=== PATIENT | female | born 1995 | race Caucasian/White ===

== ENCOUNTER → 2018-09-16 15:52 | Outpatient (CLI) | payer OTHER, SELFPAY ==
--- OUTSIDE RECORDS SUMMARY | 2018-09-16 19:53 | XMS RPT_ITS | CCD ---
:1995 External Reference #:[id number] Author Organization [facility] Care Team Providers Name Role Phone Unavailable Unavailable Unavailable Medications Medication Name Sig Date Prescriber Location Lactate ammonium lactate 03-27-[address] [facility] (LAC-HYDRIN) 12 % CENTER (26603) Lotion lotion Indications: Contact dermatitis, unspecified contact dermatitis type, unspecified trigger rub in to affected area well as needed. 567 g 1 03/27/2017 Active Problems Active Problems Category Problem Name Status Date Location Unclassified Rash / [id number]() Active 03-27-2017 - [facility] (81504) Past or Other Problems Category Problem Name Status Date Location Residual codes; BRCA2 gene mutation Completed 09-09-[address] - [facility] unclassified positive CENTER (16696) Unclassified Rash 03-27-2017 - [facility] (73167) Results Result Name Value Range Unit Interpretation Flag Date Location chlam and gonorrhea:amp, cervix -uhe on 2018-08-21 Chlam and Gonorrhea:Amp, Negative Normal 08-21-2018 [facility] Cervix -UHE Negative [facility] This test was performed using a real time PCR assay. 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 Rec. #: [id number] Center ([id number]) Submitting Physician: WAYNE NEIL Clinical History: Date of Last Menstrual Period: 07/28/18 Treatment History: HPV HR with genotype if ASCUS Z12.4 Source of Specimen(s): A: Cervical/Endocervical, Liquid Based, ThinPrep Pap Stain x 1 Statement of Adequacy: Satisfactory For Evaluation; Endocervical/Transformation Zone Component Present. ---Cytologic Interpretation--- - Negative For Intraepithelial Lesion Or Malignancy. - Shift in Eloisa Suggestive of Bacterial Vaginosis. - HPV Testing Was Not Performed Due To The Results Of This Pap Test. This Pap Test was imaged with the assistance of the [employer] ThinPrep Imaging System and screened by a Fitness Services Manager dws/DWS:08/28/2018 Electronically Signed Out By YASMANI Pacheco (ASCP) Comment: Performed By: #### THINP #### [facility] [address] [place] [address] [address] [place] [address] progress on 2017-11-20 Protein mass HNO ID: [id number]: Normal 11-20-2017 [facility] Zahira Johnsone: [place] ([id number]) (none)Author Type: PhysicianType: Progress NotesFiled: 11/27/2017 7:38 AMNote Text:Dermatology E-Consult Provider NoteReason for Dermatology E-Consult: rashHPI:History of present illness provided by patient via Express Caredocumentation and current treatment plan was reviewed.Additional pertinent history obtained from patient chart after theE-Consult submission: noMedications and allergies: Verified by patient and reviewed by [facility] provider.Physical Exam:Number of clinical photos submitted by [facility] provider: 2Clinical photo(s) quality: SatisfactoryDescription of skin findings: b/l medial shins with annular pink plaqueswith faint overlying white scaleLabs reviewed: N/AAssessment:Based on the images and history provided, my impression is as follows:Agree with clinician's assessment of tinea corporis.Agree with current treatment plan as well with terbinafine topicallyhowever would use for extended time over 6 weeks.If no improvement after 8 weeks then follow up in dermatology forevaluation (call [phone])Patient history and photos were reviewed and recommendations developedtogether with dermatology staff: Dr. Zahira Hooper MDI have seen the photos of Ms Sen. I have discussed the case and themanagement of this patient's care with the Resident.I also have reviewed and agree with the assessment and plan as statedabove and agree with all of its relevant components.Zahira Carrizales MD progress on 2017-11-17 Protein mass HNO ID: [id number]: Davonte [place] 11-17-2017 [place] conc (Security Developer) Sharron: (none)Author Clinic Type: Nurse PractitionerType: [place] Progress NotesFiled: 11/17/2017 ([id number]) 2:15 PMNote Text:SubjectiveHPI Anju Sen is a 22 year old female who presents today for CC ofrash on back. This started 3 months ago. Has tried topical benadryl.Symptoms are worsened by nothing known. Risk factors none known. Deniespossibility of being ..Patient presents with:Rash on legs and back: started in August, doesn't itch, not painfulNo past medical history on file.No past surgical history on file.ALLERGIES Patient has no known allergies.MEDICATIONS No prescriptions on file.No family history on file.Social HistorySubstance Use Topics- Smoking status: Current Every Day Smoker- Smokeless tobacco: Never Used- Alcohol use Not on fileReview of SystemsConstitutional: Negative for chills, fever and malaise/fatigue.Respiratory: Negative for cough, shortness of breath and wheezing.Cardiovascular: Negative for chest pain.Skin: Negative for itching and rash.Neurological: Positive for headaches. Negative for dizziness.ObjectiveBlood pressure 116/74, pulse 68, temperature 36.6 ?C (97.9 ?F),temperature source Tympanic, resp. rate 16, weight 71.2 kg (157 lb), lastmenstrual period 11/05/2017.Physical ExamConstitutional: She is oriented to person, place, and time andwell-developed, well-nourished, and in no distress. Non-toxic appearance.She does not have a sickly appearance. No distress.HENT:Head: Normocephalic and atraumatic.Cardiovascular: Normal rate, regular rhythm, S1 normal, S2 normal andnormal heart sounds.Pulmonary/Chest: Effort normal and breath sounds normal.Neurological: She is alert and oriented to person, place, and time. Gaitnormal.Skin: She is not diaphoretic. ASSESSMENT/PLAN:1. Rash - ICD9: 782.1, ICD10: R21-use medication as prescribed-will try round of terbinafine, patient concerned for ringworm, notclassic.-follow up if symptoms persist, worsen, change-will call results of dermatology consult, they may contact you.-discussed establishing with primary care, patient declined for today- TERBINAFINE HCL 1 % TOPICAL CREAMPrescription instructions reviewed with patient as applicable. Patientadvised if symptoms do not improve or if symptoms worsen sooner, tocontact the office for further evaluation by their primary care physician. Potential red flag symptoms discussed with the patient. Reviewedappropriate action plan to take if red flag symptoms occur. Patientagreeable to treatment plan.MARIO Alex on 2017-11-17 CNOV Office Visit Normal 11-17-2017 [place] ([facility]) ANJU SEN ([id number]) 1995 FDate Time Provider Department11/17/17 12:15 PM DAVONTE DANG (EVELIO) [facility] During your visit today, we recorded the following information about you: Temperature Pulse (34085) Respiration Blood pressure 97.9 degrees 68/minute 16/minute 116/74 Weight Last Period 71.2 kg 11/05/17Davonte Dang APRN.CNP 11/17/2017 2:15 PM SignedSubjectiveHPI Anju Sen is a 22 year old female who presents today for CC of christiano back. This started 3 months ago. Has tried topical benadryl. Symptoms areworsened by nothing known. Risk factors none known. Denies possibility ofbeing ..Patient presents with:Rash on legs and back: started in August, doesn't itch, not painfulNo past medical history on file.No past surgical history on file.ALLERGIES Patient has no known allergies.MEDICATIONS No prescriptions on file.No family history on file.Social HistorySubstance Use Topics- Smoking status: Current Every Day Smoker- Smokeless tobacco: Never Used- Alcohol use Not on fileReview of SystemsConstitutional: Negative for chills, fever and malaise/fatigue.Respiratory: Negative for cough, shortness of breath and wheezing.Cardiovascular: Negative for chest pain.Skin: Negative for itching and rash.Neurological: Positive for headaches. Negative for dizziness.ObjectiveBlood pressure 116/74, pulse 68, temperature 36.6 ?C (97.9 ?F), temperaturesource Tympanic, resp. rate 16, weight 71.2 kg (157 lb), last menstrual [id number]/05/2017.Physical ExamConstitutional: She is oriented to person, place, and time and well-developed,well-nourished, and in no distress. Non-toxic appearance. She does not have asickly appearance. No distress.HENT:Head: Normocephalic and atraumatic.Cardiovascular: Normal rate, regular rhythm, S1 normal, S2 normal and normalheart sounds.Pulmonary/Chest: Effort normal and breath sounds normal.Neurological: She is alert and oriented to person, place, and time. Gaitnormal.Skin: She is not diaphoretic. ASSESSMENT/PLAN:1. Rash - ICD9: 782.1, ICD10: R21-use medication as prescribed-will try round of terbinafine, patient concerned for ringworm, not classic.-follow up if symptoms persist, worsen, change- will call results of dermatology consult, they may contact you.-discussed establishing with primary care, patient declined for today- TERBINAFINE HCL 1 % TOPICAL CREAMPrescription instructions reviewed with patient as applicable. Patient advisedif symptoms do not improve or if symptoms worsen sooner, to contact the officefor further evaluation by their primary care physician. Potential red flagsymptoms discussed with the patient. Reviewed appropriate action plan to takeif red flag symptoms occur. Patient agreeable to treatment plan.Davonte Dang APRN.Scotty Dang APRN.CNP 11/17/2017 12:44 PM SignedASSESSMENT/PLAN:1. Rash - ICD9: 782.1, ICD10: R21-use medication as prescribed- follow up if symptoms persist, worsen, change-will call results of dermatology consult, they may contact you.- TERBINAFINE HCL 1 % TOPICAL CREAMReferring Provider: SELF [[id number]]Allergies As of Date: 11/17/2017(No Known Allergies)Date Reviewed: 11/17/2017Reviewed by: Davonte (Evelio) - Fully AssessedReason for Visit: Rash on legs and back [Other] Cmt: started in August, doesn't itch, not painfulPrimary Visit Diagnosis:Rash [R21]Order(s):terbinafine HCl (ANTIFUNGAL, TERBINAFINE,) 1 % creamApply 1 application to affected area twice daily for 14 days.Disp: 24 gRfl: 1 E-CONSULT DERMATOLOGY [1685851] Order #: [id number]: 1Prescriptions as of 11/17/2017 Sig: TERBINAFINE HCL 1 % TOPICAL C* Apply 1 application to affect*Problem List As Of Date: 11/17/2017(None) Other instructions from your clinician: ASSESSMENT/PLAN: 1. Rash - ICD9: 782.1, ICD10: R21 -use medication as prescribed -follow up if symptoms persist, worsen, change -will call results of dermatology consult, they may contact you. - TERBINAFINE HCL 1 % TOPICAL CREAMPrescriptions ordered this encounter Disp Refills Start End TERBINAFINE HCL 1 % TOPICAL CREAM 24 g 1 11/17/2017 12/01/2017 Route: TOPICAL Sig: Apply 1 application to affected area twice daily for 14 days. Status:Closed by DAVONTE DANG CNP on 11/17/17 progress on 2017-03-27 [facility] NOTES Normal 03-27-2017 [facility] ([id number]) progress on 2016-11-28 [facility] NOTES Normal 11-28-2016 [facility] (58328) Encounters Date Type Reason Provider Location 03-27-2017 Ambulatory Rash CHESTER RANGEL SELF [facility] SELF ([id number]) 11-28-2016 Ambulatory CHESTER RANGEL SELF [facility] SELF ([id number]) 11-17-2017 - Patient encounter [facility] 11-19-2017 [place] ([id number]) 08-19-2018 Patient encounter WAYNE NEIL SELF [facility] procedure SELF [facility] ([id number]) 07-21-2018 - Telephone encounter Chely Choudharylass [facility] at 07-21-2018 [facility] Comment: Insurance Plan of Treatment Plan Description Date Location INFLUENZA VACCINE INFLUENZA VACCINE 12-07-[address] 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 [address] [phone] Health Maintenance Due Date Last Done Comments GONORRHEA SCREEN 1995 HIV SCREENING DISCUSSION 2009 HPV VACCINE ADOL (1 - Female 3-dose series) 06/11/2011 CHLAMYDIA SCREEN 2012 TETANUS 2014 TDAP (ADULT) 06/11/2015 PAP SMEAR DISCUSSION 2017 INFLUENZA VACCINE (Season Ended) 2018 Payers Payer Name Policy Number Location [employer]ICAL [employer] xxxxxxxxxxxx [facility] ([id number]) MMO NETWORK ACCESS [id number] [facility] ([id number]) [id number] [facility] ([id number]) The following information is from the original human readable content Payer Benefit Plan / Subscriber ID Effective Dates Phone Address Type Group [employer] MMO NETWORK ACCESS xxxxxxxxxxxx 2010-Present [employer] MMO NETWORK ACCESS xxxxxxxxxxxx 2016-Present ENCOUNTER GUARANTOR PAYER SUBSCRIBER SOURCE 2018 ANJU KEONDOB: Primary DOM[facility] Insurance:MMO BABBSDOB: [facility] [facility] [id number] [place], [place] Number: [address] APT Repository [id number]: [phone] [id number] [place], [place] [address] (HP) e [phone]: [phone] Date:[id number] [id number] (HP) Name:MANAGED CARE Social History Type Social History Description Date Location Tobacco smoking status Current every day smoker 08-27-[address] [facility] ([id number]) Cigarettes smoked current 08-27-[address] [facility] (pack per day) - Reported CENTER (28805) Sex Assigned At Not on file [facility] ([id number]) The following information is from the original human readable content Tobacco Use Types Packs/Day Years Used Date Current Every Day Smoker 1 Smokeless Tobacco: Never Used Alcohol Use Drinks/Week oz/Week Comments No Sex Assigned at Date Recorded Not on file Job Start Date Occupation Industry Not on file Not on file Not on file Travel History Travel Start Travel End No recent travel history available. No Social History Records Found Summary Purpose DATE CREATED AUTHOR AUTHOR'S ORGANIZATION 10/01/2017 [facility] DATE CREATED AUTHOR AUTHOR'S ORGANIZATION 11/28/2017 [facility] Reason Comments Insurance DATE CREATED AUTHOR AUTHOR'S ORGANIZATION 09/07/2018 [facility] Family History No Family History Records Found Advance Directives No Advanced Directives Records Found Additional Source Comments FOR RECORDS PERTAINING TO PATIENTS WHO ARE OR HAVE BEEN ENROLLED IN A CHEMICAL DEPENDENCY/SUBSTANCE ABUSE PROGRAM, SOME INFORMATION MAY BE OMITTED. This clinical summary was aggregated from multiple sources. Caution should be exercised in using it in the provision of clinical care. This summary normalizes information from multiple sources, and as a consequence, information in this document may materially changethe coding, format and clinical context of patient data. In addition, data may be omittedin some cases. CLINICAL DECISIONS SHOULD BE BASED ON THE PRIMARY CLINICAL RECORDS. [facility] provides no warranty or guarantee of the accuracy or completeness of information in this document. UNRECOGNIZED CONTENT PROVIDED BELOW FOR UNRECOGNIZED SECTION INFORMATION SOURCE DATE CREATED AUTHOR AUTHOR'S ORGANIZATION 09/07/2018 [facility] DATE CREATED AUTHOR AUTHOR'S ORGANIZATION 11/28/2017 [facility] DATE CREATED AUTHOR AUTHOR'S ORGANIZATION 10/01/2017 [facility] UNRECOGNIZED CONTENT PROVIDED BELOW FOR UNRECOGNIZED SECTION Reason for Visit Reason Comments Insurance
[2018-09-16 20:52] LABS: Chlamydia Trachomatis by PCR Negative (Negative); Neisserai gonorrhoeae by PCR Negative (Negative); Probe Check PASS; Sample Adequacy Control PASS; Specimen Processing Control PASS
== END ==
PROVIDERS: Visit Provider Obstetrics & Gynecology
DX: Z11.3 Encounter for screening for infections with a predominantly sexual mode of transmission (principal)
CPT/HCPCS: 87491; 87591

== ENCOUNTER → 2018-10-07 14:40 | Outpatient (CLI) | payer OTHER, SELFPAY ==
--- OUTSIDE RECORDS SUMMARY | 2018-10-07 16:52 | XMS RPT_ITS | CCD ---
:1995 External Reference #:[id number] Author Organization [facility] Care Team Providers Name Role Phone CLAIRE, CHESTER Unavailable Unavailable SELF, SELF Unavailable Unavailable CLAIRE, CHESTER Unavailable Unavailable SELF, SELF Unavailable Unavailable Chester Rangel R Primary Care Provider RASHAAD Attending Unavailable SELF Referring Unavailable CLAIRE Primary Care Unavailable Medications Medication Name Sig Date Prescriber Location Lactate ammonium lactate 03-27-2017 Chester Rangel [facility] (LAC-HYDRIN) 12 % CENTER (43 210) Lotion lotion Indications: Contact dermatitis, unspecified contact dermatitis type, unspecified trigger rub in to affected area well as needed. 567 g 1 03/27/2017 Active Problems Active Problems Category Problem Name Status Date Location Unclassified Rash / 859749() Active 03-27-2017 - [facility] (87440) Past or Other Problems Category Problem Name Status Date Location Residual codes; BRCA2 gene mutation Completed 09-09-2017 - [facility] unclassified positive [facility] ([id number]) Unclassified Rash 03-27-2017 - [facility] (63727 ) Results Result Name Value Range Unit Interpretation Flag Date Location chlam and gonorrhea:amp, cervix -uhe on 2018-08-21 Chlam and Gonorrhea:Amp, Negative Normal 08-21 [facility] Cervix -UHE Negative [facility] This test was performed using a real time PCR assay. [facility] (74149) Comment: Performed By: #### RNABC ### # [place] [address] cytology - data specialist on Cytology - MANUSCRIPTS ARCHIVIST Cytology Report Normal 9 [facility] Patient Name: ANJU SEN [facility] Med. Rec. #: [id number] Center (17096) Submitting Physician: WAYNE VILLASEÑOR Clinical History: Date of Last Menstrual Period: 07/28/18 Treatment History: HPV HR with genotype if ASCUS Z12.4 Source of Specimen(s): A: Cervical/Endocervical, Liquid Based, ThinPrep Pap Stain x 1 Statement of Adequacy: Satisfactory For Evaluation; Endocervical/Transformation Zon e Component Present. ---Cytologic Interpretation--- - Negative For Intraepithelial Lesion Or Malignancy. - Shift in Eloisa Suggestive of Bacterial Vaginosis. - HPV Testing Was Not Performed Due To The Results Of This P ap Test. This Pap Test was imaged with the assistance of the [employer] ThinPrep Imaging System and screened by a Taxi Truck Driver dws/MAUROS:08/28/2018 Electronically Signed Out By YASMANI Pacheco (ASCP) * Comment: Performed By: #### THINP ### # [facility] [address] [place] [address] [place] [address] progress on 2017-11 Protein mass HNO ID: [id number]: Normal 0 11-20-2017 [facility] Zahira Johnsone: [place] ([id number]) (none)Author Type: PhysicianType: Progress NotesFiled: 11/27/2017 7:38 [...] then follow up in dermatology forevaluation (call [phone])Patient history and photos were reviewed and recommendations developedtogether with dermatology staff: Dr. Zahira Hooper MDI have seen the photos of Ms Sen. I have discussed the case and themanagement of this patient's care with the Resident.I also have reviewed and agree with the assessment and plan as statedabove and agree with all of its relevant components.Zahira Carrizales MD progress on 2017-11 Protein mass HNO ID: [id number]: Davonte Dawson rmal 11-17-2017 [place] conc (Senior Engineering Tech) KingService: (none)Author Clinic Type: Nurse PractitionerType: [place] Progress NotesFiled: 11/17/2017 (93393) 2:15 PMNote Text:SubjectiveHPI Anju Sen is a [...] on 2017-11-17 CNOV Office Visit Normal 11-17-2017 [place] and (UCWSTR) --------ANJU SEN ([id number]) 1995 FDat e Time Provider Department11/17/17 12:15 PM DAVONTE DANG (EVELIO) [facility] Clevel and During your visit today, we recorded the following information about you: Temperature Pulse (47419) Respiration Blood pressure 9 7.9 degrees 68/minute 16/minute 116/74 Weight Last Period 71.2 kg 11/05/17Davonte Dang APRN. CNP 11/17/2017 2:15 PM SignedSubjectiveHPI Anju Sen is a 22 year old female who presents today fo r CC of christiano back. This started 3 months ago. Has tried topical benadryl. Symptoms areworsen ed by nothing known. Risk factors none known. Denies possibility ofbeing ..Patient presents w ith:Rash on legs and back: started in August, doesn't itch, not painfulNo past medical history on file .No past surgical history on file.ALLERGIES Patient has no known allergies.MEDICATIONS No pre scriptions on file.No family history on file.Social HistorySubstance Use Topics- Smoking status: Curr ent Every Day Smoker- Smokeless tobacco: Never Used- Alcohol use Not on fileReview of SystemsConstit utional: Negative for chills, fever and malaise/fatigue.Respiratory: Negative for cough, shortnes s of breath and wheezing.Cardiovascular: Negative for chest pain.Skin: Negative for itching and gunner h.Neurological: Positive for headaches. Negative for dizziness.ObjectiveBlood pre ssure 116/74, pulse 68, temperature 36.6 ?C (97.9 ?F), temperaturesource Tympanic, resp. rate 16, sarai ght 71.2 kg (157 lb), last menstrual kgjffk6911/05/2017.Physical ExamConstitutional: She is o riented to person, place, and time and well-developed,well-nourished, and in no distress. Non-toxic ap pearance. She does not have asickly appearance. No distress.HENT:Head: Normocephalic and atraumatic .Cardiovascular: Normal rate, regular rhythm, S1 normal, S2 normal and normalheart sounds.Pulmonary /Chest: Effort normal and breath sounds normal.Neurological: She is alert and oriented to person, plac e, and time. Gaitnormal.Skin: She is not diaphoretic. ASSESSMENT/PLAN:1. Rash - ICD9: 782.1, ICD10: R 21-use medication as prescribed-will try round of terbinafine, patient concerned for ringworm, not classic.-follow up if symptoms persist, worsen, change-will call results of dermatology consult, they may contact you.-discussed establishing with primary care, patient declined for today- TERBINAF INE HCL 1 % TOPICAL CREAMPrescription instructions reviewed with patient as applicable. Patient advis edif symptoms do not improve or if symptoms worsen sooner, to contact the officefor further evaluation by their primary care physician. Potential red flagsymptoms discussed with the patient. Reviewed a ppropriate action plan to takeif red flag symptoms occur. Patient agreeable to treatment plan. Mara Alex APRN.CNP 11/17/2017 12:44 PM SignedASSESSMENT/PLAN:1. Gunner h - ICD9: 782.1, ICD10: R21-use medication as prescribed-follow up if symptoms persist, worsen, ch deedee-will call results of dermatology consult, they may contact you.- TERBINAFINE HCL 1 % TOPICAL CREAMReferring Provider: SELF [[id number]]Allergies As of Date: 11/17/2017(No Known Allergies)Date Reviewe d: 11/17/2017Reviewed by: Davonte (Evelio) - Fully AssessedReason for Visit: Rash on legs and back [Other] Cmt: started in August, doesn't itch, not painfulPrimary Visit Diagnosis:Rash [R21]Order(s) :terbinafine HCl (ANTIFUNGAL, TERBINAFINE,) 1 % creamApply 1 application to affected area twice daily for 14 days.Disp: 24 gRfl: 1 E-CONSULT DERMATOLOGY [[id number]] Order #: [id number]: 1Prescription s as of 11/17/2017 Sig: TERBINAFINE HCL 1 % TOPICAL C* Apply 1 application to affect*Problem List As Of Date: 11/17/2017(None) Other instructions from your clinician: ASSESSMENT/PLAN: 1. Rash - I CD9: 782.1, ICD10: R21 -use medication as prescribed -follow up if symptoms persist, worsen, golden mark -will call results of dermatology consult, they may contact you. - TERBINAFINE HCL 1 % TOPICAL CREAMPrescriptions ordered this encounter Disp Refills Start End TERBINAFINE HCL 1 % TOPICAL CREAM 24 g 1 11/17/2017 12/01/2017 Route: TOPICAL Sig: Apply 1 application to affected area twice daily for 14 days. Status:Closed by DAVONTE DANG CNP on 11/17/17 progress on 2017-03 [facility] Normal 03-27-2017 [facility] ([id number]) progress on 2016-11 [facility] Normal 11-28-2016 [facility] (13486) Encounters Date Type Reason Provider Location 03-27-2017 Ambulatory Rash CHESTER RANGEL SELF [facility] SELF ([id number]) 11-28-2016 Ambulatory CHESTER RANGEL SELF [facility] SELF ([id number]) 11-17-2017 - Patient encounter [facility] 11-19-2017 [place] (0000 0) 08-19-2018 Patient encounter WAYNE VILLASEÑOR SELF [facility] ([id number][facility] 07-21-2018 - Telephone encounter Chely Degroot [facility] 07-21[facility]2018 [facility] Comment: Insurance Plan of Treatment Plan Description Date Location INFLUENZA VACCINE INFLUENZA VACCINE 12-07-2018 [facility] ([facility] (Season Ended) [facility] ([id number]) Office Visit 07/22/2018 Office Visit 07-22-2018 [facility] Rashaad Wayne D, [facility] LAUNDRETTE OWNER-FIRE FIGHTERS DISPATCHER [address] [address] PAP SMEAR DISCUSSION PAP SMEAR DISCUSSION 2017 [facility] ([id number]) TDAP (ADULT) TDAP (ADULT) 06-11-2015 [facility] ([id number]) TETANUS TETANUS 2014 [facility] ([id number]) CHLAMYDIA SCREEN CHLAMYDIA SCREEN 2012 [facility] (45531) HPV VACCINE ADOL (1 - HPV VACCINE ADOL ( - 06-11-2011 [facility] Female 3-dose series) Female 3-dose series) CENT [facility] (52514) HIV SCREENING [facility] SCREENING DISCUSSION [facility] ([id number]) GONORRHEA SCREEN GONORRHEA SCREEN 1996 [facility] ([id number]) Payers Payer Name Policy Number Location MEDICAL MUTUAL xxxxxxxxxxxx [place] SEN [employer] [facility] ([id number][facility] MMO NETWORK ACCESS [id number] [facility] ([id number]) [id number] [facility] (22905) The following information is from the original human readable contentNo Payer Records FoundNo Payer Records FoundNo Payer Records Found Social History Type Social History Description Date Locat ion Tobacco smoking status Current every day smoker 08-27-2017 [facility] (74807) Cigarettes smoked current 08-27-2017 [facility] (pack per day) - Reported CENTER (13681) Sex Assigned At Not on file [facility] (57012) The following information is from the original human readable contentNo Social History Records FoundNo Social History Records FoundNo Social History Records FoundNo Social History Records FoundNo Social History Records Found Summary Purpose Family History No Family History Records FoundNo Family History Records FoundNo Family History Records Found Advance Directives No Advanced Directives Records FoundNo Advanced Directives Records FoundNo Advanced Directives Records Found Additional Source Comments [...] BE BASED ON THE PRIMARY CLINICAL RECORDS. [facility] provides no warranty or guarantee of the accuracy or completeness of information in this document. UNRECOGNIZED CONTENT PROVIDED BELOW FOR UNRECOGNIZED SECTION INFORMATION SOURCE DATE CREATED AUTHOR AUTHOR'S ORGANIZATIO N 10/01/2017 [facility] DATE CREATED AUTHOR AUTHOR'S ORGANIZATIO N 11/28/2017 [facility] DATE CREATED AUTHOR AUTHOR'S ORGANIZATIO N 09/07/2018 [facility] UNRECOGNIZED CONTENT PROVIDED BELOW FOR UNRECOGNIZED SECTION Reason for Visit Reason Comments Insurance
[2018-10-07 17:48] LABS: Absolute Lymphocyte Count 2.09 X10^3/ul (0.83-4.51); Absolute Neutrophil Count 6.8 X10^3/uL (2.0-7.7); Basophil# 0.02 X10^3/uL; Basophil% 0.2 % (0-1); Eosinophil# 0.04 X10^3/uL; Eosinophils% 0.4 % (0-5); Hematocrit 40.4 % (37-47); Hemoglobin 13.4 g/dl (12.0-15.0); Lymphocyte # 2.09 X10^3/ul (4.0); Lymphocyte % 21.4 % (19-41); Mean Corp Hgb Conc 33.2 g/gl (32-36); Mean Corpuscular Volume 81.5 fL (81-99); Monocyte% 8.2 % (0-10); Neutrophil # 6.79 X10^3/uL (2.7-7.7); Neutrophil % 69.5 % (47-70); Platelet Count 330 K/mm3 (150-450); RBC Distribution Width CV 13.1 % (11.6-14.6); RBC Distribution Width SD 38.6 fl (35.1-43.9); Red Blood Count 4.96 M/mm3 (4.2-5.4); White Blood Count 9.8 K/mm3 (4.4-11.0)
[2018-10-07 17:50] LABS: POSITIVE COUNT NO; POSITIVE DIFFERENTIAL NO; POSITIVE MORPHOLOGY NO
[2018-10-07 18:01] LABS: Color, Urine Yellow (Yellow); Glucose, Dipstick Normal (Normal); Ketone-Dipstick 5 mg/dl (Negative); Leukocyte Esterase-Dipstick 100 /ul (Negative); Nitrite-Dipstick Negative (Negative); Occult Blood-Urine 10 /ul (Negative); Protein-Dipstick 15 mg/dl (Negative); Urine Bilirubin Dipstick Negative (Negative); Urine Clarity Cloudy (Clear); Urine Urobilinogen Normal (Normal); Urine pH 6.5 (5.0 - 8.0)
[2018-10-07 18:04] LABS: Thyroid Stim Hormone (TSH) 0.75 uIU/mL (0.358-3.74)
[2018-10-07 18:24] LABS: Amphetamine Urine VISTA NEGATIVE (<1000 ng/mL); Barbiturate Urine VISTA NEGATIVE (< 200 ng/mL); Benzodiazepine Urine VISTA NEGATIVE (< 200 ng/mL); Cocaine Urine VISTA NEGATIVE (< 300 ng/mL); Ecstacy Urine VISTA NEGATIVE (< 500 ng/mL); Methadone Urine VISTA NEGATIVE (< 300 ng/mL); PCP Urine VISTA NEGATIVE (< 25 ng/mL); THC Urine VISTA NEGATIVE (< 50 ng/mL); Vista UDS pH Range 6
[2018-10-07 18:59] LABS: COTININE Drug Screen Negative (<200 ng/mL)
[2018-10-08 10:19] LABS: HIV - WCH Non-Reactive (Nonreactive); Hepatitis B Surface Antigen Non-Reactive (Nonreactive); Hepatitis C Antibody Non-Reactive (Nonreactive)
[2018-10-10 05:48] LABS: Prenatal RPR NONREACTIVE (NONREACTIVE)
== END ==
PROVIDERS: Visit Provider Obstetrics & Gynecology
DX: Z34.81 Encounter for supervision of other normal pregnancy, first trimester (principal)
CPT/HCPCS: 36415; 80307; 81002; 84443; 85025; 86703; 86762; 86803; 87340

== ENCOUNTER → 2019-02-10 09:25 | Outpatient (CLI) | payer OTHER, SELFPAY ==
[2019-02-10 10:39] LABS: Hematocrit 37.1 % (37-47); Hemoglobin 11.9 g/dL (12.0-15.0); Mean Corp Hgb Conc 32.1 g/dL (32-36); Mean Corpuscular Hgb 28.1 pg (27.0-32.0); Mean Corpuscular Volume 87.7 fL (81-99); Mean Platelet Vol. 10.4 fl (6.2-12.0); Platelet Count 315 K/mm3 (150-450); RBC Distribution Width CV 12.9 % (11.6-14.6); RBC Distribution Width SD 41.3 fl (35.1-43.9); Red Blood Count 4.23 M/mm3 (4.2-5.4); White Blood Count 10.3 K/mm3 (4.4-11.0)
[2019-02-10 10:45] LABS: Glucose Challenge Gest 1H 50g 144 mg/dL (70-140)
== END ==
PROVIDERS: Visit Provider Advanced Practice Midwife
DX: Z34.83 Encounter for supervision of other normal pregnancy, third trimester (principal)
CPT/HCPCS: 36415; 82950; 85027

== ENCOUNTER → 2019-02-12 06:54 | Outpatient (CLI) | payer OTHER, SELFPAY ==
[2019-02-12 08:47] LABS: Glucose GTT-Gestation. Fasting 77 mg/dL (<105)
[2019-02-12 08:51] LABS: Glucose GTT-Gestational 1 Hr 150 mg/dL (<190)
[2019-02-12 09:54] LABS: Glucose GTT-Gestational 2 Hr 107 mg/dL (<165)
[2019-02-12 10:56] LABS: Glucose GTT-Gestational 3 Hr 87 L (<145)
--- OUTSIDE RECORDS SUMMARY | 2019-02-24 18:52 | XMS RPT_ITS | CCD ---
:1995 External Reference #:[id number] Author Organization [facility] Care Team Providers Name Role Phone CLAIRE, CHESTER Unavailable Unavailable SELF, SELF Unavailable Unavailable CLAIRE, CHESTER Unavailable Unavailable SELF, SELF Unavailable Unavailable Chester Rangel Cierra Primary Care Provider RASHAAD Attending Unavailable SELF Referring Unavailable CLAIRE Primary Care Unavailable Medications Medication Name Sig Date Prescriber Location Lactate ammonium lactate 03-27-2017 Chester Rangel [facility] (LAC-HYDRIN) 12 % CENTER (43 210) Lotion lotion Indications: Contact dermatitis, unspecified contact dermatitis type, unspecified trigger rub in to affected area well as needed. 567 g 1 03/27/2017 Active Problems Active Problems Category Problem Name Status Date Location Unclassified Rash / 718683() Active 03-27-2017 - [facility] (76859) Past or Other Problems Category Problem Name Status Date Location Residual codes; BRCA2 gene mutation Completed 09-09-2017 - [facility] unclassified positive [facility] (60165) Unclassified Rash 03-27-2017 - [facility] (35478 ) Results Result Name Value Range Unit Interpretation Flag Date Location chlam and gonorrhea:amp, cervix -uhe on 2018-08-21 Chlam and Gonorrhea:Amp, Negative Normal 08-21 [facility] Cervix -UHE Negative [facility] This test was performed using a real time PCR assay. [facility] (10184) Comment: Performed By: #### RNABC ### # [place] [address] cytology - sales agent food vending service on Cytology - TUG BOAT CAPTAIN Cytology Report Normal 9 [facility] Patient Name: ANJU SEN [facility] Med. Rec. #: [id number] Center ([id number]) Submitting Physician: WAYNE VILLASEÑOR Clinical History: Date [...] was imaged with the assistance of the [employer] ThinPrep Imaging System and screened by a Research Test Engine Operator dws/MAUROS:08/28/2018 Electronically Signed Out By YASMANI Pacheco (ASCP) * Comment: Performed By: #### THINP ### # [facility] [address] [place] [address] [place] [address] progress on 2017-11 Protein mass HNO ID: [id number]: Normal 0 11-20-2017 [facility] Zahira Johnsone: [place] (49155) (none)Author Type: PhysicianType: Progress NotesFiled: 11/27/2017 7:38 [...] then follow up in dermatology forevaluation (call [phone])Patient history and photos were reviewed and recommendations [...] progress on 2017-11 Protein mass HNO ID: [id number]: Davonte Dawson rmal 11-17-2017 [place] conc (Therapeutic Recreation Leader) KingService: (none)Author Clinic Type: Nurse PractitionerType: [place] Progress NotesFiled: 11/17/2017 (73921) 2:15 PMNote Text:SubjectiveHPI Anju Sen is a [...] Normal 11-17-2017 [place] and (UCWSTR) --------ANJU SEN ([id number]) 1995 FDat e Time Provider Department11/17/17 12:15 PM DAVONTE DANG (EVELIO) [facility] Clevel and During your visit today, we recorded the following information about you: Temperature Pulse (18507) Respiration Blood pressure 9 7.9 degrees 68/minute [...] ght 71.2 kg (157 lb), last menstrual slvzai2211/05/2017.Physical ExamConstitutional: She is o riented to person, [...] 14 days.Disp: 24 gRfl: 1 E-CONSULT DERMATOLOGY [[id number]] Order #: [id number]: 1Prescription s as of 11/17/2017 Sig: TERBINAFINE [...] progress on 2017-03 [facility] Normal 03-27-2017 [facility] (90639) progress on 2016-11 [facility] Normal 11-28-2016 [facility] (30069) Encounters Date Type Reason Provider Location 03-27-2017 Ambulatory Rash CHESTER RANGEL SELF [facility] SELF (84743) 11-28-2016 Ambulatory CHESTER RANGEL SELF [facility] SELF (36543) 11-17-2017 - Patient encounter [facility] 11-19-2017 [place] (0000 0) 08-19-2018 Patient encounter WAYNE VILLASEÑOR SELF [facility]F [facility] (31429[facility] 07-21-2018 - Telephone encounter Chely Degroot [facility] 07-21-2018 [facility] Comment: Insurance Plan of Treatment Plan Description Date Location INFLUENZA VACCINE INFLUENZA VACCINE 12-07-2018 [facility] ([facility] End[facility] (22209) Office Visit 07/22/2018 Office Visit 07-22-2018 [facility] FINISH OPENER Rashaad Wayne D, 07-22-2018 [facility] SHEEP HERDER-PANEL GLUER [address] [address] PAP SMEAR DISCUSSION PAP SMEAR DISCUSSION 2017 [facility] (93731) TDAP (ADULT) TDAP (ADULT) 06-11-2015 [facility] ([id number]) TETANUS TETANUS 2014 [facility] ([id number]) CHLAMYDIA SCREEN CHLAMYDIA SCREEN 2012 [facility] (15608) HPV VACCINE ADOL (1 - HPV VACCINE ADOL ( - 06-11-2011 [facility] Female 3-dose series) Female 3-dose series) CENT [facility] (33787) HIV SCREENING HIV S[facility]ENING DISCUSSION [facility] (87274) GONORRHEA SCREEN GONORRHEA SCREEN 1996 [facility] ([id number]) Payers Payer Name Policy Number Location MEDICAL MUTUAL xxxxxxxxxxxx [employer] SEN MEDICAL M[employer]UAL [facility] ([id number]) MMO NETWORK ACCESS [id number] [facility] (77324) [id number] [facility] (96958) The following information is from the original human readable contentNo Payer Records FoundNo Payer Records FoundNo Payer Records Found Social History Type Social History Description Date Locat ion Tobacco smoking status Current every day [facility]27[facility] (90509) Cigarettes smoked current 08-27-2017 [facility] (pack per day) - Reported CENTER (88529) Sex Assigned At Not on file [facility] (14776) The following information is from the original [...] BE BASED ON THE PRIMARY CLINICAL RECORDS. [facility] provides no warranty or guarantee of the accuracy or completeness of information in this document. UNRECOGNIZED CONTENT PROVIDED BELOW FOR UNRECOGNIZED SECTION INFORMATION SOURCE DATE CREATED AUTHOR AUTHOR'S ORGANIZATIO N 10/01/2017 [facility] DATE CREATED AUTHOR AUTHOR'S ORGANIZATIO N 11/28/2017 [facility] DATE CREATED AUTHOR AUTHOR'S ORGANIZATIO N 09/07/2018 [facility] UNRECOGNIZED CONTENT PROVIDED BELOW FOR UNRECOGNIZED SECTION Reason for Visit Reason Comments Insurance
== END ==
PROVIDERS: Referring Provider Obstetrics & Gynecology; Visit Provider Obstetrics & Gynecology
DX: O24.912 Unspecified diabetes mellitus in pregnancy, second trimester (principal); Z3A.00 Weeks of gestation of pregnancy not specified
CPT/HCPCS: 36415; 82951; 82952

== ENCOUNTER → 2019-04-10 10:03 | Outpatient (CLI) | payer OTHER, SELFPAY | PROVIDERS: Visit Provider Obstetrics & Gynecology | DX: Z36.85 Encounter for antenatal screening for Streptococcus B (principal) | CPT/HCPCS: 87081 ==

== ENCOUNTER 2019-05-13 13:27 | Inpatient (IN) | payer OTHER, MEDICAID, SELFPAY ==
[2019-05-13 13:50] VITALS: BMI 35.5
[2019-05-13] MEDS: Lactated Ringers 1,000 ML 50 ML IV (14:10)
[2019-05-13 14:31] LABS: Absolute Lymphocyte Count 1.42 X10^3/uL (0.83-4.51); Absolute Neutrophil Count 6.3 X10^3/uL (2.0-7.7); Basophil# 0.02 X10^3/uL; Basophil% 0.2 % (0-1); Eosinophil# 0.01 X10^3/uL; Eosinophils% 0.1 % (0-5); Hematocrit 39.2 % (37-47); Hemoglobin 12.5 g/dL (12.0-15.0); Lymphocyte # 1.42 X10^3/ul (4.0); Lymphocyte % 17.2 % (19-41); Mean Corp Hgb Conc 31.9 g/dL (32-36); Mean Corpuscular Hgb 26.9 pg (27.0-32.0); Mean Corpuscular Volume 84.5 fL (81-99); Mean Platelet Vol. 11.5 fl (6.2-12.0); Monocyte# 0.49 X10^3/uL; Monocyte% 5.9 % (0-10); NRBC Flagged by Analyzer 0 % (0-5); Neutrophil % 76.2 % (47-70); Platelet Count 246 K/mm3 (150-450); RBC Distribution Width CV 13.7 % (11.6-14.6); RBC Distribution Width SD 42.1 fl (35.1-43.9); Red Blood Count 4.64 M/mm3 (4.2-5.4); White Blood Count 8.3 K/mm3 (4.4-11.0)
--- NOTE | 2019-05-13 15:51 | HP.PCM_ITS ---
History and Physical Date of Admission: 05/13/19 [facility] [place] - H[place]ORY AND PHYSICAL (05/13/2019) Name: ANJU HERBERT OB Physician: GLORY Bedford's Physician: UNDECIDED ...................................................................... : 1995 Age: 23 Address: [address] [place] [id number] Phone: H) [phone] (O) [phone] Insurance Carrier: [facility] [id number] Emergency Contact: PT LISTED SELF FOR EM CONTACT ...................................................................... Final SAULO: 05/04/19 By Ultrasound: 10 weeks 1 day Anju is a 23 yo at 41 weeks 2 days gestation by L=10w1d US who presented to the office today after 24 hours of uncomfortable latent labor; after discussing r/b/a elective IOL vs. expectant management of latent labor at home, patient and SO op for IOL via AROM with potential of Pitocin augmentation; has been uneventful with exception of an elevated 1 hour glucose tolerance test followed by all normal values on the 3 hour test. Patient is group B negative and O pos blood type PARITY: (G-Total Pregnancies P-Fullterm,Premature,Induced AB,Spont AB, Ectopics, Multiple,Living) SAULO CONFIRMATION: By LMP: 07/28/18 Initial Exam: 05/04/19 By First Ultrasound Exam: 05/02/19 Final SAULO: 05/04/19 OB PROBLEM LIST: 11 family members are now positive for BRCA2. Enc office Childbirth and Classes. Abn glucola 144 3 hr GTT -- ALL WNL BRCA2 mutation carrier Plans early family, then risk reduction surgery Declines MSAFP testing. Pap done in [place] -- get records Z: Pt and spouse OK w/MD or CNM for PNV or Delivery ALLERGIES: No Known Allergies MEDICATIONS: Anusol-HC 2.5 % topical cream with perineal applicator Apply to affected area twice daily x 2 weeks polymyxin B sulfate 10,000 unit-trimethoprim 1 mg/mL eye drops One drop in each eye four times a day for seven days + DHA 28 mg iron- 975 mcg-200 mg combo pack daily SOCIAL HISTORY: Smoking - Stopped August 24, 2018 day she found out pg. Alcohol Use - RARELY not while Diet - moderate, balanced diet, caffeine < 2 drinks per day and Water intake tries for 8 bottles daily. Lifestyle - single and planning to get Exercise - WAlks 3x week. 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 [place] Illicit Drug Use - denies use of street drugs Sexual Activity - sexually active w/fiance Residence - rents an apartment and lives with [facility] Place of - [place] Hours Worked - 60 hours per week Spouse-Sig Other Name - Robert Gibbs Spouse-Sig Other Occupation - QC, Exec [employer] in [place] Spouse-Sig Other Phone No - [phone] PRIOR DELIVERY HISTORY DEL DATE GEST LAB WT LB WT OZ TYPE ANES LABOR TX ANTEPARTUM FLOW CHART VISIT GE RTC FU F F AR U U DATE WK MD WKS HT PN HR M SS BP ED WT AR GL D EF ST __ ____ ___ __ __ ___ __ __ __ ___ __ __ __ ___ __ 05 May 41 KW V + + 124/82 sl 208 tr - 3 70 -1 Apr KW 1 40 V + + 128/70 sl 209 - - 2 50 -3 Apr CH 1 40 V + + 128/78 1+ 208 ne ne 2+ 50 -2 Apr KW 1 38 + + 130/80 sl 202 - - Apr KIMW 1 37 + + 102/80 sl 201 tr - 03 Apr CH 1 37 V + + 130/68 sl 203 - - Mar CH 2 34 V + + 110/72 198 tr - Mar KW 2 32 + + 110/70 sl 196 - - Mar 07 CH 2 30 + + 120/72 0 194 - - 05 Mar 05 KW 2 27 + + 100/70 0 187 tr - Jan 31 1.5 26 26 + + 110/74 sl 183 - - Dec 28 ELB 4 - - U+ + 110/82 0 174 - - Nov 23 SHM + 110/70 0 170 - - Oct 19 ELB 4 - - + O 112/60 0 167 - - Oct 15 ELB 4 - - U+ O 130/66 0 166 tr - ANTEPARTUM NOTE(S): May 13 2019: NST, BPP, PNV Today for Post-Dates May 05 2019: Cervix soft, midline Apr 29 2020: Apr 21 2020: feeling well. Apr 15 2019: feeling well. Apr 10 2019: see note Mar 28 2019: feeling well Mar 10 2019: feeling well. Feb 27 2019: feeling well. Feb 10 2019: feeling well. Glucola drawn. Jan 30 2019: cold symptoms. Glucola given. Jan 02 2019: pains on right side related to muscle stretching. Dec 02 2018: feeling well. see note Nov 04 2018: Oct 07 2018: NOB visits today, feeling pretty well COMPREHENSIVE ANTEPARTUM NOTE(S): May 13 2019: NST, US/BPP done this morning. NST reactive and read by Cintia Escalante CNM. Good FM. May 13 2019: Genet uncomfortably since last night; reports active FM, denies VB, LOF; cervix significanty changed from last week, /-1, soft, mid position, Gamble score 9, favorable; NST reactive, BPP 11/13 with normal MIKE; risks benefits of staying home to wait for more active labor vs. IOL via AROM with potential for pitocin after 6 hours if no cervical change discussed; pt desires AROM; IOL forms and consents signed; pt will get lunch and go to L; L aware and expecting patient; RTO 6 weeks for PP exam May 05 2019: 2\50\-3 soft mid Apr 29 2019: SVE 2/50/-2. FHR 158. FM+. Membrane sweep education given, consent given and performed. Hoping to avoid medical induction. Will return in 1 week and is okay going until 41, 41.3 and being induced at 41.6wk. Has music playlist and bags packed. Doesn't want to freeze out and need a csection. Is going to go home to walk, have intercourse and try to naturally induce herself. 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 tkg Apr 13 2019: GBS negative - Apr 10 2019: Anju states she is having swelling in her right hand and numbness. Slight swelling in here feet. Complaining of insomnia, states she is walking 1 mile daily. Apr 10 2019: (f*) Good FM+. FHR 150. Vertex with head engaged into pelvi s. Reporting mild swelling in bilateral feet and right hand. 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 Will have to stop and restart throughout the day. Discusssed swelling and carpal tunnel syndrome with hand exercises. Having insomina. Unisom or Benadryl okay for sleep. Discussed pain medication options including IV, Nubain and epidural. Reviewed ROM and when to call as well as GBS swabs/indication. Discussed mucous plug with cervica change. Does not want checked next week, will begin SVE at 38 weeks. Will call with decreased FM, regular UC, ROM or bleeding. - Mar 28 2019: 03/25/19 (f*) Reports +FM. FHR 142 . Opened envelope which revealed baby girl. Spouse present for appointment and both are very excited. Has no questions or concerns today. GBS next visit in 2 weeks. To call with regular UC, ROM, bleeding, or decreased FM. [facility] Mar 25 2019: (f*) Reports +FM. FHR . Opened envelope which revealed baby girl. To call with regular UC, ROM, bleeding, or decreased FM. - Mar 10 2019: Feeling well; reports active FM; denies UCs, VB, LOF; discussed warning signs, s/s PTL; RTO 2 weeks for PNV - KVW Feb 27 2019: (*) Here for routine PNV. Reports +FM. FHR 138. 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 Questions about baby not moving as much during the day and more at night, asked if this was normal or not. Discussed that during the day when we are more active, baby is restful. At night when we sit and can pay attention we notice movements more. Reassured. Discussed weight gain and making healthy choices. With holidays coming up to make sure to walk at least 30 minutes a day and right after eating may walk 10 minutes even to burn immediate energy. 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 If Csection were necessary if OB was in house or had to be called in. Discussed that one of our physicians takes call in house and the other from home, but with a very quick response time. That they live within 5 minutes of the hospital and throughout labor we are collaborating as necessary and call them as soon as we think we may need them. When a csection is called we have to prep her and get her ready with the nurses. By that time a surgeon would be here even from call at home. She states understanding and will let her mom know. She went to class last night and is planning childbirth education course. When she goes to she will come up with a plan to discuss with midwives. Plans a midwifery with or . No other questions or concerns. Will return in 2 weeks for routine PNV. - CH Feb 10 2019: Glucola 144 needs 3 hr GTT. Hgb 11.9 g/dl. WNL. EB Feb 10 2019: Feeling well; reports active FM; denies UCs, VB, LOF; 1 hour Glucola and bloodwork drawn today; 4 lb wt gain in one week noted, pt concerned but states she has been indulging in sweets, discussed diet management; discussed warning signs, s/s PTL; RTO 2 weeks for PNV - KVW Jan 30 2019: Feeling generally well, but experiencing cold s/s; reports active FM; denies UCs, VB, LOF; Glucola given w/instructions today, to be drawn at next visit; pt OK w/MD or CNM care; philosophy and goals of midwifery care with physician backup discussed; encouraged rest, fluids this evening for cold s/s, discussed warning signs, s/s PTL; RTO 1.5 weeks for PNV/blood draw - KVW Dec 02 2018: Anju is being seen for PNV. Pt complains of stool being hard and having hemorrhoids. Advised pt to increase fiber intake and will benefit from taking a stool softener. Also states her right nipple has been itching and both breasts lactating. 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 I talked about sitting on a donut, pillow or even getting a stool that is higher as well as maybe having to take a break from pedicures if it becomes a huge problem in . AM Nov 04 2018: Doing well. Overall feeling much better. kbm Nov 04 2018: Reviewed NOB labs. Doing well. Feeling better in second trimester. She thinks may be feeling movement. Advised may be a little early ... RTO In 4 wk for PNV. 7 wk for 20 wk sono. EB Oct 08 2018: O positive 13.4 g/dl Tox neg EB Oct 07 2018: Anju is here with her fiance Robert Gibbs for NOB nurse visit with SAULO May 05, 2019 planning a vag del at [facility], uncertain of epidural or ped for post disch care but does plan to breastfeed. Anju is a G 1 p 0 who works 60 h/week at [employer] in [place]. Robert does QC for [employer] in [place]. They live in an apartment but would like to get a house. Anju has NKA to meds, food. latex or the environment. Her diet is balanced w occ caffeine and 8 bottles of water daily. She was an off and on again smoker but quit completely of August 24, the day she had a positive pg test. She denies street drug use, past or present and rarely drinks alcohol and not in pg. Robert does smoke about 1 PPD, would like to quit and plans to never smoke in the house with the baby. Anju does walk 2 or 3 days a week and was enc to work towards 20+ daily. Genetics Screening form completed noting Robert's brother has Charcot Elisabeth Tooth disease. They decline CF and AFP. [id number] mentioned but they are not interested. Anju's aunt and great aunt have breast cancer and 11 members of her family are also BRCA2 positive. Anju's mother had prophylactic double mastectomy and hysterectomy. Anju has had chickenpox and they do have cats although she does not change litter. US and routine labs drawn today. Warning signs in discussed as well as wearing her seatbelt very low on her abdomen, lifting restriction of 20-25#, OTC med ok to take, reaching the office after hours and the importance of protein in her diet with understanding voiced. Office Childbirth and Classes discussed and enc and they are interested. They had many misc questions during the NOB visit that would be best answered by classes. Enc to call w anything they have concerns about. Visit lasted approx 70 minutes. Rosas ESPINOZA. Sep 16 2018: Annemarie is here for missed menses appt. She relates LMP of 07/28, + UPT today in office, approx EDC 05/05/19. She is on PNV with DHA. She quit smoking with knowledge of . FOB of baby is involved. They are engaged and plan to be . She has mild nausea and reviewed OTC meds to help with this, B6 and Unisom. Had pap in [place] last month as felt she had endometriosis and wanted a second opinion as Dr Jiménez offered surgery to see and she did not like that. Second opinion was the same then with explanation that this is a surgical diagnosis. She no longer is worried about endometriosis. Advised if she did have this it is suppressed in . She has numerous questions regarding her gene abnormality and . Advised likely we will treat her as this is a normal . Her choices will come later, usually in her 30's. She can discuss with her genetic counselor what her person recommendations are. Educational materials are provided and reviewed. Encouraged increased po fluids, 30 minutes of exercise, and adding about 300 extra calories per day. GC/Chl cultures done today. LMT Sep 16 2018: GC and chlamydia cultures NEG EB REVIEW OF SYSTEMS: GENERAL - Denies fever, or chills SKIN - Denies rash, new skin lesions, or change in moles EYES - Denies blurred vision, or change in visual acuity EARS - Denies ear pain, or difficulty hearing NOSE - Denies nasal congestion, discharge, or bleeding MOUTH - Denies sore throat, or difficulty swallowing NECK - Denies pain or swelling RESPIRATORY - Denies shortness of breath, cough, wheezing CARDIOVASCULAR - Denies palpitations, chest pain, orthopnea, PND, peripheral edema, syncope or claudication GASTROINTESTINAL - Denies nausea, vomiting, diarrhea, constipation, Denies abdominal pain, melena and or bright red blood GENITOURINARY - Denies dysuria, frequency of urination, urgency, or hesitancy MUSCULOSKELETAL - Denies joint or muscle pain, or back pain NEUROLOGICAL - Denies localized numbness, weakness, or tingling PSYCHIATRIC - Denies depression, anxiety, substance abuse or suicide attempts ENDOCRINE - Denies heat or cold intolerance, weight loss or gain, increasing thirst HEMATO-IMMUNOLOGIC - Denies easy bruising, bleeding, oral ulcerations or recurre nt infections GENETICS SCREENING: Age 35+ years: No Thalassemia: No Neural Tube Defect: No Down Syndrome: No MARCO ANTONIO-SACHS: No Sickle Cell Disease: No Hemophilia: No Musc. Dystrophy: No Cystic Fibrosis: No-declines screening [place] Chorea: No Mental Retardation: No Fragile X: No Other genetic: No Other defects: No SABs/still births: No Drugs since LMP: No INFECTION HISTORY: High risk AIDS: No High risk Hepatitis: No Exposed to TB: No Exposed to Herpes: No Rash/viral illness since LMP: No History of STD: No MENSTRUAL HISTORY: *Menses Amount/Duration: 5-6 daysMenses Regularity: RegularFrequency: monthlyMenarche (Age Onset): 11* PAST SUMMARY: PARITY: 1. Total Pregnancies............ 1 2. Full Term Pregnancies........ 0 3. Premature.................... 0 4. Abortions - Induced.......... 0 5. Abortions - Spontaneous...... 0 6. Ectopics..................... 0 7. Multiple Births.............. 0 8. Living Children.............. 0 Labs for : ANJU HERBERT since 08/07/2018 ORDER DATEIN DESCRIPTION VALUE UNITS RANGE A+ COMMENT TYPE AND SCREEN 05/13/19 Reason for Type AND Screen/Red Cells: [facility]~[address] [place], [address]~ BLOOD TYPE GEL O POSITIVE N ANTIBODY SCREEN NEGATIVE N Reviewed by GLORY CBC W/DIFF, AUTOMATED 05/13/19 NOTE Original Ordering Provider: FRANSISCO Escalante WBC 8.3 K/mm3 4.4-11.0 RBC 4.64 M/mm3 4.2-5.4 HGB 12.5 g/dL 12.0-15.0 HCT 39.2 % 37-47 MCV 84.5 fL 81-99 MCH 26.9 pg 27.0-32.0 L MCHC 31.9 g/dL 32-36 L RDW CV 13.7 % 11.6-14.6 RDW SD 42.1 fl 35.1-43.9 PLT 246 K/mm3 150-450 MPV 11.5 fl 6.2-12.0 NEUT% 76.2 % 47-70 H LY% 17.2 % 19-41 L MONO% 5.9 % 0-10 EO% 0.1 % 0-5 BASO% 0.2 % 0-1 IM GRAN % 0.400 % 0.0-0.9 IG% - Immature Granulocytes (promyelocytes, myelocytes and metamyelocytes) > 1% indicates that a LEFT SHIFT is Present. ABSOLUTE NEUT 6.3 X10 3/uL 2.0-7.7 ABSOLUTE LYMPH 1.42 X10 3/uL 0.83-4.51 NRBC, FLAGGED 0 % 0-5 Reviewed by GLORY CULTURE, GROUP B STREPTOCOCCUS 04/10/19 NOTE Original Ordering Provider: FRANSISCO Leon SHAYNA Culture Group B Beta Streptococcus is not isolated. Reviewed by GLORY GESTATIONAL GTT 3HR 100G 02/12/19 NOTE Original Ordering Provider: Rosetta Martinez GLU GTT-FASTING 77 mg/dL <105 GLUCOSE TOLERANCE TEST FOR Reference Interval GESTATIONAL DIABETES Fasting <105 mg/dL 1 hour <190 mg/dl 2 hour <165 mg/dl 3 hour <145 mg/dl GLU GTT- 1HR 150 mg/dL <190 GLU GTT- 2HR 107 mg/dL <165 GLU GTT- 3HR 87 L <145 Reviewed by ROSETTA Reviewed by GLORY Reviewed by ROSETTA Reviewed by ROSETTA mancini GLUCOSE CHALLENGE GEST 1H 50G 02/10/19 NOTE Original Ordering Provider: FRANSISCO Escalante GLU GEST 50G 1H 144 mg/dL 70-140 H Reviewed by ROSETTA CBC-COMPLETE BLOOD CNT NO DIFF 02/10/19 NOTE Original Ordering Provider: FRANSISCO Escalante WBC 10.3 K/mm3 4.4-11.0 RBC 4.23 M/mm3 4.2-5.4 HGB 11.9 g/dL 12.0-15.0 L HCT 37.1 % 37-47 MCV 87.7 fL 81-99 MCH 28.1 pg 27.0-32.0 MCHC 32.1 g/dL 32-36 RDW CV 12.9 % 11.6-14.6 RDW SD 41.3 fl 35.1-43.9 PLT 315 K/mm3 150-450 MPV 10.4 fl 6.2-12.0 Reviewed by ROSETTA RPR 10/07/18 NOTE Original Ordering Provider: Rosetta Martinez RPR NONREACTIVE NONREACTIVE Reviewed by ROSETTA HEPATITIS C ANTIBODY 10/07/18 NOTE Original Ordering Provider: Rosetta Martinez HEPATITIS C AB Non-Reactive Nonreactive Non Reactive: < 0.8 Equivocal: >/= 0.8 to < 1.0 Reactive: >/= 1.0 The CDC recommends that a reactive/equivocal HCV antibody result be followed up by the HCV Nucleic Acid Amplification test (109764) Reviewed by Dell HEPATITIS B SURFACE ANTIGEN 10/07/18 NOTE Original Ordering Provider: Rosetta Martinez HEPB SURFACE AG Non-Reactive Nonreactive Reviewed by ROSETTA HIV - [facility] 10/07/18 NOTE Original Ordering Provider: Rosetta Martinez HIV - [facility] Non-Reactive Nonreactive Reviewed by ROSETTA RUBELLA IGG 10/07/18 NOTE Original Ordering Provider: Rosetta Martinez RUBELLA IGG 453.0 IU/mL Antibody results Interpretation of Immune Status < 5 IU/ml Presumed Non-immune 5 - < 10 IU/ml Equivocal > or = 10 IU/ml Presumed Immune Reviewed by ROSETTA AGUIRRE T AND S-NO CHARGE W/PNP 10/07/18 Reason for Type AND Screen/Red Cells: Surgery? [facility]~[address] [place], [address]~ BLOOD TYPE GEL O POSITIVE N AB SCREEN GEL NEGATIVE N Reviewed by ROSETTA NICOTINE URINE DRUG SCREEN 10/07/18 NOTE Original Ordering Provider: Rosetta Martinez TO BE CONFIRMED CONFIRMATORY TESTING FOR ALL POSITIVE URINE DRUG SCREEN RESULTS WILL ONLY BE SENT OUT UPON PHYSICIAN ORDER. The results of Urine Drug Screen methods provide only preliminary analytical test results. A more specific alternate chemical method must be used in order to obtain a confirmed analytical result. Gas chromatography/mass spectrometery (GC/MS) is the preferred confirmatory method. Clinical consideration and professional judgement should be applied to any drug of abuse test result, particularly when preliminary positive results are used. COT DRG SCREEN Negative <200 ng/mL Cotinine is the first-stage metabolite of Nicotine. Reviewed by ROSETTA URINE DRUG SCREEN (VISTA) 10/07/18 NOTE Original Ordering Provider: Rosetta Martinez TO BE CONFIRMED CONFIRMATORY TESTING FOR ALL POSITIVE URINE DRUG SCREEN RESULTS WILL ONLY BE SENT OUT UPON PHYSICIAN ORDER. VISTA Urine Drug Screen methods provide only preliminary analytical test results. A more specific alternate chemical method must be used in order to obtain a confirmed analytical result. Gas chromatography/mass spectrometery (GC/MS) is the preferred confirmatory method. Clinical consideration and professional judgement should be applied to any drug of abuse test result, particularly when preliminary positive results are used. URINE TCA TESTING MUST BE ORDERED SEPARATELY. USE TEST MNEMONIC: [facility]IST[place] UDS PH 6 w AMPHETAMINES NEGATIVE <1000 ng/mL BARBITIURATES NEGATIVE < 200 ng/mL BENZODIAZIPINE NEGATIVE < 200 ng/mL COCAINE NEGATIVE < 300 ng/mL ECSTACY NEGATIVE < 500 ng/mL METHADONE NEGATIVE < 300 ng/mL OPIATES NEGATIVE < 300 ng/mL PCP NEGATIVE < 25 ng/mL THC NEGATIVE < 50 ng/mL Reviewed by ROSETTA URINALYSIS, ROUTINE (DIPSTICK) 10/07/18 NOTE Original Ordering Provider: Rosetta Martinez COLOR Yellow Yellow CLARITY Cloudy Clear GLUCOSE, UR Normal mg/dl Normal BILIRUBIN URINE Negative mg/dL Negative KETONE UR 5 mg/dl Negativer H SP.GR. DIPSTX 1.020 1.002-1.030 PH UR 6.5 5.0 - 8.0 PROT DIPSTX 15 mg/dl Negative H UROBILI Normal mg/dl Normal NITRITE UR Negative Negative OCCULT BLOOD-UR 10 /ul Negative H LEUK ESTERASE 100 /ul Negative H Reviewed by Dell THYROID STIM HORMONE (TSH) 10/07/18 NOTE Original Ordering Provider: Rosetta Martinez TSH 0.75 uIU/mL 0.358-3.74 Reviewed by ROSETTA CBC W/DIFF, AUTOMATED 10/07/18 NOTE Original Ordering Provider: Rosetta Martinez WBC 9.8 K/mm3 4.4-11.0 RBC 4.96 M/mm3 4.2-5.4 HGB 13.4 g/dl 12.0-15.0 HCT 40.4 % 37-47 MCV 81.5 fL 81-99 MCH 27.0 pg 27.0-32.0 MCHC 33.2 g/gl 32-36 RDW CV 13.1 % 11.6-14.6 RDW SD 38.6 fl 35.1-43.9 PLT 330 K/mm3 150-450 MPV 10.0 fl 6.2-12.0 NEUT% 69.5 % 47-70 LY% 21.4 % 19-41 MONO% 8.2 % 0-10 EO% 0.4 % 0-5 BASO% 0.2 % 0-1 w IM GRAN % 0.300 % 0.0-0.9 IG% - Immature Granulocytes (promyelocytes, myelocytes and metamyelocytes) > 1% indicates that a LEFT SHIFT is Present. ABSOLUTE NEUT 6.8 X10 3/uL 2.0-7.7 ABSOLUTE LYMPH 2.09 X10 3/ul 0.83-4.51 Reviewed by ROSETTA Reviewed by ROSETTA Reviewed by ROSETTA CT/NG [facility] BY PCR 09/16/18 NOTE Original Ordering Provider: Rosetta Martinez CHLAM TRAC PCR Negative Negative NG BY PCR Negative Negative Reviewed by ROSETTA PROVIDER SIGNATURE ( REQUIRED) PHYSICAL EXAMINATION General Appearence: 23 yo female in no acute distress Vital Signs: AF, VSS Heart: RRR without rubs or gallops Lungs: CTA x 2 Breasts: deferred Abdomen: gravid Pelvis: Cervix: 3/70/-1, soft, mid position Presentation: cephalic Fetus: Size: AGA Movement: present Heart:145 baseline, moderate variability, with accels, no decels UCs: Irregular, Q 1-5 Impression: 23 yo at 41 weeks 2 days gestation by L=10w1d US Post dates GBS negative O pos Cat 1 FHTs Plan: IOL via AROM for small amount clear fluid at 1541 Continuous FM Expectant management Anticipate vaginal delivery
--- NOTE | 2019-05-13 21:06 | PCM.PN.BLA ---
Progress Note S: Minimal discomfort with UC; denies KHAN, visual changes, nausea, or epigastric pain; SO, mother bedside and supportive; O: Afebrile, HR, respirations stable; BPs ranging from 130a-140s/80s, to most recently 151/71 FHTs:135 baseline, moderate variability, with accels, occasional variable, no decels UCs: Q 2-5 Cervix: unchanged at 65/70/-1 with small forebag A: Latent labor, not progressing r/o Preeclampsia, asymptomatic AROM x 5 hrs GBS Negative Cat 2 FHTs, reassuring P: Preeclampsia labs drawn AROM forebag for scant amount of clear fluid Discussed with patient r/b/a of FSE/IUPC to better monitor strength of contractions; she prefers to wait two hours and reconsider; is OK with starting Pitocin at that time if no cervical change,r/b/a discussed
[2019-05-13 21:52] LABS: AST(SGOT) 28 U/L (15-37); Alanine Aminotransfer ALT/SGPT 21 U/L (13-56); Creatinine, Serum 0.65 mg/dL (0.55-1.02); EST Glomerular Filtration Rate 120 mL/min (>60); Est Glom Filt Rate - Afr Amer 145 mL/min (>60); Estimated Creatinine Clearance 122.16 ml/min; Uric Acid 5.7 mg/dL (2.6-6.0)
[2019-05-13 21:53] LABS: Protein, Urine (Random) 13.1 mg/dL (<11.9); Protein:Creat Ratio 242 mg/g CRE (0-200)
[2019-05-13 22:08] LABS: Prothrombin Time (Protime)PT. 13.1 SECONDS (11.7-14.9)
[2019-05-13 22:09] LABS: Partial Thromboplast Time 28.6 Seconds (24.1-36.2)
--- NOTE | 2019-05-14 00:26 | PN_ITS ---
Progress Note S: Napping through contractions, rates pain 06/15 O: Afebrile, HR, Respirations stable, BPs now running 130s/70s-80s Labs WNL FHTs: 145 baseline, moderate variability, +accels, variables, no decels UCs: Q 2-4 Cervix unchanged at /-1, light meconium noted at this time A: Latent labor, non progressing AROM 8+ hours Elevated BPs, labs reassuring Cat 2 FHTs, reassuring Inadequate contraction pattern P: FSE, IUPC placed Will start pitocin when UCs tracing adequately and FHTs remain reassuring Director Dietetics Department to be called for delivery Close monitoring Anticipate vaginal delivery
[2019-05-14] MEDS: Oxytocin 30 units/NS 500 ml 30 UNITS/500 ML IV.SOLN IV (01:25)
[2019-05-14] MEDS: Lactated Ringers 500 ML 999 ML IV (04:45)
[2019-05-14] MEDS: fentaNYL-bupivacaine (epidural) 100 ML BAG EPIDURAL (06:07)
[2019-05-14] MEDS: Lactated Ringers 1,000 ML 200 ML IV (09:05)
[2019-05-14] MEDS: Oxytocin 30 units/NS 500 ml 30 UNITS/500 ML IV.SOLN 334 UNITS IV (11:12)
--- NOTE | 2019-05-14 11:44 | OP.PCM_ITS ---
Vaginal Delivery Pt presented to unit for elective IOL for post dates Method of Induction: Amniotomy Amniotic Membrane Rupture Type: Artificial Rupture of Membrane time: 1541 Amniotic Fluid Description: Clear Final SAULO: 05/04/19 Final SAULO Source: US <20 weeks Gestational age: 41 Weeks and 3 Days doctor who attended delivery (if requested by OB): Simi Woodruff Date of Procedure: 05/14/19 Pre-Operative Diagnosis: Labor Post-Operative Diagnosis: Surgery/ Procedure Performed: Spontaneous Vaginal Delivery Type of Anesthesia: Epidural Description of Procedure: CTSP when she was C/C/+2; pushed well and delivered a vigorous female over intact perineum, OA to AMRIT; shoulders followed quickly with maternal effort; placed on maternal abdomen, dried, stimulated, and bulb suctioned, APGARs 8/9; comb machine operator was in attendance as moderate meconium had been noted in amniotic fluid during labor; cord clamped x 2 and cut buy FOB with CNM supervision; remained with mother skin to skin; placenta delivered spontaneously, Rothman mechanism, intact, 3-vessel cord, marginal insertion; multiple small, white calcifications noted; manual uterine exploration with no remaining placental fragments noted, pt with epidural and tolerated well; superficial L periurethral skid janis: noted, hemostatic, no repair required; EBL 400 Lap sponge, Raytec, instrument and needle counts correct with RN x 2 Presentation: Vertex, AMRIT Placental Delivery Description: Spontaneous Placenta Disposition: [facility] Cord Vessel Description: 3 Vessels Cord Entanglement: None Estimated Blood Loss: 400 ml A gender: Female (1 minute): 8 (5 minute): 9 Episiotomy Description: None Laceration: Periurethral Extnsion/lac - L periruretheral skid janis, hemostatic, no repair needed Medications given after delivery: IV Pitocin
[2019-05-14 13:31] VITALS: BP 145/81; PULSE 87; RESP 18; TEMP 36.8; O2SAT 97
[2019-05-14] MEDS: Acetaminophen 500 MG Tablet 1000 MG PO ×2 (13:43→23:42)
[2019-05-14] MEDS: 0.9% Saline Lock 10 ML Syringe IV (14:09)
[2019-05-14 16:20] VITALS: BP 123/74; PULSE 104; RESP 16; TEMP 36.9
[2019-05-14] MEDS: Ibuprofen 600 MG Tablet PO (20:10)
--- NOTE | 2019-05-14 20:26 | NURSING ---
Pt has indwelling urinary catheter
[2019-05-14 21:18] VITALS: BP 134/77; PULSE 89; RESP 18; TEMP 37.3; O2SAT 97
[2019-05-14 23:43] VITALS: BP 129/75; PULSE 87; RESP 18; TEMP 37
[2019-05-15 04:53] VITALS: BP 131/51; PULSE 88; RESP 15; TEMP 36.7
[2019-05-15 05:12] LABS: Hematocrit 35.2 % (37-47); Hemoglobin 11.5 g/dL (12.0-15.0); Mean Corp Hgb Conc 32.7 g/dL (32-36); Mean Corpuscular Hgb 27.5 pg (27.0-32.0); Mean Corpuscular Volume 84.2 fL (81-99); Mean Platelet Vol. 11.2 fl (6.2-12.0); Platelet Count 221 K/mm3 (150-450); RBC Distribution Width CV 13.7 % (11.6-14.6); Red Blood Count 4.18 M/mm3 (4.2-5.4); White Blood Count 12.9 K/mm3 (4.4-11.0)
--- NOTE | 2019-05-15 06:21 | NURSING ---
late entry: during shift report around 1929 when this RN's shift started, pt. reported that she had 2 voids but there was no hat in the toilet to measure. Pt. reports feeling her bladder empty completely. RN placed hat in toilet to measure next void. Bladder not distended. Will continue to monitor.
[2019-05-15] MEDS: Ibuprofen 600 MG Tablet PO ×3 (07:59→21:20)
[2019-05-15 08:03] VITALS: BP 122/77; PULSE 91; RESP 18; TEMP 36.6
--- NOTE | 2019-05-15 14:25 | CASEMGMT ---
Social Work Assessment Labor and Delivery Unit Date of referral: 05/15/19, 12:25am Referred by: Simi Woodruff, on the baby Date of Intervention: 05/15/19 Time of Intervention: 1:20pm Reason for referral: parent anxiety/resources History obtained from: ALFREDO Hollis and IVELISSE Dumont Household composition: FOB, MOB, baby Patient's parent/guardian status: FOB and MOB are guardians of baby Medical history: Baby born 05/14/19, Apgars 8 and 9, 8 lb 14 oz, heart murmur noticed on exam. Mom plans to breast feed. Machine Folder, Dr. Regalado MOB: No significant history noted, family history of breast cancer. Educational history/Employment: FOMarshall graduated high school, was in [employer], did some technical school. 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 MOB plans to return to work with reduced hours, her aunt will watch the baby. Financial status: As per FOMarshall, MOB makes $60,000 a year. He makes $13.70 per hour but this will go up when he is no longer an shipyard painter apprentice. MOB is on her mother's insurance as it costs a lot to be on FOB's insurance and he states his insurance is not good. TABITHA did give them the 800 for JFS to see if baby will qualify for Medicaid and WIC. If not the baby can be on FOB's insurance, it will be costly for them financially however. Infant supplies: They have all needed supplies including diapers, clothing, car seat, bassinet and crib. MOB plans to breast feed. Childdare/Caregivers: MOB and FOB plan to care for the baby, MOB's aunt will watch the baby when MOB returns to work. MOB and FOB report both of their sets of parents are supportive(MOB's parents visiting at present and observed to be helpful and hands on both at the start and end of our conversation, SW asked them to step out for the bulk of the conversation with the MOB and FOB). Transportation: Access to transportation, no issues Programs/Agencies involved: IVELISSE [place] to the [place] and states is 50% disabled, gets all meds and medical appointments [facility]. Children Services/Legal issues: None Behavioral Health Issues: Mental Health: MOB, none FOB, though did not disclose to SW has hx of anxiety, depression and PTSD from being in the . He did disclose goes to a counselor once per month, he finds it helpful, and does not need any additional resources at this time for mental health. No concerns regarding safety or abuse. Both deny any history of substance abuse. Family/Social Stressors: Both parents identify being nervous as new parents Support systems: Both sets of grandparents, aunts on MOB's side Depression and anxiety/shaken baby/safe sleeping: Information given and reviewed with MOB and FOB. Also gave list of [facility] Resources and pointed out Counseling Center number and crisis hotline. Information given on [facility], parents open to referral, referral made. Assessment: Overall, MOB and FOB very attentive to baby, appropriate, though both state they are nervous as new parents. Resources given as outlined above, and they have supportive family. Plan: Referral to [facility] made, and MOB or FOB to call JFS to see if baby qualifies for Medicaid. Baby to go home w/MOB and FOB at discharge. No further needs anticipated at this time. YASMIN Queen
[2019-05-15] MEDS: Acetaminophen 500 MG Tablet 1000 MG PO (17:35)
--- NOTE | 2019-05-15 21:04 | DCINST_ITS ---
Discharge Diet: No Restrictions Discharge Activity: Return to Normal Activity, No Restrictions, May Drive Return to work on:: 06/27/19 May resume sexual activity in: 6-8 weeks Weight Bearing Status: Weight bearing as tolerated Additional Activity Instructions:: Minimize cooking, cleaning, shopping, and long car trips for two weeks; try to get at least 8 hours sleep daily for the first two weeks - sleep when the baby sleeps Call your doctor if your incision/area has: Continuous Slow Oozing, Sudden Increased Bleeding, Increased Pain/ Swelling, Increased Redness, Foul Smelling Discharge Call your doctor if you observe: Fever of 101 or Higher, Coldness, Increased Pain, Numbness or Tingling, Change in Color, Inability to urinate, Inability to have a bowel movement, Using more than one pad per hour, Shortness of breath, Dizziness, Fainting spells, Swelling in the ankles, Chest pain, Increased palpitations (irregular heartbeat), Calf discomfort, Uncontrolled pain Additional Instructions: If you experience any of the following, contact your healthcare provider. * Bleeding that soaks a pad every hour for 2 hours * Fever 100.4 or higher * Unrelieved incision or abdominal pain * Swelling, redness, discharge or bleeding from your incision or episiotomy site * Your incision begins to separate * Problems urinating (including inability to urinate or burning while urinating). * Visual changes * Severe headache * Flu-like symptoms * Pain or redness in one of both of your breasts * Pain, warmth, tenderness or swelling in your legs, especially the calf area * Frequent nausea and vomiting * Symptoms of depression or anxiety If you experience any of the following, call 911 or go to the nearest Emergency Room. * Chest pain * Problems breathing * Seizure activity * Partial or complete paralysis of a body part, slurred speech, weakness or drooping of the face, or a sudden inability to walk or hold your balance Allergies/Adverse Reactions: Allergies No Known Allergies Allergy (Verified 05/13/19 13:51) Medications to take at Discharge Docosahexanoic Acid [ Dha] 1 tab PO DAILY 05/13/19 Please Follow Up With: Dayanna Escalante CNM When: 6 weeks for checkup Primary Care Physician: Care Physician,No Primary [Primary Care Provider] - Test Results: Test results from this visit will be discussed in further detail at your follow- up appointment, if applicable.
--- NOTE | 2019-05-15 21:07 | PCM.PN.OB ---
Subjective: this note is for today at 0845 Pain well controlled, tolerating diet, passing flatus; well; SO bedside and supportive Objective: AVSS Nipples atraumatic Fundus firm, midline, u/u, lochia small Perineum atraumatic - Physical Exam Vitals/I&O's: Vital Signs Temp Pulse Resp BP Pulse Ox 97.8 F 91 18 122/77 H 97 05/15/19 08:03 05/15/19 08:03 05/15/19 08:03 05/15/19 08:03 05/14/19 21:18 Oxygen Delivery Method Room Air Weight: 213 lb 6.519 oz Body Mass Index (BMI) 35.5 Intake and Output for Last 24 Hours 05/13/19 05/14/19 05/15/19 23:59 23:59 23:59 Intake Total 79.17 / 79.17 5911.69 / 5911.69 Output Total 2800 / 2800 800 / 800 Balance 79.17 / 79.17 3111.69 / 3111.69 -800 / -800 General: Alert, Oriented x3, Cooperative, No apparent distress HEENT: PERRLA, EOMI Oral: Moist Mucosa Neck: Supple Lungs: Clear to auscultation, Normal air movement Cardiovascular: Regular rate, Regular Rhythm Abdomen: Bowel Sounds Present, Soft, Non Tender, Non-Distended, Passing Flatus Extremities: No clubbing, No edema, Capillary Refill Less than 3 Seconds, No Calf Tenderness Skin: No rashes Musculoskeletal: No Tenderness to Palpation of Joints or Extremities Neurological: Cranial nerves II-XII grossly intact, Deep Tendon Reflexes 2+/4 and Symmetrical, Neuro grossly intact Psych/Mental Status: Normal Affect, Appropriate, Alert and oriented to time, place, person, mood and affect Laboratory Results 05/15/19 05:01: WBC 12.9 H, RBC 4.18 L, Hgb 11.5 L, Hct 35.2 L, MCV 84.2, MCH 27.5, MCHC 32.7, RDW Std Deviation 42.0, RDW Coeff of Fang 13.7, Plt Count 221, MPV 11.2 Current Medications Acetaminophen (Tylenol) 1,000 mg PO Q8H PRN PRN PRN Reason: Pain Score 1-3/10 Last Admin: 05/15/19 17:35 Dose: 1,000 mg Documented by: Bisacodyl (Dulcolax) 10 mg RECTAL UD PRN PRN Reason: If no BM Dibucaine (Dibucaine) 1 applic TOPICAL TID PRN PRN; Protocol PRN Reason: Discomfort Hydrocortisone (Hytone) 1 applic TOPICAL TID PRN PRN; Protocol PRN Reason: Discomfort Ibuprofen (Motrin) 600 mg PO Q6H PRN PRN PRN Reason: Pain Score 1-3/10 Last Admin: 05/15/19 14:25 Dose: 600 mg Documented by: Methylergonovine Maleate (Methergine) 0.2 mg IM X1 PRN PRN Reason: Excess bleeding/uterine atony Ondansetron HCl (Zofran) 4 mg IV Q4H PRN PRN PRN Reason: Nausea Senna/Docusate Sodium (Senokot-S, Najma-Colace) 1 - 2 tablet PO DAILY PRN PRN PRN Reason: Constipation Simethicone (Mylicon) 80 mg PO PCHS PRN PRN Reason: Indigestion/Stomach pain Sodium Chloride () 5 - 15 ml IV UD PRN PRN Reason: SALINE FLUSH Last Admin: 05/14/19 14:09 Dose: 10 ml Documented by: Medical Necessity - Tobacco Use Smoking Status: Former smoker Assessment/Plan Assessment: 23 yo G1 now P1001 delivered via at 41 weeks 3 days gestation by L=10w1d US day #1, normal involution, normal course Plan: Discharge teaching started Continue routine care Discharge home tomorrow
[2019-05-15 21:23] VITALS: BP 124/84; PULSE 83; RESP 16; TEMP 37.1
[2019-05-15] MEDS: Dibucaine 30 GM Tube 1 APPLIC TOPICAL (23:47)
[2019-05-16 01:16] VITALS: BP 131/95; PULSE 84; RESP 17; TEMP 36.9
[2019-05-16] MEDS: Acetaminophen 500 MG Tablet 1000 MG PO (01:45)
[2019-05-16] MEDS: Senna/Docusate Sodium 1 Tablet PO (01:46)
--- NOTE | 2019-05-16 07:06 | PCM.PN.OB ---
Subjective: Pain well controlled, tolerating diet, passing flatus, nursing well; desires discharge home today; spouse and mother bedside and supportive; BRCA2 positive, considering Paraguard for contraception; Objective: AVSS Nipples atraumatic Fundus firm, midline, u/1, lochia scant Perineum atraumatic - Physical Exam Vitals/I&O's: Vital Signs Temp Pulse Resp BP Pulse Ox 98.4 F 84 17 131/95 H 97 05/16/19 01:16 05/16/19 01:16 05/16/19 01:16 05/16/19 01:16 05/14/19 21:18 Oxygen Delivery Method Room Air Weight: 213 lb 6.519 oz Body Mass Index (BMI) 35.5 Intake and Output for Last 24 Hours 05/14/19 05/15/19 05/16/19 23:59 23:59 23:59 Intake Total 5911.69 / 5911.69 Output Total 2800 / 2800 800 / 800 Balance 3111.69 / 3111.69 -800 / -800 General: Alert, Oriented x3, Cooperative, No apparent distress HEENT: PERRLA, EOMI Oral: Moist Mucosa Neck: Supple Lungs: Clear to auscultation, Normal air movement Cardiovascular: Regular rate, Regular Rhythm Abdomen: Bowel Sounds Present, Soft, Non Tender, Non-Distended, Passing Flatus Extremities: Capillary Refill Less than 3 Seconds, No Calf Tenderness, Edema - mild, non pitting bilateral lower extremities, Peripheral Pulses Normal Skin: No rashes Musculoskeletal: No Tenderness to Palpation of Joints or Extremities Neurological: Cranial nerves II-XII grossly intact, Deep Tendon Reflexes 2+/4 and Symmetrical Psych/Mental Status: Normal Affect, Alert and oriented to time, place, person, mood and affect Current Medications Acetaminophen (Tylenol) 1,000 mg PO Q8H PRN PRN PRN Reason: Pain Score 1-3/10 Last Admin: 05/16/19 01:45 Dose: 1,000 mg Documented by: Bisacodyl (Dulcolax) 10 mg RECTAL UD PRN PRN Reason: If no BM Dibucaine (Dibucaine) 1 applic TOPICAL TID PRN PRN; Protocol PRN Reason: Discomfort Last Admin: 05/15/19 23:47 Dose: 1 applic Documented by: Hydrocortisone (Hytone) 1 applic TOPICAL TID PRN PRN; Protocol PRN Reason: Discomfort Ibuprofen (Motrin) 600 mg PO Q6H PRN PRN PRN Reason: Pain Score 1-3/10 Last Admin: 05/15/19 21:20 Dose: 600 mg Documented by: Methylergonovine Maleate (Methergine) 0.2 mg IM X1 PRN PRN Reason: Excess bleeding/uterine atony Senna/Docusate Sodium (Senokot-S, Najma-Colace) 1 - 2 tablet PO DAILY PRN PRN PRN Reason: Constipation Last Admin: 05/16/19 01:46 Dose: 2 tablet Documented by: Simethicone (Mylicon) 80 mg PO PCHS PRN PRN Reason: Indigestion/Stomach pain Medical Necessity - Tobacco Use Smoking Status: Former smoker Assessment/Plan Assessment: 23 yo G1 now P1001 delivered via at 41 weeks 3 days gestation by L=10w1d US day #2, normal involution, normal course Plan: Discharge teaching completed Discharge home today RTO 6 weeks for PP exam
[2019-05-16] MEDS: Ibuprofen 600 MG Tablet PO (08:27)
[2019-05-16 08:30] VITALS: BP 145/94; PULSE 96; RESP 16; TEMP 37.3
--- NOTE | 2019-05-19 11:19 | CASEMGMT ---
TABITHA received a notification from [facility] that they were not able to reach family to set up intake. SW called MOB, her phone number not working. SW called DYANAB, Robert Gibbs, he states they are doing well, baby had first appointment today. SW explained [facility]irlene could not reach Anju, checked her number w/Robert. Robert confirmed the number we have on file, but the phone is not turned on yet. Robert is fine w/[facility] calling him to set up appointment. TABITHA called [facility] Gar[facility] and gave them the number to call IVELISSE Jones to set up intake. YASMIN Queen
== END 2019-05-16 12:05 | disposition home or self-care (01) | DRG 807 ==
PROVIDERS: Admitting Provider Advanced Practice Midwife; Referring Provider Advanced Practice Midwife; Visit Provider Advanced Practice Midwife
DX: O48.0 Post-term pregnancy (principal); O77.0 Labor and delivery complicated by meconium in amniotic fluid; Z37.0 Single live birth; Z3A.41 41 weeks gestation of pregnancy; Z87.891 Personal history of nicotine dependence
CPT/HCPCS: 59025; 59050; 82565; 82570; 84156; 84450; 84460; 84550; 85025; 85027; 85610; 85730; 86850; 86900; 86901; 94799; 99218; J7120; 90686; A4216; G0378

== ENCOUNTER → 2024-05-21 | Outpatient (CLI) | payer MEDICAID, SELFPAY ==
[2024-05-25 20:07] LABS: Chlamydia By Nucleic Acid AMP Negative (Negative); Gonococcus By Nucleic Acid AMP Negative (Negative)
== END | disposition home or self-care (01) ==
LOC: LABSPEC 14:37
PROVIDERS: Referring Provider Advanced Practice Midwife; Visit Provider Advanced Practice Midwife
DX: Z34.90 Encounter for supervision of normal pregnancy, unspecified, unspecified trimester (principal)
CPT/HCPCS: 87086; 87491; 87591

== ENCOUNTER 2024-05-24 09:44 | Emergency (ER) | payer MEDICAID, SELFPAY ==
[2024-05-24 09:45] VITALS: BP 116/98; PULSE 83; RESP 18; TEMP 36.6; O2SAT 100; BMI 25.1
[2024-05-24 10:16] LABS: Bacteria 0 SEEN /hpf (None Seen); Mucous, Urine 0 SEEN /hpf (<or=2+); Squamous Epithelial Cells - UA 0 SEEN /hpf (5-10); White Blood Cells 0 SEEN /hpf (0-5)
[2024-05-24 10:17] LABS: Color, Urine Yellow (Yellow); Glucose, Dipstick Normal (Normal); Ketone-Dipstick Negative (Negative); Leukocyte Esterase-Dipstick Negative /ul (Negative); Nitrite-Dipstick Negative (Negative); Occult Blood-Urine 10 /ul (Negative); Protein-Dipstick 15 mg/dl (Negative); Specific Gravity, Urine 1.005 (1.002-1.030); Urine Bilirubin Dipstick Negative (Negative); Urine Clarity Clear (Clear); Urine Urobilinogen Normal (Normal)
[2024-05-24 10:24] LABS: Red Blood Cells-Urine 0 SEEN /hpf (0-5)
--- NOTE | 2024-05-24 10:45 | US_ITS ---
PROCEDURE: TRANSVAGINAL W/PREG US REASON FOR EXAM: 28-year-old female, 1st trimester bleeding, light spotting for 30 minutes earlier today. COMPARISON: None. FINDINGS: Comments: Transvaginal imaging was performed . Number of Gestational Sacs: 1 Gestational Sac Shape: Normal Number of Fetuses: 1 Heart Rate: 177 (average) Yolk Sac: Present and unremarkable. Placenta: Presently not well-visualized Amniotic Fluid Volume: Subjectively normal for gestational age. Uterine Abnormalities: Maternal uterus is unremarkable. Ovaries / Adnexa: Both ovaries are visualized and unremarkable. The right ovary measures 3.0 x 2.1 x 1.9 cm. The left ovary measures 2.8 x 2.6 x 2.0 cm. No free fluid within the pelvis. DIMENSIONS: Parameter Measurement / EGA [place] Rump Length: 3.08 mm/9 weeks 5 days Yolk Sac: 3.9 mm 9 weeks 6 days/ ESTIMATED GESTATIONAL AGE: By Ultrasound: 9 weeks 6 days By LMP: 9 weeks 5 days ESTIMATED DATE OF DELIVERY: By Ultrasound: 12/21/2024 By LMP: 12/22/2024 US/Transvaginal w/Preg US IMPRESSION: UNREMARKABLE FIRST TRIMESTER ULTRASOUND. Reading Location: [id number]
--- NOTE | 2024-05-24 10:46 | ED.VIS.FEGU ---
HPI HPI - Female History of Present Illness Chief Complaint: Vag Bld, Preg Informant: patient and spouse/S.O. Narrative Narrative: 28-year-old female G2, P1 at 9 weeks presenting to the emergency room with vaginal bleeding. Patient states that this morning she developed vaginal bleeding. She notes it was a small amount. It was not associated with cramping or pain. She notes that she had intercourse on Saturday evening. Yesterday nothing out of the ordinary. No prolonged trips or standing. She went grocery shopping. She did not have any complications her first . By history and chart review she is O+. She sees [facility]. She states that she was seen in the office on and had a pelvic ultrasound and stated everything looked good [facility] Medical History Family history of BRCA2 gene positive Home Medications ?Medication ?Instructions ?Recorded ?Last Taken ?Type vits no.126-ferrous fum tab PO 05/08/24 Unknown History 28 mg iron-folic acid 800 mcg tablet (Classic ) Allergy/AdvReac Type Severity Reaction Status Date / Time No Known Allergies Allergy Verified 05/24/24 09:44 Family History Mother BRCA gene mutation positive Preventative mastectomy done, 16 other relatives also + Aunt Breast cancer Surgical History [place] teeth removed Social History household members: significant other and children number of children: 1 current occupational status: employed current occupation: [employer] in [place] current occupational exposures/hazards: No pets and animals: No history of recent travel: No sexually active: Yes Smoking Status: Never smoker alcohol intake: never substance use type: does not use well-balanced diet: daily or most days caffeine: Yes Type: coffee eating out: 1-3 times/week during the past year weight has: decreased > 10 lbs what type of physical activity do you participate in: walking frequency: 3-4 times per week duration: 15-30 minutes/day carissa/orthodoxy: None seatbelt use: always do you feel safe at home: Yes additional social history: Fianc?: Shmuel - [employer] in [facility] ED Constitutional Constitutional ED: Denies chills, fever(s) or weight loss Eyes Eyes: Denies change in vision or diplopia ENT ENT ED: Denies ear pain, rhinorrhea or sore throat Cardiovascular Cardiovascular: Denies chest pain, orthopnea, palpitations or racing heartbeat Respiratory/Chest Respiratory/Chest: Denies cough, dyspnea or orthopnea Gastrointestinal Gastrointestinal: Denies abdominal pain, diarrhea, nausea or vomiting Genitourinary Genitourinary ED: Reports other Details: See history of present illness ; Denies dysuria, hematuria or urinary frequency Musculoskeletal Musculoskeletal: Denies arthralgias or myalgias Integumentary Denies abscess or rash Neurologic Neurologic: Denies headache(s) or weakness Psychiatric Psychiatric: Denies anxiety, depression, suicidal ideation or suicidal thoughts Endocrine Endocrinology: Denies polydipsia, polyphagia or polyuria Allergic/Immunologic Allergic/Immunologic ED: Denies mouth swelling, tongue swelling or urticaria EXAM Physical Exam Const Vital Signs: 05/24/24 09:45 05/24/24 12:47 Temperature 97.8 F 98 F Temperature Source Oral Pulse Rate 83 80 Respiratory Rate 18 16 Blood Pressure 116/98 H 118/80 Blood Pressure Mean 104 92 Pulse Ox 100 99 Oxygen Delivery Method Room Air Positive well nourished and well developed General Appearance ED: well developed HEENT Reports normocephalic, head/scalp atraumatic and moist mucous membranes Eyes PERRL and EOMs intact bilaterally Neck no lymphadenopathy, supple and no JVD Resp normal respiratory effort and clear to auscultation bilaterally Cardio regular rate, regular rhythm and no murmurs GI normal to inspection, nondistended, normoactive bowel sounds and non-tender Palpation: soft Back/Spine no CVA tenderness and normal ROM Extremity normal to inspection General Extremety ED: Negative for edema General Extremity: Negative for edema Neuro oriented x3 and CN's II-XII intact bilaterally Sensorium / Orientation: alert Motor Exam: strength 5/5 throughout Psych mental status grossly normal Mood & Affect: Negative for depressed or tearful Skin no rashes or lesions noted and no wounds MDM MDM MDM Narrative Medical decision making narrative: Differential diagnosis includes threatened miscarriage placenta previa demise cervical trauma Patient's not had any further vaginal bleeding. Hemoglobin is 12.2 quantitative hCG is 90 7426. Urinalysis is negative. Pelvic ultrasound was obtained. Before the pictures could be transmitted to my computer for reviewing the patient stated to nursing that she needed to get going to pick her daughter up. She is not having any further active bleeding or pain. I think it is reasonable to the patient go home [facility] but I have asked that she follow-up with her railroad car inspector. I would recommend monitoring for any changes and having pelvic rest. History & Record Review Discussion w/independent historian: Patient and Significant other Lab Data Attestation: I reviewed the patient's lab results. Labs: Laboratory Results - last 24 hr 05/24/24 05/24/24 05/24/24 10:08 10:12 11:02 Hgb 12.2 Hct 36.4 L HCG, Quant [id number] H Urine Color Yellow Urine Clarity Clear Urine pH 7.0 Ur Specific [place] 1.005 Urine Protein 15 H Urine Glucose (UA) Normal Urine Ketones Negative Urine Occult Blood 10 H Urine Nitrite Negative Urine Bilirubin Negative Urine Urobilinogen Normal Ur Leukocyte Esterase Negative Urine RBC 0 SEEN Urine WBC 0 SEEN Ur Squamous Epith Cells 0 SEEN Urine Bacteria 0 SEEN Urine Mucus 0 SEEN Discharge Plan Triage Chief Complaint: Vag Bld, Preg ED Provider: Julio Louise Dx/Rx/DC Orders Clinical Impression: Vaginal bleeding, First trimester , Threatened miscarriage Instructions: Vaginal Bleeding During , Miscarriage Threatened Prescriptions: No Action Classic 28 mg iron- 800 mcg tablet PO Primary Care Provider: Care Physician,No Primary Referrals: Cary Brenner DO [Med Staff - Active Staff] - As soon as possible Care Physician,No Primary [Primary Care Provider] - Print Language: Bermudian Disposition Disposition: Home, Self Care Discharge Date/Time: 05/24/24 12:49
[2024-05-24 10:49] LABS: hCG Titer Quant., Serum 97426 mIU/mL (1-3)
[2024-05-24 11:09] LABS: Hematocrit 36.4 % (37-47); Hemoglobin 12.2 g/dL (12.0-15.0)
[2024-05-24 12:47] VITALS: BP 118/80; PULSE 80; RESP 16; TEMP 36.6; O2SAT 99
== END 2024-05-24 12:49 | disposition home or self-care (01) ==
PROVIDERS: Emergency Provider Emergency Medicine; Visit Provider Emergency Medicine
DX: O20.0 Threatened abortion (principal); Z3A.09 9 weeks gestation of pregnancy
CPT/HCPCS: 76817; 81001; 84702; 85014; 85018; 99283; A4216

== ENCOUNTER → 2024-05-28 | Outpatient (CLI) | payer MEDICAID, SELFPAY ==
[2024-05-28 17:23] LABS: Absolute Lymphocyte Count 1.89 X10^3/uL (0.83-4.51); Absolute Neutrophil Count 5.5 X10^3/uL (2.0-7.7); Basophil# 0.02 X10^3/uL; Basophil% 0.2 % (0-1); Eosinophil# 0.07 X10^3/uL; Eosinophils% 0.9 % (0-5); Hematocrit 41.2 % (37-47); Hemoglobin 13.2 g/dL (12.0-15.0); Lymphocyte # 1.89 X10^3/ul (0.83-4.51); Lymphocyte % 23.2 % (19-41); Mean Corpuscular Hgb 27.4 pg (27.0-32.0); Mean Corpuscular Volume 85.5 fL (81-99); Mean Platelet Vol. 10.2 fl (6.2-12.0); Monocyte# 0.62 X10^3/uL; Monocyte% 7.6 % (0-10); NRBC Flagged by Analyzer 0 % (0-5); Neutrophil % 67.7 % (47-70); Platelet Count 322 K/mm3 (150-450); RBC Distribution Width CV 13.2 % (11.6-14.6); RBC Distribution Width SD 41.1 fl (35.1-43.9); Red Blood Count 4.82 M/mm3 (4.2-5.4); White Blood Count 8.1 K/mm3 (4.4-11.0)
[2024-05-28 18:13] LABS: HIV - WCH Non-Reactive (Nonreactive); Hepatitis B Surface Antigen Non-Reactive (Nonreactive); Hepatitis C Antibody Non-Reactive (Nonreactive); Rubella IgG Reactive (Nonreactive); Syphilis Antibodies Non-reactive
== END | disposition home or self-care (01) ==
PROVIDERS: Referring Provider Advanced Practice Midwife; Visit Provider Advanced Practice Midwife
DX: Z34.81 Encounter for supervision of other normal pregnancy, first trimester (principal)
CPT/HCPCS: 36415; 85025; 86703; 86762; 86780; 86803; 86850; 86900; 86901; 87340

== ENCOUNTER → 2024-09-10 | Outpatient (CLI) | payer MEDICAID, SELFPAY | END | disposition home or self-care (01) | LOC: LABSPEC 11:51 | PROVIDERS: Referring Provider Obstetrics & Gynecology; Visit Provider Obstetrics & Gynecology | DX: O12.10 Gestational proteinuria, unspecified trimester (principal); Z3A.00 Weeks of gestation of pregnancy not specified | CPT/HCPCS: 87086 ==

== ENCOUNTER → 2024-10-01 | Outpatient (CLI) | payer MEDICAID, SELFPAY ==
[2024-10-01 12:17] LABS: Absolute Lymphocyte Count 1.19 X10^3/uL (0.83-4.51); Absolute Neutrophil Count 5.4 X10^3/uL (2.0-7.7); Basophil# 0.01 X10^3/uL; Basophil% 0.1 % (0-1); Eosinophil# 0.03 X10^3/uL; Eosinophils% 0.4 % (0-5); Hematocrit 36.8 % (37-47); Lymphocyte # 1.19 X10^3/ul (0.83-4.51); Lymphocyte % 16.6 % (19-41); Mean Corp Hgb Conc 32.6 g/dL (32-36); Mean Corpuscular Hgb 28.2 pg (27.0-32.0); Mean Corpuscular Volume 86.6 fL (81-99); Monocyte# 0.54 X10^3/uL; Monocyte% 7.5 % (0-10); NRBC Flagged by Analyzer 0 % (0-5); Neutrophil # 5.36 X10^3/uL (2.7-7.7); Neutrophil % 74.6 % (47-70); Platelet Count 285 K/mm3 (150-450); RBC Distribution Width CV 13.3 % (11.6-14.6); RBC Distribution Width SD 41.7 fl (35.1-43.9); Red Blood Count 4.25 M/mm3 (4.2-5.4); White Blood Count 7.2 K/mm3 (4.4-11.0)
[2024-10-01 13:33] LABS: Glucose Challenge Gest 1H 50g 130 mg/dL (70-140); HIV Nonreactive (Nonreactive); Syphilis Antibodies Nonreactive (Nonreactive)
--- OUTSIDE RECORDS SUMMARY | 2024-10-01 20:37 | XMS RPT_ITS | CCD ---
Author Organization [facility] Care Team Providers Care Geodetic Engineer Name Role Phone Ori MADDEN Attending Unavailable Unavailable Primary Care Provider Unavailabl e Unavailable Primary Care Provider Unavailabl e Self, Self Primary Care Provider Unavailabl e Self, Self Primary Care Provider Unavailabl e SELF, SELF Primary Care Unavailable ARCHANA GARCIA Attending Unavailable ARCHANA GARCIA Referring Unavailable SELF, SELF Primary Care Unavailable JAMAL DANIEL Attending Unavailabl e JAMAL DANIEL Referring Unavailabl e Unavailable Primary Care Provider Unavailabl e NO PRIMARY CARE, Primary Care Unavailable ADAN CHRISTIANSEN Attending Unavailable CARY MARTIN Referring Unavailab le Care Physician, No Primary Primary Care Provider Unavailable Care Physician, No Primary Referring Provider Un available Yris Brown CNM Attending Provider [phone] Yris Brown CNM Referring Provider Dr. Julio Louise DO Attending Provider Dr. Julio Louise DO Emergency Provider Dr. Cary Brenner DO Attending Provider Naheed GRIDER-Tawanna Tubbs Attending Provider [phone] Dr. Taina Huddleston MD Attending Provider [phone] Dr. Taina Huddleston MD Referring Provider Care Physician, No Primary Primary Care Unava ilable Farzana Peña Attending Unavailable Care Physician, No Primary Primary Care Unava ilable Care Physician, No Primary Referring Unava ilable Naheed ADDICTION PSYCHIATRISTTawanna Attending Unavailable Care Physician, No Primary Primary Care Unava ilable Care Physician, No Primary Referring Unava ilable Naheed ADDICTION PSYCHIATRISTTawanna Attending Unavailable Care Physician, No Primary Referring Unava ilable Cary Brenner Attending [facility] Care Physician, No Primary Primary Care Unava ilable Care Physician, No Primary Referring Unava ilable Care Physician, No Primary Primary Care Unava billyable Yris Brown Attending Unavailable Julio Louise Attending Unavailable Care Physician, No Primary Primary Care Unava ilable Care Physician, No Primary Primary Care Unava ilable Taina Huddleston Referring Unavailable Taina Huddleston Attending Unavailable Care Physician, No Primary Primary Care Unava ilable Yris Brown Referring Unavailable Yris Brown Attending Unavailable Care Physician, No Primary Primary Care Unava ilable Yrsi Brown Referring Unavailable Yris Brown Attending Unavailable Care Physician, No Primary Primary Care Unava ilable Care Physician, No Primary Referring Unava ilable Taina Huddleston Attending Unavailable Care Physician, No Primary Primary Care Unava ilable Care Physician, No Primary Referring Unava Yris Ramírez Attending Unavailable Care Physician, No Primary Primary Care Provider Unavailable Care Physician, No Primary Referring Provider Un available Yris Brown CNM Attending Provider Allergies Allergy Classification Reported Allergen(s) Allergy Type Date of Onset Reaction(s) Facility (6 sources) carboxypolymethylene Drug Allergy 2 [facility] Medications Current Medications Medication Drug Class(es) Dates Sig (Normalized) Sig (Original) docosahexaenoic acid/epa (FISH OIL ORAL) (1 source) take 1 capsule by mouth once daily docosahexaenoic acid/epa (FISH OIL ORAL) Take 1 capsule by mouth once daily. Active drospirenone 3 mg / ethinyl estradiol 0.02 mg oral tablet (5 sources) Progestin, Estrogen Start: 12-19-2021 take 1 tablet by mouth once daily drospirenone-ethinyl estradiol 3-0.02 MG tablet Indications: Encounter for initial prescription of contraceptive pills Take 1 tablet by mouth daily. 84 tablet 3 12/19/2021 Active Start: 03-28-2021 take 1 tablet by rosalba th once daily drospirenone-ethinyl estradiol 3-0.02 MG tablet Indications: Encounter for initial prescription of contraceptive pills Take 1 tablet by mouth daily. 84 tablet 3 03/28/2021 Active lidocaine hydrochloride 20 mg/ml mucous membrane topical solution (1 source) Antiarrhythmic, Amide Local Anesthetic Start: 06-26-2021 Lidocaine HCl (lidocaine viscous) 2 % Solution Indications: Sore throat Take 15mLs swish and swallow every 3 hours as needed for pain 200 mL 0 06/26/2021 Active Multiple Vitamins-Minerals (WOMENS ONE DAILY PO) (4 sources) Multiple Vitamins-Minerals (WOMENS ONE DAILY PO) Take by mouth. Active Multiple Vitamin s-Minerals (WOMENS ONE DAILY PO) Take by mouth. 0 Active Vit No.528-Zsvs-Usjcb (Classic ) 28 mg iron- 800 mcg tablet (3 sources) Start: 05-08-2024 Vit No.157-Duef-Vhxqh (Classic ) 28 mg iron- 800 mcg tablet Active {tbl} PO May 08, 2024 1:00am Vit-Fe Fumarate-FA ( 19 PO) (1 source) take 1 tablet by mouth once daily Vit-Fe Fumarate-FA ( 19 PO) Take 1 tablet by mouth daily. 0 Active vit/iron fum/folic ac ( 04/08 ORAL) (1 source) vit/iro n fum/folic ac ( 04/08 ORAL) Take 1 tablet by mouth once daily. Active spironolactone 100 mg oral tablet (1 source) Aldosterone Antagonist Start: 02-16-2021 spironolactone 100 MG tablet Completed/Discontinued Medications Medication Drug Class(es) Dates Sig (Normalized) Sig (Original) docosahexaenoic acid 200 mg oral capsule (3 sources) Start: 05-13-2019 End: 05-08-2024 Docosahexaenoic Acid 200 MG capsule Discontinued 1 {tbl} PO DAILY May 13, 2019 1:00am May 08, 2024 10:42am gadoterate Meglumine (DOTAREM) 5 MMOL/10ML injection 3-60 mL (1 source) Start: 03-23-2022 End: 03-23-2022 gadoterate Meglumine (DOTAREM) 5 MMOL/10ML injection 3-60 mL Problems Active Problems Problem Classification Problem Date Documented Date Episodic/Chronic Contraceptive and procreative management (1 source) Patient encounter status; Translations: [Encounter for initial prescription of contraceptive pills] Episodic Hemorrhage during ; abruptio placenta; placenta previa (4 sources) Threatened miscarriage; Translations: [Threatened ] Onset: 06-04-2024 06-01-2024 Episodic Menstrual disorders (6 sources) Dysmenorrhea; Translations: [Dysmenorrhea, unspecified] Onset: 08-19-2018 08-19-2018 Chronic Other female genital disorders (4 sources) Vaginal bleeding; Translations: [Abnormal uterine and vaginal bleeding, unspecified] Chronic Other and delivery including normal (20 sources) Normal ; Translations: [Encounter for supervision of normal , unspecified, unspecified trimester] Onset: 06-04-2024 09-10-2024 Episodic Comment on above: PRR, , SAULO 12/22, girl, [facility]: Hank Valencia : Shmuel RIOST low risk- stevo er neg carrier for cystic fibrosis, nl anatomy. Other screening for suspected conditions (not mental disorders or infectious disease) (1 source) Cancer cervix screening status; Translations: [Encounter for screening for malignant neoplasm of cervix] Episodic Other upper respiratory infections (2 sources) Sore throat symptom; Translations: [Acute pharyngitis, unspecified] Episodic Residual codes; unclassified (20 sources) BRCA2 gene mutation positive; Translations: [Genetic susceptibility to malignant neoplasm of breast] Onset: 09-09-2017 09-09-2017 Episodic Comment on above: OBGYN in [place]; g ets yearly MRI w/contrast (Due 2/3 but wants to cancel d/t ) Residual codes; unclassified (3 sources) Genetic susceptibility to malignant neoplasm of breast; Translations: [Genetic susceptibility to malignant neoplasm of breast] Onset: 06-13-2023 Episodic Residual codes; unclassified (3 sources) Genetic susceptibility to other malignant neoplasm; Translations: [Genetic susceptibility to other malignant neoplasm] Onset: 06-13-2023 Episodic Residual codes; unclassified (16 sources) Carrier of cystic fibrosis gene mutation; Translations: [Cystic fibrosis carrier] 08-07-2024 Episodic Comment on above: FOB neg. 03/19 Residual codes; unclassified (1 source) Cystic fibrosis carrier; Translations: [Cystic fibrosis carrier] Onset: 08-25-2024 Episodic Residual codes; unclassified (1 source) 21 weeks gestation of ; Translations: [21 weeks gestation of ] Onset: 08-25-2024 Episodic Residual codes; unclassified (1 source) 17 weeks gestation of ; Translations: [17 weeks gestation of ] Onset: 07-28-2024 Episodic Superficial injury; contusion (1 source) Tick bite; Translations: [Insect bite (nonvenomous) of abdominal wall, initial encounter] 06-19-2024 Episodic Thyroid disorders (1 source) Mass of thyroid gland; Translations: [Disorder of thyroid, unspecified] Episodic Past or Other Problems Problem Classification Problem Date Documented Date Episodic/Chronic Mood disorders (5 sources) Mood disorders Onset: 07-18-2021 Resolved: 10-30-2022 07-18-2021 Ovarian cyst (4 sources) Cyst of right ovary; Translations: [Unspecified ovarian cyst, right side] Onset: 06-13-2023 Episodic Residual codes; unclassified (6 sources) Family history of breast cancer; Translations: [Family history of malignant neoplasm of breast] Onset: 07-18-2021 07-18-2021 Episodic Residual codes; unclassified (6 sources) At high risk for breast cancer; Translations: [Other specified personal risk factors, not elsewhere classified] Onset: 07-18-2021 07-18-2021 Episodic Residual codes; unclassified (2 sources) Genetic susceptibility to malignant neoplasm of ovary; Translations: [Genetic susceptibility to malignant neoplasm of ovary] Onset: 06-13-2023 Episodic Residual codes; unclassified (1 source) 9 weeks gestation of ; Translations: [9 weeks gestation of ] Onset: 05-26-2024 Episodic NEGATED: Highlighted row has been ruled out!Unclassified (1 source) No known active problems 06-19-2024 Results Test Name Value Interpretation Reference Range Facility Urine Cultureon 09-11-2024 URC Culture exhibits no growth. Normal [facility] Comment on above: Performed By: #### M [id number] #### [facility] [address] [place], [address] Laboratory - Chemistry and C hemistry - challengeOrdered By: Taina Huddleston on 09-10-2024 Glucose Ql (U) Negative [facility] - UrinalysisOrder ed By: Taina Huddleston on 09-10-2024 Protein Ql (U) 1+ [facility] Alumni Secretary Office Visit Reporton 09-10-2024 Alumni Secretary Office Visit Report [facility] [address] [place] [address] OFFICE VISIT Date of Service: 09/10/24 MR#: [id number] Acct: [id number] Name: ANJU MUELLER Rep #: [id number] : 1995 Provider: Dr. Taina mallory MD Age/Sex: 29/F Location: [facility] [place] Status: Signed Intake Vital Signs 07/16/24 13:26 08/13/24 14:11 09/10/24 08:46 09/10/24 08:48 Height 5 ft 7 in 5 ft 7 in 5 ft 7 in 5 ft 7 in Weight: 181 lb 2 oz BMI 28.3 BP 101/68 Intake Visit Reasons: 25 wk ob Snowboarding Instructor Required: No Is patient in pain?: No Allergies No Known Allergies Allergy (Verified 09/10/24 08:45) Medications ???Medication ???Instructions ???Recorded ???Confirmed ???Type vits no.126-ferrous fum tab PO 05/08/24 09/10/24 History 28 mg iron-folic acid 800 mcg tablet (Classic ) Last Menstrual Period: 03/17/24 Zika: Zika virus screening: Negative : No PFSH PFSH Medical History (Updated 09/10/24 @ 09:[address] Taina Huddleston MD) BRCA2 gene mutation positive Family history of BRCA2 gene positive Surgical History [place] teeth removed Family History Mother BRCA gene mutation positive Preventative mastectomy done, 16 other relatives also + Aunt Breast cancer Social History household members: significant other and children number of children: 1 current occupational status: employed current occupation: [employer] in [place] current occupational exposures/hazards: No pets and animals: No history of recent travel: No sexually active: Yes Smoking Status: Never smoker alcohol intake: never substance use type: does not use well-balanced diet: daily or most days caffeine: Yes Type: coffee eating out: 1-3 times/week during the past year weight has: decreased > 10 lbs what type of physical activity do you participate in: walking frequency: 3-4 times per week duration: 15-30 minutes/day carissa/religious: None seatbelt use: always do you feel safe at home: Yes additional social history: Fianc???: [employer] - [employer] in [place] History 2 Elective abortions Hx Para 1 Spontaneous abortions Hx # Term Pregnancies 1 Ectopic pregnancies Hx # Pregnancies Multiple births # of living children 1 Past Pregnancies Del. Date Name GA/Weeks Outcome Route Bth Weight Gen Labor Lgth Anesthesia Del Locatn Provider FOB 05/14/19 Annie 42 live - full term 8lbs 4oz Female 10hours epidural WC H Dr Richardsons, Cintia Jones Delivery Date: 05/14/19 Last Updated by: Farzana Peña RN Induced d/t post dates, small PP hemorrhage HPI 25 wk ob Details: ANJU SEN is a 29 year old who presents for routine OB visit. OB Visit SAULO Calculator Estimated Delivery Date Method Current WG Current Estimate 12/22/24 LMP (Certain) 25w 2d Expected Delivery Route/Plan Labor Preferences- CB/BF classes: [] labor support person: [] labor intervention preferences: [] pain management options preferred: [] cut cord/dad catch: [] : [] PP control planned: [] discussed possible routes of delivery and associated risks: [] special requests: [] Specific Issue/Plans Covid status: [] Flu vaccine: [] Tdap vaccine: [] Rhogam: [] LARC form signed: [] Problem list reviewed and updated with the most current plan of care details and appropriate orders placed. Relevant counseling for the gestational age provided. Continue routine care and follow up unless otherwise noted in visit notes/problem list details Initial Weight: 160 lb Date -???-???-???-???-??? -???-???-???-???-??? -???-???- EGA Weight BP Urine Prot -???-???-???-???-??? -???-???-???-???-??? -???-???- Glucose FHR FuHt Pres Dilation -???-???-???-???-??? -???-???-???-???-??? -???-???- Effaced St Visit Note 05/21/24 -???-???-???-???-??? -???-???-???-???-??? -???-???- 9w 2d 160 lb 2 oz (+2 oz) 121/79 -???-???-???-???-??? -???-???-???-???-??? -???-???- 178 -???-???-???-???-??? -???-???-???-???-??? -???-???- KW- CRL cons with dates. accepts NIPT 06/18/24 -???-???-???-???-??? -???-???-???-???-??? -???-???- 13w 2d 162 lb 8 oz (+2 lb 8 oz) 116/77 Negative -???-???-???-???-??? -???-???-???-???-??? -???-???- Negative 158 -???-???-???-???-??? -???-???-???-???-??? -???-???- JV- CRL stil l consistent with established GA. no complaints today low risk nipt girl 07/16/24 -???-???-???-???-??? -???-???-???-???-??? -???-???- 17w 2d 167 lb 2 oz (+7 lb 2 oz) 116/74 Negative -???-???-???-???-??? -???- (more content not included)... Normal [facility] Urine cultureOrdered By: Pacheco Huddleston on 09-10-2024 Bacteria identified Cx Nom (U) Culture exhibits no growth. [facility] - Chemistry and C hemistry - challengeOrdered By: Yris Brown on 08-13-2024 Glucose Ql (U) Negative [facility] Laboratory - UrinalysisOrder ed By: Yris Brown on 08-13-2024 Protein Ql (U) Negative [facility] Alumni Secretary Office Visit Reporton 08-13-2024 Alumni Secretary Office Visit Report [facility] [address], [address] [place] [address] OFFICE VISIT Date of Service: 08/13/24 MR#: [id number] Acct: [id number] Name: SEGUNDO BABANJU SANCHEZ Rep #: [id number] : 1995 Provider: FRANSISCO Forrester ams Age/Sex: 29/F Location: [facility] [place] Status: Signed Intake Vital Signs 06/18/24 14:33 07/16/24 13:26 08/13/24 14:11 Height 5 ft 7 in 5 ft 7 in 5 ft 7 in Weight: 175 lb BMI 27.3 BP 119/82 H Intake Visit Reasons: 21 wk ob Chief Complaint: 21wk OB Snowboarding Instructor Required: No Is patient in pain?: No Allergies No Known Allergies Allergy (Verified 08/13/24 14:09) Medications ???Medication ???Instructions ???Recorded ???Confirmed ???Type vits no.126-ferrous fum tab PO 05/08/24 08/13/24 History 28 mg iron-folic acid 800 mcg tablet (Classic ) Last Menstrual Period: 03/17/24 : No PFSH PFSH Medical History Family history of BRCA2 gene positive Surgical History [place] teeth removed Family History Mother BRCA gene mutation positive Preventative mastectomy done, 16 other relatives also + Aunt Breast cancer Social History household members: significant other and children number of children: 1 current occupational status: employed current occupation: [employer] in [place] current occupational exposures/hazards: No pets and animals: No history of recent travel: No sexually active: Yes Smoking Status: Never smoker alcohol intake: never substance use type: does not use well-balanced diet: daily or most days caffeine: Yes Type: coffee eating out: 1-3 times/week during the past year weight has: decreased > 10 lbs what type of physical activity do you participate in: walking frequency: 3-4 times per week duration: 15-30 minutes/day carissa/religious: None seatbelt use: always do you feel safe at home: Yes additional social history: Fianc???: [employer] in [place] History 2 Elective abortions Hx Para 1 Spontaneous abortions Hx # Term Pregnancies 1 Ectopic pregnancies Hx # Pregnancies Multiple births # of living children 1 Past Pregnancies Del. Date Name GA/Weeks Outcome Route Bth Weight Infant Gen Labor Lgth Anesthesia Del Locatn Provider FOB 05/14/19 Annie 42 live - full term 8lbs 4oz Female 10hours epidural WC H Dr Fall, Cintia Jones Delivery Date: 05/14/19 Last Updated by: Farzana Peña RN Induced d/t post dates, small PP hemorrhage HPI 21 wk ob Details: ANJU SEN is a 29 year old who presents for routine OB visit. OB Visit SAULO Calculator Estimated Delivery Date Method Current WG Current Estimate 12/22/24 LMP (Certain) 21w 2d Expected Delivery Route/Plan Labor Preferences- CB/BF classes: [] labor support person: [] labor intervention preferences: [] pain management options preferred: [] cut cord/dad catch: [] : [] PP control planned: [] discussed possible routes of delivery and associated risks: [] special requests: [] Specific Issue/Plans Covid status: [] Flu vaccine: [] Tdap vaccine: [] Rhogam: [] LARC form signed: [] Problem list reviewed and updated with the most current plan of care details and appropriate orders placed. Relevant counseling for the gestational age provided. Continue routine care and follow up unless otherwise noted in visit notes/problem list details Initial Weight: 160 lb Date -???-???-???-???-??? -???-???-???-???-??? -???-???- EGA Weight BP Urine Prot -???-???-???-???-??? -???-???-???-???-??? -???-???- Glucose FHR FuHt Pres Dilation -???-???-???-???-??? -???-???-???-???-??? -???-???- Effaced St Visit Note 05/21/24 -???-???-???-???-??? -???-???-???-???-??? -???-???- 9w 2d 160 lb 2 oz (+2 oz) 121/79 -???-???-???-???-??? -???-???-???-???-??? -???-???- 178 -???-???-???-???-??? -???-???-???-???-??? -???-???- KW- CRL cons with dates. accepts NIPT 06/18/24 -???-???-???-???-??? -???-???-???-???-??? -???-???- 13w 2d 162 lb 8 oz (+2 lb 8 oz) 116/77 Negative -???-???-???-???-??? -???-???-???-???-??? -???-???- Negative 158 -???-???-???-???-??? -???-???-???-???-??? -???-???- JV- CRL stil l consistent with established GA. no complaints today low risk nipt girl 07/16/24 -???-???-???-???-??? -???-???-???-???-??? -???-???- 17w 2d 167 lb 2 oz (+7 lb 2 oz) 116/74 Negative -???-???-???-???-??? -???-???-???-???-??? -???-???- Negative 149 -???-???-???-???-??? -???-???-???-???-??? -???-???- MH-No VB. So m (more content not included)... Normal [facility] - Chemistry and C hemistry - challengeOrdered By: Tawanna Farfan on 07-16-2024 Glucose Ql (U) Negative [facility] - UrinalysisOrder ed By: Tawanna Farfan on 07-16-2024 Protein Ql (U) Negative [facility] Alumni Secretary Office Visit Reporton 07-16-2024 Alumni Secretary Office Visit Report [facility] [address], [address] [place] [address] OFFICE VISIT Date of Service: 07/16/24 MR#: [id number] Acct: [id number] Name: ANJU MUELLER Rep #: [id number] : 1995 Provider: VANNESA velez Age/Sex: 29/F [place] [facility] Status: Signed Intake Vital Signs 05/21/24 11:09 06/18/24 14:33 07/16/24 13:26 07/16/24 13:26 Height 5 ft 5 in 5 ft 7 in 5 ft 7 in 5 ft 7 in Weight: 167 lb 2 oz BMI 26.2 BP 116/74 Intake Visit Reasons: 17 wk ob Snowboarding Instructor Required: No Is patient in pain?: No Allergies No Known Allergies Allergy (Verified 07/16/24 13:24) Medications ???Medication ???Instructions ???Recorded ???Confirmed ???Type vits no.126-ferrous fum tab PO 05/08/24 07/16/24 History 28 mg iron-folic acid 800 mcg tablet (Classic ) Last Menstrual Period: 03/17/24 Zika: Zika virus screening: Negative : No Have you fallen in the past year?: No PFSH PFSH Medical History Family history of BRCA2 gene positive Surgical History [place] teeth removed Family History Mother BRCA gene mutation positive Preventative mastectomy done, 16 other relatives also + Aunt Breast cancer Social History household members: significant other and children number of children: 1 current occupational status: employed current occupation: [employer] in [place] current occupational exposures/hazards: No pets and animals: No history of recent travel: No sexually active: Yes Smoking Status: Never smoker alcohol intake: never substance use type: does not use well-balanced diet: daily or most days caffeine: Yes Type: coffee eating out: 1-3 times/week during the past year weight has: decreased > 10 lbs what type of physical activity do you participate in: walking frequency: 3-4 times per week duration: 15-30 minutes/day carissa/religious: None seatbelt use: always do you feel safe at home: Yes additional social history: Fianc???: [employer] in [place] History 2 Elective abortions Hx Para 1 Spontaneous abortions Hx # Term Pregnancies 1 Ectopic pregnancies Hx # Pregnancies Multiple births # of living children 1 Past Pregnancies Del. Date Name GA/Weeks Outcome Route Bth Weight Infant Gen Labor Lgth Anesthesia Del Locatn Provider FOB 05/14/19 Annie 42 live - full term 8lbs 4oz Female 10hours epidural WC H Dr Fall, Cintia Boris Jones Delivery Date: 05/14/19 Last Updated by: Farzana Peña RN Induced d/t post dates, small PP hemorrhage HPI 17 wk ob Details: ANJU SEN is a 29 year old who presents for routine OB visit. OB Visit SAULO Calculator Estimated Delivery Date Method Current WG Current Estimate 12/22/24 LMP (Certain) 17w 2d Expected Delivery Route/Plan Labor Preferences- CB/BF classes: [] labor support person: [] labor intervention preferences: [] pain management options preferred: [] cut cord/dad catch: [] : [] PP control planned: [] discussed possible routes of delivery and associated risks: [] special requests: [] Specific Issue/Plans Covid status: [] Flu vaccine: [] Tdap vaccine: [] Rhogam: [] LARC form signed: [] Problem list reviewed and updated with the most current plan of care details and appropriate orders placed. Relevant counseling for the gestational age provided. Continue routine care and follow up unless otherwise noted in visit notes/problem list details Initial Weight: 160 lb Date -???-???-???-???-??? -???-???-???-???-??? -???-???- EGA Weight BP Urine Prot -???-???-???-???-??? -???-???-???-???-??? -???-???- Glucose FHR FuHt Pres Dilation -???-???-???-???-??? -???-???-???-???-??? -???-???- Effaced St Visit Note 05/21/24 -???-???-???-???-??? -???-???-???-???-??? -???-???- 9w 2d 160 lb 2 oz (+2 oz) 121/79 -???-???-???-???-??? -???-???-???-???-??? -???-???- 178 -???-???-???-???-??? -???-???-???-???-??? -???-???- KW- CRL cons with dates. accepts NIPT 06/18/24 -???-???-???-???-??? -???-???-???-???-??? -???-???- 13w 2d 162 lb 8 oz (+2 lb 8 oz) 116/77 Negative -???-???-???-???-??? -???-???-???-???-??? -???-???- Negative 158 -???-???-???-???-??? -???-???-???-???-??? -???-???- JV- CRL stil l consistent with established GA. no complaints today low risk nipt girl 07/16/24 -???-???-???-???-??? -???-???-???-???-??? -???-???- 17w 2d 167 lb 2 oz (+7 lb 2 oz) 116/74 Negative -???-???-???-???-??? -???-???-???-???-??? -???-??? (more content not included)... [facility] ANJU MUELLER ([id number]) 1995 F Date Time Provider Department 06/19/24 9:30 AM ERICK SCHAFER During your visit today, we recorded the following information about you: Temperature Pulse Respiration Blood pressure 98.1 degrees 85/minute 20/minute 127/84 Weight 71 kg Erick Schafer APRN.CNP 06/19/2024 9:40 AM Signed This note was created using NoteWriter. Subjective Anju Sen is a 29 year old female. HPI Pt noticed a tick on her left flank region this morning. She removed the most of the tick and the head remains. She knows the tick was not there yesterday. Review of Systems Constitutional: Negative for fatigue and fever. Musculoskeletal: Positive for myalgias. Objective BP 127/84 Pulse 85 Temp 36.7 ?C (98.1 ?F) Resp 20 Wt 71 kg (156 lb 8.4 oz) LMP (LMP Unknown) SpO2 99% Physical Exam Vitals and nursing note reviewed. Constitutional: General: She is not in acute distress. Appearance: Normal appearance. She is not ill-appearing. HENT: Head: Normocephalic. Mouth/Throat: Mouth: Mucous membranes are moist. Eyes: Conjunctiva/sclera: Conjunctivae normal. Cardiovascular: Rate and Rhythm: Normal rate and regular rhythm. Pulmonary: Effort: Pulmonary effort is normal. Breath sounds: Normal breath sounds. Musculoskeletal: General: Normal range of motion. Cervical back: Normal range of motion. Skin: General: Skin is warm and dry. Comments: Left flank there is approximately a 3 mm diameter erythematous macular region with no obvious tick or remaining tick parts noted. Neurological: General: No focal deficit present. Mental Status: She is alert. Psychiatric: Mood and Affect: Mood normal. Behavior: Behavior normal. Assessment and Plan ASSESSMENT/PLAN: 1. Tick bite of abdomen, initial encounter - ICD9: 911.4, E906.4, ICD10: S30.861A, W57.XXXA As tick has been on the patient less than 24 hours I discussed with her that the risk for Lyme disease was very minimal and antibiotics were not recommended. We discussed the risks and benefits of attempting to remove any possible remaining tick parts and I discussed with her the recommendation that this would cause more infection then allowing the body to spontaneously reject any remaining tick parts. I discussed with patient use of topical antibiotics to prevent any secondary type infection. We did discuss a one-time prophylactic dose of doxycycline but based on the fact the patient is 13 weeks combined with the short duration of tick exposure it was mutually agreed that the risks outweighed the benefits. Patient will follow-up closely with PCP especially if she develops a worsening rash, fever, body aches, any other new or worsening concerns. Erick Schafer APRN.GLAZING DEPARTMENT SUPERVISOR Allergies As of Date: 06/19/2024 (No Known Allergies) Date Reviewed: 06/19/2024 Reviewed by: Erick Schafer APRN.GLAZING DEPARTMENT SUPERVISOR - Fully Assessed Reason for Visit: Tick bite [Other] Cmt: L side area, redness, swelling, thinks head is still in there, removed body this am Primary Visit Diagnosis:Tick bite of abdomen, initial encounter [S30.861A, W57.XXXA] Prescriptions as of 06/19/2024 - vit/iron fum/folic ac ( 04/08 ORAL) Take 1 tablet by mouth once daily. - docosahexaenoic acid/epa (FISH OIL ORAL) Take 1 capsule by mouth once daily. Problem List As Of Date: 06/19/2024 (None) Encounter Status:Closed by ERICK SCHAFER on 06/19/24 Normal [facility] - Chemistry and C hemistry - challengeOrdered By: Cary Hollins on 06-18-2024 Glucose Ql (U) Negative [facility] - UrinalysisOrder ed By: Cary Hollins on 06-18-2024 Protein Ql (U) Negative [facility] Alumni Secretary Office Visit Reporton 06-18-2024 Alumni Secretary Office Visit Report [facility] [address], [address] [place] [address] OFFICE VISIT Date of Service: 06/18/24 MR#: [id number] Acct: [id number] Name: ANJU MUELLER Rep #: [id number] : 1995 Provider: Dr. Cary Munroe, Age/Sex: 29/F Location: [facility] Status: Signed Intake Vital Signs 05/13/19 14:26 05/24/24 09:45 06/18/24 14:33 Height 5 ft 5 in 5 ft 7 in 5 ft 7 in Weight: 162 lb 8 oz BMI 25.4 BP 116/77 Intake Visit Reasons: 13wk OB Snowboarding Instructor Required: No Is patient in pain?: No Allergies No Known Allergies Allergy (Verified 06/18/24 14:39) Medications ???Medication ???Instructions ???Recorded ???Confirmed ???Type vits no.126-ferrous fum tab PO 05/08/24 06/18/24 History 28 mg iron-folic acid 800 mcg tablet (Classic ) Last Menstrual Period: 03/17/24 Zika: Zika virus screening: Negative : No PFSH PFSH Medical History Family history of BRCA2 gene positive Surgical History [place] teeth removed Family History Mother BRCA gene mutation positive Preventative mastectomy done, 16 other relatives also + Aunt Breast cancer Social History household members: significant other and children number of children: 1 current occupational status: employed current occupation: [employer] in [place] current occupational exposures/hazards: No pets and animals: No history of recent travel: No sexually active: Yes Smoking Status: Never smoker alcohol intake: never substance use type: does not use well-balanced diet: daily or most days caffeine: Yes Type: coffee eating out: 1-3 times/week during the past year weight has: decreased > 10 lbs what type of physical activity do you participate in: walking frequency: 3-4 times per week duration: 15-30 minutes/day carissa/religious: None seatbelt use: always do you feel safe at home: Yes additional social history: Fianc???: [employer] in [place] History 2 Elective abortions Hx Para 1 Spontaneous abortions Hx # Term Pregnancies 1 Ectopic pregnancies Hx # Pregnancies Multiple births # of living children 1 Past Pregnancies Del. Date Name GA/Weeks Outcome Route Bth Weight Infant Gen Labor Lgth Anesthesia Del Locatn Provider FOB 05/14/19 Annie 42 live - full term 8lbs 4oz Female 10hours epidural WC H Dr Calero's, Cintia Jones Delivery Date: 05/14/19 Last Updated by: Farzana Peña RN Induced d/t post dates, small PP hemorrhage HPI 13wk OB Details: ANJU SEN is a 29 year old who presents for routine OB visit. OB Visit SAULO Calculator Estimated Delivery Date Method Current WG Current Estimate 12/22/24 LMP (Certain) 13w 2d Expected Delivery Route/Plan Labor Preferences- CB/BF classes: [] labor support person: [] labor intervention preferences: [] pain management options preferred: [] cut cord/dad catch: [] : [] PP control planned: [] discussed possible routes of delivery and associated risks: [] special requests: [] Specific Issue/Plans Covid status: [] Flu vaccine: [] Tdap vaccine: [] Rhogam: [] LARC form signed: [] Problem list reviewed and updated with the most current plan of care details and appropriate orders placed. Relevant counseling for the gestational age provided. Continue routine care and follow up unless otherwise noted in visit notes/problem list details Initial Weight: 160 lb Date -???-???-???-???-??? -???-???-???-???-??? -???-???- EGA Weight BP Urine Prot -???-???-???-???-??? -???-???-???-???-??? -???-???- Glucose FHR FuHt Pres Dilation -???-???-???-???-??? -???-???-???-???-??? -???-???- Effaced St Visit Note 05/21/24 -???-???-???-???-??? -???-???-???-???-??? -???-???- 9w 2d 160 lb 2 oz (+2 oz) 121/79 -???-???-???-???-??? -???-???-???-???-??? -???-???- 178 -???-???-???-???-??? -???-???-???-???-??? -???-???- KW- CRL cons with dates. accepts NIPT 06/18/24 -???-???-???-???-??? -???-???-???-???-??? -???-???- 13w 2d 162 lb 8 oz (+2 lb 8 oz) 116/77 Negative -???-???-???-???-??? -???-???-???-???-??? -???-???- Negative 158 -???-???-???-???-??? -???-???-???-???-??? -???-???- JV- CRL stil l consistent with established GA. no complaints today low risk nipt girl ACOG First Trimester First Trimester: Desire for , Alcohol, Tobacco Cessation, Illicit/Recreational Drug/Substance Use, Intimate Partner Violence, Barriers to care, Ant (more content not included)... Normal [facility] Absolute lymphocyte countOrd ered By: Yris Brown on 05-28-2024 Lymphocytes Auto (Unsp spec) [#/Vol] 1.89 10*3/uL 0.83-4.51 [facility] Absolute neutrophil countOrd ered By: Yris Brown on 05-28-2024 Neutrophils (Bld) [#/Vol] 5.5 10*3/uL 2.0-7.7 [facility] Automated lymphocyte count a s percentage of total leukocytesOrdered By: Yris Brown on 05-28-2024 Lymphocytes/100 WBC Auto (Unsp spec) 23.2 % 19-41 [facility] Basophil percentageOrdered B y: Yris Brown on 05-28-2024 Basophils/100 WBC (Bld) 0.2 % 0-1 [facility] CBC W/Diff, Automatedon - 0-2024 Absolute Lymph 1.89 X10 3/uL Normal 0.83-4.51 [facility] Comment on above: Performed By: #### L 3890.6300, L509.4005, L900.0098, L3890.6100, BTS, L509.8000, L100.0100, L3890.6005 #### [facility] [address] [place], [address] Absolute Neut 5.5 X10 3/uL Normal 2.0-7.7 [facility] Comment on above: Performed By: #### L 3890.6300, L509.4005, L900.0098, L3890.6100, BTS, L509.8000, L100.0100, L3890.6005 #### [facility] [address] [place], [address] Basophils/100 WBC (Bld) 0.2 % Normal 0-1 [facility] Comment on above: Performed By: #### L 3890.6300, L509.4005, L900.0098, L3890.6100, BTS, L509.8000, L100.0100, L3890.6005 #### [facility] [address] [place], [address] Eosinophils/100 WBC (Bld) 0.9 % Normal 0-5 [facility] Comment on above: Performed By: #### L 3890.6300, L509.4005, L900.0098, L3890.6100, BTS, L509.8000, L100.0100, L3890.6005 #### [facility] [address] [place], [address] Erythrocyte distribution width (RBC) [Ratio] 13.2 % Normal 11.6-14.6 [facility] Comment on above: Performed By: #### L 3890.6300, L509.4005, L900.0098, L3890.6100, BTS, L509.8000, L100.0100, L3890.6005 #### [facility] [address] [place], [address] Hematocrit (Bld) [Volume fraction] 41.2 % Normal 37-47 [facility] Comment on above: Performed By: #### L 3890.6300, L509.4005, L900.0098, L3890.6100, BTS, L509.8000, L100.0100, L3890.6005 #### [facility] [address] [place], [address] Hemoglobin (Bld) [Mass/Vol] 13.2 g/dL Normal 12.0-15.0 [facility] Comment on above: Performed By: #### L 3890.6300, L509.4005, L900.0098, L3890.6100, BTS, L509.8000, L100.0100, L3890.6005 #### [facility] [address] [place], [address] IG% 0.400 Normal 0.0-0.9 [facility] Comment on above: Result Comment: IG% - Immature Granulocytes (promyelocytes, myelocytes and metamyelocytes) > 1% indicates that a LEFT SHIFT is Present. Performed By: #### L 3890.6300, L509.4005, L900.0098, L3890.6100, BTS, L509.8000, L100.0100, L3890.6005 #### [facility] [address] [place], [address] Lymphocytes/100 WBC (Bld) 23.2 % Normal 19-41 [facility] Comment on above: Performed By: #### L 3890.6300, L509.4005, L900.0098, L3890.6100, BTS, L509.8000, L100.0100, L3890.6005 #### [facility] [address] [place], [address] MCH (RBC) [Entitic mass] 27.4 pg Normal 27.0-32.0 [facility] Comment on above: Performed By: #### L 3890.6300, L509.4005, L900.0098, L3890.6100, BTS, L509.8000, L100.0100, L3890.6005 #### [facility] [address] [place], [address] MCHC (RBC) [Mass/Vol] 32.0 g/dL Normal 32-36 [facility] Comment on above: Performed By: #### L 3890.6300, L509.4005, L900.0098, L3890.6100, BTS, L509.8000, L100.0100, L3890.6005 #### [facility] [address] [place], [address] MCV (RBC) [Entitic vol] 85.5 fL Normal 81-99 [facility] Comment on above: Performed By: #### L 3890.6300, L509.4005, L900.0098, L3890.6100, BTS, L509.8000, L100.0100, L3890.6005 #### [facility] [address] [place], [address] Monocytes/100 WBC (Bld) 7.6 % Normal 0-10 [facility] Comment on above: Performed By: #### L 3890.6300, L509.4005, L900.0098, L3890.6100, BTS, L509.8000, L100.0100, L3890.6005 #### [facility] [address] [place], [address] Neutrophils/100 WBC (Bld) 67.7 % Normal 47-70 [facility] Comment on above: Performed By: #### L 3890.6300, L509.4005, L900.0098, L3890.6100, BTS, L509.8000, L100.0100, L3890.6005 #### [facility] [address] [place], [address] Nucleated RBC (Bld) [#/Vol] 0 10*3/uL Normal 0-5 [facility] Comment on above: Performed By: #### L 3890.6300, L509.4005, L900.0098, L3890.6100, BTS, L509.8000, L100.0100, L3890.6005 #### [facility] [address] [place], [address] Platelet mean volume (Bld) [Entitic vol] 10.2 fL Normal 6.2-12.0 [facility] Comment on above: Performed By: #### L 3890.6300, L509.4005, L900.0098, L3890.6100, BTS, L509.8000, L100.0100, L3890.6005 #### [facility] [address] [place], [address] Platelets (Bld) [#/Vol] 322 10*3/uL Normal 150-450 [facility] Comment on above: Performed By: #### L 3890.6300, L509.4005, L900.0098, L3890.6100, BTS, L509.8000, L100.0100, L3890.6005 #### [facility] [address] [place], [address] RBC (Bld) [#/Vol] 4.82 10*6/uL Normal 4.2-5.4 [facility] Comment on above: Performed By: #### L 3890.6300, L509.4005, L900.0098, L3890.6100, BTS, L509.8000, L100.0100, L3890.6005 #### [facility] [address] [place], [address] RDW SD 41.1 fl Normal 35.1-43.9 [facility] Comment on above: Performed By: #### L 3890.6300, L509.4005, L900.0098, L3890.6100, BTS, L509.8000, L100.0100, L3890.6005 #### [facility] [address] [place], [address] WBC (Bld) [#/Vol] 8.1 10*3/uL Normal 4.4-11.0 [facility] Comment on above: Performed By: #### L 3890.6300, L509.4005, L900.0098, L3890.6100, BTS, L509.8000, L100.0100, L3890.6005 #### [facility] [address] [place], [address] Eosinophil percentageOrdered By: Yris Brown on 05-28-2024 Eosinophils/100 WBC (Bld) 0.9 % 0-5 [facility] Erythrocyte distribution wid th ratioOrdered By: Yris Brown on 05-28-2024 Erythrocyte distribution width (RBC) [Ratio] 13.2 % 11.6-14.6 [facility] Erythrocyte distribution wid th standard deviationOrdered By: Yris Brown on 05-28-2024 Erythrocyte distribution width (RBC) [Ratio] 41.1 fl 35.1-43.9 [facility] HIV - WCHon 05-28-2024 HIV Non-Reactive Normal Nonreactive [facility] Comment on above: Order Comment: Reaso n for Exam: Performed By: #### M 100.2200, L7000.1800 #### [facility] [address] [facility] [place], [place], [id number] HIV 1 and HIV-2 antibody ass ay with HIV-1 p24 antigen detectionOrdered By: Yris Brown on 05-28-2024 HIV 1+2 Ab+HIV1 p24 Ag IA Ql Non-Reactive Nonreactive [facility] Hematocrit Auto (Bld) [Volum e fraction]Ordered By: Yris Brown on 05-28-2024 Hematocrit (Bld) [Volume fraction] 41.2 % 37-47 [facility] Hemoglobin measurementOrdere d By: Yris Brown on 05-28-2024 Hemoglobin (Bld) [Mass/Vol] 13.2 g/dL 12.0-15.0 [facility] Hepatitis B Surface Antigeno n 05-28-2024 HEP B Surf Ag Non-Reactive Normal Nonreactive [facility] Comment on above: Order Comment: Reaso n for Exam: Performed By: #### M 100.2200, L7000.1800 #### [facility] [address] [place], [address] Hepatitis C Antibodyon 05-28 Hepatitis C AB Non-Reactive Normal Nonreactive [facility] Comment on above: Order Comment: Reaso n for Exam: Result Comment: Non Reactive: < 0.8 Equivocal: >/= 0.8 to < 1.0 Reactive: >/= 1.0 The CDC requires that a reactive/equivocal HCV antibody result be sent out for confirmation. HCV Quant by PCR testing. Performed By: #### M 100.2200, L7000.1800 #### [facility] [address] [place], [place], [id number] Immature granulocytes/100 WB C Auto (Bld)Ordered By: Yris Brown on 05-28-2024 Immature granulocytes/100 WBC (Bld) 0.400 % 0.0-0.9 [facility] Comment on above: IG% - Immature Granu locytes (promyelocytes, myelocytes and metamyelocytes) > 1% indicates that a LEFT SHIFT is Present. L509.8000on 05-28-2024 Syphilis Abs Non-Reactive Normal [facility] Comment on above: Order Comment: Reaso n for Exam: Performed By: #### M 100.2200, L7000.1800 #### [facility] [address] [place], [place], [id number] MCV (mean corpuscular volume ) determinationOrdered By: Yris Brown on 05-28-2024 MCV (RBC) [Entitic vol] 85.5 fL 81-99 [facility] Mean corpuscular hemoglobin (MCH) determinationOrdered By: Yris Brown on 05-28-2024 MCH (RBC) [Entitic mass] 27.4 pg 27.0-32.0 [facility] Mean corpuscular hemoglobin concentration (MCHC) determinationOrdered By: Yris Brown on 05-28-2024 MCHC (RBC) [Mass/Vol] 32.0 g/dL 32-36 [facility] Mean platelet volume determi nationOrdered By: Yris Brown on 05-28-2024 Platelet mean volume (Bld) [Entitic vol] 10.2 fL 6.2-12.0 [facility] Monocyte percentageOrdered B y: Yris Brown on 05-28-2024 Monocytes/100 WBC (Bld) 7.6 % 0-10 [facility] NATERAon 05-28-2024 NATURA SEE SCANNED REPORT Normal [facility] Comment on above: Performed By: #### L 3890.6300, L509.4005, L900.0098, L3890.6100, BTS, L509.8000, L100.0100, L3890.6005 #### [facility] [address] [place], [address] Neutrophil percentageOrdered By: Yris Brown on 05-28-2024 Neutrophils/100 WBC (Bld) 67.7 % 47-70 [facility] Nucleated red blood cell per centageOrdered By: Yris Brown on 05-28-2024 Nucleated RBC/100 WBC (Bld) [Ratio] 0 % 0-5 [facility] Platelet countOrdered By: Arsenio Brown on 05-28-2024 Platelets (Bld) [#/Vol] 322 10*3/uL 150-450 [facility] RBC Auto (Bld) [#/Vol]Ordere d By: Yris Brown on 05-28-2024 RBC (Bld) [#/Vol] 4.82 10*6/uL 4.2-5.4 [facility] Rubella IgGon 05-28-2024 Rubella IgG Reactive Normal Nonreactive [facility] Comment on above: Order Comment: Reaso n for Exam: Result Comment: Anti body Results Interpretation of Immune Status Non Reactive Presumed Non-Immune Equivocal Equivocal Reactive Presumed Immune Performed By: #### M 100.2200, L7000.1800 #### [facility] [address] [place], [place], [id number] Serum Treponema species anti body detectionOrdered By: Yris Brown on 05-28-2024 Treponema sp Ab Ql (S) Non-Reactive [facility] Type AND Screenon 05-28-2024 Ab SCREEN GEL Negative Normal [facility] Comment on above: Order Comment: PN Performed By: #### M 100.2200, L7000.1800 #### [facility] [address] [place], [place], [id number] White blood cell (WBC) count Ordered By: Yris Brown on 05-28-2024 WBC (Bld) [#/Vol] 8.1 10*3/uL 4.4-11.0 [facility] Chlamydia/GC ROBIN aptimaon CHLAMY,NUC ACID Negative Normal Negative [facility] Comment on above: Performed By: #### M 100.2200, L7000.1800 #### [facility] [address] [place], [place], [id number] GC BY NUC ACID Negative Normal Negative [facility] Comment on above: Result Comment: Perf ormed at: =G - [facility] [address] [id number] Fixed Wing Aircraft Flight Engineer: Belem Lima MD, Phone: [phone] Performed By: #### M 100.2200, L7000.1800 #### [facility] [address] [place], [address] Bilirubin Test strip Ql (U)O rdered By: ED PROVIDER on 05-24-2024 Bilirubin Ql (U) Negative Negative [facility] Emergency Department Summary on 05-24-2024 Emergency Department Summary [facility] Medical Records Department [address] [place] [address] Emergency Department Summary 05/24/24 MR#: [id number] Acct: [id number] Name: ANJU MUELLER Rep #: [id number] : 1995 28 From: Julio Louise DO PCP: Care Physician,No Primary Status:DEP ER Location: ED HPI HPI - Female History of Present Illness Chief Complaint: Vag Bld, Preg Informant: patient and spouse/S.O. Narrative Narrative: 28-year-old female G2, P1 at 9 weeks presenting to the emergency room with vaginal bleeding. Patient states that this morning she developed vaginal bleeding. She notes it was a small amount. It was not associated with cramping or pain. She notes that she had intercourse on Saturday evening. Yesterday nothing out of the ordinary. No prolonged trips or standing. She went grocery shopping. She did not have any complications her first . By history and chart review she is O+. She sees [facility]. She states that she was seen in the office on and had a pelvic ultrasound and stated everything looked good [facility] Medical History Family history of BRCA2 gene positive Home Medications ???Medication ???Instructions ???Recorded ???Last Taken ???Type vits no.126-ferrous fum tab PO 05/08/24 Unknown History 28 mg iron-folic acid 800 mcg tablet (Classic ) Allergy/AdvReac Type Severity Reaction Status Date / Time No Known Allergies Allergy Verified 05/24/24 09:44 Family History Mother BRCA gene mutation positive Preventative mastectomy done, 16 other relatives also + Aunt Breast cancer Surgical History [place] teeth removed Social History household members: significant other and children number of children: 1 current occupational status: employed current occupation: [employer] in [place] current occupational exposures/hazards: No pets and animals: No history of recent travel: No sexually active: Yes Smoking Status: Never smoker alcohol intake: never substance use type: does not use well-balanced diet: daily or most days caffeine: Yes Type: coffee eating out: 1-3 times/week during the past year weight has: decreased > 10 lbs what type of physical activity do you participate in: walking frequency: 3-4 times per week duration: 15-30 minutes/day carissa/religious: None seatbelt use: always do you feel safe at home: Yes additional social history: Fianc???: [employer] in [facility] ROS ED Constitutional Constitutional ED: Denies chills, fever(s) or weight loss Eyes Eyes: Denies change in vision or diplopia ENT ENT ED: Denies ear pain, rhinorrhea or sore throat Cardiovascular Cardiovascular: Denies chest pain, orthopnea, palpitations or racing heartbeat Respiratory/Chest Respiratory/Chest: Denies cough, dyspnea or orthopnea Gastrointestinal Gastrointestinal: Denies abdominal pain, diarrhea, nausea or vomiting Genitourinary Genitourinary ED: Reports other Details: See history of present illness ; Denies dysuria, hematuria or urinary frequency Musculoskeletal Musculoskeletal: Denies arthralgias or myalgias Integumentary Denies abscess or rash Neurologic Neurologic: Denies headache(s) or weakness Psychiatric Psychiatric: Denies anxiety, depression, suicidal ideation or suicidal thoughts Endocrine Endocrinology: Denies polydipsia, polyphagia or polyuria Allergic/Immunologic Allergic/Immunologic ED: Denies mouth swelling, tongue swelling or urticaria EXAM Physical Exam Const Vital Signs: 05/24/24 09:45 05/24/24 12:47 Temperature 97.8 F 98 F Temperature Source Oral Pulse Rate 83 80 Respiratory Rate 18 16 Blood Pressure 116/98 H 118/80 Blood Pressure Mean 104 92 Pulse Ox 100 99 Oxygen Delivery Method Room Air Positive well nourished and well developed General Appearance ED: well developed HEENT Reports normocephalic, head/scalp atraumatic and moist mucous membranes Eyes PERRL and EOMs intact bilaterally Neck no lymphadenopathy, supple and no JVD Resp normal respiratory effort and clear to auscultation bilaterally Cardio regular rate, regular rhythm and no murmurs GI normal to inspection, nondistended, normoactive bowel sounds and non-tender Palpation: soft Back/Spine no CVA tenderness and normal ROM Extremity normal to inspection General Extremety ED: Negative for edema General Extremity: Negative for edema Neuro oriented x3 and CN's II-XII intact bilaterally Sensorium / Orientation: alert Motor Exam: strength 5/5 throughout (more content not included)... Normal [facility] HH, Hemoglobin AND Hematocri ton 05-24-2024 Hematocrit (Bld) [Volume fraction] 36.4 % Low 37-47 [facility] Comment on above: Performed By: #### L 100.0600 #### [facility] [address] [place], [address] Hemoglobin (Bld) [Mass/Vol] 12.2 g/dL Normal 12.0-15.0 [facility] Comment on above: Performed By: #### L 100.0600 #### [facility] [address] [place], [address] Hematocrit Auto (Bld) [Volum e fraction]Ordered By: Julio Louise on 05-24-2024 Hematocrit (Bld) [Volume fraction] 36.4 % Low 37-47 [facility] Hemoglobin measurementOrdere d By: Julio Louise on 05-24-2024 Hemoglobin (Bld) [Mass/Vol] 12.2 g/dL 12.0-15.0 [facility] Ketones Test strip Ql (U)Ord ered By: ED PROVIDER on 05-24-2024 Ketones Ql (U) Negative Negative [facility] Microscopic analysis of urin e for red blood cells (RBC)Ordered By: ED PROVIDER on 05-24-2024 Microscopic analysis of urine for red blood cells (RBC) 0 SEEN /hpf 0-5 [facility] Mucus LM Ql (Urine sed)Order ed By: ED PROVIDER on 05-24-2024 Mucus Ql (Urine sed) 0 SEEN /hpf [facility] Nitrite Test strip Ql (U)Ord ered By: ED PROVIDER on 05-24-2024 Nitrite Ql (U) Negative Negative [facility] ,Serum,hCG Quali.on 05-24-2024 HCG, SERUM QUAL Normal [facility] Comment on above: Result Comment: Canc elled via OM: order change Performed By: #### L 700.6800 #### [facility] [address] [place], [address] INTERNAL QC OK? Normal [facility] Comment on above: Result Comment: Canc elled via OM: order change Performed By: #### L 700.6800 #### [facility] [address] [place], [place], [address] RECORD KIT LOT# Normal [facility] Comment on above: Result Comment: Canc elled via OM: order change Performed By: #### L 700.6800 #### [facility] [address] [place], [place], [address] Protein Test strip Ql (U)Ord ered By: ED PROVIDER on 05-24-2024 Protein Ql (U) 15 mg/dl High Negative [facility] Serum human chorionic gonado tropin detection for pregnancyOrdered By: Julio Louise on 05-24-2024 HCG ( test) Ql [address]39 mIU/mL High <4 [facility] Comment on above: hCG levels with Gest ational AgeGestational Age hCG mIU/mL (IU/L)0.2 - 1 week 5 - 501-2 weeks 50 - 5002-3 weeks 100 - 39478-9 weeks 500 - 853758-7 weeks 1000 - 123893-5 weeks 84345 - 100,0006-8 weeks 45348 - 200,0002-3 months 30360 - 100,000 Squamous epithelial cells de tection in urine sediment by light microscopyOrdered By: ED PROVIDER on 05-24-2024 Epithelial cells.squamous LM Ql (Urine sed) 0 SEEN /hpf 5-10 [facility] Transvaginal w/Preg USon Transvaginal w/Preg US [facility] Services [address] [place] [address] Transvaginal w/Preg US MR#: [id number] Acct: [id number] Name: ANJU MUELLER Rep #: [id number] : 1995 F 28 From: Anu Martins nd, MD PCP: Care Physician,No Primary Status: DEP ER Study: Transvaginal w/Preg US Date of Exam: 05/24/24 Exam# [id number] Ordering Dr: Julio Louise DO PROCEDURE: TRANSVAGINAL W/PREG US REASON FOR EXAM: 28-year-old female, 1st trimester bleeding, light spotting for 30 minutes earlier today. COMPARISON: None. FINDINGS: Comments: Transvaginal imaging was performed . Number of Gestational Sacs: 1 Gestational Sac Shape: Normal Number of Fetuses: 1 Heart Rate: 177 (average) Yolk Sac: Present and unremarkable. Placenta: Presently not well-visualized Amniotic Fluid Volume: Subjectively normal for gestational age. Uterine Abnormalities: Maternal uterus is unremarkable. Ovaries / Adnexa: Both ovaries are visualized and unremarkable. The right ovary measures 3.0 x 2.1 x 1.9 cm. The left ovary measures 2.8 x 2.6 x 2.0 cm. No free fluid within the pelvis. DIMENSIONS: Parameter Measurement / EGA [place] Rump Length: 3.08 mm/9 weeks 5 days Yolk Sac: 3.9 mm 9 weeks 6 days/ ESTIMATED GESTATIONAL AGE: By Ultrasound: 9 weeks 6 days By LMP: 9 weeks 5 days ESTIMATED DATE OF DELIVERY: By Ultrasound: 12/21/2024 By LMP: 12/22/2024 US/Transvaginal w/Preg US IMPRESSION: UNREMARKABLE FIRST TRIMESTER ULTRASOUND. Reading Location: [facility] CC: Dr. Julio Louise DO; No Primary Care Physician Forming Machine Adjuster: Signed Normal [facility] Urinalysis, Completeon 05-24 RBC 0 SEEN Normal 0-5 [facility] Comment on above: Order Comment: COLLE CTOR TO SPECIFY Performed By: #### L 400.0001 #### [facility] [address] [place], [address] BACTERIA 0 SEEN Normal None Seen [facility] Comment on above: Order Comment: KAYKAY CTOR TO SPECIFY Performed By: #### L 400.0001 #### [facility] [address] [place], [address] EPI,SQUAMOUS 0 SEEN Normal 5-10 [facility] Comment on above: Order Comment: KAYKAY CTOR TO SPECIFY Performed By: #### L 400.0001 #### [facility] [address] [place], [address] Mucus Ql (Urine sed) 0 SEEN Normal [facility] Comment on above: Order Comment: KAYKAY CTOR TO SPECIFY Performed By: #### L 400.0001 #### [facility] [address] [place], [address] WBC 0 SEEN Normal 0-5 [facility] Comment on above: Order Comment: KAYKAY CTOR TO SPECIFY Performed By: #### L 400.0001 #### [facility] [address] [place], [address] Urine clarityOrdered By: ED PROVIDER on 05-24-2024 Clarity (U) Clear Clear [facility] Urine color determinationOrd ered By: ED PROVIDER on 05-24-2024 Color (U) Yellow Yellow [facility] Urine glucose detectionOrder ed By: ED PROVIDER on 05-24-2024 Glucose Ql (U) Normal mg/dl Normal [facility] Urine leukocyte esterase det ection by dipstickOrdered By: ED PROVIDER on 05-24-2024 Leukocyte esterase Test strip Ql (U) Negative Negative [facility] Urine pHOrdered By: ED PROVI REAL on 05-24-2024 pH (U) 7.0 [pH] 5.0 - 8.0 [facility] Urine sediment bacteria coun t by microscopy (number/high power field)Ordered By: ED PROVIDER on 05-24-2024 Bacteria LM.HPF (Urine sed) [#/Area] 0 /[HPF] None Seen [facility] Urine specific gravity measu rementOrdered By: ED PROVIDER on 05-24-2024 Specific gravity (U) [Rel density] 1.005 1.002-1.030 [facility] Urine urobilinogen measureme ntOrdered By: ED PROVIDER on 05-24-2024 Urobilinogen Ql (U) Normal mg/dl Normal [facility] White blood cell countOrdere d By: ED PROVIDER on 05-24-2024 White blood cell count 0 SEEN /hpf 0-5 [facility] hCG Titer Quant., Serumon HCG QUANT. 04770 mIU/mL High 1-3 [facility] Comment on above: Result Comment: hCG levels with Gestational Age Gestational Age hCG mIU/mL (IU/L) 0.2 - 1 week 5 - 50 1-2 weeks 50 - 500 2-3 weeks 100 - 5000 3-4 weeks 500 - 47145 4-5 weeks 1000 - 87837 5-6 weeks 67113 - 100,000 6-8 weeks 21165 - 200,000 2-3 months 68228 - 100,000 Performed By: #### L 700.8000 #### [facility] [address] [place], [place], [address] Urine Cultureon 05-22-2024 URC Culture exhibits no growth. Normal [facility] Comment on above: Performed By: #### M 100.2200, L7000.1800 #### [facility] [address] [place], [place], [address] Chlamydia trachomatis rRNA d etection by probe and target amplification methodOrdered By: Yris Brown on 05-21-2024 C. trachomatis rRNA ROBIN+probe Ql (Unsp spec) Negative Negative [facility] Neisseria gonorrhoeae nuclei c acid detection by amplified probe techniqueOrdered By: Yris Brown on 05-21-2024 N. gonorrhoeae DNA ROBIN+probe Ql (Unsp spec) Negative Negative [facility] Comment on above: Performed at: =[address] [id number] Director: Belem Lima MD, Phone: [phone] Alumni Secretary Office Visit Reporton 02-13-2025 Alumni Secretary Office Visit Report [facility] [address], [address] [place] [address] OFFICE VISIT Date of Service: 05/21/24 MR#: [id number] Acct: [id number] Name: ANJU MUELLER Rep #: [id number] : 1995 Provider: FRANSISCO Forrester ams Age/Sex: 28/F Location: [facility] Status: Signed Intake Vital Signs 05/21/24 11:09 Height 5 ft 5 in Weight: 160 lb 2 oz BMI 26.6 BP 121/79 H Intake Visit Reasons: New OB, LMP 03/17/24, SAULO 12/22/24 Chief Complaint: New OB Is patient in pain?: No Allergies No Known Allergies Allergy (Verified 05/21/24 11:14) Medications ???Medication ???Instructions ???Recorded ???Confirmed ???Type vits no.126-ferrous fum tab PO 05/08/24 05/21/24 History 28 mg iron-folic acid 800 mcg tablet (Classic ) Last Menstrual Period: 03/17/24 : Yes PFSH PFSH Medical History Family history of BRCA2 gene positive Surgical History [place] teeth removed Family History Mother BRCA gene mutation positive Preventative mastectomy done, 16 other relatives also + Aunt Breast cancer Social History household members: significant other and children number of children: 1 service: No current occupational status: employed current occupation: [employer] in [place] current occupational exposures/hazards: No pets and animals: No history of recent travel: No sexually active: Yes Smoking Status: Never smoker alcohol intake: never substance use type: does not use well-balanced diet: daily or most days caffeine: Yes Type: coffee eating out: 1-3 times/week during the past year weight has: decreased > 10 lbs what type of physical activity do you participate in: walking frequency: 3-4 times per week duration: 15-30 minutes/day carissa/religious: None seatbelt use: always do you feel safe at home: Yes additional social history: Fianc???: [employer] - [employer] in [place] History 2 Elective abortions Hx Para 1 Spontaneous abortions Hx # Term Pregnancies 1 Ectopic pregnancies Hx # Pregnancies Multiple births # of living children 1 Past Pregnancies Del. Date Name GA/Weeks Outcome Route Bth Weight Infant Gen Labor Lgth Anesthesia Del Locatn Provider FOB 05/14/19 Annie 42 live - full term 8lbs 4oz Female 10hours epidural WC H Dr aFll, Cintia Boris Robert Delivery Date: 05/14/19 Last Updated by: Farzana Peña RN Induced d/t post dates, small PP hemorrhage HPI New OB, LMP 03/17/24, SAULO 12/22/24 Details: ANJU SEN is a 28 year old who presents for New OB visit. OB Visit SAULO Calculator Estimated Delivery Date Method Current WG Current Estimate 12/22/24 LMP (Certain) 9w 2d Estimated Due Date: 12/22/24 Expected Delivery Route/Plan Labor Preferences- CB/BF classes: [] labor support person: [] labor intervention preferences: [] pain management options preferred: [] cut cord/dad catch: [] : [] PP control planned: [] discussed possible routes of delivery and associated risks: [] special requests: [] Specific Issue/Plans Covid status: [] Flu vaccine: [] Tdap vaccine: [] Rhogam: [] LARC form signed: [] Problem list reviewed and updated with the most current plan of care details and appropriate orders placed. Relevant counseling for the gestational age provided. Continue routine care and follow up unless otherwise noted in visit notes/problem list details Initial Weight: 160 lb Date -???-???-???-???-??? -???-???-???-???-??? -???-???- EGA Weight BP Urine Prot -???-???-???-???-??? -???-???-???-???-??? -???-???- Glucose FHR FuHt Pres Dilation -???-???-???-???-??? -???-???-???-???-??? -???-???- Effaced St Visit Note 05/21/24 -???-???-???-???-??? -???-???-???-???-??? -???-???- 9w 2d 160 lb 2 oz (+2 oz) 121/79 -???-???-???-???-??? -???-???-???-???-??? -???-???- 178 -???-???-???-???-??? -???-???-???-???-??? -???-???- KW- CRL cons with dates. accepts NIPT Menstrual History Last Menstrual Period: 03/17/24 Reported LMP: definite Normal amount/duration: Yes Frequency in days: 28 On hormonal BC at conception: No hCG+: 04/16/24 Antepartum Record Genetic Screening: Congenital Heart Defect: Other, Neural Tube Defect: Other, Hemoglobinopathy Or Carrier: Other, Cystic Fibrosis: Other, Chromosome Abnormality: Other, Zhang-Sachs: Other, Hemophilia: Other, Intellectual Disability/Autism: Other, Recurrent Loss/Stillbirth: Other, Other Structural Bi (more content not included)... Normal [facility] Urine cultureOrdered By: Presley Brown on 05-21-2024 Bacteria identified Cx Nom (U) Culture exhibits no growth. [facility] OB ultrasound panelOrdered B y: Unassigned Pacs on 06-13-2023 [facility] Work Phone: OB ultrasound panelon 2023 Radiology Study observation (narrative) [facility] US Pelvis transvaginalon IMPRESSION: 1. Endometrial canal is distended with heterogeneous avascular material most likely environmental marketing representative of blood products. 2. Hemorrhagic right ovarian cyst measuring up to 3.6 cm. 3. Normal left ovary. I personally viewed and interpreted these images and I have reviewed and approved this report. OLOGY EXAM: US PELVIC W TRANSVAGINAL, 06/21/2022 22:32 PM CLINICAL INDICATIONS: heavy vaginal bleeding COMPARISON: No prior studies available for comparison. TECHNIQUE: Real-time, grayscale ultrasound evaluation of the pelvis was performed utilizing transabdominal and transvaginal approaches. Duplex scan is performed. Color flow images and spectral waveforms obtained. FINDINGS: LMP: 06/06/22 Uterus: The uterus is homogeneous in echotexture and normal in size measuring 4.7 x 5.5 x 4.6 cm. The endometrial stripe does not appear significantly thickened. There is distention of the endometrial canal with heterogeneous avascular material measuring approximately 27 mm in thickness. No color flow is noted on Doppler interrogation. No focal myometrial lesions. Ovaries: The right ovary measures 4.2 x 3.4 x 3.3 cm, and the left ovary measures 2.3 x 1.8 x 2.4 cm. In the right ovary, there is a hypoechoic lesion with internal reticular and lacelike echoes, lesion measures 2.9 x 3.6 x 2.4 cm. The left ovary is normal in appearance. No adnexal masses are identified. Ovarian Doppler Findings: Doppler ultrasound demonstrates arterial and venous flow in both ovaries. Urinary Bladder: Limited imaging of the urinary bladder demonstrates no abnormality. There is trace free fluid in the pelvic cul-de-sac. RADIOLOGY Yris Wei MD - 06/22/2022 EXAM: US PELVIC W TRANSVAGINAL, 06/21/2022 22:32 PM CLINICAL INDICATIONS: heavy vaginal bleeding COMPARISON: No prior studies available for comparison. TECHNIQUE: Real-time, grayscale ultrasound evaluation of the pelvis was performed utilizing transabdominal and transvaginal approaches. Duplex scan is performed. Color flow images and spectral waveforms obtained. FINDINGS: LMP: 06/06/22 Uterus: The uterus is homogeneous in echotexture and normal in size measuring 4.7 x 5.5 x 4.6 cm. The endometrial stripe does not appear significantly thickened. There is distention of the endometrial canal with heterogeneous avascular material measuring approximately 27 mm in thickness. No color flow is noted on Doppler interrogation. No focal myometrial lesions. Ovaries: The right ovary measures 4.2 x 3.4 x 3.3 cm, and the left ovary measures 2.3 x 1.8 x 2.4 cm. In the right ovary, there is a hypoechoic lesion with internal reticular and lacelike echoes, lesion measures 2.9 x 3.6 x 2.4 cm. The left ovary is normal in appearance. No adnexal masses are identified. Ovarian Doppler Findings: Doppler ultrasound demonstrates arterial and venous flow in both ovaries. Urinary Bladder: Limited imaging of the urinary bladder demonstrates no abnormality. There is trace free fluid in the pelvic cul-de-sac. IMPRESSION IMPRESSION: 1. Endometrial canal is distended with heterogeneous avascular material most likely environmental marketing representative of blood products. 2. Hemorrhagic right ovarian cyst measuring up to 3.6 cm. 3. Normal left ovary. I personally viewed and interpreted these images and I have reviewed and approved this report. [facility] US Pelvis transvaginalOrdere d By: Yris Wei on 06-22-2022 [facility] Work Phone: CBC AND ELECTRONIC DIFFon Basophils (Bld) [#/Vol] K/uL 0.00 - 0.15 K/uL [facility] Basophils/100 WBC (Bld) 0.2 % [facility] Differential cell count method Nom (Bld) Electronic Differential [facility] Eosinophils (Bld) [#/Vol] 0.08 10*3/uL 0.00 - 0.42 K/uL [facility] Eosinophils/100 WBC (Bld) 0.8 % [facility] Erythrocyte distribution width (RBC) [Ratio] 12.7 % 10.8 - 14.9 % [facility] Hematocrit (Bld) [Volume fraction] 38.4 % 34.9 - 44.3 % [facility] Hemoglobin (Bld) [Mass/Vol] 12.5 g/dL 11.4 - 15.2 g/dL [facility] Immature granulocytes (Bld) [#/Vol] K/uL NINF - 0.08 K/uL [facility] Immature granulocytes/100 WBC (Bld) 0.2 % [facility] Interpretation and review of laboratory results Abnormal [facility] Lymphocytes (Bld) [#/Vol] 1.98 10*3/uL 1.16 - 3.51 K/uL [facility] Lymphocytes/100 WBC (Bld) 18.7 % [facility] MCH (RBC) [Entitic mass] 27.9 pg 25.9 - 33.9 pg [facility] MCHC (RBC) [Mass/Vol] 32.6 g/dL 31.4 - 35.9 g/dL [facility] MCV (RBC) [Entitic vol] 85.7 fL 79.6 - 97.7 fL [facility] Monocytes (Bld) [#/Vol] 0.72 10*3/uL 0.22 - 0.87 K/uL [facility] Monocytes/100 WBC (Bld) 6.8 % [facility] Neutrophils (Bld) [#/Vol] 7.76 10*3/uL High 1.64 - 7.28 K/uL [facility] Nucleated RBC/100 WBC (Bld) [Ratio] 0.0 % [facility] Platelet mean volume (Bld) [Entitic vol] 9.8 fL 8.5 - 12.2 fL [facility] Platelets (Bld) [#/Vol] 387 10*3/uL 150 - 393 K /uL [facility] RBC (Bld) [#/Vol] 4.48 10*6/uL [facility] Segmented neutrophils/100 WBC (Bld) 73.3 % [facility] WBC (Bld) [#/Vol] 10.58 10*3/uL 3.99 - 11 .19 K/uL [facility] HCG ( test) Qlon HCG.beta subunit [Moles/Vol] 3.5 mmol/L mIU/mL [facility] Comment on above: Non-: <10 mI U/mL Postmenopause: <10 mIU/mL Male: <10 mIU/mL FEMALE GESTATIONAL AGE 2-4 Weeks: 39.1-8,388 mIU/mL 5-6 Weeks: 861-88,769 mIU/mL 6-8 Weeks: 8,636-218,085 mIU/mL 8-10 Weeks: 18,700-244,467 mIU/mL 10-12 Weeks: 23,143-181,899 mIU/mL 13-27 Weeks: 6,303-97,171 mIU/mL 24-40 Weeks: 4,360-74,883 mIU/mL Test results cannot be interpreted as absolute evidence for the presence or absence of malignant disease. [facility] URINALYSISOrdered By: Lawrence dueñas on 06-21-2022 Appearance (U) Clear Clear [facility] Bacteria LM Ql (Urine sed) TRACE Abnormal ABSENT [facility] Color (U) Yellow Yellow [facility] Epithelial cells.squamous LM Ql (Urine sed) 1/hpf = 1+ 1/hpf = 1+, 2-5/hpf = 2+, 0/hpf = 0+, ABSENT [facility] Glucose Test strip (U) [Mass/Vol] Negative Negative [facility] Interpretation and review of laboratory results Abnormal [facility] Ketones (U) [Mass/Vol] Negative Negative [facility] Leukocyte esterase Test strip Ql (U) Negative Negative [facility] Nitrite Ql (U) Negative Negative [facility] pH (U) 6.5 [pH] 5.0 - 7.0 [facility] Protein (U) [Mass/Vol] Negative Negative [facility] RBC (U) [#/Vol] Large Abnormal Negative [facility] RBC LM.HPF (Urine sed) [#/Area] 6-9 Abnormal [facility] Specific gravity (U) [Rel density] 1.001 - PINF [facility] Urobilinogen (U) [Mass/Vol] 0.2 E.U./dL 0.2 E.U/dL, 1.0 E.U/dL [facility] WBC LM.HPF (Urine sed) [#/Area] 0-5 [facility] US Pelvis transvaginalon Radiology Study observation (narrative) [facility] POCT RAPID STREP Aon 022 S. pyogenes Ag Ql (Throat) Negative (+/-) [facility] Internal controls OK [facility] THROAT CULTUREon 06-26-2021 Throat culture SPECIMEN DESCRIPTION THROAT SWAB CULTURE USUAL OROPHARYNGEAL DUNG * Result Note: Testing performed at [place] [address] * REPORT STATUS 06/29/2021 * Result Note: FINAL * Normal [facility] Comment on above: Performed By: #### T HRC #### [place] [address] Vital Signs Date Time Vital Sign Value Performing Clinician Facility 10-01-2024 10:13-0400 Body height 170.18 cm No Primary Care Physician [facility] 10-01-2024 10:05-0400 Body mass index (BMI) [Ratio] 29.4 kg/m2 No Primary Care Physician [facility] 10-01-2024 10:05-0400 Body weight 85.27 kg No Primary Care Physician [facility] 10-01-2024 10:05-0400 Diastolic blood pressure 68 mm[Hg] No Primary Care Physician [facility] 10-01-2024 10:05-0400 Systolic blood pressure 104 mm[Hg] No Primary Care Physician [facility] 09-10-2024 08:48-0400 Body height 170.18 cm No Primary Care Physician [facility] 09-10-2024 08:46-0400 Body mass index (BMI) [Ratio] 28.3 kg/m2 No Primary Care Physician [facility] 09-10-2024 08:46-0400 Body weight 82.15 kg No Primary Care Physician [facility] 09-10-2024 08:46-0400 Diastolic blood pressure 68 mm[Hg] No Primary Care Physician [facility] 09-10-2024 08:46-0400 Systolic blood pressure 101 mm[Hg] No Primary Care Physician [facility] 08-13-2024 14:11-0400 Body mass index (BMI) [Ratio] 27.3 kg/m2 No Primary Care Physician [facility] 08-13-2024 14:11-0400 Body weight 79.37 kg No Primary Care Physician [facility] 08-13-2024 14:11-0400 Diastolic blood pressure 82 mm[Hg] No Primary Care Physician [facility] 08-13-2024 14:11-0400 Systolic blood pressure 119 mm[Hg] No Primary Care Physician [facility] 07-16-2024 13:26-0400 Body mass index (BMI) [Ratio] 26.2 kg/m2 No Primary Care Physician [facility] 07-16-2024 13:26-0400 Body weight 75.8 kg No Primary Care Physician [facility] 07-16-2024 13:26-0400 Diastolic blood pressure 74 mm[Hg] No Primary Care Physician [facility] 07-16-2024 13:26-0400 Systolic blood pressure 116 mm[Hg] No Primary Care Physician [facility] 06-19-2024 09:29-0400 Body temperature 98.1 [degF] Erick Moomaw INSULATION ENGINEMAN.[employer]LAZING DEPARTMENT SUPERVISOR Work Phone: [facility] 06-19-2024 09:29-0400 Body weight 71 kg Erick Moomaw INSULATION ENGINEMAN.GLAZING DEPARTMENT SUPERVISOR Work Phone: [facility] [facility] [place] 06-19-2024 09:29-0400 Diastolic blood pressure 84 mm[Hg] Erick Moomaw INSULATION ENGINEMAN.GLAZING DEPARTMENT SUPERVISOR Work Phone: [facility] [place] 06-19-2024 09:29-0400 Heart rate 85 /min Erick Moomaw INSULATION ENGINEMAN.GLAZING DEPARTMENT SUPERVISOR Work Phone: [facility] [place] 06-19-2024 09:29-0400 Respiratory rate 20 /min Erick Moomaw INSULATION ENGINEMAN.GLAZING DEPARTMENT SUPERVISOR Work Phone: [facility] [place] 06-19-2024 09:29-0400 SaO2% (BldA) [Mass fraction] 99 % Erick Moomaw INSULATION ENGINEMAN.GLAZING DEPARTMENT SUPERVISOR Work Phone: [facility] [place] 06-19-2024 09:29-0400 Systolic blood pressure 127 mm[Hg] Erick Schafer APRN.EVELIO Work Phone: [facility] [place] 06-18-2024 14:33-0400 Body mass index (BMI) [Ratio] 25.4 kg/m2 No Primary Care Physician [facility] 06-18-2024 14:33-0400 Body weight 73.7 kg No Primary Care Physician [facility] 06-18-2024 14:33-0400 Diastolic blood pressure 77 mm[Hg] No Primary Care Physician [facility] 06-18-2024 14:33-0400 Systolic blood pressure 116 mm[Hg] No Primary Care Physician [facility] 05-24-2024 12:47-0500 Body temperature 98 [degF] No Primary Care Physician [facility] 05-24-2024 12:47-0500 Diastolic blood pressure 80 mm[Hg] No Primary Care Physician [facility] 05-24-2024 12:47-0500 Heart rate 80 /min No Primary Care Physician [facility] 05-24-2024 12:47-0500 Respiratory rate 16 /min No Primary Care Physician [facility] 05-24-2024 12:47-0500 SaO2% (BldA) [Mass fraction] 99 % No Primary Care Physician [facility] 05-24-2024 12:47-0500 Systolic blood pressure 118 mm[Hg] No Primary Care Physician [facility] 05-24-2024 09:45-0500 Body mass index (BMI) [Ratio] 25.1 kg/m2 No Primary Care Physician [facility] 05-24-2024 09:45-0500 Body weight 72.75 kg No Primary Care Physician [facility] 05-21-2024 11:09-0500 Body mass index (BMI) [Ratio] 26.6 kg/m2 No Primary Care Physician [facility] 05-21-2024 11:09-0500 Body weight 72.63 kg No Primary Care Physician [facility] 05-21-2024 11:09-0500 Diastolic blood pressure 79 mm[Hg] No Primary Care Physician [facility] 05-21-2024 11:09-0500 Systolic blood pressure 121 mm[Hg] No Primary Care Physician [facility] 06-13-2023 15:13-0500 Body height 165.1 cm Jamal Daniel MD Work Phone: [facility] 06-13-2023 15:13-0500 Body mass index (BMI) [Ratio] 27.46 kg/m2 Jamal Daniel MD Work Phone: [facility] 06-13-2023 15:13-0500 Body weight 74.84 kg Jamal Daniel MD Work Phone: [facility] 06-13-2023 15:13-0500 Diastolic blood pressure 80 mm[Hg] Jamal Daniel MD Work Phone: [facility] 06-13-2023 15:13-0500 Heart rate 85 /min Jamal Daniel MD Work Phone: [facility] 06-13-2023 15:13-0500 Respiratory rate 16 /min Jamal Daniel MD Work Phone: [facility] 06-13-2023 15:13-0500 SaO2% (BldA) [Mass fraction] 98 % Jamal Daniel MD Work Phone: [facility] 06-13-2023 15:13-0500 Systolic blood pressure 124 mm[Hg] Jamal Daniel MD Work Phone: [facility] 06-22-2022 01:22-0400 Diastolic blood pressure 72 mm[Hg] Dayanna Ariza MD Work Phone: [facility] 06-22-2022 01:22-0400 Heart rate 86 /min Dayanna Ariza MD Work Phone: [facility] 06-22-2022 01:22-0400 Respiratory rate 16 /min Dayanna Ariza MD Work Phone: [facility] 06-22-2022 01:22-0400 SaO2% (BldA) [Mass fraction] 100 % Dayanna Ariza MD Work Phone: [facility] 06-22-2022 01:22-0400 Systolic blood pressure 129 mm[Hg] Dayanna Ariza MD Work Phone: [facility] 06-21-2022 19:41-0400 Body temperature 98.01 [degF] Dayanna Ariza MD Work Phone: [facility] 06-21-2022 19:39-0400 Body height 165.1 cm Dayanna Ariza MD Work Phone: [facility] 03-23-2022 16:11-0500 Diastolic blood pressure 89 mm[Hg] Archana Jose INSULATION ENGINEMAN-GLAZING DEPARTMENT SUPERVISOR Work Phone: [phone])[phone] [place] [address] 03-23-2022 16:11-0500 Heart rate 89 /min Archana Jose INSULATION ENGINEMAN-GLAZING DEPARTMENT SUPERVISOR Work Phone: [phone])[phone] [place] [address] 03-23-2022 16:11-0500 Systolic blood pressure 129 mm[Hg] Archana Jose INSULATION ENGINEMAN-GLAZING DEPARTMENT SUPERVISOR Work Phone: [facility] 12-19-2021 16:50-0400 Body height 166.4 cm Jamal Daniel MD Work Phone: [facility] 12-19-2021 16:50-0400 Body mass index (BMI) [Ratio] 24.25 kg/m2 Jamal Daniel MD Work Phone: [facility] 12-19-2021 16:50-0400 Body weight 67.13 kg Jamal Daniel MD Work Phone: [facility] 12-19-2021 16:50-0400 Diastolic blood pressure 72 mm[Hg] Jamal Daniel MD Work Phone: [facility] 12-19-2021 16:50-0400 Heart rate 76 /min Jamal Daniel MD Work Phone: [facility] 12-19-2021 16:50-0400 Respiratory rate 16 /min Jamal Daniel MD Work Phone: [facility] 12-19-2021 16:50-0400 SaO2% (BldA) [Mass fraction] 99 % Jamal Daniel MD Work Phone: [facility] 12-19-2021 16:50-0400 Systolic blood pressure 112 mm[Hg] Jamal Daniel MD Work Phone: [facility] 06-26-2021 19:48-0400 Body height 165.1 cm Adeola Tirado INSULATION ENGINEMAN-GLAZING DEPARTMENT SUPERVISOR Work Phone: [facility] 06-26-2021 19:48-0400 Body mass index (BMI) [Ratio] 24.23 kg/m2 Adeola Tirado INSULATION ENGINEMAN-GLAZING DEPARTMENT SUPERVISOR Work Phone: [facility] 06-26-2021 19:48-0400 Body temperature 99.39 [degF] Adeola Tirado INSULATION ENGINEMAN-GLAZING DEPARTMENT SUPERVISOR Work Phone: [facility] 06-26-2021 19:48-0400 Body weight 66.04 kg Adeola Tirado INSULATION ENGINEMAN-GLAZING DEPARTMENT SUPERVISOR Work Phone: [facility] 06-26-2021 19:48-0400 Diastolic blood pressure 72 mm[Hg] Adeola Tirado INSULATION ENGINEMAN-GLAZING DEPARTMENT SUPERVISOR Work Phone: [facility] 06-26-2021 19:48-0400 Heart rate 73 /min Adeola Tirado INSULATION ENGINEMAN-GLAZING DEPARTMENT SUPERVISOR Work Phone: [facility] 06-26-2021 19:48-0400 Respiratory rate 16 /min Adeola Tirado INSULATION ENGINEMAN-GLAZING DEPARTMENT SUPERVISOR Work Phone: [facility] 06-26-2021 19:48-0400 SaO2% (BldA) [Mass fraction] 99 % Adeola Tirado INSULATION ENGINEMAN-GLAZING DEPARTMENT SUPERVISOR Work Phone: [facility] 06-26-2021 19:48-0400 Systolic blood pressure 115 mm[Hg] Adeola Tirado INSULATION ENGINEMAN-GLAZING DEPARTMENT SUPERVISOR Work Phone: [facility] Encounters Encounter Date Encounter Type Care Provider Facility Start: 10-01-2024 End: 10-01-2024 ambulatory No Primary Care Physician [facility] Start: 10-01-2024 End: 10-01-2024 Patient encounter procedure Tawanna GRANADO -[facility] Work Phone: Start: 09-10-2024 End: 09-10-2024 ambulatory No Primary Care Physician [facility] Work Phone: Start: 09-10-2024 End: 09-10-[address] Taina Huddleston MD -Laboratory Specimen Work Phone: Start: 09-10-2024 End: 09-10-[address] Taina Huddleston MD -[facility] Work Phone: Start: 09-10-2024 End: 09-10-2024 ambulatory No Primary Care Physician [facility] Work Phone: Start: 09-10-2024 End: 09-10-2024 ambulatory No Primary Care Physician Facility:[facility] Start: 08-13-2024 End: 08-13-2024 Patient encounter procedure Yris Brown CNM -[facility] Work Phone: Start: 08-13-2024 End: 08-13-2024 ambulatory No Primary Care Physician [facility] Start: 07-30-2024 End: 07-30-2024 ambulatory MD NO PRIMARY CARE [facility] Start: 07-16-2024 End: 07-16-2024 Patient encounter procedure Tawanna GRANADO -[facility] Work Phone: Start: 07-16-2024 End: 07-16-2024 ambulatory No Primary Care Physician [facility] Start: 06-19-2024 End: 06-19-2024 ambulatory Facility:[facility] Start: 06-19-2024 End: 06-19-2024 Patient encounter procedure Erick Schafer GLAZING DEPARTMENT SUPERVISOR Work Phone: [facility] Comment on above: Tick bite of abdomen , initial encounter (Primary Dx) Start: 06-18-2024 End: 06-18-[address] Cary Brenner DO -[facility] Work Phone: Start: 06-18-2024 End: 06-18-2024 ambulatory No Primary Care Physician Facility[place] Start: 05-28-2024 End: 05-28-2024 Patient encounter procedure Yris Brown CNM -Lab [facility] Start: 05-28-2024 End: 05-28-2024 ambulatory No Primary Care Physician Facility:[facility] Start: 05-24-2024 End: 05-24-2024 Emergency department patient visit Dr. Julio Louise DO -Emergency Department Work Phone: Start: 05-21-2024 End: 05-21-2024 Patient encounter procedure Yris Brown CNM -Laboratory Specimen Work Phone: Start: 05-21-2024 End: 05-21-2024 Patient encounter procedure Yris Brown CNM -[facility] Work Phone: Start: 05-21-2024 End: 05-21-2024 ambulatory No Primary Care Physician [facility] Start: 05-21-2024 End: 05-21-2024 ambulatory No Primary Care Physician Facility:[facility] Start: 05-12-2024 ambulatory SELF SELF Facility:[facility] Start: 05-08-2024 ambulatory No Primary Car e Physician Facility[facility] Start: 06-13-2023 End: 06-13-2023 Office outpatient visit 25 minutes Jamal Daniel MD Work Phone: [facility] [place] Comment on above: BRCA2 gene mutation positive in female (Primary Dx); Cyst of right ovary Start: 06-13-2023 ambulatory SELF SELF Facility:[facility] Start: 06-21-2022 End: 06-22-2022 Emergency department patient visit Dayanna Ariza MD Work Phone: [facility] Start: 03-23-2022 End: 03-23-2022 Subsequent hospital visit by physician Archana Garcia INSULATION ENGINEMAN-GLAZING DEPARTMENT SUPERVISOR Work Phone: Department of Radiology Comment on above: Arrived Start: 12-19-2021 End: 12-19-2021 Office outpatient new 45 minutes Jamal Daniel MD Work Phone: [facility] [place] Comment on above: Thyroid mass (Primar y Dx); Encounter for initial prescription of contraceptive pills; BRCA2 gene mutation positive in female; Cervical cancer screening Start: 08-09-2021 End: 08-09-2021 Subsequent hospital visit by physician Archana Garcia INSULATION ENGINEMAN-GLAZING DEPARTMENT SUPERVISOR Work Phone: Department of Radiology Comment on above: Canceled (Cancel Fern son Not Listed - Please provide detailed information) Start: 06-26-2021 End: 06-26-2021 Office outpatient visit 15 minutes Adeola Tirado INSULATION ENGINEMAN-GLAZING DEPARTMENT SUPERVISOR Work Phone: [facility] Comment on above: Viral pharyngitis (P rimary Dx); Sore throat Start: 09-06-2020 End: 09-06-2020 ambulatory [facility] Procedures Date Procedure Procedure Detail Performing Clinician Start: 09-10-2024 Urine culture No Primar y Care Physician Start: 05-28-2024 Hepatitis B surface antigen measurement No Primary Care Physician Start: 05-28-2024 Hepatitis C antibody measurement No Primary Care Physician Comment on above: Non Reactive: < 0.8 Equivocal: >/= 0.8 to < 1.0 Reactive: >/= 1.0The CDC requires that a reactive/equivocal HCV antibody result be sent out for confirmation. HCV Quant by PCR testing. Start: 05-28-2024 Procedure No Primary Care Physician Start: 05-28-2024 Rubella IgG measurement No Primary Care Physician Comment on above: Antibody Results Int erpretation of Immune Status Non Reactive Presumed Non-Immune Equivocal Equivocal Reactive Presumed Immune Start: 05-24-2024 Transvaginal obstetr ic ultrasonography No Primary Care Physician Start: 05-24-2024 Urnls dip stick/tabl et reagent auto microscopy No Primary Care Physician Start: 05-21-2024 Urine culture No Primar y Care Physician Start: 06-13-2023 OB ultrasound panel Rosendo gonzalez Daniel MD Work Phone: Start: 06-21-2022 Us pelvic nonobstetr ic real-time image complete Dayanna Ariza MD Work Phone: Start: 06-21-2022 Urnls dip stick/tabl et reagent auto microscopy Dayanna Ariza MD Work Phone: Start: 06-21-2022 CBC AND ELECTRONIC DIFF Dayanna Ariza MD Work Phone: Start: 06-21-2022 Complete blood count with white cell differential, automated Dayanna Ariza MD Work Phone: Start: 06-21-2022 Gonadotropin chorion ic quantitative Dayanna Ariza MD Work Phone: Start: 06-26-2021 Iaadiadoo streptococ cus group a Adeola Tirado INSULATION ENGINEMAN-GLAZING DEPARTMENT SUPERVISOR Work Phone: Plan of Treatment Date Care Activity Detail Author Start: 10-01-2024 CBC W Auto Different ial panel - Blood [facility] Start: 10-01-2024 Measurement of gluco se 2 hours after glucose challenge for glucose tolerance test [facility] Start: 10-01-2024 Serologic test for syphilis [facility] Start: 10-01-2024 [facility] Start: 06-18-2024 End: 06-18-2024 Patient encounter procedure 06/18/2024 1:00 PM EDT Office Visit [facility] [place] [address] [place] [address] Jamal Daniel MD [address] [place] [id number] [facility] Start: 12-08-2023 Covid-19 Vaccine ( season) Covid-19 Vaccine ( season) [facility] [place] Start: 12-08-2023 Influenza vaccination Influenza Vacc ine (#1) [facility] [place] Start: 12-19-2022 Screening for malign ant neoplasm of cervix CERVICAL CANCER SCREENING DISCUSSION [facility] Start: 12-19-2022 End: 12-19-2022 Patient encounter procedure 12/19/2022 Office Visit Gynecology Jamal Daniel MD [address] [place] [address] [facility] Start: 12-07-2022 COVID-19 VACCINE ( season) COVID-19 VACCINE () [facility] Start: 12-07-2022 Influenza vaccination INFLUENZA VACC INE (#1) [facility] Start: 10-30-2022 End: 10-30-2022 Patient encounter procedure 10/30/2022 Office Visit Surgical Oncology Archana Garcia, INSULATION ENGINEMAN-GLAZING DEPARTMENT SUPERVISOR [address] [place] [address] Division of Surgical Oncology Start: 03-28-2022 GONORRHEA SCREEN GONORRHEA SCREEN [facility] Start: 03-28-2022 Screening for Chlamy ty trachomatis [facility] Start: 12-19-2021 End: 12-19-2022 Thyrotropin [Units/volume] in Serum or Plasma TSH Lab Routine Thyroid mass Expected: 12/19/2021, Expires: 12/19/2022 [facility] Comment on above: Expected: 12/19/2021 , Expires: 12/19/2022 Start: 12-19-2021 End: 12-19-2022 Thyroxine (T4) free [Mass/volume] in Serum or Plasma T4 FREE Lab Routine Thyroid mass Expected: 12/19/2021, Expires: 12/19/2022 [facility] Comment on above: Expected: 12/19/2021 , Expires: 12/19/2022 Start: 12-19-2021 End: 12-19-2022 Triiodothyronine (T3) Free [Mass/volume] in Serum or Plasma T3 FREE Lab Routine Thyroid mass Expected: 12/19/2021, Expires: 12/19/2022 [facility] Comment on above: Expected: 12/19/2021 , Expires: 12/19/2022 Start: 12-07-2021 Influenza vaccination [facility] Start: 10-17-2021 End: 10-17-2021 Patient encounter procedure 10/17/2021 Office Visit Gynecology Jamal Daniel MD [address] [place] [address] [address] [place] [id number] [facility] [place] Start: 07-18-2021 End: 07-18-2021 Patient encounter procedure 07/18/2021 Office Visit Surgical Oncology Gretta Parra MD [address] [facility] [address], [address] [place] [address] Archana Garcia, INSULATION ENGINEMAN-GLAZING DEPARTMENT SUPERVISOR [address] [place] [address] Division of Surgical Oncology Start: 06-26-2021 End: 06-26-2022 Throat culture CULTURE THROAT Microbiology Routine Sore throat Expected: 06/26/2021, Expires: 06/26/2022 [facility] Comment on above: Expected: 06/26/2021 , Expires: 06/26/2022 Start: 01-14-2021 COVID-19 VACCINE (2 - Pfizer 3-dose series) COVID-19 VACCINE (2 - Pfizer 3-dose series) [facility] Start: 01-14-2021 COVID-19 VACCINE (2 - Pfizer series) COVID-19 VACCINE (2 - Pfizer series) [facility] Start: 12-07-2020 Influenza vaccination INFLUENZA VACC INE (#1) [facility] Start: 10-19-2020 Screening for malign ant neoplasm of cervix CERVICAL CANCER SCREENING DISCUSSION [facility] Start: 2017 Screening for malign ant neoplasm of cervix Cervical Cancer Screening [facility] [place] Start: 06-11-2015 Pneumococcal vaccination Pneum ococcal Vaccine (1 of 2 - PCV) [facility] [place] Start: 06-11-2015 Third diphtheria, te tanus and acellular pertussis (DTaP) vaccination TDAP (ADULT) [facility] Start: 2014 Anxiety Screening Anxiety Screening [facility] [place] Start: 2014 Depression Screening Depression Scre ening [facility] [place] Start: 2014 [facility]atitis C [facility] [place] Start: 2014 HIV screening HIV Screening [facility] Start: 2014 Tetanus vaccination T[facility] Start: 06-11-2011 HIV screening HIV SCREENING DISCUSSION [facility] Start: 06-11-2007 Urine microalbumin profile DTa P,Tdap,Td Vaccine (6 - Tdap) [facility] [place] Start: 06-11-2007 Vaccination for nagi n papillomavirus HPV VACCINE ADOL (1 - 2-dose series) [facility] Start: 1996 Hepatitis C antibody , confirmatory test HEPATITIS C VIRUS SCREENING [facility] Start: 1996 Hepatitis C screening HEPATITI S C VIRUS SCREENING [facility] Start: 1996 Potassium [Moles/vol ume] in Serum or Plasma POTASSIUM [facility] Start: 1996 Tetanus vaccination TETANUS [facility] CBC W Auto Different ial panel - Blood [facility] Cytology Cervical or vaginal smear or scraping study CYTOLOGY-GUN PERFORATOR, LIQUID BASED Cytology Routine Cervical cancer screening 12/19/2021 6:19 PM EDT [facility] Erythrocyte mean corpuscular volume determination [facility] EXTRA MICRO EXTRA MICRO Flui ds STAT 06/21/2022 8:29 PM EDT [facility] GOLD TOP TUBE GOLD TOP TUBE La b STAT 06/21/2022 7:47 PM EDT [facility] Hematocrit [Volume Fraction] of Blood [facility] Hemoglobin [Mass/vol ume] in Blood [facility] LAVENDER TOP TUBE LAVENDER TOP T UBE Lab STAT 06/21/2022 7:[facility]uk[facility] [#/volume ] in Blood [facility] LT BLUE TOP TUBE LT BLUE TOP TUB E Lab STAT 06/21/2022 7:47 PM [facility] Mean corpuscular hemoglobin concentration determination [facility] Mean corpuscular hemoglobin determination [facility] Measurement of gluco se 2 hours after glucose challenge for glucose tolerance test [facility] Microscopic urinalysis URINALYSI S WITH CULTURE HOLD Lab STAT 06/21/2022 8:29 PM EDT [facility] MINT GREEN TOP TUBE MINT GREEN T OP TUBE Lab STAT 06/21/2022 7:47 PM EDT [facility] End: 03-23-2022 MR Breast - bilateral WO and W contrast IV [facility] Comment on above: 1 Occurrences starti ng 03/23/2022 until 03/23/2022 Neutrophil count [facility] Neutrophil percent differential count [facility] Patient Education Vaginal Bleedi ng During Miscarriage Threatened [facility] Work Phone: Patient referral [facility] Work Phone: Platelets [#/volume] in Blood [facility] RAINBOW DRAW RAINBOW DRAW Lab STAT 06/21/2022 7:47 PM EDT [facility] Work Phone: Red blood cell count [facility] Red cell distributio n width determination [facility] Serologic test for syphilis [facility] Us transvaginal MA ECHOGRAPHY,TRANSVAGINA L MA - OFFICE PERFORMED IMAGING Routine BRCA2 gene mutation positive in female Cyst of right ovary Ordered: 06/13/2023 [facility] Comment on above: Ordered: 06/13/2023 [facility] Immunizations Immunization Date Immunization Notes Care Provider Gregory jay 12-24-2020 COVID-19 vaccine, MR URIEL, Jasen, 0.3 ML Adeola Tirado INSULATION ENGINEMAN-GLAZING DEPARTMENT SUPERVISOR Work Phone: [facility] 05-15-2019 influenza, injectabl e, quadrivalent, preservative free No Primary Care Physician [facility] 05-15-2019 influenza, seasonal, injectable, preservative free Adeola Tirado INSULATION ENGINEMAN-GLAZING DEPARTMENT SUPERVISOR Work Phone: [facility] 05-15-2019 influenza virus vaccine, unspecified formulation Adeola Tirado INSULATION ENGINEMAN-GLAZING DEPARTMENT SUPERVISOR Work Phone: [facility] 07-17-2001 diphtheria, tetanus toxoids and acellular pertussis vaccine, unspecified formulation Adeola Tirado INSULATION ENGINEMAN-GLAZING DEPARTMENT SUPERVISOR Work Phone: [facility] 07-17-2001 measles, mumps and rubella virus vaccine Adeola Tirado INSULATION ENGINEMAN-GLAZING DEPARTMENT SUPERVISOR Work Phone: [facility] 07-17-2001 poliovirus vaccine, inactivated Adeola Tirado INSULATION ENGINEMAN-GLAZING DEPARTMENT SUPERVISOR Work Phone: [facility] 04-06-1999 diphtheria, tetanus toxoids and acellular pertussis vaccine, unspecified formulation Adeola Tirado INSULATION ENGINEMAN-GLAZING DEPARTMENT SUPERVISOR Work Phone: [facility] 04-06-1999 poliovirus vaccine, inactivated Adeoal Tirado INSULATION ENGINEMAN-GLAZING DEPARTMENT SUPERVISOR Work Phone: [facility] 10-21-1997 diphtheria, tetanus toxoids and acellular pertussis vaccine, unspecified formulation Adeola Tirado INSULATION ENGINEMAN-GLAZING DEPARTMENT SUPERVISOR Work Phone: [facility] 10-21-1997 haemophilus influenz ae type b vaccine, PRP-OMP conjugate Adeola Tirado INSULATION ENGINEMAN-GLAZING DEPARTMENT SUPERVISOR Work Phone: [facility] 10-21-1997 measles, mumps and rubella virus vaccine Adeola Tirado INSULATION ENGINEMAN-GLAZING DEPARTMENT SUPERVISOR Work Phone: [facility] 05-28-1997 diphtheria, tetanus toxoids and acellular pertussis vaccine, unspecified formulation Adeola Tirado INSULATION ENGINEMAN-GLAZING DEPARTMENT SUPERVISOR Work Phone: [facility] 05-28-1997 haemophilus influenz ae type b vaccine, PRP-OMP conjugate Adeola Tirado INSULATION ENGINEMAN-GLAZING DEPARTMENT SUPERVISOR Work Phone: [facility] 05-28-1997 hepatitis B vaccine, pediatric or pediatric/adolescent dosage Adeola Tirado INSULATION ENGINEMAN-GLAZING DEPARTMENT SUPERVISOR Work Phone: [facility] 05-28-1997 trivalent poliovirus vaccine, live, oral Adeola Tirado INSULATION ENGINEMAN-GLAZING DEPARTMENT SUPERVISOR Work Phone: [facility] 1996 diphtheria, tetanus toxoids and acellular pertussis vaccine, unspecified formulation Adeola Tirado INSULATION ENGINEMAN-GLAZING DEPARTMENT SUPERVISOR Work Phone: [facility] 1996 haemophilus influenz ae type b vaccine, PRP-OMP conjugate Adeola Tirado INSULATION ENGINEMAN-GLAZING DEPARTMENT SUPERVISOR Work Phone: [facility] 1996 hepatitis B vaccine, pediatric or pediatric/adolescent dosage Adeola Tirado INSULATION ENGINEMAN-GLAZING DEPARTMENT SUPERVISOR Work Phone: [facility] 1995 trivalent poliovirus vaccine, live, oral Adeola Tirado INSULATION ENGINEMAN-GLAZING DEPARTMENT SUPERVISOR Work Phone: [facility] 1995 hepatitis B vaccine, pediatric or pediatric/adolescent dosage Adeola Tirado INSULATION ENGINEMAN-GLAZING DEPARTMENT SUPERVISOR Work Phone: [facility] Payers Date Payer Category Payer Self-pay 2024 Unknown [id number] 2020 Medicaid [id number] 2020 Medicaid [id number] 2019 Unknown [id number] 1996 Unknown [id number] 2.16. [id number] 1996 Unknown [id number] 2.16. [id number] 1996 Unknown [id number] 2.16. [id number] Unknown [id number] Unknown [id number] 2.16.8 [id number] Unknown [id number] 2.16.8 [id number] Unknown [id number] 2.16.8 [id number] Unknown [id number] 2.16.8 [id number] Unknown [id number] 2.16.8 [id number] Unknown [id number] 2.16.8 [id number] Unknown [id number] 2.16.8 [id number] Unknown [id number] 2.16.8 [id number] Unknown [id number] 2.16.8 [id number] Unknown [id number] 2.16.8 [id number] Unknown [id number] 2.16.8 [id number] Social History Date Type Detail Facility [facility]: [facility]20-[facility] End: 08-06-2018 History of tobacco use Current smoker [facility] End: 08-06-2018 History of tobacco use [facility] Start: 10-20-2019 End: 03-17-2020 Cigarettes smoked current (pack per day) - Reported 0.5 U [facility] Start: 10-20-2019 End: 06-19-2024 Tobacco use and exposure Smokeless tobacco non-user [facility] Start: 06-26-2021 End: 05-03-2023 Alcohol intake Current drinker of alcohol (finding) [facility] Start: 06-26-2021 History SDOH Alcohol Comment occ [facility] Start: 1995 Sex Assigned At Not on file A [facility] Start: 07-18-2021 History SDOH Financial 5 [facility] Start: 07-18-2021 History SDOH Food Worry 1 [facility] Start: 07-18-2021 History SDOH Transpo rt Med 2 [facility] Start: 07-08-2021 End: 07-18-2021 Exposure to SARS-CoV-2 (event) Not sure [facility] Start: 03-13-2022 End: 03-23-2022 Exposure to SARS-CoV-2 (event) Unable to assess [facility] Start: 03-17-2020 End: 10-30-2022 Tobacco use panel [facility] How hard is it for y ou to pay for the very basics like food, housing, medical care, and heating Not hard at all [facility] (I/We) worried wheth er (my/our) food would run out before (I/we) got money to buy more. Never true [facility] Gender identity Identifies as fe male gender (finding) [facility] Start: 06-19-2024 [facility] Start: 03-31-2024 [facility] Start: 05-24-2024 Tobacco smoking stat us [facility] Never smoked tobacco (finding) [facility] Start: 1995 Sex Assigned At Female [facility] Clinical Notes 06-26-2021 to 10-01-2024 Erick Schafer APRN.CNP - 06/19/2024 9:32 AM EDT Note Date & Type Note Facility 10-01-2024 Progress note [facility] 06-19-2024 Note HNO ID: [id number] Author: ERICK SCHAFER APRN.EVELIO Service: ? Author Type: Nurse Practitioner Type: Progress Notes Filed: 06/19/2024 09:40 Note Text: This note was created using NoteWriter. Subjective Anju Sen is a 29 year old female. HPI Pt noticed a tick on her left flank region this morning. She removed the most of the tick and the head remains. She knows the tick was not there yesterday. Review of Systems Constitutional: Negative for fatigue and fever. Musculoskeletal: Positive for myalgias. Objective BP 127/84 Pulse 85 Temp 36.7 ?C (98.1 ?F) Resp 20 Wt 71 kg (156 lb 8.4 oz) LMP (LMP Unknown) SpO2 99% Physical Exam Vitals and nursing note reviewed. Constitutional: General: She is not in acute distress. Appearance: Normal appearance. She is not ill-appearing. HENT: Head: Normocephalic. Mouth/Throat: Mouth: Mucous membranes are moist. Eyes: Conjunctiva/sclera: Conjunctivae normal. Cardiovascular: Rate and Rhythm: Normal rate and regular rhythm. Pulmonary: Effort: Pulmonary effort is normal. Breath sounds: Normal breath sounds. Musculoskeletal: General: Normal range of motion. Cervical back: Normal range of motion. Skin: General: Skin is warm and dry. Comments: Left flank there is approximately a 3 mm diameter erythematous macular region with no obvious tick or remaining tick parts noted. Neurological: General: No focal deficit present. Mental Status: She is alert. Psychiatric: Mood and Affect: Mood normal. Behavior: Behavior normal. Assessment and Plan ASSESSMENT/PLAN: 1. Tick bite of abdomen, initial encounter - ICD9: 911.4, E906.4, ICD10: S30.861A, W57.XXXA As tick has been on the patient less than 24 hours I discussed with her that the risk for Lyme disease was very minimal and antibiotics were not recommended. We discussed the risks and benefits of attempting to remove any possible remaining tick parts and I discussed with her the recommendation that this would cause more infection then allowing the body to spontaneously reject any remaining tick parts. I discussed with patient use of topical antibiotics to prevent any secondary type infection. We did discuss a one-time prophylactic dose of doxycycline but based on the fact the patient is 13 weeks combined with the short duration of tick exposure it was mutually agreed that the risks outweighed the benefits. Patient will follow-up closely with PCP especially if she develops a worsening rash, fever, body aches, any other new or worsening concerns. Erick Schafer, LARR[facility] 06-19-2024 History of Present illness Narrative This note was created using NoteWriter. Subjective Anju Sen is a 29 year old female. HPI Pt noticed a tick on her left flank region this morning. She removed the most of the tick and the head remains. She knows the tick was not there yesterday. Review of Systems Constitutional: Negative for fatigue and fever. Musculoskeletal: Positive for myalgias. Objective BP 127/84 Pulse 85 Temp 36.7 C (98.1 F) Resp 20 Wt 71 kg (156 lb 8.4 oz) LMP (LMP Unknown) SpO2 99% Physical Exam Vitals and nursing note reviewed. Constitutional: General: She is not in acute distress. Appearance: Normal appearance. She is not ill-appearing. HENT: Head: Normocephalic. Mouth/Throat: Mouth: Mucous membranes are moist. Eyes: Conjunctiva/sclera: Conjunctivae normal. Cardiovascular: Rate and Rhythm: Normal rate and regular rhythm. Pulmonary: Effort: Pulmonary effort is normal. Breath sounds: Normal breath sounds. Musculoskeletal: General: Normal range of motion. Cervical back: Normal range of motion. Skin: General: Skin is warm and dry. Comments: Left flank there is approximately a 3 mm diameter erythematous macular region with no obvious tick or remaining tick parts noted. Neurological: General: No focal deficit present. Mental Status: She is alert. Psychiatric: Mood and Affect: Mood normal. Behavior: Behavior normal. Assessment and Plan ASSESSMENT/PLAN: 1. Tick bite of abdomen, initial encounter - ICD9: 911.4, E906.4, ICD10: S30.861A, W57.XXXA As tick has been on the patient less than 24 hours I discussed with her that the risk for Lyme disease was very minimal and antibiotics were not recommended. We discussed the risks and benefits of attempting to remove any possible remaining tick parts and I discussed with her the recommendation that this would cause more infection then allowing the body to spontaneously reject any remaining tick parts. I discussed with patient use of topical antibiotics to prevent any secondary type infection. We did discuss a one-time prophylactic dose of doxycycline but based on the fact the patient is 13 weeks combined with the short duration of tick exposure it was mutually agreed that the risks outweighed the benefits. Patient will follow-up closely with PCP especially if she develops a worsening rash, fever, body aches, any other new or worsening concerns. 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 M arch 2024 2:19pm acute June 18 2:19pm Supervision of normal acute June 18, 2024 2:19pm BRCA2 gene mutation positive acute July 16, 2024 1:23pm 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 A pril 2024 1:23pm acute July 16 1:23pm Supervision of normal acute July 16, 2024 1:23pm BRCA2 gene mutation positive acute August 13, 2024 2: 08pm 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 M ay 2024 2:08pm acute August 13, 2024 2:08pm Supervision of normal acute August 13, 2024 2: 08pm BRCA2 gene mutation positive acute September 10, 2024 8 :43am 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 J une 2024 8:43am acute September 10, 2024 8:43am Supervision of normal acute September 10, 2024 8 :43am BRCA2 gene mutation positive acute October 01, 2024 9:45am 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 J une 2024 9:45am acute October 01 9:45am Supervision of normal acute October 01, 2024 9:45am [facility] Work Phone: 1(844) 178-827602-13-2025 Evaluation note* Diagnosis Onset Date Resolution Status Admit Date BRCA2 gene mutation positive acute May 21, 2024 11:05am acute May 21, 2024 11:05am Supervision of normal acute May 21, 11:05am BRCA2 gene mutation positive acute June 18, 2024 2:19pm 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 M arch 2024 2:19pm acute June 18 2:19pm Supervision of normal acute June 18, 2024 2:19pm BRCA2 gene mutation positive acute July 16, 2024 1:23pm 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 A pril 2024 1:23pm acute July 16 1:23pm Supervision of normal acute July 16, 2024 1:23pm BRCA2 gene mutation positive acute August 13, 2024 2:08pm 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 M 2024 2:08pm acute August 13, 2024 2:08pm Supervision of normal acute August 13, 2024 2: 08pm BRCA2 gene mutation positive acute September 10, 2024 8:43am 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 J 2024 8:43am acute September 10, 2024 8:43am Supervision of normal acute September 10, 2024 8 :43am [facility] Work Phone: 1(346) 399-866503-07-2024 History of Present illness Narrative* Yaz Ramirez - 06/13/2023 3:40 PM EST Anju Hernandez Dhara was offered and declined a Medical Applied Psychology Teacher for this exam/procedure/test 06/16/2023. * Jamal Daniel MD - 06/13/2023 3:40 PM EST Patient is a 28-year-old female, 1, para 1, who presents for a gynecological evaluation. She has a BRCA2 mutation. She follows up regarding that and also regarding a cyst she had last July. She presented for a ruptured cyst. It was severe pain. She is still having some pain at this time. She is off her control pills secondary to migraines. She denies any aura. 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 I reviewed her old films which, of interest, did show a cyst and a fair amount of blood within her endometrial cavity. She undergoes a gynecological exam today as well as an ultrasound on June 13, 2023. Patient is a 26-year-old female, 1, para 1, who presents for a gynecological consultation regarding a BRCA2 mutation. Please see the detailed notes below regarding her genetic assessment. She overall is doing fairly well. She has not had an exam for a while. She does have 1 child that is 7 years old. She is on a low-dose control pill at this time. Please see the detailed notes below. Called patient regarding the positive results of her genetic testing. Ms. Sen's family has a known mutation in the BRCA2 gene called c.610delC (p.[id number]), which puts her at 50% risk for inheriting this mutation. Ms. Sen underwent single site testing and the result indicates that she has the c.610delC mutation in the BRCA2 gene. 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 RISK ASSESSMENT: Specifically, BRCA2 gene mutations are associated with a 50% - 85% lifetime risk for breast cancer and a 10% to 27% risk for ovarian cancer. Women with BRCA2 mutations also have an increased risk fora second primary breast cancer if they have had a first breast cancer diagnosis. The degree of thisrisk appears to depend on the age that the first breast cancer was diagnosed. The current best estimates from a meta-analysis are that women with BRCA2 mutations have a 9% risk of developing a secondbreast cancer within 5 years of their initial diagnosis, a 19% risk to develop a second breast cancer within 10 years and a 23% risk to develop a second breast cancer within 15 years. BRCA2 mutationshave also been associated with a 2-8% risk of developing pancreatic cancer, a 6-9% risk of male breast cancer, and a 20% - 34% lifetime risk for prostate cancer. There is also an increased risk for melanoma associated with BRCA2 mutations, however, the degree of this risk is not clearly established. Of note, individuals with two pathogenic BRCA2 mutations (one mutation inherited from each parent) have the autosomal recessive condition Fanconi Anemia. If parents each carry a pathogenic mutation in BRCA2, they have a 25% chance of having a child with Fanconi Anemia with every . Prophylactic mastectomy has been shown to reduce the risk for developing breast cancer by about 90%. Prophylactic oophorectomy reduces the risk of ovarian cancer by as much as 80%. Some studies suggest that oophorectomy may also reduce the risk of breast cancer although data are conflicting. Each of Ms. Sen s first-degree relatives has a one in two (50%) chance of having this mutation. More distant relatives can also have this same mutation. Therefore, we strongly recommended that she notify her family members of their risk and the option of genetic counseling and testing. RESOURCES: There are two research studies that are available to Ms. Francy govea through the [facility] Division of Human Genetics. The first is a prospective study of BRCA mutation carriers that aims to identify hormonal, reproductive and lifestyle factors associated with the risk of developing breast and ovarian cancer. This study involves a baseline survey and follow up phone call once every 2 years. The second study is a genetic modifiers study that is being done to better understand how other genetic variants modify risk for people at high risk for breast and ovarian cancer. We will follow-upin a few weeks to determine if the family is interested in participating in these studies or they may contact us by calling [phone]. Ms. Sen may be interested in [employer] (www.[employer]), an internet based support group specifically for families with BRCA gene mutations that meets regularly locally. She may also be interested [employer] (www.[employer].org), an internet based support group specifically for young women with elevated cancer risks. The [facility] Chapter page with event announcements can be found here: https://www.[employer].org/communities/natalie/ IMPRESSION AND PLAN: Based upon Ms. Sen s positive genetic test result, medical history and family history, we recommend that Ms. Sen follow the National Comprehensive Cancer Network s management recommendations for individuals with BRCA mutations, which are listed below. We encouraged her to discuss these recommendations with her health care providers in more detail. Breast awareness starting at age 18 - be aware of changes in breast tissue and report these changesto her physicians. Clinical breast examination every 6-12 months beginning at age 25. Breast screening Age 25-29, annual breast MRI with contrast (preferably on days 7-15 of the menstrual cycle for premenopausal women) or mammogram if MRI is unavailable, or individualized if the youngest breast cancerdiagnosis in the family is before age 30. Age 30-75, annual mammography and breast MRI with contrast. Age >75, management should be considered on an individual basis. Discuss the option of risk-reducing mastectomy. There are psychological and medical risks and benefits to this surgery and we consider it a matter of patient preference and informed consent. Recommend a risk-reducing bilateral salpingo-oophorectomy between the ages of 35-40, or after childbearing is complete. Because ovarian cancer in women with BRCA2 mutations occurs later than in BRCA1, it is reasonable to delay risk- reducing BSO until age 40-45 if they have maximized breast cancer risk reduction (ie prophylactic mastectomy). According to the July 2008 ACOG Practice Bulletin, Fora risk-reducing bilateral salpingo-oophorectomy, all tissue from the ovaries and fallopian tubes should be removed. Thorough visualization of the peritoneal surfaces with pelvic washings should be performed. Complete, serial sectioning of the ovaries and fallopian tubes is necessary, with microscopic examination for occult cancer. For further discussion of risk-reducing BSO in women with HBOC, see Obstetrics and Gynecology 113(4):957-966. Data do not support routine ovarian screening. However, until she undergoes prophylactic oophorectomy, she may consider undergoing ovarian cancer screening with transvaginal ultrasound and CA-125 every 6 months beginning at age 30-35 at her clinician s discretion. Discuss options for risk reduction agents for breast and ovarian cancer including risks and benefits of each medication There are no specific screening guidelines for pancreatic cancer and melanoma but if these cancers are present in the family, the patient could consider investigational pancreatic cancer screening protocols and/or full body skin and eye exam for melanoma. Follow [place] [employer] guidelines for other cancer surveillance. See: http://www.cancer.org/ healthy/findcancerearly/cancerscreeningguidelines/bctyaijr-wqjyst-jqhqbft-guidel qzzp-ehk-gfq-ebniu-ypyuulfni-rs-cancer There are reproductive options for individuals with a BRCA1/2 mutation who are still planning to have children if they are interested in preventing this mutation from being passed onto their offspring. These options include diagnosis (through amniocentesis or chorionic villus sampling) and preimplantation diagnosis, which uses in vitro fertilization and diagnostic tests to only transfer embryos to a mother s uterus if they do not carry the family s mutation. If the patient is interested in learning more about these options, we will be happy to refer her for preconception genetic counseling. Recommendations for screening are subject to policy change clerks supervisor time. We encouraged Ms. Sen to maintain current contact information with our office and to check regularly with her care providers to ensurethat the most current recommendations are being followed. HISTORY OF PRESENT ILLNESS Anju Jules is a premenopausal 28 y.o. White female who presents to the [facility] for risk assessment and to establish care. I have reviewed her electronic medical records in detail and updated in the chart and my note as below. She has a known BRCA2 mutation and family history of breast cancer in her maternal aunt, maternal great aunt an maternal great grandmother. She has family history of ovarian cancer in both her maternal great grandmothers. She had single site testing on 08/27/17 through [facility] and was positive for pathogenic mutation in BRCA2 c.610delC (p.[id number]). She denies any current or new breast concerns, including lumps, skin changes, nipple changes/discharge or pain. She reports that she examines her breasts occasionally. SCREENING & HEALTH MAINTENANCE Colonoscopy: never Skin cancer screening: As needed - does have a derm Eye exams: annually Dental exams: Twice annually BMD: never Vitamin D deficiency: None known GUN PERFORATOR exams: Annually - [facility] GUN PERFORATOR Informatics Coordinator RISK FACTORS FOR BREAST CANCER Social History Social History Narrative GUN PERFORATOR: Patient's last menstrual period was 06/26/2021.. Last PAP: 2021 Para: 1 Age at of first child: 23 Age of menarche: 13 Age of menopause: N/A Patient denies hormonal therapy at this time. BREAST (GENERAL): Patient admits to self-breast exams and does them intermittently. Date of patient's first mammogram: N/A Date of most recent mammogram: N/A Bra/Cup Size: 36BorC BREAST(HISTORICAL BIOPSY/THERAPY/TREATMENT) Patient denies previous breast biopsy(s). Patient denies being told they personally have breast cancer or a breast malignancy. Patient denies chemotherapy, hormone therapy or radiation therapy during the last month. GENETICS Ashkenazi Ancestry: No Genetic counseling: Yes She met with clinical genetics on 08/27/17. Genetic Testing: Yes She had single site testing on 08/27/17 through [facility] and was positive for pathogenic mutation in BRCA2 c.610delC (p.[id number]). Genes tested: BRCA2 Family Members with Genetic Testing: Yes Mother BRCA2+ (unaffected) - s/p RRM Sister BRCA2+ (unaffected) Maternal cousin (male) - BRCA2+ She reports many other maternal family members are BRCA2+ FAMILY HISTORY Family history of breast cancer: yes Maternal half aunt at 43yrs (mother's maternal half sister); alive; BRCA2 Maternal great aunt at 65yrs; BRCA2+ Maternal great grandmother at 56yrs with lung mets; Family history of ovarian cancer: yes Maternal great grandmother at 67yrs (MGM's mother) Other relevant Cancers as below: yes Lung ca in her maternal grandfather; There is no family history of prostate, colon, uterine, pancreatic, gastric, brain, renal cell or thyroid cancer. There is no family history of melanoma, sarcoma or leukemia. PHYSICAL EXAMINATION VITAL SIGNS: BP 124/80 (BP Location: Right arm, BP Position: Sitting) Pulse 85 Resp 16 Ht 5' 5 (1.651 m) Wt 165 lb (74.8 kg) SpO2 98% BMI 27.46 kg/m Smoking Status Former GENERAL: Well nourished, well developed female. No acute distress. HEENT: Head: Normocephalic and atraumatic. Neck: Supple, no thyromegaly. BREAST/CHEST WALL & REGIONAL LYMPH NODES The breasts are symmetrical in appearance without visible skin or nipple changes. Right Breast: The patient has no discrete, concerning, palpable right breast masses. Left Breast: The patient has no discrete, concerning, palpable left breast masses. There are no suspicious nipple abnormalities, nipple discharge or suspicious skin changes of her breast skin bilaterally. The axillary tails are normal. No chest wall abnormalities. The patient has no cervical, supraclavicular or axillary adenopathy bilaterally. IMPRESSION/PLAN IMPRESSION: Anju Jules is a 28 y.o. female with a known BRCA2 mutation and FH of breast and ovarian cancer. There is no evidence of malignancy. The patient was reassured as to the benign nature of her clinical exam and imaging. PLAN: Recommendations: At this time I recommend she initiate annual MRI screening and biannual clinical breast exams. We also discussed initiating mammogram when she is 31yrs. She is really interested in RRM with reconstruction. Once she gets her initial MRI, we will discussreferring her to a breast surgeon and Dr. Cristobal in plastics. I will still her back in 6 months. We talked about the ovarian cancer risk and she was interested in a referral to Dr. Daniel for management. I will place this referral. Information reviewed Based on the information provided today she meets ACS criteria for MRI screening. We talked about the pros and cons of screening MRI. She is aware that MRI screening is an effectivetool and with high sensitivity and lower specificity and is more sensitive than mammogram alone in detecting breast cancer but it also has a higher false positive rate and may lead to additional imaging and/or biopsy as well as detection of early high risk lesions and/or malignancy. She denies any contrast drug allergies and reports normal renal functions. We reviewed the cost of MRI screening and FDA warning regarding gadolinium retention with contrast imaging. She did request an estimate for the MRI. I will have Andreina Sarabia reach out to her for this. BRCA 1 & 2 Pathogenic/Likely Pathogenic Mutations Breast Cancer Risk BRCA1 absolute risk: >60% BRCA2 absolute risk: >60% - Breast awareness starting at 18yrs - Clinical breast exam every 6-12 months starting at 25yrs - Breast screening - Annual breast MRI with contrast starting at 25-29yrs - Annual mammogram with tomosynthesis and annual breast MRI with contrast ages 30-75yrs - >75yrs, management should be considered on an individual basis - Those with a BRCA mutation pathogenic/likely pathogenic variant with a history of breast cancer who have not had a bilateral mastectomy, screening with annual mammogram with james and breast MRI should continue as recommended above. - Discuss option of risk reducing mastectomy (RRM) - Counseling should include a discussion regarding degree of protection, reconstruction options, and risks. In addition, the family history and residual breast cancer risk with age and life expectancy should be considered during counseling. - Address psychosocial and quality of life aspects of undergoing risk reducing mastectomy - Consider risk reduction agents as options for breast cancer, including discussion of risks and benefits - There have been a few case reports of Fanconi-like conditions in individuals with 2 BRCA1 pathogenic variants. - Orbitread Operator for risk of autosomal recessive condition in offspring in BRCA2 patients. Ovarian Cancer Risk BRCA1 absolute risk: 39-58% BRCA2 absolute risk: 13-29% - Recommend risk reducing salpingo-oophorectomy (RRSO), typically between 35- 40yrs and after completion of childbearing. Because ovarian cancer onset in patients with BRCA2 pathogenic/likely pathogenic variants is an average of 8- 10yrs later than in patients with BRCA1 pathogenic/likely pathogenic variants unless age of diagnosis in the family warrants earlier age for consideration of prophylactic surgery. - Counseling includes: - Discussion of reproductive desires - Extent of cancer risk - Degree of protection for breast and ovarian cancer - Management of menopausal symptoms - HRT - Related medical issues - Salpingectomy alone is not the standard of care for risk reduction, although there are ongoing clinical trial of internal salpingectomy and delayed BSO. - Limited data suggest there may be slightly increased risk for serous uterine cancer in those withBRCA1 pathogenic/likely pathogenic. The provider and patient should discuss the risks and benefits of concurrent hysterectomy at the time of RRSO for individuals with BRCA1 pathogenic/likely pathogenic variant prior to surgery. - Address psychosocial and quality of life aspects of undergoing RRSO. - For those patients who have not elected RRSO, transvaginal US combined with serum CA-125 for ovarian cancer screening, although of uncertain benefit, may be considered at the clinician's discretionstarting at 30-35yrs. - Consider risk reduction agents as options for ovarian cancer, including discussion of risks and benefits. Melanoma Risk - Annual full-body skin exams - Minimize UV exposure - Annual ocular exams Pancreatic Cancer Risk BRCA1 absolute risk: <5% BRCA2 absolute risk: 5-10% - Consider pancreatic cancer screening beginning at 50yrs (or 10 yrs prior to the earliest exocrinepancreatic diagnosis in the family, whichever is earlier) for individuals with exocrine pancreatic cancer in greater than or equal to 1 first or second degree relative from the same side of the family as identified pathogenic/likely pathogenic germline variant. - It is not currently recommended to initiate pancreatic cancer screening for carriers of mutationsin genes other than STK11 or CDKN2A in the absence of a close family history of exocrine pancreaticcancer. Genetics: She had single site testing on 08/27/17 through [facility] and was positive for pathogenic mutation in BRCA2 c.610delC (p.[id number]). Chemoprevention discussion: She does not currently meet criteria for this intervention, with age < 35yrs. Lifestyle changes: The patient was given information in her AVS regarding health promotion and lifestyle recommendations for breast health. Follow up: No follow-ups on file. She was encouraged on SBA and to reach out with any new breast concerns. Ultrasound: see below IMPRESSION: Overall, the patient is a 26-year-old single female, 2, para 1, with a history of 1 vaginal delivery several years ago. She is presently on a low-dose control pill. She has a history of a BRCA2 mutation that was some discovered due to her family history. She actually found out about it when she was 19 and panicked a bit as she was concerned about the risk of cancer. She did undergo the as noted. She is not sure if she wants more children at this time. Either way, I talked to her about the increased risk of ovarian, fallopian tube, and peritoneal disease. We discussed suppression screening and risk reduction options. We also talked about preimplantation genetics. Given that it appeared she had little counseling regarding all this information, I did go over her genetics letter with her and pointed out 2 resources from [employer] websites. I also spent some time talking to her about a long-term strategy. At this point, our plan in that regard is to see her back in a year. She will continue on the pill. She is to call if she has any other problems between now and then. I also did a Pap smear. She has not had 1 for a while. We did discuss HPV and guidelines. Lastly, her thyroid on visual examination seems slightly irregular and possibly enlarged. It palpated to be slightly larger on the left. I did order thyroid function tests and will suggest that she talk with her primary care physician about this to make sure she does not have any thyroid abnormality. All questions were answered. Again, she does have followup. (DOC:[id number]) Current Outpatient Medications Medication Sig Multiple Vitamins-Minerals (WOMENS ONE DAILY PO) Take by mouth. drospirenone-ethinyl estradiol 3-0.02 MG tablet Take 1 tablet by mouth daily. Past Medical History: Diagnosis Date Kidney stones Past Surgical History: Procedure Laterality Date WISDOM TEETH EXTRACTION Social History Socioeconomic History Marital status: Single Spouse name: Not on file Number of children: Not on file Years of education: Not on file Highest education level: Not on file Occupational History Not on file Tobacco Use Smoking status: Former Current packs/day: 0.00 Types: Cigarettes Quit date: 08/2018 Years since quittin.8 Smokeless tobacco: Never Vaping Use Vaping status: Never Used Substance and Sexual Activity Alcohol use: Yes Alcohol/week: 1.0 standard drink of alcohol Types: 1 Glasses of wine per week Comment: occ Drug use: No Sexual activity: Yes Partners: Male control/protection: Pill Other Topics Concern Service Not Asked Blood Transfusions Not Asked Caffeine Concern Not Asked Occupational Exposure Not Asked Hobby Hazards Not Asked Sleep Concern Not Asked Stress Concern Not Asked Weight Concern Not Asked Special Diet Not Asked Back Care Not Asked Exercise Not Asked Bike Helmet Not Asked Seat Belt Not Asked Domestic Violence No Social History Narrative GUN PERFORATOR: Patient's last menstrual period was 06/26/2021.. Last PAP: 2021 Para: 1 Age at of first child: 23 Age of menarche: 13 Age of menopause: N/A Patient denies hormonal therapy at this time. BREAST (GENERAL): Patient admits to self-breast exams and does them intermittently. Date of patient's first mammogram: N/A Date of most recent mammogram: N/A Bra/Cup Size: 36BorC BREAST(HISTORICAL BIOPSY/THERAPY/TREATMENT) Patient denies previous breast biopsy(s). Patient denies being told they personally have breast cancer or a breast malignancy. Patient denies chemotherapy, hormone therapy or radiation therapy during the last month. Social Determinants of Health Financial Resource Strain: Low Risk (07/18/2021) Overall Financial Resource Strain (CARDIA) Difficulty of Paying Living Expenses: Not hard at all Food Insecurity: Unknown (07/18/2021) Hunger Vital Sign Worried About Running Out of Food in the Last Year: Never true Ran Out of Food in the Last Year: Not on file Transportation Needs: No Transportation Needs (07/18/2021) PRAPARE - Transportation Lack of Transportation (Medical): No Lack of Transportation (Non-Medical): No Physical Activity: Not on file Stress: Not on file Social Connections: Not on file Intimate Partner Violence: Not on file Housing Stability: Not on file Family History Problem Relation Age of Onset Lung Cancer Maternal Grandfather Diabetes Maternal Grandfather Breast Cancer Maternal Aunt 43 Ovarian Cancer Maternal Great Grandmother 67 Breast Cancer Maternal Great Grandmother 56 mets to lung Breast Cancer Maternal Great Aunt 65 Review of Systems - General ROS: negative Endocrine ROS: negative Breast ROS: negative for breast lumps Gastrointestinal ROS: no abdominal pain, change in bowel habits, or black or bloody stools Genito-Urinary ROS: no dysuria, trouble voiding, or hematuria Physical Exam BP 124/80 (BP Location: Right arm, BP Position: Sitting) Pulse 85 Resp 16 Ht 5' 5 (1.651 m) Wt 165 lb (74.8 kg) SpO2 98% BMI 27.46 kg/m Smoking Status Former Constitutional: Appears well. No acute distress. Head: Head symmetric and normocephalic. No evidence of trauma. No deformity. Abdomen: Soft and nontender. There is no hepatosplenomegaly or other masses. No rebound, guarding, costovertebral angle tenderness, or suprapubic tenderness. No palpable hernias. Genitourinary: Bladder non-tender and without masses. No cystocele. External genitalia and labia are without swelling, erythema, lesions, or ulcerations. Vaginal mucosa is moist and pink without foulodor, lesions, or excessive discharge. Cervix is smooth and pink without lesions or discharge. Bimanual exam is normal without cervical motion tenderness, adnexal tenderness, or masses. Uterus is midline, nontender, not enlarged, and has a normal contour. Ultrasound: TECHNIQUE: Real-time, grayscale ultrasound evaluation of the pelvis was performed utilizing transabdominal and transvaginal approaches. Duplex and color Doppler were used to assess vascular flow. Limited views of her anterior cul-de-sac are unremarkable. Her bladder measures 68 x 35 x 82 mm for a volume of 106 mL. I do not see any evidence of free fluid noted. Her uterus is anteverted, measuring 87 x 41 x 56 mm for a volume of 107 mL. The endometrium measures 5 mm in thickness. I do not see any obvious abnormalities noted. There is no evidence of any fibroids or polyps. The right ovary today measures 38 x 16 x 24 mm for a volume of 81 mL. The tube is seen adjacent to it. The left ovary measures 26 x 14 x 26 mm for a volume of 5 mL. The left tube is seen adjacent to that. Multiple other images are taken of the uterus and the ovary, both transvaginally and transabdominally. I do not see any evidence of free fluid in the anterior cul-de-sac. Transabdominal imaging adds no additional findings. IMPRESSION: Overall, patient is a 28-year-old female, 1, para 1, who presents for gynecological followup regarding a BRCA2 mutation as well as pelvic pain. As noted she had a cyst that ruptured last July. Reviewing the imaging, there was a fair amount of blood within her cavity, very unusual in fact, almost as if she was having a miscarriage, although she denies at the time. Having said that, today's ultrasound notes that the uterus is normal in appearance. Both ovaries as well. I do not see any pathology on the fallopian tubes. She is aware I cannot rule out early occult pathology. We did talk with her about options regarding hormone therapy and her pain. At this time, she is aware I cannot rule out endometriosis or other associated pathologies. She is aware of the increased risk of ovarian, fallopian tube, and peritoneal disease. But overall today's imaging notes no obvious abnormality, and all the previous findings have regressed. So at this time, she would like to just continue with her cycles as is. She is aware of the options. She is to call if she has any problems. Otherwise, we will see her back in a year. I did talk with her about more options for screening as she gets older. We also talked about risk reduction procedures and lastly about preimplantation genetics. All questions have been answered. Time spent on this visit included preparation reviewing records, obtaining and reviewing data aboveas well as performing the medically appropriate examination. Counseling and education as well as ordering medications and tests were included. Documentation of clinical information including correspondence to the referring health care provider are included. Time spent interpreting and communicatingresults as well as care coordination are taken into consideration. Time spent performing procedures including gynecological ultrasound and endometrial biopsy during this visit was excluded. I spent a total of 30 minutes in direct care of this patient on today's visit with over 50 % of thetime counseling this patient. [facility] Discharge instructions* Discharge Instructions* Dayanna Ariza MD - 06/22/2022 1:24 AM EDT US PELVIC W TRANSVAGINAL Final Result IMPRESSION: 1. Endometrial canal is distended with heterogeneous avascular material most likely environmental marketing representative of blood products. 2. Hemorrhagic right ovarian cyst measuring up to 3.6 cm. 3. Normal left ovary. I personally viewed and interpreted these images and I have reviewed and approved this report. * Attachments The following attachments cannot be sent through Care Everywhere. * Vaginal Bleeding (Chinese) [facility] History of Present illness Narrative* Akila Bey - 06/21/2022 10:36 PM EDT Medical Applied Psychology Teacher Declined. [facility] Note* Cassandra Regalado RN - 06/21/2022 7:35 PM EDT Pt arrives with reports of heavy vaginal bleeding, clots and 8/10 intermittent pain in lower abdomen and lower back starting today. Pt reports having normal period 13 days ago and denies any chance of . Pt follows with [facility] at [facility] and was told to come in for ultrasound. Vital signs stable. Pt alert and oriented. Pt denies dizziness, chest pain or shortness of breath. [facility] Note* Cassandra Regalado RN - 06/21/2022 7:35 PM EDT Pt arrives with reports of heavy vaginal bleeding, clots and 8/10 intermittent pain in lower abdomen and lower back starting today. Pt reports having normal period 13 days ago and denies any chance of . Pt follows with OBGYN at [facility] and was told to come in for ultrasound. Vital signs stable. Pt alert and oriented. Pt denies dizziness, chest pain or shortness of breath. [facility] History of Present illness Narrative* Miranda Donaldson - 03/23/2022 4:20 PM EST Second technologist present for imaging. No need for medical agricultural research engineer. [facility] History of Present illness Narrative* Jamal Daniel MD - 12/19/2021 4:30 PM EDT Patient is a 26-year-old female, 1, para 1, who presents for a gynecological consultation regarding a BRCA2 mutation. Please see the detailed notes below regarding her genetic assessment. She overall is doing fairly well. She has not had an exam for a while. She does have 1 child that is 7 years old. She is on a low-dose control pill at this time. Please see the detailed notes below. Called patient regarding the positive results of her genetic testing. Ms. Sen's family has a known mutation in the BRCA2 gene called c.610delC (p.[id number]), which puts her at 50% risk for inheriting this mutation. Ms. Sen underwent single site testing and the result indicates that she has the c.610delC mutation in the BRCA2 gene. 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 RISK ASSESSMENT: Specifically, BRCA2 gene mutations are associated with a 50% - 85% lifetime risk for breast cancer and a 10% to 27% risk for ovarian cancer. Women with BRCA2 mutations also have an increased risk fora second primary breast cancer if they have had a first breast cancer diagnosis. The degree of thisrisk appears to depend on the age that the first breast cancer was diagnosed. The current best estimates from a meta-analysis are that women with BRCA2 mutations have a 9% risk of developing a secondbreast cancer within 5 years of their initial diagnosis, a 19% risk to develop a second breast cancer within 10 years and a 23% risk to develop a second breast cancer within 15 years. BRCA2 mutationshave also been associated with a 2-8% risk of developing pancreatic cancer, a 6-9% risk of male breast cancer, and a 20% - 34% lifetime risk for prostate cancer. There is also an increased risk for melanoma associated with BRCA2 mutations, however, the degree of this risk is not clearly established. Of note, individuals with two pathogenic BRCA2 mutations (one mutation inherited from each parent) have the autosomal recessive condition Fanconi Anemia. If parents each carry a pathogenic mutation in BRCA2, they have a 25% chance of having a child with Fanconi Anemia with every . Prophylactic mastectomy has been shown to reduce the risk for developing breast cancer by about 90%. Prophylactic oophorectomy reduces the risk of ovarian cancer by as much as 80%. Some studies suggest that oophorectomy may also reduce the risk of breast cancer although data are conflicting. Each of Ms. Francy govea first-degree relatives has a one in two (50%) chance of having this mutation. More distant relatives can also have this same mutation. Therefore, we strongly recommended that she notify her family members of their risk and the option of genetic counseling and testing. RESOURCES: There are two research studies that are available to Ms. Francy govea through the [facility] Division of Human Genetics. The first is a prospective study of BRCA mutation carriers that aims to identify hormonal, reproductive and lifestyle factors associated with the risk of developing breast and ovarian cancer. This study involves a baseline survey and follow up phone call once every 2 years. The second study is a genetic modifiers study that is being done to better understand how other genetic variants modify risk for people at high risk for breast and ovarian cancer. We will follow-upin a few weeks to determine if the family is interested in participating in these studies or they may contact us by calling [phone]. Ms. Sen may be interested in [employer] (www.[employer].org), an internet based support group specifically for families with BRCA gene mutations that meets regularly locally. She may also be interested in[employer] (www.[employer].org), an internet based support group specifically for young women with elevated cancer risks. The [employer] [place] [facility] page with event announcements can be found here: [email or web address]/[email or web address]/ IMPRESSION AND PLAN: Based upon Ms. Francy govea positive genetic test result, medical history and family history, we recommend that Ms. Sen follow the National Comprehensive Cancer Network s management recommendations for individuals with BRCA mutations, which are listed below. We encouraged her to discuss these recommendations with her health care providers in more detail. Breast awareness starting at age 18 - be aware of changes in breast tissue and report these changesto her physicians. Clinical breast examination every 6-12 months beginning at age 25. Breast screening Age 25-29, annual breast MRI with contrast (preferably on days 7-15 of the menstrual cycle for premenopausal women) or mammogram if MRI is unavailable, or individualized if the youngest breast cancerdiagnosis in the family is before age 30. Age 30-75, annual mammography and breast MRI with contrast. Age >75, management should be considered on an individual basis. Discuss the option of risk-reducing mastectomy. There are psychological and medical risks and benefits to this surgery and we consider it a matter of patient preference and informed consent. Recommend a risk-reducing bilateral salpingo-oophorectomy between the ages of 35-40, or after childbearing is complete. Because ovarian cancer in women with BRCA2 mutations occurs later than in BRCA1, it is reasonable to delay risk- reducing BSO until age 40-45 if they have maximized breast cancer risk reduction (ie prophylactic mastectomy). According to the July 2008 ACOG Practice Bulletin, Fora risk-reducing bilateral salpingo-oophorectomy, all tissue from the ovaries and fallopian tubes should be removed. Thorough visualization of the peritoneal surfaces with pelvic washings should be performed. Complete, serial sectioning of the ovaries and fallopian tubes is necessary, with microscopic examination for occult cancer. For further discussion of risk-reducing BSO in women with HBOC, see Obstetrics and Gynecology 113(4):957-966. Data do not support routine ovarian screening. However, until she undergoes prophylactic oophorectomy, she may consider undergoing ovarian cancer screening with transvaginal ultrasound and CA-125 every 6 months beginning at age 30-35 at her clinician s discretion. Discuss options for risk reduction agents for breast and ovarian cancer including risks and benefits of each medication There are no specific screening guidelines for pancreatic cancer and melanoma but if these cancers are present in the family, the patient could consider investigational pancreatic cancer screening protocols and/or full body skin and eye exam for melanoma. Follow [place] [employer] guidelines for other cancer surveillance. See: http://www.cancer.org/ healthy/findcancerearly/cancerscreeningguidelines/crrlwezc-iaeixu-hcxlbur-guidel zqdu-csl-yak-mbamw-dzncbrehy-in-cancer There are reproductive options for individuals with a BRCA1/2 mutation who are still planning to have children if they are interested in preventing this mutation from being passed onto their offspring. These options include diagnosis (through amniocentesis or chorionic villus sampling) and preimplantation diagnosis, which uses in vitro fertilization and diagnostic tests to only transfer embryos to a mother s uterus if they do not carry the family s mutation. If the patient is interested in learning more about these options, we will be happy to refer her for preconception genetic counseling. Recommendations for screening are subject to policy change clerks supervisor time. We encouraged Ms. Sen to maintain current contact information with our office and to check regularly with her care providers to ensurethat the most current recommendations are being followed. HISTORY OF PRESENT ILLNESS Anju Jules is a premenopausal 26 y.o. White female who presents to the [facility] for risk assessment and to establish care. I have reviewed her electronic medical records in detail and updated in the chart and my note as below. She has a known BRCA2 mutation and family history of breast cancer in her maternal aunt, maternal great aunt an maternal great grandmother. She has family history of ovarian cancer in both her maternal great grandmothers. She had single site testing on 08/27/17 through [facility] and was positive for pathogenic mutation in BRCA2 c.610delC ([id number]). She denies any current or new breast concerns, including lumps, skin changes, nipple changes/discharge or pain. She reports that she examines her breasts occasionally. SCREENING & HEALTH MAINTENANCE Colonoscopy: never Skin cancer screening: As needed - does have a derm Eye exams: annually Dental exams: Twice annually BMD: never Vitamin D deficiency: None known GUN PERFORATOR exams: Annually - [facility] GUN PERFORATOR Informatics Coordinator RISK FACTORS FOR BREAST CANCER Social History Social History Narrative GUN PERFORATOR: Patient's last menstrual period was 06/26/2021.. Last PAP: 2021 Para: 1 Age at of first child: 23 Age of menarche: 13 Age of menopause: N/A Patient denies hormonal therapy at this time. BREAST (GENERAL): Patient admits to self-breast exams and does them intermittently. Date of patient's first mammogram: N/A Date of most recent mammogram: N/A Bra/Cup Size: 36BorC BREAST(HISTORICAL BIOPSY/THERAPY/TREATMENT) Patient denies previous breast biopsy(s). Patient denies being told they personally have breast cancer or a breast malignancy. Patient denies chemotherapy, hormone therapy or radiation therapy during the last month. GENETICS Ashkenazi Ancestry: No Genetic counseling: Yes She met with clinical genetics on 08/27/17. Genetic Testing: Yes She had single site testing on 08/27/17 through [facility] and was positive for pathogenic mutation in BRCA2 c.610delC (p.[id number]). Genes tested: BRCA2 Family Members with Genetic Testing: Yes Mother BRCA2+ (unaffected) - s/p RRM Sister BRCA2+ (unaffected) Maternal cousin (male) - BRCA2+ She reports many other maternal family members are BRCA2+ FAMILY HISTORY Family history of breast cancer: yes Maternal half aunt at 43yrs (mother's maternal half sister); alive; BRCA2 Maternal great aunt at 65yrs; BRCA2+ Maternal great grandmother at 56yrs with lung mets; Family history of ovarian cancer: yes Maternal great grandmother at 67yrs (MGM's mother) Other relevant Cancers as below: yes Lung ca in her maternal grandfather; There is no family history of prostate, colon, uterine, pancreatic, gastric, brain, renal cell or thyroid cancer. There is no family history of melanoma, sarcoma or leukemia. PHYSICAL EXAMINATION VITAL SIGNS: BP 112/72 Pulse 76 Resp 16 Ht 1.664 m (5' 5.5) Wt 67.1 kg (148 lb) SpO2 99% BMI 24.25 kg/m Smoking Status Former Smoker GENERAL: Well nourished, well developed female. No acute distress. HEENT: Head: Normocephalic and atraumatic. Neck: Supple, no thyromegaly. BREAST/CHEST WALL & REGIONAL LYMPH NODES The breasts are symmetrical in appearance without visible skin or nipple changes. Right Breast: The patient has no discrete, concerning, palpable right breast masses. Left Breast: The patient has no discrete, concerning, palpable left breast masses. There are no suspicious nipple abnormalities, nipple discharge or suspicious skin changes of her breast skin bilaterally. The axillary tails are normal. No chest wall abnormalities. The patient has no cervical, supraclavicular or axillary adenopathy bilaterally. IMPRESSION/PLAN IMPRESSION: Anju Jules is a 26 y.o. female with a known BRCA2 mutation and FH of breast and ovarian cancer. There is no evidence of malignancy. The patient was reassured as to the benign nature of her clinical exam and imaging. PLAN: Recommendations: At this time I recommend she initiate annual MRI screening and biannual clinical breast exams. We also discussed initiating mammogram when she is 31yrs. She is really interested in RRM with reconstruction. Once she gets her initial MRI, we will discussreferring her to a breast surgeon and Dr. Cristobal in plastics. I will still her back in 6 months. We talked about the ovarian cancer risk and she was interested in a referral to Dr. Daniel for management. I will place this referral. Information reviewed Based on the information provided today she meets ACS criteria for MRI screening. We talked about the pros and cons of screening MRI. She is aware that MRI screening is an effectivetool and with high sensitivity and lower specificity and is more sensitive than mammogram alone in detecting breast cancer but it also has a higher false positive rate and may lead to additional imaging and/or biopsy as well as detection of early high risk lesions and/or malignancy. She denies any contrast drug allergies and reports normal renal functions. We reviewed the cost of MRI screening and FDA warning regarding gadolinium retention with contrast imaging. She did request an estimate for the MRI. I will have Andreina Sarabia reach out to her for this. BRCA 1 & 2 Pathogenic/Likely Pathogenic Mutations Breast Cancer Risk BRCA1 absolute risk: >60% BRCA2 absolute risk: >60% - Breast awareness starting at 18yrs - Clinical breast exam every 6-12 months starting at 25yrs - Breast screening - Annual breast MRI with contrast starting at 25-29yrs - Annual mammogram with tomosynthesis and annual breast MRI with contrast ages 30-75yrs - >75yrs, management should be considered on an individual basis - Those with a BRCA mutation pathogenic/likely pathogenic variant with a history of breast cancer who have not had a bilateral mastectomy, screening with annual mammogram with james and breast MRI should continue as recommended above. - Discuss option of risk reducing mastectomy (RRM) - Counseling should include a discussion regarding degree of protection, reconstruction options, and risks. In addition, the family history and residual breast cancer risk with age and life expectancy should be considered during counseling. - Address psychosocial and quality of life aspects of undergoing risk reducing mastectomy - Consider risk reduction agents as options for breast cancer, including discussion of risks and benefits - There have been a few case reports of Fanconi-like conditions in individuals with 2 BRCA1 pathogenic variants. - Orbitread Operator for risk of autosomal recessive condition in offspring in BRCA2 patients. Ovarian Cancer Risk BRCA1 absolute risk: 39-58% BRCA2 absolute risk: 13-29% - Recommend risk reducing salpingo-oophorectomy (RRSO), typically between 35- 40yrs and after completion of childbearing. Because ovarian cancer onset in patients with BRCA2 pathogenic/likely pathogenic variants is an average of 8- 10yrs later than in patients with BRCA1 pathogenic/likely pathogenic variants unless age of diagnosis in the family warrants earlier age for consideration of prophylactic surgery. - Counseling includes: - Discussion of reproductive desires - Extent of cancer risk - Degree of protection for breast and ovarian cancer - Management of menopausal symptoms - HRT - Related medical issues - Salpingectomy alone is not the standard of care for risk reduction, although there are ongoing clinical trial of internal salpingectomy and delayed BSO. - Limited data suggest there may be slightly increased risk for serous uterine cancer in those withBRCA1 pathogenic/likely pathogenic. The provider and patient should discuss the risks and benefits of concurrent hysterectomy at the time of RRSO for individuals with BRCA1 pathogenic/likely pathogenic variant prior to surgery. - Address psychosocial and quality of life aspects of undergoing RRSO. - For those patients who have not elected RRSO, transvaginal US combined with serum CA-125 for ovarian cancer screening, although of uncertain benefit, may be considered at the clinician's discretionstarting at 30-35yrs. - Consider risk reduction agents as options for ovarian cancer, including discussion of risks and benefits. Melanoma Risk - Annual full-body skin exams - Minimize UV exposure - Annual ocular exams Pancreatic Cancer Risk BRCA1 absolute risk: <5% BRCA2 absolute risk: 5-10% - Consider pancreatic cancer screening beginning at 50yrs (or 10 yrs prior to the earliest exocrinepancreatic diagnosis in the family, whichever is earlier) for individuals with exocrine pancreatic cancer in greater than or equal to 1 first or second degree relative from the same side of the family as identified pathogenic/likely pathogenic germline variant. - It is not currently recommended to initiate pancreatic cancer screening for carriers of mutationsin genes other than STK11 or CDKN2A in the absence of a close family history of exocrine pancreaticcancer. Genetics: She had single site testing on 08/27/17 through [facility] and was positive for pathogenic mutation in BRCA2 c.610delC (p.[id number]). Chemoprevention discussion: She does not currently meet criteria for this intervention, with age < 35yrs. Lifestyle changes: The patient was given information in her AVS regarding health promotion and lifestyle recommendations for breast health. Follow up: No follow-ups on file. She was encouraged on SBA and to reach out with any new breast concerns. Current Outpatient Medications Medication Sig drospirenone-ethinyl estradiol 3-0.02 MG tablet Take 1 tablet by mouth daily. Multiple Vitamins-Minerals (WOMENS ONE DAILY PO) Take by mouth. Past Medical History: Diagnosis Date Kidney stones Past Surgical History: Procedure Laterality Date WISDOM TEETH EXTRACTION Social History Socioeconomic History Marital status: Single Spouse name: Not on file Number of children: Not on file Years of education: Not on file Highest education level: Not on file Occupational History Not on file Tobacco Use Smoking status: Former Smoker Packs/day: 0.50 Types: Cigarettes Quit date: 08/2018 Years since quittin.3 Smokeless tobacco: Never Used Vaping Use Vaping Use: Never used Substance and Sexual Activity Alcohol use: Yes Alcohol/week: 1.0 standard drink Types: 1 Glasses of wine per week Comment: occ Drug use: No Sexual activity: Yes Partners: Male control/protection: Pill Other Topics Concern Service Not Asked Blood Transfusions Not Asked Caffeine Concern Not Asked Occupational Exposure Not Asked Hobby Hazards Not Asked Sleep Concern Not Asked Stress Concern Not Asked Weight Concern Not Asked Special Diet Not Asked Back Care Not Asked Exercise Not Asked Bike Helmet Not Asked Seat Belt Not Asked Domestic Violence No Social History Narrative GUN PERFORATOR: Patient's last menstrual period was 06/26/2021.. Last PAP: 2021 Para: 1 Age at of first child: 23 Age of menarche: 13 Age of menopause: N/A Patient denies hormonal therapy at this time. BREAST (GENERAL): Patient admits to self-breast exams and does them intermittently. Date of patient's first mammogram: N/A Date of most recent mammogram: N/A Bra/Cup Size: 36BorC BREAST(HISTORICAL BIOPSY/THERAPY/TREATMENT) Patient denies previous breast biopsy(s). Patient denies being told they personally have breast cancer or a breast malignancy. Patient denies chemotherapy, hormone therapy or radiation therapy during the last month. Social Determinants of Health Financial Resource Strain: Low Risk Difficulty of Paying Living Expenses: Not hard at all Food Insecurity: Unknown Worried About Running Out of Food in the Last Year: Never true Ran Out of Food in the Last Year: Not on file Transportation Needs: No Transportation Needs Lack of Transportation (Medical): No Lack of Transportation (Non-Medical): No Physical Activity: Not on file Stress: Not on file Social Connections: Not on file Intimate Partner Violence: Not on file Housing Stability: Not on file Family History Problem Relation Age of Onset Lung Cancer Maternal Grandfather Diabetes Maternal Grandfather Breast Cancer Maternal Aunt 43 Ovarian Cancer Maternal Great Grandmother 67 Breast Cancer Maternal Great Grandmother 56 mets to lung Breast Cancer Maternal Great Aunt 65 Review of Systems - General ROS: negative Endocrine ROS: negative Breast ROS: negative for breast lumps Gastrointestinal ROS: no abdominal pain, change in bowel habits, or black or bloody stools Genito-Urinary ROS: no dysuria, trouble voiding, or hematuria Physical Exam BP 112/72 Pulse 76 Resp 16 Ht 1.664 m (5' 5.5) Wt 67.1 kg (148 lb) SpO2 99% BMI 24.25 kg/m Smoking Status Former Smoker Constitutional: Appears well. No acute distress. Head: Head symmetric and normocephalic. No evidence of trauma. No deformity. Neck: Full ROM. No evidence of lymphadenopathy. No asymmetry, deviation, or masses. Thyroid: enlarged ? To left . Without nodules or masses. Abdomen: Soft and nontender. There is no hepatosplenomegaly or other masses. No rebound, guarding, costovertebral angle tenderness, or suprapubic tenderness. No palpable hernias. Genitourinary: Bladder non-tender and without masses. No cystocele. External genitalia and labia are without swelling, erythema, lesions, or ulcerations. Vaginal mucosa is moist and pink without foulodor, lesions, or excessive discharge. Cervix is smooth and pink without lesions or discharge. Bimanual exam is normal without cervical motion tenderness, adnexal tenderness, or masses. Uterus is midline, nontender, not enlarged, and has a normal contour. Rectal Exam: Perianal area intact without lesions. Sphincter tone is even. Rectal ampulla without masses. No rectocele. Ultrasound: see below IMPRESSION: Overall, the patient is a 26-year-old single female, 2, para 1, with a history of 1 vaginal delivery several years ago. She is presently on a low-dose control pill. She has a history of a BRCA2 mutation that was some discovered due to her family history. She actually found out about it when she was 19 and panicked a bit as she was concerned about the risk of cancer. She did undergo the as noted. She is not sure if she wants more children at this time. Either way, I talked to her about the increased risk of ovarian, fallopian tube, and peritoneal disease. We discussed suppression screening and risk reduction options. We also talked about preimplantation genetics. Given that it appeared she had little counseling regarding all this information, I did go over her genetics letter with her and pointed out 2 resources from [employer]. I also spent some time talking to her about a long-term strategy. At this point, our plan in that regard is to see her back in a year. She will continue on the pill. She is to call if she has any other problems between now and then. I also did a Pap smear. She has not had 1 for a while. We did discuss HPV and guidelines. Lastly, her thyroid on visual examination seems slightly irregular and possibly enlarged. It palpated to be slightly larger on the left. I did order thyroid function tests and will suggest that she talk with her primary care physician about this to make sure she does not have any thyroid abnormality. All questions were answered. Again, she does have followup. (DOC:[id number]) [facility] History of Present illness Narrative* Adeola Tirado APRN-GLAZING DEPARTMENT SUPERVISOR - 06/26/2021 7:15 PM EDT HPI Anju Elisabethmargie Jules female 1995 presents to the [facility] with Chief Complaint Patient presents with Sore Throat Right side ear and tonsil is sore fever, started sat. YES vax. Patient presents with sore throat and right ear pain for two days. Swollen lymph nodes in neck. Intermittent fever. No self treatments. No known exposures. History No Known Allergies Current Outpatient Medications Medication Sig drospirenone-ethinyl estradiol 3-0.02 MG tablet Take 1 tablet by mouth daily. Lidocaine HCl (lidocaine viscous) 2 % Solution Take 15mLs swish and swallow every 3 hours as neededfor pain Vit-Fe Fumarate-FA ( 19 PO) Take 1 tablet by mouth daily. (Patient not taking: Reported on 06/26/2021) spironolactone 100 MG tablet (Patient not taking: Reported on 06/26/2021) Family History Problem Relation Age of Onset Lung Cancer Maternal Grandfather Diabetes Maternal Grandfather Breast Cancer Maternal Aunt 43 Breast Cancer Maternal Great Aunt 65 Ovarian Cancer Maternal Great Grandmother 67 Ovarian Cancer Maternal Great Grandmother 55 Breast Cancer Maternal Great Grandmother 45 No past medical history on file. Past Surgical History: Procedure Laterality Date WISDOM TEETH EXTRACTION Social History Socioeconomic History Marital status: Single Spouse name: Not on file Number of children: Not on file Years of education: Not on file Highest education level: Not on file Occupational History Not on file Tobacco Use Smoking status: Former Smoker Packs/day: 0.50 Types: Cigarettes Quit date: 08/2018 Years since quittin.8 Smokeless tobacco: Never Used Vaping Use Vaping Use: Never used Substance and Sexual Activity Alcohol use: Yes Alcohol/week: 1.0 standard drink Types: 1 Glasses of wine per week Comment: occ Drug use: No Sexual activity: Yes Partners: Male control/protection: Pill Other Topics Concern Service Not Asked Blood Transfusions Not Asked Caffeine Concern Not Asked Occupational Exposure Not Asked Hobby Hazards Not Asked Sleep Concern Not Asked Stress Concern Not Asked Weight Concern Not Asked Special Diet Not Asked Back Care Not Asked Exercise Not Asked Bike Helmet Not Asked Seat Belt Not Asked Domestic Violence No Social History Narrative Not on file Social Determinants of Health Financial Resource Strain: Not on file Food Insecurity: Not on file Transportation Needs: Not on file Physical Activity: Not on file Stress: Not on file Social Connections: Not on file Intimate Partner Violence: Not on file Housing Stability: Not on file ROS Review of Systems 8 systems reviewed with patient, negative unless specifically mentioned in history of present illness PHYSICAL EXAM Visit Vitals BP 115/72 (BP Location: Left arm, BP Position: Sitting) Pulse 73 Temp 99.4 F (37.4 C) (Temporal) Resp 16 Ht 1.651 m (5' 5) Wt 66 kg (145 lb 9.6 oz) LMP 06/26/2021 SpO2 99% No BMI 24.23 kg/m Physical Exam Vitals and nursing note reviewed. Constitutional: General: She is not in acute distress. Appearance: Normal appearance. She is well-developed. She is not ill-appearing or diaphoretic. HENT: Head: Normocephalic. Right Ear: Tympanic membrane normal. Left Ear: Tympanic membrane normal. Nose: Nose normal. Mouth/Throat: Mouth: Mucous membranes are moist. Pharynx: Oropharyngeal exudate (right ) and posterior oropharyngeal erythema present. Eyes: Pupils: Pupils are equal, round, and reactive to light. Cardiovascular: Rate and Rhythm: Normal rate and regular rhythm. Heart sounds: Normal heart sounds. Pulmonary: Effort: Pulmonary effort is normal. No respiratory distress. Breath sounds: Normal breath sounds. Abdominal: General: There is no distension. Musculoskeletal: Cervical back: Normal range of motion and neck supple. Lymphadenopathy: Cervical: Cervical adenopathy present. Skin: General: Skin is warm and dry. Capillary Refill: Capillary refill takes less than 2 seconds. Neurological: General: No focal deficit present. Mental Status: She is alert and oriented to person, place, and time. Psychiatric: Mood and Affect: Mood normal. Behavior: Behavior normal. RESULTS Recent Results (from the past 1 hour(s)) POCT RAPID STREP A Collection Time: 06/26/21 8:09 PM Result Value Ref Range POCT RAPID STREP A neg (+/-) ASSESSMENT/PLAN 1. Viral pharyngitis 2. Sore throat Orders Placed This Encounter CULTURE THROAT POCT RAPID STREP A Lidocaine HCl (lidocaine viscous) 2 % Solution Rapid strep negative. Culture pending and will treat accordingly. Discussed OTC meds. Prescribed visc lido. If symptoms worsen patient was advised to follow up in our office, primary care provider or the Emergency Dept. Benefits, Risks, Contraindications, and Complications of recommended treatments were explained. The patient understands and agrees to proceed with plan. JUAN RAMON Bain 06/26/2021 documented in this encounterMad[facility]Evaluation note* Diagnosis Viral pharyngitis- Primary Acute pharyngitis Sore throat Acute pharyngitis documented [facility] this encounter [facility]* Diagnosis Thyroid mass- Primary Unspecified disorder of thyroid Encounter for initial prescription of contraceptive pills General counseling for prescription of oral contraceptives BRCA2 gene mutation positive in female Cervical cancer screening Screening for malignant neoplasm of the cervix [facility]* Diagnosis Family history of breast cancer Family history of malignant neoplasm of breast At high risk for breast cancer BRCA2 gene mutation positive in female [facility]* Diagnosis Vaginal bleeding- Primary Other specified noninflammatory disorder of vagina Right ovarian cyst Other and unspecified ovarian cyst [facility]* Diagnosis BRCA2 gene mutation positive in female- Primary Cyst of right ovary Other and unspecified ovarian cyst [facility]* Diagnosis Tick bite of abdomen, initial encounter- Primary [facility] Attachments The following attachments cannot be sent through Care Everywhere. * Sore Throat (Chinese) documented in this encounterMadison HealthProgress note Author Tawanna Farfan [facility] Note Date/Time October 01, 2024 10:2 3am [facility] [address] [place] [address], [address] [place] [id number] OFFICE VISIT Date of Service: 10/01/24 MR#: [id number] Acct: [id number] Name: SEGUNDO SENANJU HERNANDEZ Halima p #: [id number] : 1995 Provider: VANNESA Farfan Age/Sex: 29/F Location: [facility] Status: Signed Intake Vital Signs 08/13/24 14:11 09/10/24 08:48 10/01/24 10:05 10/01/24 10:13 Height 5 ft 7 in 5 ft 7 in 5 ft 7 in 5 ft 7 in Weight: 188 lb BMI 29.4 BP 104/68 Intake Visit Reasons: 28wk ob/glucose Chief Complaint: 28 Week OB/Glucose Snowboarding Instructor Required: No Is patient in pain?: No Allergies No Known Allergies Allergy (Verified 10/01/24 10:05) Medications ?Medication ?Instructions ?Recorded ?Confirmed ?Type vits no.126-ferrous fum tab PO 05/08/2410/01 History 28 mg iron-folic acid 800 mcg tablet (Classic ) Last Menstrual Period: 03/17/24 Zika: Zika virus screening: Negative : No PFSH PFSH Medical History BRCA2 gene mutation positive Family history of BRCA2 gene positive Surgical History [place] teeth removed Family History Mother BRCA gene mutation positive Preventative mastectomy done, 16 other relatives also + Aunt Breast cancer Social History household members: significant other and children number of children: 1 current occupational status: employed current occupation: [employer] in [place] current occupational exposures/hazards: No pets and animals: No history of recent travel: No sexually active: Yes Smoking Status: Never smoker alcohol intake: never substance use type: does not use well-balanced diet: daily or most days caffeine: Yes Type: coffee eating out: 1-3 times/week during the past year weight has: decreased > 10 lbs what type of physical activity do you participate in: walking frequency: 3-4 times per week duration: 15-30 minutes/day carissa/religious: None seatbelt use: always do you feel safe at home: Yes additional social history: Fianc?: [employer] [facility] [place] History 2 Elective abortions Hx Para 1 Spontaneous abortions Hx # Term Pregnancies 1 Ectopic pregnancies Hx # Pregnancies Multiple births # of living children 1 Past Pregnancies Del. Date Name GA/Weeks Outcome Route Bth Weight Infant Gen Labor Lgth Anesthesia Del Locatn Provider FOB 05/14/19 Annie 42 live - full term 8lbs 4oz Female 10[facility] [place]ons, Cintia Jones Delivery Date: 05/14/19 Last Updated by: Farzana Peña RN Induced d/t post dates, small PP hemorrhage HPI 28wk ob/glucose Details: ANJU SEN is a 29 year old who presents for routine OB visit. OB Visit SAULO Calculator Estimated Delivery Date Method Current WG Current Estimate 12/22/24 LMP (Certain) 28w 2d Expected Delivery Route/Plan Labor Preferences- CB/BF classes: no labor support person: Shmuel labor intervention preferences: [] pain management options preferred: epidural cut cord/dad catch: maybe : undecided PP control planned: discussed discussed possible routes of delivery and associated risks: [] special requests: [] Specific Issue/Plans Covid status: [] Flu vaccine: [] Tdap vaccine: given 10/01/24 Rhogam: NA LARC form signed: yes Problem list reviewed and updated with the most current plan of care details and appropriate orders placed. Relevant counseling for the gestational age provided. Continue routine care and follow up unless otherwise noted in visit notes/problem list details Initial Weight: 160 lb Date -?-?-?-?-?-?-?-?-?-?-?-?- EGA Weight BP Urine Prot -?-?-?-?-?--?-?-?-?-?-?-?- Glucose FHR FuHt Pres Dilation -?-?-?-?-?-?-?-?-?-?-?--?- Effaced St Visit Note 05/21/24 -?-?-?-?-?-?-?-?-?-?-?-?- 9w 2d 160 lb 2 oz (+2 oz) 121/79 -?-?-?-?-?-?-?-?-?-?-?-?- 178 -?-?-?-?-?-?-?-?-?-?-?-?- KW- CRL cons wit h dates. accepts NIPT 06/18/24 -?-?-?-?-?-?-?-?-?-?-?-?- 13w 2d 162 lb 8 oz (+2 lb 8 oz) 116/77 Negative -?-?-?-?-?-?-?-?-?-?-?-?- Negative 158 -?-?-?-?-?-?-?-?--?-?-?-?- JV- CRL still co nsistent with established GA. no complaints today low risk nipt girl 07/16/24 -?-?-?-?-?-?-?-?-?-?-?-?- 17w 2d 167 lb 2 oz (+7 lb 2 oz) 116/74 Negative -?-?-?-?-?-?-?-?-?-?-?-?- Negative 149 -?-?-?-?-?-?-?-?-?-?-?-?- MH-No VB. Some f lutters. Denies concerns 08/13/24 -?-?-?-?-?-?-?-?-?-?-?-?- 21w 2d 175 lb (+15 lb) 119/82 Negative -?-?-?-?-?-?-?-?-?-?-?-?- Negative 145 20 -?-?-?-?-?-?-?-?-?-?-?-?- KW- no vb/crampi ng. good fm. US reviewed. discussed tdap, flu and RSV shots. 09/10/24 -?-?-?-?-?-?-?-?-?-?-?-?- 25w 2d 181 lb 2 oz (+21 lb 2 oz) 101/68 1+ -?-?-?-?-?-?-?-?-?-?-?-?- Negative 160 26 -?-?-?-?-?-?-?-?-?-?-?-?- Sm- no vb lof go od fm nr oegualr ctx Sm- no vb lof good fm nr oeg ualr ctx culture sent for proteinuria 10/01/24 -?-?-?-?-?-?-?-?-?-?-?-?- 28w 2d 188 lb (+28 lb) 104/68 Negative -?-?-?-?-?-?-?-?-?-?-?-?- Negative 143 28 -?-?-?-?-?-?-?-?-?-?-?-?- MH-Yash, ZANEF. Go od FM. 28 wk labs pending. Larc, tdap. ACOG First Trimester First Trimester: Desire for , Alcohol, Tobacco Cessation, Illicit/Recreational Drug/Substance Use, Intimate Partner Violence, Barriers to care, Anticipated Course of Care, Use of Any medications, Sexual activity, Exercise, Dental Care, Sauna/Hot tub use, Seat Belt use, Childbirth classes/Hospital facilities, Travel, Indications for Ultrasound and Screening for Aneuploidy; Discussed Unstable Housing, Discussed Communication Barriers, Discussed Environmental/Work Hazards, Discussed Toxoplasmosis Precations and Discussed Second Trimester Second Trimester: Signs and Symptoms of Labor, Selecting a care provider, Reproductive Life Planning & Contreception, Care Planning, Depression/Anxiety and Intimate Partner Violence; Discussed Tobacco Cessation Third Trimester Third Trimester: Pain Management Plans, Labor support person(s), Immediate Larc, Signs and Symptoms of Preeclampsia, Feeding No , [place] Education and Family Medical Leave or Disability Forms ROS Const Reports system reviewed and no additional complaints, except as documented GI Denies abdominal pain, Denies nausea and Denies vomiting Exam Const General: cooperative Nutritional Appearance: well nourished GI Palpation: soft, nontender and other (gravid) Results POC Urinalysis 2 Dip (Clinic) Office Urine Glucose Negative Last Edit by Courtney Regalado on 10/01/24 10 :14 Office Urine Protein Negative Last Edit by Courtney Regalado on 10/01/24 10 :14 Coding Level of Care Code OB Routine Diagnoses Encounter for supervision of other normal in third trimester Z34.83 Normal : other normal Trimester: third trimester 28 weeks gestation of Z3A.28 Weeks of gestation: 28 weeks 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 (3) Cystic fibrosis carrier: Status: Acute Comment: FOB neg. 03/19 (4) BRCA2 gene mutation positive: Status: Acute Comment: OBGYN in [place]; gets yearly MRI w/contrast (Due 2/3 but wants to cancel d/t ) Orders: Orders POC Urinalysis 2 Dip (Clinic) Today Plan problem list reviewed and updated for most current plan of care and appropriate orders placed. Relevant counseling for the gestational age appropriate provided and ACOG education checklist updated. Continue routine care and follow up. 10/01/24 1024 <Electronically signed by Tawanna govea NP ADDICTION PSYCHIATRIST-C> Date _ Tawanna Farfan NP ADDICTION PSYCHIATRIST-C Cosigner Signature: Date (if applicable) CC: ~ [facility] Work Phone: Reason for referral (narrative)No reason for referral information [facility] Work Phone: Summary Purpose Family History Relationship Condition Age at Onset Recorded Date/T case mother BRCA gene mutation positive Unknown aunt Malignant neoplasm of breast Unknown Advance Directives Advance Directive Response Recorded Date/ Time Living Will No May 24 11:16am Do you have a Healthcare Power of [place] Maker? No May 24, 2024 11:16am Reason for Referral Specialty Diagnoses / Procedures Referred By Contac t Referred To Contact Diagnoses Family history of breast cancer At high risk for breast cancer BRCA2 gene mutation positive in female Procedures MRI BREAST BILATERAL WITH AND WITHOUT CONTRAST CHG MRI BREAST WITHOUT&WITH CONTRAST W/CAD BILATERAL Archana Garcia, INSULATION ENGINEMAN-GLAZING DEPARTMENT SUPERVISOR [address] [place] [address] Referral ID Status Reason Start Date Expiration Date Visits Re quested Visits Authorized [id number] Closed 07/18/2021 08/12/2022 1 1 Specialty Diagnoses / Procedures Referred By Yuliya t Referred To Contact Procedures US PELVIC W TRANSVAGINAL Dayanna Ariza MD [address] [place] [address] Referral ID Status Reason Start Date Expiration Date V isits Requested Visits Authorized [id number] New Request 06/21/2022 07/16/2023 1 1 Specialty Diagnoses / Procedures Referred By Contac t Referred To Contact Diagnoses BRCA2 gene mutation positive in female Cyst of right ovary Procedures US IMAGING GUN PERFORATOR CLIN[facility] Jamal Daniel MD [address] [facility] [address] [place] [address] Referral ID Status Reason Start Date Expiration Date V isits Requested Visits Authorized [id number] New Request 06/13/2023 07/07/2024 1 1 Chief Complaint and Reason for Visit Chief Complaint Admit Date New OB, LMP 03/17/24, SAULO 12/22/24 Februa ry 2024 11:05am PREG. VAG BLEED May 24, 2024 9:44am 13wk OB June 18, 2024 2:1 9pm 17 wk ob July 16, 2024 1:2 3pm 21 wk ob August 13, 2024 2:08pm 25 wk ob September 10, 2024 8:43a m Reason for Visit Admit Date BRCA2 gene mutation positive May 212024 11:05am May 21, 2024 11:05am Supervision of normal May 21, 2024 11:05am BRCA2 gene mutation positive June 18, 2024 2:19pm Cystic fibrosis carrier June 18, 2024 2:19pm June 18, 2024 2:1 9pm Supervision of normal June 182024 2:19pm BRCA2 gene mutation positive July 16, 2024 1:23pm Cystic fibrosis carrier July 16, 2024 1:23pm July 16, 2024 1:2 3pm Supervision of normal July 162024 1:23pm BRCA2 gene mutation positive August 13 2:08pm Cystic fibrosis carrier August 13, 2024 2: 08pm August 13, 2024 2:08pm Supervision of normal August 13, 2024 2:08pm BRCA2 gene mutation positive September 10, 025 8:43am Cystic fibrosis carrier September 10, 2024 8 :43am September 10, 2024 8:43a m Supervision of normal September 8:43am Chief Complaint Admit Date 13wk OB June 18, 2024 2:1 9pm 17 wk ob July 16, 2024 1:2 3pm 21 wk ob August 13, 2024 2:08pm 25 wk ob September 10, 2024 8:43a m 28wk ob/glucose October 01, 2024 9:45 am Reason for Visit Admit Date BRCA2 gene mutation positive June 18, 2024 2:19pm Cystic fibrosis carrier June 18, 2024 2:19pm June 18, 2024 2:1 9pm Supervision of normal June 182024 2:19pm BRCA2 gene mutation positive July 16, 2024 1:23pm Cystic fibrosis carrier July 16, 2024 1:23pm July 16, 2024 1:2 3pm Supervision of normal July 162024 1:23pm BRCA2 gene mutation positive August 13 2:08pm Cystic fibrosis carrier August 13, 2024 2: 08pm August 13, 2024 2:08pm Supervision of normal August 13, 2024 2:08pm BRCA2 gene mutation positive September 10, 025 8:43am Cystic fibrosis carrier September 10, 2024 8 :43am September 10, 2024 8:43a m Supervision of normal September 8:43am BRCA2 gene mutation positive October 01, 2024 9:45am Cystic fibrosis carrier October 01, 2024 9:45am October 01, 2024 9:45 am Supervision of normal September 9:45am Additional Source Comments INFORMATION SOURCE (unrecogn ized section and content) DATE CREATED AUTHOR 09/07/2020 [facility] DATE CREATED AUTHOR AUTHOR'S ORGANIZ ATION 06/30/2021 [facility] DATE CREATED AUTHOR AUTHOR'S ORGANIZ ATION 05/20/2024 [facility] DATE CREATED AUTHOR AUTHOR'S ORGANIZ ATION 06/22/2024 [facility] DATE CREATED AUTHOR AUTHOR'S ORGANIZ ATION 07/31/2024 [facility] DATE CREATED AUTHOR AUTHOR'S ORGANIZ ATION 09/26/2024 [facility] Reason for Visit (unrecogniz ed section and content) Reason Comments Sore Throat Right side ear and t onsil is sore fever, started sat. YES vax. Specialty Diagnoses / Procedures Referred By Contac t Referred To Contact Diagnoses Family history of breast cancer At high risk for breast cancer BRCA2 gene mutation positive in female Procedures MRI BREAST BILATERAL WITH AND WITHOUT CONTRAST CHG MRI BREAST WITHOUT&WITH CONTRAST W/CAD BILATERAL Archana Garcia INSULATION ENGINEMAN-GLAZING DEPARTMENT SUPERVISOR [address] [place] [address] Referral ID Status Reason Start Date Expiration Date Visits Requested Visits Authorized [id number] Tan - Humza 07/18/2021 08/12/2022 1 1 Reason Comments New Patient BRCA2 gene mutation Ultrasound Declined Applied Psychology Teacher Specialty Diagnoses / Procedures Referred By Yuliya lee Referred To Contact Gynecology Diagnoses BRCA2 gene mutation positive in female Archana Garcia APRN-GLAZING DEPARTMENT SUPERVISOR [address] [place] [address] Jamal Daniel MD [address] [place] [address] [address] [place] [address] Referral ID Status Reason Start Date Expiration Date V isits Requested Visits Authorized [id number] New Request 07/18/2021 08/12/2022 1 1 Referral ID Status Reason Start Date Expiration Date Visits Re quested Visits Authorized [id number] Closed 07/18/2021 08/12/2022 1 1 Reason Comments Vaginal Bleeding Reason Comments Ultrasound Follow-up GUN PERFORATOR Reason Comments Tick bite L side area, redness , swelling, thinks head is still in there, removed body this am Care Teams (unrecognized sec tion and content) Geodetic Engineer Relationship Specialty Start Date End Date Self, Self PCP - General Other 06/21/22 Geodetic Engineer Relationship Specialty Start Date End Date Self, Self PCP - General Other 06/21/22 Team Status: Active Member Role Status Dates No Primary Care Physician Primary Care Provider Active Team Status: Inactive Member Role Status Dates No Primary Care Physician Primary Care Provider Active Start: May 21, 2024 End: May 21, 2024 No Primary Care Physician Referring Provider Active Start: May 21, 2024 End: May 21, 2024 Yris Brown CNM Attending Provider Active S tart: May 21, 2024 End: May 21, 2024 Team Status: Inactive Member Role Status Dates No Primary Care Physician Primary Care Provider Active Start: May 21, 2024 End: May 21, 2024 Yris Brown CNM Attending Provider Active S tart: May 21, 2024 End: May 21, 2024 Yris Brown CNM Referring Provider Active S tart: May 21, 2024 End: May 21, 2024 Team Status: Inactive Member Role Status Dates No Primary Care Physician Primary Care Provider Active Start: May 24, 2024 End: May 24, 2024 Dr. Julio Louise DO Attending Provider Active Start: May 24, 2024 End: May 24, 2024 Dr. Julio Louise DO Emergency Provider Active Start: May 24, 2024 End: May 24, 2024 Team Status: Inactive Member Role Status Dates No Primary Care Physician Primary Care Provider Active Start: May 28, 2024 End: May 28, 2024 Yris Brown CNM Attending Provider Active S tart: May 28, 2024 End: May 28, 2024 Yris Brown CNM Referring Provider Active S tart: May 28, 2024 End: May 28, 2024 Team Status: Inactive Member Role Status Dates No Primary Care Physician Primary Care Provider Active Start: June 18, 2024 End: June 18, 2024 No Primary Care Physician Referring Provider Active Start: June 18, 2024 End: June 18, 2024 Dr. Cary Brenner , Attending Provider Activ e Start: June 18, 2024 End: June 18, 2024 Team Status: Inactive Member Role Status Dates No Primary Care Physician Primary Care Provider Active Start: July 16, 2024 End: July 16, 2024 No Primary Care Physician Referring Provider Active Start: July 16, 2024 End: July 16, 2024 Tawanna Farfan NP, ADDICTION PSYCHIATRIST-C Attending Provider Active Start: July 16, 2024 End: July 16, 2024 Team Status: Inactive Member Role Status Dates No Primary Care Physician Primary Care Provider Active Start: August 13, 2024 End: August 13, 2024 No Primary Care Physician Referring Provider Active Start: August 13, 2024 End: August 13, 2024 Yris Brown CNM Attending Provider Active S tart: August 13, 2024 End: August 13, 2024 Team Status: Inactive Member Role Status Dates No Primary Care Physician Primary Care Provider Active Start: September 10, 2024 End: September 10, 2024 No Primary Care Physician Referring Provider Active Start: September 10, 2024 End: September 10, 2024 Dr. Taina Huddleston MD Attending Provider Active Start: September 10, 2024 End: September 10, 2024 Team Status: Inactive Member Role Status Dates No Primary Care Physician Primary Care Provider Active Start: September 10, 2024 End: September 10, 2024 Dr. Taina Huddleston MD Attending Provider Active Start: September 10, 2024 End: September 10, 2024 Dr. Taina Huddleston MD Referring Provider Active Start: September 10, 2024 End: September 10, 2024 Team Status: Inactive Member Role Status Dates No Primary Care Physician Primary Care Provider Active Start: October 01, 2024 End: October 01, 2024 No Primary Care Physician Referring Provider Active Start: October 01, 2024 End: October 01, 2024 Tawanna Farfan NP, ADDICTION PSYCHIATRIST-C Attending Provider Active Start: October 01, 2024 End: October 01, 2024 Team Status: Active Member Role Status Dates No Primary Care Physician Primary Care Provider Active Start: October 01, 2024 Dr. Taina Huddleston MD Attending Provider Active Start: October 01, 2024 Dr. Taina Huddleston MD Referring Provider Active Start: October 01, 2024 Source Comments (unrecognize d section and content) In the event this informatio n is protected by the Federal Confidentiality of Alcohol and Drug Abuse Patient Records regulations: The Federal rules restrict any use of the information to criminally investigate or prosecute any alcohol or drug abuse patient.[facility] Goals (unrecognized section and content) Goals may be documented in a n alternate sectionGoals may be documented in an alternate sectionGoals may be documented in an alternate section FOR RECORDS PERTAINING TO PATIENTS WHO ARE OR HAVE BEEN ENROLLED IN A CHEMICAL DEPENDENCY/SUBSTANCEABUSE PROGRAM, SOME INFORMATION MAY BE OMITTED. This clinical summary was aggregated from multiple sources. Caution should be exercised in using it in the provision of clinical care. This summary normalizes information from multiple sources, and as a consequence, information in this document may materially change the coding, format and clinical context of patient data. In addition, data may be omitted in some cases. CLINICAL DECISIONS SHOULD BE BASED ON THE PRIMARY CLINICAL RECORDS. [facility] [employer] [facility]. provides no warranty or guarantee of the accuracy or completeness of information in this document.
== END | disposition home or self-care (01) ==
PROVIDERS: Referring Provider Obstetrics & Gynecology; Visit Provider Obstetrics & Gynecology
DX: Z34.82 Encounter for supervision of other normal pregnancy, second trimester (principal); Z13.1 Encounter for screening for diabetes mellitus
CPT/HCPCS: 36415; 82950; 85025; 86703; 86780

== ENCOUNTER 2024-11-23 13:25 | Outpatient (CLI) | payer MEDICAID, SELFPAY ==
[2024-11-23 13:48] VITALS: BP 121/73; PULSE 95; RESP 16; TEMP 36.8; O2SAT 97
[2024-11-23 13:49] VITALS: PULSE 95; O2SAT 97
[2024-11-23 14:01] VITALS: BMI 31.8
[2024-11-23 14:32] LABS: ROM Internal Control Test YES-OK TO RESULT pt. (Internal QC); ROM Patient Test Negative (Negative)
[2024-11-23 14:33] LABS: Record Kit Lot#, ROM+ K3358
--- NOTE | 2024-11-23 14:36 | OB.TRI.PN_ITS ---
Progress Notes Date of Service: 11/23/24 Progress Note: Patient presents for triage evaluation secondary to vaginal discharge at 35.6 weeks FHT: 145 Moderate variability reactive no decelerations category I tracing [place]: irregular Contractions Assessment and plan: neg rom, Reactive NST, reassuring maternal and status patient discharged to home to follow-up in office. See problem list details for additional plan information. Laboratory Studies: Laboratory Tests 11/23/24 Range/Units 13:55 Vag Amniotic Fld Detect Negative (Negative) Charges/Coding Multi Select Codes Urinary/Genital Urinary/Genital CPT Codes: 74531-72 non-stress test Interp Assessment & Plan (1) Vaginal discharge during : COMMENT: rom + negative. reactive NST (2) Cystic fibrosis carrier: COMMENT: FOB neg. 03/19 (3) Supervision of normal : QUALIFIERS: Normal : other normal Trimester: third trimester Qualified Code(s): Z34.83 - Encounter for supervision of other normal , third trimester COMMENT: PRR, , SAULO 12/22/24, girl, [place] [facility]: Hank Valencia?: Shmuel (4) : QUALIFIERS: Weeks of gestation: 34 weeks Qualified Code(s): Z3A.34 - 34 weeks gestation of COMMENT: NIPT low risk- carrier neg /14 carrier for cystic fibrosis, nl anatomy. (5) BRCA2 gene mutation positive: COMMENT: [facility] in [place]; gets yearly MRI w/contrast (Due 2/3 but wants to cancel d/t )
== END 2024-11-23 14:55 | disposition home or self-care (01) ==
LOC: WPOUT 13:28 → WP 13:30
PROVIDERS: Referring Provider Advanced Practice Midwife; Visit Provider Advanced Practice Midwife
DX: O99.891 Other specified diseases and conditions complicating pregnancy (principal); N89.8 Other specified noninflammatory disorders of vagina; Z3A.35 35 weeks gestation of pregnancy; Z14.1 Cystic fibrosis carrier
CPT/HCPCS: 59025; 59050; 84112; 99221; G0378

== ENCOUNTER → 2024-11-26 | Outpatient (CLI) | payer MEDICAID, SELFPAY | END | disposition home or self-care (01) | LOC: LABSPEC 11:38 | PROVIDERS: Referring Provider Obstetrics & Gynecology; Visit Provider Obstetrics & Gynecology | DX: Z34.83 Encounter for supervision of other normal pregnancy, third trimester (principal) | CPT/HCPCS: 87081 ==

== ENCOUNTER 2024-12-10 17:57 | Inpatient (IN) | payer MEDICAID, SELFPAY ==
[2024-12-10] VITALS (15 sets, daily range): BP systolic 115–150; BP diastolic 72–93; PULSE 91–139; RESP 16–18; TEMP 36.9–37.2; O2SAT 79–98; BMI 32.4
--- NOTE | 2024-12-10 17:40 | HP.PCM.OB_ITS ---
HPI - General HPI Narrative PAULO HERBERT, is a 29 F who presents with elevated bps, gestational hypertension no barbosa bv but incresaed sewlling since over the weekend. she dneies any bleeding or abnormnal discharge. Maternal Data Information SAULO Calculator Estimated Delivery Date Method Current WG Current Estimate 12/22/24 LMP (Certain) 38w 2d PFSH PFSH Medical History BRCA2 gene mutation positive Family history of BRCA2 gene positive Home Medications ?Medication ?Instructions ?Recorded ?Last Taken ?Type vits no.126-ferrous fum 1 tab PO DAILY pregna ncy 05/08/24 12/10/24 08:00 History 28 mg iron-folic acid 800 mcg 1 TAB tablet (Classic ) Allergy/AdvReac Type Severity Reaction Status Date / Time No Known Allergies Allergy Verified 12/10/24 16:39 Family History Mother BRCA gene mutation positive Preventative mastectomy done, 16 other relatives also + Aunt Breast cancer Surgical History Hawthorn teeth removed Social History household members: significant other and children number of children: 1 current occupational status: employed current occupation: [employer] in [place] current occupational exposures/hazards: No pets and animals: No history of recent travel: No sexually active: Yes Smoking Status: Never smoker alcohol intake: never substance use type: does not use well-balanced diet: daily or most days caffeine: Yes Type: coffee eating out: 1-3 times/week during the past year weight has: decreased > 10 lbs what type of physical activity do you participate in: walking frequency: 3-4 times per week duration: 15-30 minutes/day carissa/yarsanism: None seatbelt use: always do you feel safe at home: Yes additional social history: Fianc?: [employer] in [place] History 2 Elective abortions Hx Para 1 Spontaneous abortions Hx # Term Pregnancies 1 Ectopic pregnancies Hx # Pregnancies Multiple births # of living children 1 Past Pregnancies Del. Date Name GA/Weeks Outcome Route Bth Weight Gen Labor Lgth Anesthesia Del Locatn Provider FOB 05/14/19 Annie 42 live - full term 8lbs 4oz Female 10hours epidural [facility] Dr Richardsons, Cintia Jones Delivery Date: 05/14/19 Last Updated by: Farzana Peña RN Induced d/t post dates, small PP hemorrhage Visit Details Expected Delivery Route/Plan Labor Preferences- CB/BF classes: no labor support person: Shmuel labor intervention preferences: [] pain management options preferred: epidural cut cord/dad catch: maybe : undecided PP control planned: discussed discussed possible routes of delivery and associated risks: [] special requests: [] Plans Covid status: [] Flu vaccine: [] Tdap vaccine: given 10/01/24 Rhogam: NA LARC form signed: yes movement and labor precautions reviewed. Problem list reviewed and updated with the most current plan of care details and appropriate orders placed. Relevant counseling for the gestational age provided. Continue routine care and follow up unless otherwise noted in visit notes/problem list details OB Flowsheet Initial Weight: 160 lb Date -?-?-?-?-?-?-?-?-?-?-?-?- EGA Weight BP Urine Prot -?-?-?-?-?-?-?-?-?-?-?-?- Glucose FHR FuHt Pres Dilation -?-?-?-?-?-?-?-?-?-?-?-?- Effaced St Visit Note 05/21/24 -?-?-?-?-?-?-?-?-?-?-?-?- 9w 2d 160 lb 2 oz (+2 oz) 121/79 -?-?-?-?-?-?-?-?-?-?-?-?- 178 -?-?-?-?-?-?-?-?-?-?-?-?- KW- CRL cons wit h dates. accepts NIPT 06/18/24 -?-?-?-?-?-?-?-?-?-?-?-?- 13w 2d 162 lb 8 oz (+2 lb 8 oz) 116/77 Negative -?-?-?-?-?-?-?-?-?-?-?-?- Negative 158 -?-?-?-?-?-?-?-?-?-?-?-?- JV- CRL still co nsistent with established GA. no complaints today low risk nipt girl 07/16/24 -?-?-?-?-?-?-?-?-?-?-?-?- 17w 2d 167 lb 2 oz (+7 lb 2 oz) 116/74 Negative -?-?-?-?-?-?-?-?-?-?-?-?- Negative 149 -?-?-?-?-?-?-?-?-?-?-?-?- MH-No VB. Some f lutters. Denies concerns 08/13/24 -?-?-?-?-?-?-?-?-?-?-?-?- 21w 2d 175 lb (+15 lb) 119/82 Negative -?-?-?-?-?-?-?-?-?-?-?-?- Negative 145 20 -?-?-?-?-?-?-?-?-?-?-?-?- KW- no vb/crampi ng. good fm. US reviewed. discussed tdap, flu and RSV shots. 09/10/24 -?-?-?-?-?-?-?-?-?-?-?-?- 25w 2d 181 lb 2 oz (+21 lb 2 oz) 101/68 1+ -?-?-?-?-?-?-?-?-?-?-?-?- Negative 160 26 -?-?-?-?-?-?-?-?-?-?-?-?- Sm- no vb lof go od fm nr oegualr ctx Sm- no vb lof good fm nr oeg ualr ctx culture sent for proteinuria 10/01/24 -?-?-?-?-?-?-?-?-?-?-?-?- 28w 2d 188 lb (+28 lb) 104/68 Negative -?-?-?-?-?-?-?-?-?-?-?-?- Negative 143 28 -?-?-?-?-?-?-?-?-?-?-?-?- MH-NoVB, LOF. Go od FM. 28 wk labs pending. volodymyr Reddyap. 10/16/24 -?-?-?-?-?-?-?-?-?-?-?-?- 30w 3d 190 lb 8 oz (+30 lb 8 oz) 116/76 Negative -?-?-?-?-?-?-?-?-?-?-?-?- Negative 145 30 -?-?-?-?-?-?-?-?-?-?-?-?- KW- no vb/lof/ct x. good fm. no concerns today 10/29/24 -?-?-?-?-?-?-?-?-?-?-?-?- 32w 2d 196 lb 6 oz (+36 lb 6 oz) 112/73 Negative -?-?-?-?-?-?-?-?-?-?-?-?- Negative 140 32 -?-?-?-?-?-?-?-?-?-?-?-?- SM- no vb lof go od fm no reuglar ctx some more pelvic pressure 11/13/24 -?-?-?-?-?-?-?-?-?-?-?-?- 34w 3d 198 lb 5 oz (+38 lb 5 oz) 122/76 Negative -?-?-?-?-?-?-?-?-?-?-?-?- Negative 155 34 -?-?-?-?-?-?-?-?-?-?-?-?- KW- no vb/lof/ct x. good fm. plans for RSV vaccine this week. 11/26/24 -?-?-?-?-?-?-?-?-?-?-?-?- 36w 2d 203 lb 5 oz (+43 lb 5 oz) 110/73 Negative -?-?-?-?-?-?-?-?-?-?-?-?- Negative 140 36 Cephalic 1 -?-?-?-?-?-?-?-?-?-?-?-?- 20 -4 SM- n ovb lof good fm no reuglar ctx gbs today 12/03/24 -?-?-?-?-?-?-?-?-?-?-?-?- 37w 2d 208 lb 8 oz (+48 lb 8 oz) 118/76 Negative -?-?-?-?-?-?-?-?-?-?-?-?- Negative 140 37 Cephalic 1 -?-?-?-?-?-?-?-?-?-?-?-?- SM- no vb lof go od fm no regular ctx 12/10/24 -?-?-?-?-?-?-?-?-?-?-?-?- 38w 2d 208 lb (+48 lb) 137/90 Negative -?-?-?-?-?-?-?-?-?-?-?-?- Negative 135 39 -?-?-?-?-?-?-?-?-?-?-?-?- KW- no vb/lof/ct x. good fm. pre e labs today. NST FHR Rate Baby A Baseline: 140 Variability:: Moderate Accelerations:: 15 x 15 Decelerations:: None NST Reactive:: Yes FHR Category:: Category I Uterine Activity:: irregular ROS Constitutional Constitutional: Reports systems reviewed and no addt'l complaints, except as documented Eyes Eyes: Denies change in vision ENT HEENT: Reports systems reviewed and no addt'l complaints, except as documented; Denies headache(s) Cardiovascular Cardiovascular: Reports systems reviewed and no addt'l complaints, except as documented; Denies chest pain or dyspnea Respiratory/Chest Respiratory/Chest: Reports systems reviewed and no addt'l complaints, except as documented Gastrointestinal Gastrointestinal: Reports systems reviewed and no addt'l complaints, except as documented; Denies abdominal pain Genitourinary Genitourinary: Reports systems reviewed and no addt'l complaints, except as documented, contractions Details: present (irregular) and movement Details: present; Denies dysuria or genital lesions Musculoskeletal Musculoskeletal: Reports systems reviewed and no addt'l complaints, except as documented Neurologic Neurologic: Reports systems reviewed and no addt'l complaints, except as documented Endocrine Endocrinology: Reports systems reviewed and no addt'l complaints, except as documented Vital Signs Vital Signs Vital Signs: 12/10/24 15:52 12/10/24 15:52 12/10/24 16:07 Temperature Temperature Source Pulse Rate 107 H Respiratory Rate Blood Pressure 134/90 H 130/86 H BP Systolic 134 130 BP Diastolic 90 86 12/10/24 16:07 12/10/24 16:22 12/10/24 16:22 Temperature Temperature Source Pulse Rate 107 H 122 H Respiratory Rate Blood Pressure 144/89 H BP Systolic 144 BP Diastolic 89 12/10/24 16:29 12/10/24 16:29 12/10/24 16:29 Temperature Temperature Source Temporal Pulse Rate 108 H Respiratory Rate Blood Pressure 147/93 H BP Systolic 147 BP Diastolic 93 12/10/24 16:29 12/10/24 16:29 12/10/24 16:29 Temperature 98.5 F Temperature Source Temporal Pulse Rate Respiratory Rate 16 Blood Pressure BP Systolic BP Diastolic 12/10/24 16:29 12/10/24 16:29 12/10/24 16:37 Temperature 98.5 F Temperature Source Pulse Rate Respiratory Rate 16 Blood Pressure 150/93 H BP Systolic 150 BP Diastolic 93 12/10/24 16:37 12/10/24 16:52 12/10/24 16:52 Temperature Temperature Source Pulse Rate 106 H 113 H Respiratory Rate Blood Pressure 147/90 H BP Systolic 147 BP Diastolic 90 12/10/24 17:07 12/10/24 17:07 12/10/24 17:08 Temperature Temperature Source Pulse Rate 115 H Respiratory Rate Blood Pressure 135/90 H 136/91 H BP Systolic 135 136 BP Diastolic 90 91 12/10/24 17:08 12/10/24 17:23 12/10/24 17:23 Temperature Temperature Source Pulse Rate 109 H 101 H Respiratory Rate Blood Pressure 136/89 H BP Systolic 136 BP Diastolic 89 Weight Weight: 207 lb 3.752 oz Body Mass Index (BMI) 32.4 Physical Exam Const alert, oriented x3, no apparent distress and healthy appearing HEENT normocephalic and moist oral mucous membranes Head and Scalp: atraumatic Neck full ROM, no lymphadenopathy, supple and thyroid normal General: trachea midline Lymph Lymphatic: no lymphadenopathy noted Chest inspection of chest normal Resp normal respiratory effort Cardio regular rate GI soft to palpation and non-tender GI Narrative: gravid Inspection: gravid external exam normal Manual OB Exam: estimated gestational size appropriate, presentation cephalic, dilated, effaced and station Extremity normal to inspection General Extremity: Negative for edema Skin no rashes or lesions noted Neuro no focal motor deficits and deep tendon reflexes 2+ bilaterally Motor Exam: strength 5/5 throughout and clonus absent Psych mental status grossly normal Labs Labs Labs: Blood Type O POSITIVE Antibody Screen NEGATIVE Hct 38.5 % (37-47) Hgb 13.0 g/dL (12.0-15.0) Obstetrics Ultrasound Syphilis Total Ab Nonreactive (Nonreactive) Rubella IgG Antibody Reactive (Nonreactive) Hep Bs Antigen Non-Reactive (Nonreactive) Hepatitis C Antibody Non-Reactive (Nonreactive) Chlamydia DNA (ROBIN) Negative (Negative) N.gonorrhoeae DNA (ROBIN) Negative (Negative) HIV 1&2 Antibody Nonreactive (Nonreactive) Glucose 1 Hr 50 gm 130 mg/dL (70-140) Gest Glucose Tolerance MG/DL Rhogam given: No Assessment & Plan (1) Cystic fibrosis carrier: COMMENT: FOB neg. 03/19 (2) Supervision of normal : QUALIFIERS: Normal : other normal Trimester: third trimester Qualified Code(s): Z34.83 - Encounter for supervision of other normal , third trimester COMMENT: PRR, , SAULO 12/22/24, girl, Annika PC: Hank Valencia?: Shmuel (3) : QUALIFIERS: Weeks of gestation: 38 weeks Qualified Code(s): Z3A.38 - 38 weeks gestation of COMMENT: NIPT low risk- carrier neg carrier for cystic fibrosis, nl anatomy. (4) BRCA2 gene mutation positive: COMMENT: OBGYN in [place]; gets yearly MRI w/contrast (Due 2/3 but wants to cancel d/t ) (5) Gestational hypertension: COMMENT: plan IOL (6) Encounter for induction of labor: PLAN: Plan Patient presents IOL, plan management for with cytotec. Pain management: plans epidural. GBS negative. Management of any complications: monitor bps I have reviewed the [facility] and made any clinically relevant updates.
[2024-12-10 19:10] LABS: Syphilis Antibodies Nonreactive (Nonreactive)
[2024-12-10] MEDS: Lactated Ringers 1,000 ML 50 ML IV (20:50)
--- NOTE | 2024-12-10 21:02 | PCM.PN.BLA ---
Progress Note patient scanned at bedside prior ot induction started and found to be breech- counseled for ECV and agreed. Preprocedure diagnosis: Breech presentation Post procedure diagnosis: Vertex presentation Procedure: External cephalic version Surgeon: Taina Huddleston EBL: None Complications: None Anesthesia: None Special medications: Terbutaline Seizure details: The fetus was found to be in breech presentation informed by ultrasound. Patient had an IV in place, normal amniotic fluid, no contraindications to a vaginal delivery, and reactive nonstress test prior to the procedure. Patient was placed in the dorsal supine position after the terbutaline was given. Ultrasound gel was applied to the patient's abdomen and using constant upward pressure to elevate the buttocks out of the pelvic inlet constant pressure was applied to the buttocks and to the area behind the back of the neck and head to encourage a forward roll of the fetus. Constant pressure was applied and slowly the infant was converted to a vertex presentation. Bedside ultrasound was used to confirm vertex presentation and reassuring heart rate. Patient was replaced on the NST and monitored to assure reassuring status. No complications. will proceed with IOL Procedures Urinary/Genital [id number]: [id number] ECV
--- OUTSIDE RECORDS SUMMARY | 2024-12-10 21:35 | XMS RPT_ITS | CCD ---
Author Organization [facility] CliniSyal Care Team Providers Care [employer] General Supervisor Name Role Phone Ori MADDEN Attending Unavailable [...] Un available Yris Brown CNM Attending Provider Yris Brown CNM Referring Provider Dr. Julio Louise DO Attending Provider Dr. Julio Louise DO Emergency Provider Dr. Cary Brenner DO Attending Provider Tawanna Yuan Attending Provider [phone] Dr. Taina Huddleston MD Attending Provider [phone] Dr. Taina Huddleston MD Referring Provider [phone] Care Physician, No Primary Primary Care Provider Unavailable Care Physician, No Primary Referring Provider Un available Yris Brown CNM Attending Provider [phone] Care Physician, No Primary Primary Care Provider Unavailable Care Physician, No Primary Referring Provider Un available Care Physician, No Primary Primary Care Provider Unavailable Care Physician, No Primary Referring Provider Un available Tawanna Yuan Attending Provider [phone] Yris Brown CNM Referring Provider Kevin MOODY, Yris Other Provider Care Physician, No Primary Referring Unava ilable Yris Brown Attending Unavailable Care Physician, No Primary Primary Care Unava ilable Care Physician, No Primary Primary Care Unava ilable Yris Brown Referring Unavailable Yris Brown Attending Unavailable Care Physician, No Primary Primary Care Unava ilable Yris Brown Referring Unavailable Yris Brown Attending Unavailable Care Physician, No Primary Primary Care Unava ilable Yris Brown Consulting Unavailable Yris Brown Referring Unavailable Yris Brown Attending Unavailable Care Physician, No Primary Referring Unava ilable Care Physician, No Primary Primary Care Unava ilable Yris rBown Attending Unavailable Farzana Peña Attending Unavailable Care Physician, No Primary Primary Care Unava ilable Marcanthony, Taina Attending Unavailable Marcanthony, Taina Referring Unavailable Care Physician, No Primary Primary Care Unava ilable Alpohnseanthsyed, Taina Referring Unavailable Care Physician, No Primary Primary Care Unava ilable Flaquito, Taina Attending Unavailable Care Physician, No Primary Referring Unava ilable AlphonseanthTaina lynch Attending Unavailable Care Physician, No Primary Primary Care Unava ilable Tawanna Farfan Attending Unavailable Care Physician, No Primary Referring Unava ilable Care Physician, No Primary Primary Care Unava ilable Julio Louise Attending Unavailable Care Physician, No Primary Primary Care Unava ilable Care Physician, No Primary Primary Care Unava ilable Yris Brown Referring Unavailable Yris Brown Attending Unavailable Marcanthony, Taina Referring Unavailable Marcanthsyed, Taina Attending Unavailable Care Physician, No Primary Primary Care Unava ilable Care Physician, No Primary Primary Care Unava ilable Care Physician, No Primary Referring Unava ilable Yris Brown Attending Unavailable Care Physician, No Primary Primary Care Unava ilable Care Physician, No Primary Referring Unava ilable Taina Huddleston Attending Unavailable Care Physician, No Primary Referring Unava ilable Care Physician, No Primary Primary Care Unava ilable Yris Brown Attending Unavailable Care Physician, No Primary Referring Unava ilable Cary Brenner Attending [facility] Care Physician, No Primary Primary Care Unava ilable Care Physician, No Primary Referring Unava ilable Taina Huddleston Attending Unavailable Care Physician, No Primary Primary Care Unava ilable Care Physician, No Primary Primary Care Unava ilable Care Physician, No Primary Referring Unava ilable Yris Brown Attending Unavailable Care Physician, No Primary Primary Care Unava ilable Care Physician, No Primary Referring Unava ilable Taina Huddleston Attending Unavailable Care Physician, No Primary Referring Unava ilable Tawanna Farfan Attending Unavailable Care Physician, No Primary Primary Care Unava ilable Allergies Allergy Classification Reported Allergen(s) Allergy Type Date of Onset Reaction(s) Facility (6 sources) carboxypolymethylene Drug Allergy 2 [facility] Medications Current Medications Medication Drug Class(es) Dates [...] PO) Take by mouth. 0 Active Vit No.974-Mjhb-Prn ic (Classic ) 28 mg iron- 800 mcg tablet (13 sources) Start: 05-08-2024 Vit N o.267-Cezf-Hmnxl (Classic ) 28 mg iron- 800 mcg tablet Active 1 {tbl} PO DAILY May 08, 2024 1:00am Start: 05-08-2024 Vit N o.901-Rylw-Dybek (Classic ) 28 mg iron- 800 mcg [...] oral tablet (1 source) Aldosterone Antagonist Start: 02-17-20 spironolactone 100 MG tablet Completed/Discontinued Medications Medication Drug Class(es) Dates Sig (Normalized) Sig (Original) docosahexaenoic acid 200 mg oral capsule (13 sources) Start: 05-13-2019 End: 05-08-2024 Docosahexaenoic Acid [...] Hemorrhage during ; abruptio placenta; placenta previa (14 sources) Threatened miscarriage; Translations: [Threatened ] Onset: 06-04-2024 06-01-2024 Episodic Immunizations and screening for infectious disease (1 source) Encounter for immunization; Translations: [Encounter for immunization] Onset: 10-01-2024 Episodic Menstrual disorders (6 sources) Dysmenorrhea; Translations: [Dysmenorrhea, unspecified] Onset: 08-19-2018 08-19-2018 Chronic Other circulatory disease (4 sources) Elevated blood-pressure reading without diagnosis of hypertension; Translations: [Elevated blood-pressure reading, without diagnosis of hypertension] 12-10-2024 Episodic Other complications of (12 sources) Vaginal discharge; Translations: [Other specified related conditions, unspecified trimester] 11-23-2024 Episodic Comment on above: rom + negative. reac tive NST Other complications of (1 source) Other specified related conditions, unspecified trimester; Translations: [Other specified related conditions, unspecified trimester] Onset: 12-02-2024 Episodic Other female genital disorders (14 sources) Vaginal bleeding; Translations: [Abnormal uterine and vaginal bleeding, unspecified] Chronic Other female genital disorders (1 source) Other specified noninflammatory disorders of vagina; Translations: [Other specified noninflammatory disorders of vagina] Onset: 12-02-2024 Episodic Other and delivery including normal (20 sources) Normal ; Translations: [Encounter for supervision of normal , unspecified, unspecified trimester] Onset: 06-04-2024 09-10-2024 Episodic Comment on above: PRR, , SAULO 12/22, girl, [facility]: Hank Valencia : Shmuel WEN low risk- stevo er neg carrier for [...] 09-09-2017 Episodic Comment on above: OBGYN in [place]; g ets yearly MRI w/contrast (Due 2/3 but wants to cancel d/t ) Residual codes; unclassified (4 sources) Genetic susceptibility to malignant neoplasm of breast; Translations: [Genetic susceptibility to malignant neoplasm of breast] Onset: 06-13-2023 Episodic Residual codes; unclassified (4 sources) Genetic susceptibility to other malignant neoplasm; Translations: [Genetic susceptibility to other malignant neoplasm] Onset: 06-13-2023 Episodic Residual codes; unclassified (20 sources) Carrier of cystic fibrosis gene mutation; Translations: [Cystic fibrosis carrier] 08-07-2024 Episodic Comment on above: FOB neg. 12/12 Residual codes; unclassified (2 sources) Cystic fibrosis carrier; Translations: [Cystic fibrosis carrier] Onset: 11-26-2024 Episodic Residual codes; unclassified (1 source) 36 weeks gestation of ; Translations: [36 weeks gestation of ] Onset: 11-26-2024 Episodic Residual codes; unclassified (1 source) 34 weeks gestation of ; Translations: [34 weeks gestation of ] Onset: 12-02-2024 Episodic Residual codes; unclassified (1 source) 32 weeks gestation of ; Translations: [32 weeks gestation of ] Onset: 10-29-2024 Episodic Residual codes; unclassified (1 source) 30 weeks gestation of ; Translations: [30 weeks gestation of ] Onset: 10-16-2024 Episodic Superficial injury; contusion (1 source) Tick bite; Translations: [Insect bite (nonvenomous) of abdominal wall, initial encounter] 06-19-2024 Episodic Thyroid disorders (1 source) Mass of thyroid gland; Translations: [Disorder of thyroid, unspecified] Episodic Unclassified (1 source) Other specified diseases and conditions complicating ; Translations: [Other specified diseases and conditions complicating ] Onset: 12-02-2024 Past or Other Problems Problem Classification Problem [...] 06-13-2023 Episodic Residual codes; unclassified (1 source) 21 weeks gestation of ; Translations: [21 weeks gestation of ] Onset: 08-25-2024 Episodic Residual codes; unclassified (1 source) 17 weeks gestation of ; Translations: [17 weeks gestation of ] Onset: 07-28-2024 Episodic Residual codes; unclassified (1 source) 9 weeks gestation of ; Translations: [9 weeks gestation of ] Onset: 05-26-2024 Episodic NEGATED: Highlighted row has been ruled out!Unclassified (1 source) No known active problems 06-19-2024 Results Test Name Value Interpretation Reference Range Facility Absolute lymphocyte countOrd ered By: Yris Brown on 12-10-2024 Lymphocytes Auto (Unsp spec) [#/Vol] 1.29 10*3/uL 0.83-4.51 [facility] Absolute neutrophil countOrd ered By: Yris Brown on 12-10-2024 Neutrophils (Bld) [#/Vol] 7.7 10*3/uL 2.0-7.7 [facility] Anion gap in Serum or Plasma Ordered By: Yris Brown on 12-10-2024 Anion gap [Moles/Vol] 12 mmol/L 5-15 [facility] Automated lymphocyte count a s percentage of total leukocytesOrdered By: Yris Brown on 12-10-2024 Lymphocytes/100 WBC Auto (Unsp spec) 13.3 % Low 19-41 [facility] BUN/creatinine ratioOrdered By: Yris Brown on 12-10-2024 Urea nitrogen/Creatinine [Mass ratio] 10.2 mg/mg 10-20 [facility] Basophil percentageOrdered B y: Yris Brown on 12-10-2024 Basophils/100 WBC (Bld) 0.2 % 0-1 [facility] Bilirubin, totalOrdered By: Yris Brown on 12-10-2024 Bilirubin [Mass/Vol] 0.27 mg/dL 0.00-1.30 [facility] Carbon dioxide, total [Moles /volume] in Central venous bloodOrdered By: Yris Brown on 12-10-2024 CO2 [Moles/Vol] 21.6 mmol/L 21.0-32.0 [facility] Chloride assayOrdered By: Arsenio Brown on 12-10-2024 Chloride [Moles/Vol] 99 mmol/L 98-108 [facility] Eosinophil percentageOrdered By: Yris Brown on 12-10-2024 Eosinophils/100 WBC (Bld) 0.2 % 0-5 [facility] Erythrocyte distribution wid th ratioOrdered By: Yris Brown on 12-10-2024 Erythrocyte distribution width (RBC) [Ratio] 12.7 % 11.6-14.6 [facility] Erythrocyte distribution wid th standard deviationOrdered By: Yris Brown on 12-10-2024 Erythrocyte distribution width (RBC) [Ratio] 38.3 fl 35.1-43.9 [facility] Glomerular filtration rate ( GFR) estimation/1.73 sq m using serum, plasma, or whole bOrdered By: Yris Brown on 12-10-2024 GFR/1.73 sq M.predicted among non-blacks MDRD (S/P/Bld) [Vol rate/Area] 127 mL/min/{1.73_m2} >60 [facility] Comment on above: mL/min/1.73m2 CKD-EP I Creatinine Equation (2020) Hematocrit Auto (Bld) [Volum e fraction]Ordered By: Yris Brown on 12-10-2024 Hematocrit (Bld) [Volume fraction] 38.5 % 37-47 [facility] Hemoglobin measurementOrdere d By: Yris Brown on 12-10-2024 Hemoglobin (Bld) [Mass/Vol] 13.0 g/dL 12.0-15.0 [facility] Immature granulocytes/100 WB C Auto (Bld)Ordered By: Yris Brown on 12-10-2024 Immature granulocytes/100 WBC (Bld) 0.500 % 0.0-0.9 [facility] Comment on above: IG% - Immature Granu locytes (promyelocytes, myelocytes and metamyelocytes) > 1% indicates that a LEFT SHIFT is Present. Laboratory - Chemistry and C hemistry - challengeOrdered By: Yris Brown on 12-10-2024 AST [Catalytic activity/Vol] 30 U/L <32 [facility] MCV (mean corpuscular volume ) determinationOrdered By: Yris Brown on 12-10-2024 MCV (RBC) [Entitic vol] 83.3 fL 81-99 [facility] Mean corpuscular hemoglobin (MCH) determinationOrdered By: Yris Brown on 12-10-2024 MCH (RBC) [Entitic mass] 28.1 pg 27.0-32.0 [facility] Mean corpuscular hemoglobin concentration (MCHC) determinationOrdered By: Yris Brown on 12-10-2024 MCHC (RBC) [Mass/Vol] 33.8 g/dL 32-36 [facility] Mean platelet volume determi nationOrdered By: Yris Brown on 12-10-2024 Platelet mean volume (Bld) [Entitic vol] 10.7 fL 6.2-12.0 [facility] Monocyte percentageOrdered B y: Yris Brown on 12-10-2024 Monocytes/100 WBC (Bld) 6.7 % 0-10 [facility] Neutrophil percentageOrdered By: Yris Brown on 12-10-2024 Neutrophils/100 WBC (Bld) 79.1 % High 47-70 [facility] Nucleated red blood cell per centageOrdered By: Yris Brown on 12-10-2024 Nucleated RBC/100 WBC (Bld) [Ratio] 0 % 0-5 [facility] Platelet countOrdered By: Arsenio Brown on 12-10-2024 Platelets (Bld) [#/Vol] 249 10*3/uL 150-450 [facility] Potassium measurement (mass/ volume)Ordered By: Yris Brown on 12-10-2024 Potassium (Unsp spec) [Mass/Vol] 3.8 mmol/L 3.3-5.1 [facility] RBC Auto (Bld) [#/Vol]Ordere d By: Yris Brown on 12-10-2024 RBC (Bld) [#/Vol] 4.62 10*6/uL 4.2-5.4 [facility] Random urine creatinine mecca urement (mass/volume)Ordered By: Yris Brown on 12-10-2024 Creatinine Unsp time (U) [Mass/Vol] 54.40 mg/dL 28.00-217.00 [facility] Serum creatinine measurement (mass/volume)Ordered By: Yris Brown on 12-10-2024 Creatinine [Mass/Vol] 0.57 mg/dL Low 0.70-1.20 [facility] Serum globulin measurementOr dered By: Yris Brown on 12-10-2024 Globulin (S) [Mass/Vol] 3.4 g/dL 2.2-4.2 [facility] Serum glucose measurement (m ass/volume)Ordered By: Yris Brown on 12-10-2024 Glucose [Mass/Vol] 112 mg/dL High 70-99 [facility] Serum or plasma alanine gandhi otransferase (ALT) measurementOrdered By: Yris Brown on 12-10-2024 ALT [Catalytic activity/Vol] 16 U/L <35 [facility] Serum or plasma albumin mecca urement (mass/volume)Ordered By: Yris Brown on 12-10-2024 Albumin [Mass/Vol] 3.6 g/dL 3.5-5.0 [facility] Serum or plasma albumin/glob ulin mass ratioOrdered By: Yris Brown on 12-10-2024 Albumin/Globulin [Mass ratio] 1.0 {ratio} 0.9-2.4 [facility] Serum or plasma alkaline augustus sphatase measurementOrdered By: Yris Brown on 12-10-2024 ALP [Catalytic activity/Vol] 147 U/L High 35-104 [facility] Serum or plasma calcium mecca urement (mass/volume)Ordered By: Yris Brown on 12-10-2024 Calcium [Mass/Vol] 9.1 mg/dL 7.6-11.0 [facility] Serum or plasma urea nitroge n measurement (mass/volume)Ordered By: Yris Brown on 12-10-2024 Urea nitrogen [Mass/Vol] 6 mg/dL 4-19 [facility] Sodium levelOrdered By: Riana Brown on 12-10-2024 Sodium [Moles/Vol] 133 mmol/L 133-145 [facility] Total proteinOrdered By: Presley Brown on 12-10-2024 Protein [Mass/Vol] 7.0 g/dL 5.9-8.4 [facility] Urine protein measurement (m ass/volume)Ordered By: Yris Brown on 12-10-2024 Protein (U) [Mass/Vol] 11.4 mg/dL 0.0-12.0 [facility] Urine protein/creatinine mas s ratioOrdered By: Yris Brown on 12-10-2024 Protein/Creatinine (U) [Mass ratio] 210 mg/g CRE High 0-200 [facility] White blood cell (WBC) count Ordered By: Yris Brown on 12-10-2024 WBC (Bld) [#/Vol] 9.7 10*3/uL 4.4-11.0 [facility] Laboratory - Chemistry and C hemistry - challengeOrdered By: Taina Huddleston on 12-03-2024 Glucose Ql (U) Negative [facility] Laboratory - UrinalysisOrder ed By: Taina Huddleston on 12-03-2024 Protein Ql (U) Negative [facility] Pharmacy Scheduler Office Visit Reporton 12-03-2024 Pharmacy Scheduler Office Visit Report [facility] [address], [address] [place] [address] OFFICE VISIT Date of Service: 12/03/24 MR#: [id number] Acct: [id number] Name: ANJU MUELLER Rep #: [id number] : 1995 Provider: Dr. Taina mallory MD Age/Sex: 29/F Location: [facility] [place] Status: Signed Intake Vital Signs 10/29/24 10:12 11/26/24 10:46 12/03/24 14:52 Height 5 ft 7 in 5 ft 7 in 5 ft 7 in Weight: 203 lb 5 oz 208 lb 8 oz BMI 31.8 32.6 BP 110/73 118/76 Intake Visit Reasons: 37 WK OB Vehicle Upholsterer Required: No Is patient in pain?: No Feel stressed/tense/nervo us/anxious/difficult y sleeping: not at all Allergies No Known Allergies Allergy (Verified 12/03/24 14:53) Medications ???Medication ???Instructions ???Recorded ???Confirmed ???Type vits no.126-ferrous fum 1 tab PO DAILY 05/08/24 12/03/24 History 28 mg iron-folic acid 800 mcg tablet (Classic ) Last Menstrual Period: 03/17/24 Zika: Zika virus screening: Negative : No PFSH PFSH Medical History BRCA2 gene mutation positive Family history of BRCA2 gene positive Surgical History [place] teeth removed Family History Mother BRCA gene mutation positive Preventative mastectomy done, 16 other relatives also + Aunt Breast cancer Social History household members: significant other and children number of children: 1 current occupational status: employed current [employer]: [employer] [facility] [place] current occupational exposures/hazards: No pets and animals: [...] 3-4 times per week duration: 15-30 minutes/day carissa/hoahaoism: None seatbelt use: always do you feel safe at home: Yes additional social history: Fianc???: [employer] in [place] History 2 Elective abortions Hx Para 1 [...] d/t post dates, small PP hemorrhage HPI 37 WK OB Details: ANJU SEN is a 29 year old who presents for routine OB visit. OB Visit SAULO Calculator Estimated Delivery Date Method Current WG Current Estimate 12/22/24 LMP (Certain) 37w 3d Expected Delivery Route/Plan Labor Preferences- CB/BF classes: no labor support person: Shmuel labor intervention preferences: [] pain management options preferred: epidural cut cord/dad catch: maybe : undecided PP control planned: discussed discussed possible routes of delivery and associated risks: [] special requests: [] Specific Issue/Plans Covid status: [] Flu vaccine: [] Tdap vaccine: given 10/01/24 Rhogam: NA LARC form signed: yes movement and labor precautions reviewed. Problem list reviewed and updated with the [...] l consistent with established GA. no complaints toda (more content not included)... Normal [facility] Rule out Beta Strep (Grp. B) on 11-29-2024 SHAYNA Group B Beta Streptococcus is not isolated. Normal [facility] Comment on above: Performed By: #### M 100.2200 #### [facility] [address] [place], [address] Laboratory - Chemistry and C hemistry - challengeOrdered By: Taina Huddleston on 11-26-2024 Glucose Ql (U) Negative [facility] Laboratory - UrinalysisOrder ed By: Taina Huddleston on 11-26-2024 Protein Ql (U) Negative [facility] Pharmacy Scheduler Office Visit Reporton 11-26-2024 Pharmacy Scheduler Office Visit Report [facility] [address], [address] [place] [address] OFFICE VISIT Date of Service: 11/26/24 MR#: [id number] Acct: [id number] Name: ANJU MUELLER Rep #: [id number] : 1995 Provider: Dr. Taina mallory MD Age/Sex: 29/F Location: [facility] [place] Status: Signed Intake Vital Signs 10/01/24 10:13 11/13/24 10:26 11/23/24 14:01 11/26/24 10:46 Height 5 ft 7 in 5 ft 7 in 5 ft 7 in 5 ft 7 in Weight: 203 lb 5 oz BMI 31.8 BP 110/73 Intake Visit Reasons: 36 wk ob Vehicle Upholsterer Required: No Is patient in pain?: No Allergies No Known Allergies Allergy (Verified 11/26/24 10:46) Medications ???Medication ???Instructions ???Recorded ???Confirmed ???Type vits no.126-ferrous fum 1 tab PO DAILY 05/08/24 11/26/24 History 28 mg iron-folic acid 800 mcg tablet (Classic ) Last Menstrual Period: 03/17/24 Zika: Zika virus screening: Negative : No PFSH PFSH Medical History BRCA2 gene mutation positive Family history of BRCA2 gene positive Surgical History [place] teeth removed Family History Mother BRCA gene mutation positive Preventative mastectomy done, 16 other relatives also + Aunt Breast cancer Social History household members: significant other and children number of children: 1 current occupational status: employed current occupation: [employer] in [place] current occupational exposures/hazards: No pets and animals: [...] 3-4 times per week duration: 15-30 minutes/day carissa/hoahaoism: None seatbelt use: always do you feel safe at home: Yes additional social history: Fianc???: [employer] in [place] History 2 Elective abortions Hx Para 1 Spontaneous abortions Hx # Term Pregnancies 1 Ectopic pregnancies Hx # Pregnancies Multiple births # of living children 1 Past Pregnancies Del. Date Name GA/Weeks Outcome Route Bth Weight Infant Gen Labor Lgth Anesthesia Del Locatn Provider FOB 05/14/19 Annie 42 live - full term 8lbs 4oz Female 10hours epidural WC H Dr Fall, Cintia Escalante Robert Delivery Date: 05/14/19 Last Updated by: Farzana Peña RN Induced d/t post dates, small PP hemorrhage HPI 36 wk ob Details: ANJU SEN is a 29 year old who presents for routine OB visit. OB Visit SAULO Calculator Estimated Delivery Date Method Current WG Current Estimate 12/22/24 LMP (Certain) 36w 2d Expected Delivery Route/Plan Labor Preferences- CB/BF classes: no labor support person: Shmuel labor intervention preferences: [] pain management options preferred: epidural cut cord/dad catch: maybe : undecided PP control planned: discussed discussed possible routes of delivery and associated risks: [] special requests: [] Specific Issue/Plans Covid status: [] Flu vaccine: [] Tdap vaccine: given 10/01/24 Rhogam: NA LARC form signed: yes movement and labor precautions reviewed. Problem list reviewed and updated with the [...] today low risk nipt girl 07/16/24 -???-???-???-???-??? -???-???-?? (more content not included)... Normal [facility] Screening beta-hemolytic Str eptococcus cultureOrdered By: Taina Huddleston on 11-26-2024 Beta-hemolytic Streptococcus culture Group B Beta Streptococcus is not isolated. [facility] ([facility]) Rupture Of Membraneson 11-23-2024 ROM Negative Normal Negative [facility] Comment on above: Result Comment: Amni otic fluid not present indicates No Rupture of Membranes at time of specimen collection. Performed By: #### L 205.1000 #### [facility] [address] [place], [address] OB Triage Progress Noteon OB Triage Progress Note [facility] Medical Records Department [address] [place] [address] OB Triage Progress Note 11/23/24 1436 MR#: [id number] Acct: [id number] Name: ANJU MUELLER Rep #: [id number] : 1995 29 From: Yris Brown CNM PCP: Care Physician,No Primary Status:REG CLI Y DOS: Location: [place] [id number] Progress Notes Date of Service: 11/23/24 Progress Note: Patient presents for triage evaluation secondary to vaginal discharge at 35.6 weeks FHT: 145 Moderate variability reactive no decelerations category I tracing [place]: irregular Contractions Assessment and plan: neg rom, Reactive NST, reassuring maternal and status patient discharged to home to follow-up in office. See problem list details for additional plan information. Laboratory Studies: Laboratory Tests 11/23/24 Range/Units 13:55 Vag Amniotic Fld Detect Negative (Negative) Charges/Coding Multi Select Codes Urinary/Genital Urinary/Genital CPT Codes: 61295-57 non-stress test Interp Assessment Plan (1) Vaginal discharge during : COMMENT: rom + negative. reactive NST (2) Cystic fibrosis carrier: COMMENT: FOB neg. 03/19 (3) Supervision of normal : QUALIFIERS: Normal : other normal Trimester: third trimester Qualified Code(s): Z34.83 - Encounter for supervision of other normal , third trimester COMMENT: PRR, , SAULO 12/22/24, girl, [facility]: Hank Valencia???: Shmuel (4) : QUALIFIERS: Weeks of gestation: 34 weeks Qualified Code(s): Z3A.34 - 34 weeks gestation of COMMENT: NIPT low risk- carrier neg carrier for cystic fibrosis, nl anatomy. (5) BRCA2 gene mutation positive: COMMENT: OBGYN in [place]; gets yearly MRI w/contrast (Due 05/11 but wants to cancel d/t ) 11/23/24 1437 Date Yris Brown CNM Cosigner Signature (if applicable): Date _ CC: FRANSISCO Brown; No Primary Care Physician Signed Normal [facility] - Chemistry and C hemistry - challengeOrdered By: Yris Brown on 11-13-2024 Glucose Ql (U) Negative [facility] - UrinalysisOrder ed By: Yris Brown on 11-13-2024 Protein Ql (U) Negative [facility] Pharmacy Scheduler Office Visit Reporton 11-13-2024 Pharmacy Scheduler Office Visit Report [facility]'s [address], [address] [place] [address] OFFICE VISIT Date of Service: 11/13/24 MR#: [id number] Acct: [id number] Name: ANJU MUELLER Rep #: [id number] : 1995 Provider: FRANSISCO Forrester ams Age/Sex: 29/F Location: [facility] [place] Status: Signed Intake Vital Signs 10/01/24 10:13 10/29/24 10:12 11/13/24 10:26 Height 5 ft 7 in 5 ft 7 in 5 ft 7 in Weight: 198 lb 5 oz BMI 31.0 BP 122/76 H Intake Visit Reasons: 34 wk ob Chief Complaint: 34wk OB Vehicle Upholsterer Required: No Is patient in pain?: No Allergies No Known Allergies Allergy (Verified 11/13/24 10:24) Medications ???Medication ???Instructions ???Recorded ???Confirmed ???Type vits no.126-ferrous fum tab PO 05/08/24 11/13/24 History 28 mg iron-folic acid 800 mcg tablet (Classic ) Last Menstrual Period: 03/17/24 : No PFSH PFSH Medical History BRCA2 gene mutation positive Family history of BRCA2 gene positive Surgical History [place] teeth removed Family History Mother BRCA gene mutation positive Preventative mastectomy done, 16 other relatives also + Aunt Breast cancer Social History household members: significant other and children number of children: 1 current occupational status: employed current occupation: [employer] in [place] current occupational exposures/hazards: No pets and animals: [...] 3-4 times per week duration: 15-30 minutes/day carissa/hoahaoism: None seatbelt use: always do you feel safe at home: Yes additional social history: Fianc???: [employer] - [employer] in [place] History 2 Elective abortions Hx Para 1 [...] d/t post dates, small PP hemorrhage HPI 34 wk ob Details: ANJU SEN is a 29 year old who presents for routine OB visit. OB Visit SAULO Calculator Estimated Delivery Date Method Current WG Current Estimate 12/22/24 LMP (Certain) 34w 3d Expected Delivery Route/Plan Labor Preferences- CB/BF classes: no labor support person: Shmuel labor intervention preferences: [] pain management options preferred: epidural cut cord/dad catch: maybe : undecided PP control planned: discussed discussed possible routes of delivery and associated risks: [] special requests: [] Specific Issue/Plans Covid status: [] Flu vaccine: [] Tdap vaccine: given 10/01/24 Rhogam: NA LARC form signed: yes movement and labor precautions reviewed. Problem list reviewed and updated with the [...] oz (+7 lb 2 oz) 116/74 Negative -??? (more content not included)... Normal [facility] - Chemistry and C hemistry - challengeOrdered By: Taina Huddleston on 10-29-2024 Glucose Ql (U) Negative [facility] - UrinalysisOrder ed By: Taina Huddleston on 10-29-2024 Protein Ql (U) Negative [facility] Pharmacy Scheduler Office Visit Reporton 10-29-2024 Pharmacy Scheduler Office Visit Report [facility]'s [address], [address] [place] [address] OFFICE VISIT Date of Service: 10/29/24 MR#: [id number] Acct: [id number] Name: ANJU MUELLER Rep #: [id number] : 1995 Provider: Dr. Taina mallory MD Age/Sex: 29/F Location: [facility] [place] Status: Signed Intake Vital Signs 10/01/24 10:13 10/16/24 15:07 10/29/24 10:12 Height 5 ft 7 in 5 ft 7 in 5 ft 7 in Weight: 196 lb 6 oz BMI 30.7 BP 112/73 Intake Visit Reasons: 32 wk ob Vehicle Upholsterer Required: No Is patient in pain?: No Feel stressed/tense/nervo us/anxious/difficult y sleeping: not at all Allergies No Known Allergies Allergy (Verified 10/29/24 10:15) Medications ???Medication ???Instructions ???Recorded ???Confirmed ???Type vits no.126-ferrous fum tab PO 05/08/24 10/29/24 History 28 mg iron-folic acid 800 mcg tablet (Classic ) Last Menstrual Period: 03/17/24 Zika: Zika virus screening: Negative : No PFSH PFSH Medical History BRCA2 gene mutation positive Family history of BRCA2 gene positive Surgical History [place] teeth removed Family History Mother BRCA gene mutation positive Preventative mastectomy done, 16 other relatives also + Aunt Breast cancer Social History household members: significant other and children number of children: 1 current occupational status: employed current occupation: [employer] in [place] current occupational exposures/hazards: No pets and animals: [...] 3-4 times per week duration: 15-30 minutes/day carissa/hoahaoism: None seatbelt use: always do you feel safe at home: Yes additional social history: Fianc???: [employer] in [place] History 2 Elective abortions Hx Para 1 [...] d/t post dates, small PP hemorrhage HPI 32 wk ob Details: ANJU SEN is a 29 year old who presents for routine OB visit. OB Visit SAULO Calculator Estimated Delivery Date Method Current WG Current Estimate 12/22/24 LMP (Certain) 32w 2d Expected Delivery Route/Plan Labor Preferences- CB/BF classes: no labor support person: Shmuel labor intervention preferences: [] pain management options preferred: epidural cut cord/dad catch: maybe : undecided PP control planned: discussed discussed possible routes of delivery and associated risks: [] special requests: [] Specific Issue/Plans Covid status: [] Flu vaccine: [] Tdap vaccine: given 10/01/24 Rhogam: NA LARC form signed: yes movement and labor precautions reviewed. Problem list reviewed and updated with the [...] complaints today low risk nipt girl 07/16/24 -???-??? (more content not included)... Normal [facility] - Chemistry and C hemistry - challengeOrdered By: Yris Brown on 10-16-2024 Glucose Ql (U) Negative [facility] - UrinalysisOrder ed By: Yris Brown on 10-16-2024 Protein Ql (U) Negative [facility] Pharmacy Scheduler Office Visit Reporton 10-16-2024 Pharmacy Scheduler Office Visit Report [facility]'s [address], [address] [place] [address] OFFICE VISIT Date of Service: 10/16/24 MR#: [id number] Acct: [id number] Name: ANJU MUELLER Rep #: [id number] : 1995 Provider: FRANSISCO Forrester ams Age/Sex: 29/F Location: [facility] [place] Status: Signed Intake Vital Signs 08/13/24 14:11 10/01/24 10:13 10/16/24 15:07 Height 5 ft 7 in 5 ft 7 in 5 ft 7 in Weight: 190 lb 8 oz BMI 29.8 BP 116/76 Intake Visit Reasons: 30wk ob Vehicle Upholsterer Required: No Is patient in pain?: No Allergies No Known Allergies Allergy (Verified 10/16/24 15:08) Medications ???Medication ???Instructions ???Recorded ???Confirmed ???Type vits no.126-ferrous fum tab PO 05/08/24 10/16/24 History 28 mg iron-folic acid 800 mcg tablet (Classic ) Last Menstrual Period: 03/17/24 Zika: Zika virus screening: Negative : No Have you fallen in the past year?: No PFSH PFSH Medical History BRCA2 gene mutation positive Family history of BRCA2 gene positive Surgical History [place] teeth removed Family History Mother BRCA gene mutation positive Preventative mastectomy done, 16 other relatives also + Aunt Breast cancer Social History household members: significant other and children number of children: 1 current occupational status: employed current occupation: [employer] in [place] current occupational exposures/hazards: No pets and animals: [...] 3-4 times per week duration: 15-30 minutes/day carissa/hoahaoism: None seatbelt use: always do you feel safe at home: Yes additional social history: Fianc???: [employer] in [place] History 2 Elective abortions Hx Para 1 [...] d/t post dates, small PP hemorrhage HPI 30wk ob Details: ANJU SEN is a 29 year old who presents for routine OB visit. OB Visit SAULO Calculator Estimated Delivery Date Method Current WG Current Estimate 12/22/24 LMP (Certain) 30w 3d Expected Delivery Route/Plan Labor Preferences- CB/BF classes: [...] lb 2 oz (+7 lb 2 oz) 116/ Negative -???-?? (more content not included)... Normal [facility] Absolute lymphocyte countOrd ered By: Taina Flaquito on 10-01-2024 Lymphocytes Auto (Unsp spec) [#/Vol] 1.19 10*3/uL 0.83-4.51 [facility] Absolute neutrophil countOrd ered By: Taina Flaquito on 10-01-2024 Neutrophils (Bld) [#/Vol] 5.4 10*3/uL 2.0-7.7 [facility] Automated lymphocyte count a s percentage of total leukocytesOrdered By: Taina Flaquito on 10-01-2024 Lymphocytes/100 WBC Auto (Unsp spec) 16.6 % Low 19-41 [facility] Basophil percentageOrdered B y: Taina Flaquito on 10-01-2024 Basophils/100 WBC (Bld) 0.1 % 0-1 [facility] CBC W/Diff, Automatedon 09-07 Absolute Lymph 1.19 X10 3/uL Normal 0.83-4.51 [facility] Comment on above: Performed By: #### L 509.8002, L100.0100, L3890.6006, L501.0250 ####[facility] [address] [place], [address] Absolute Neut 5.4 X10 3/uL Normal 2.0-7.7 [facility] Comment on above: Performed By: #### L 509.8002, L100.0100, L3890.6006, L501.0250 ####[facility] [address] [place], [address] Basophils/100 WBC (Bld) 0.1 % Normal 0-1 [facility] Comment on above: Performed By: #### L 509.8002, L100.0100, L3890.6006, L501.0250 ####[facility] [address] [place], [address] Eosinophils/100 WBC (Bld) 0.4 % Normal 0-5 [facility] Comment on above: Performed By: #### L 509.8002, L100.0100, L3890.6006, L501.0250 ####[facility] [address] [place], [address] Erythrocyte distribution width (RBC) [Ratio] 13.3 % Normal 11.6-14.6 [facility] Comment on above: Performed By: #### L 509.8002, L100.0100, L3890.6006, L501.0250 ####[facility] [address] [place], [address] Hematocrit (Bld) [Volume fraction] 36.8 % Low 37-47 [facility] Comment on above: Performed By: #### L 509.8002, L100.0100, L3890.6006, L501.0250 ####[facility] [address] [place], [address] Hemoglobin (Bld) [Mass/Vol] 12.0 g/dL Normal 12.0-15.0 [facility] Comment on above: Performed By: #### L 509.8002, L100.0100, L3890.6006, L501.0250 ####[facility] [address] [place], [address] IG% 0.800 Normal 0.0-0.9 [facility] Comment on above: Result Comment: IG% - Immature Granulocytes (promyelocytes, myelocytes and metamyelocytes) > 1% indicates that a LEFT SHIFT is Present. Performed By: #### L 509.8002, L100.0100, L3890.6006, L501.0250 ####[facility] [address] [place], [address] Lymphocytes/100 WBC (Bld) 16.6 % Low 19-41 [facility] Comment on above: Performed By: #### L 509.8002, L100.0100, L3890.6006, L501.0250 ####[facility] [address] [place], [address] MCH (RBC) [Entitic mass] 28.2 pg Normal 27.0-32.0 [facility] Comment on above: Performed By: #### L 509.8002, L100.0100, L3890.6006, L501.0250 ####[facility] [address] [place], [address] MCHC (RBC) [Mass/Vol] 32.6 g/dL Normal 32-36 [facility] Comment on above: Performed By: #### L 509.8002, L100.0100, L3890.6006, L501.0250 ####[facility] [address] [place], [address] MCV (RBC) [Entitic vol] 86.6 fL Normal 81-99 [facility] Comment on above: Performed By: #### L 509.8002, L100.0100, L3890.6006, L501.0250 ####[facility] [address] [place], [address] Monocytes/100 WBC (Bld) 7.5 % Normal 0-10 [facility] Comment on above: Performed By: #### L 509.8002, L100.0100, L3890.6006, L501.0250 ####[facility] [address] [place], [address] Neutrophils/100 WBC (Bld) 74.6 % High 47-70 [facility] Comment on above: Performed By: #### L 509.8002, L100.0100, L3890.6006, L501.0250 ####[facility] [address] [place], [address] Nucleated RBC (Bld) [#/Vol] 0 10*3/uL Normal 0-5 [facility] Comment on above: Performed By: #### L 509.8002, L100.0100, L3890.6006, L501.0250 ####[facility] [address] [place], [address] Platelet mean volume (Bld) [Entitic vol] 10.0 fL Normal 6.2-12.0 [facility] Comment on above: Performed By: #### L 509.8002, L100.0100, L3890.6006, L501.0250 ####[facility] [address] [place], [address] Platelets (Bld) [#/Vol] 285 10*3/uL Normal 150-450 [facility] Comment on above: Performed By: #### L 509.8002, L100.0100, L3890.6006, L501.0250 ####[facility] [address] [place], [address] RBC (Bld) [#/Vol] 4.25 10*6/uL Normal 4.2-5.4 [facility] Comment on above: Performed By: #### L 509.8002, L100.0100, L3890.6006, L501.0250 ####[facility] [address] [place], [place], [id number] RDW SD 41.7 fl Normal 35.1-43.9 [facility] Comment on above: Performed By: #### L 509.8002, L100.0100, L3890.6006, L501.0250 ####[facility] [address] [place], [address] WBC (Bld) [#/Vol] 7.2 10*3/uL Normal 4.4-11.0 [facility] Comment on above: Performed By: #### L 509.8002, L100.0100, L3890.6006, L501.0250 ####[facility] [address] [place], [place], [address] Eosinophil percentageOrdered By: Taina Huddleston on 10-01-2024 Eosinophils/100 WBC (Bld) 0.4 % 0-5 [facility] Erythrocyte distribution wid th ratioOrdered By: Taina Huddleston on 10-01-2024 Erythrocyte distribution width (RBC) [Ratio] 13.3 % 11.6-14.6 [facility] Erythrocyte distribution wid th standard deviationOrdered By: Taina Huddleston on 10-01-2024 Erythrocyte distribution width (RBC) [Ratio] 41.7 fl 35.1-43.9 [facility] Glucose Challenge Gest 1H 50 fabiola 10-01-2024 GLU GEST 50g 1H 130 mg/dL Normal 70-140 [facility] Comment on above: Performed By: #### L 509.8002, L100.0100, L3890.6006, L501.0250 ####[facility] [address] [place], [place], [id number] Glucose measurement at 2 mingo rs post-dose gestational glucose tolerance testOrdered By: Taina Huddleston on 10-01-2024 Glucose [Mass/Vol] 130 mg/dL 70-140 [facility] HIVon 10-01-2024 HIV Non-Reactive Normal Nonreactive [facility] Comment on above: Result Comment: Non- Reactive Reactive Repeatedly reactive samples must be confirmed according to CDC recommended confirmatory algorithms. The subresults for either HIVAG or AHIV can be used as an aid in the selection of the confirmation algorithm for reactive samples. Send out specimens with Reactive results to [facility] for confirmation. Order the HIV antibody detection and differentiation: lc#[id number] Performed By: #### L 509.8002, L100.0100, L3890.6006, L501.0250 ####[facility] [address] [place], [address] Hematocrit Auto (Bld) [Volum e fraction]Ordered By: Taina Huddleston on 10-01-2024 Hematocrit (Bld) [Volume fraction] 36.8 % Low 37-47 [facility] Hemoglobin measurementOrdere d By: Taina Huddleston on 10-01-2024 Hemoglobin (Bld) [Mass/Vol] 12.0 g/dL 12.0-15.0 [facility] Immature granulocytes/100 WB C Auto (Bld)Ordered By: Taina Huddleston on 10-01-2024 Immature granulocytes/100 WBC (Bld) 0.800 % 0.0-0.9 [facility] Comment on above: IG% - Immature Granu locytes (promyelocytes, myelocytes and metamyelocytes) > 1% indicates that a LEFT SHIFT is Present. Laboratory - Chemistry and C hemistry - challengeOrdered By: Tawanna Farfan on 10-01-2024 Glucose Ql (U) Negative [facility] - UrinalysisOrder ed By: Tawanna Farfan on 10-01-2024 Protein Ql (U) Negative [facility] MCV (mean corpuscular volume ) determinationOrdered By: Taina Huddleston on 10-01-2024 MCV (RBC) [Entitic vol] 86.6 fL 81-99 [facility] Mean corpuscular hemoglobin (MCH) determinationOrdered By: Taina Huddleston on 10-01-2024 MCH (RBC) [Entitic mass] 28.2 pg 27.0-32.0 [facility] Mean corpuscular hemoglobin concentration (MCHC) determinationOrdered By: Taina Flaquito on 10-01-2024 MCHC (RBC) [Mass/Vol] 32.6 g/dL 32-36 [facility] Mean platelet volume determi nationOrdered By: Taina Huddleston on 10-01-2024 Platelet mean volume (Bld) [Entitic vol] 10.0 fL 6.2-12.0 [facility] Monocyte percentageOrdered B y: Taina Huddleston on 10-01-2024 Monocytes/100 WBC (Bld) 7.5 % 0-10 [facility] Neutrophil percentageOrdered By: Taina Huddleston on 10-01-2024 Neutrophils/100 WBC (Bld) 74.6 % High 47-70 [facility] No Panel InformationOrdered By: Taina Huddleston on 10-01-2024 HIV (1&2) Antibody Non-Reactive Nonreactive [facility] Comment on above: Non-ReactiveReactive Repeatedly reactive samples must be confirmed according to CDC recommended confirmatory algorithms. The subresults for either HIVAG or AHIV can be used as an aid in the selection of the confirmation algorithm for reactive samples.Send out specimens with Reactive results to [facility] for confirmation.Order the HIV antibody detection and differentiation: #[id number] Nucleated red blood cell per centageOrdered By: Tainawillie Huddleston on 10-01-2024 Nucleated RBC/100 WBC (Bld) [Ratio] 0 % 0-5 [facility] Pharmacy Scheduler Office Visit Reporton 10-01-2024 Pharmacy Scheduler Office Visit Report [facility] [address], [address] [place] [address] OFFICE VISIT Date of Service: 10/01/24 MR#: [id number] Acct: [id number] Name: ANJU MUELLER Rep #: [id number] : 1995 Provider: VANNESA velez Age/Sex: 29/F Location: [facility] [place] Status: Signed with Addenda ADDENDUM by Courtney Regalado on 10/01/24 at 1026 Office Procedure Documentation entered by Courtney Regalado 10/01/24 10:26: Immunizations Adacel(Tdap Adolesn/Adult)(PF) 2 Lf-(2.5-5-3-5)-5 Lf/0.5 mL IM syringe Performing Provider: Tawanna Farfan PRODUCT TESTER, PRODUCT TESTERLiudmilaC Performing Location: [facility] [place] Administered by: Courtney Reglaado on 10/01/24 10:25 Dose Route Admin Location Dispensed Lot Number Expiration Date NDC Man ufacturer 0.5 mL IM Left Deltoid 0.5 mL [id number] 09/05/25 03442-347-49 [employer] VIS Given Date VIS Provided VIS Publication Date 10/01/24 Single Vaccine 24 Eligibility Eligibility Date Funding Source Not Applicable Date cc: * Signed Intake Vital Signs 08/13/24 14:11 09/10/24 08:48 10/01/24 10:05 10/01/24 10:13 Height 5 ft 7 in 5 ft 7 in 5 ft 7 in 5 ft 7 in Weight: 188 lb BMI 29.4 BP 104/68 Intake Visit Reasons: 28wk ob/glucose Chief Complaint: 28 Week OB/Glucose Vehicle Upholsterer Required: No Is patient in pain?: No Allergies No Known Allergies Allergy (Verified 10/01/24 10:05) Medications ???Medication ???Instructions ???Recorded ???Confirmed ???Type vits no.126-ferrous fum tab PO 05/08/24 10/01/24 History 28 mg iron-folic acid 800 mcg tablet (Classic ) Last Menstrual Period: 03/17/24 Zika: Zika virus screening: Negative : No PFSH PFSH Medical History BRCA2 gene mutation positive Family history of BRCA2 gene positive Surgical History [place] teeth removed Family History Mother BRCA gene mutation positive Preventative mastectomy done, 16 other relatives also + Aunt Breast cancer Social History household members: significant other and children number of children: 1 current occupational status: employed current occupation: [employer] in [place] current occupational exposures/hazards: No pets and animals: [...] 3-4 times per week duration: 15-30 minutes/day carissa/hoahaoism: None seatbelt use: always do you feel safe at home: Yes additional social history: Fianc???: [employer] in [place] History 2 Elective abortions Hx Para 1 Spontaneous abortions Hx # Term Pregnancies 1 Ectopic pregnancies Hx # Pregnancies Multiple births # of living children 1 Past Pregnancies Del. Date Name GA/Weeks Outcome Route Bth Weight Gen Labor Lgth Anesthesia Del Locatn Provider FOB 05/14/19 Annie 42 live - full term 8lbs 4oz Female 10hours epidural WC H Dr Fall, Cintia Escalante Robert Delivery Date: 05/14/19 Last Updated by: [...] -???-???-???-???-??? -???-???- EGA Weight BP Urine Prot -??? (more content not included)... Normal [facility] Platelet countOrdered By: Leonardo Huddleston on 10-01-2024 Platelets (Bld) [#/Vol] 285 10*3/uL 150-450 [facility] RBC Auto (Bld) [#/Vol]Ordere d By: Taina Huddleston on 10-01-2024 RBC (Bld) [#/Vol] 4.25 10*6/uL 4.2-5.4 [facility] Syphilis Antibodieson 2024 Syphilis Abs Non-Reactive Normal Nonreactive [facility] Comment on above: Performed By: #### L 509.8002, L100.0100, L3890.6006, L501.0250 ####[facility] [address] [place], [place], [id number] White blood cell (WBC) count Ordered By: Taina Huddleston on 10-01-2024 WBC (Bld) [#/Vol] 7.2 10*3/uL 4.4-11.0 [facility] Urine Cultureon 09-11-2024 URC Culture exhibits no growth. Normal [facility] Comment on above: Performed By: #### M 100.2200 #### [facility] [address] [place], [place], [address] Laboratory - Chemistry and C hemistry - challengeOrdered By: Taina Huddleston on 09-10-2024 Glucose Ql (U) Negative [facility] - UrinalysisOrder ed By: Taina Huddleston on 09-10-2024 Protein Ql (U) 1+ [facility] Pharmacy Scheduler Office Visit Reporton 09-10-2024 Pharmacy Scheduler Office Visit Report [address], [address] [place] [address] OFFICE VISIT Date of Service: 09/10/24 MR#: [id number] Acct: [id number] Name: ANJU MUELLER Rep #: [id number] : 1995 Provider: Dr. Taina mallory MD Age/Sex: 29/F Location: [facility] [place] Status: Signed Intake Vital Signs 07/16/24 13:26 08/13/24 14:11 09/10/24 08:46 09/10/24 08:48 Height 5 ft 7 in 5 ft 7 in 5 ft 7 in 5 ft 7 in Weight: 181 lb 2 oz BMI 28.3 BP 101/68 Intake Visit Reasons: 25 wk ob Vehicle Upholsterer Required: No Is patient in pain?: No [...] history of BRCA2 gene positive Surgical History [place] teeth removed Family History Mother BRCA gene mutation positive Preventative mastectomy done, 16 other relatives also + Aunt Breast cancer Social History household members: significant other and children number of children: 1 current occupational status: employed current occupation: [employer] in [place] current occupational exposures/hazards: No pets and animals: [...] 3-4 times per week duration: 15-30 minutes/day carissa/hoahaoism: None seatbelt use: always do you feel safe at home: Yes additional social history: Fianc???: [employer] in [place] History 2 Elective abortions Hx Para 1 [...] -???-???-???-???-??? -???- (more content not included)... Normal [facility] Urine cultureOrdered By: Pacheco Huddleston on 09-10-2024 Bacteria identified Cx Nom (U) Culture exhibits no growth. [facility] - Chemistry and C hemistry - challengeOrdered By: Yris Brown on 08-13-2024 Glucose Ql (U) Negative [facility] - UrinalysisOrder ed By: Yris Brown on 08-13-2024 Protein Ql (U) Negative [facility] Pharmacy Scheduler Office Visit Reporton 08-13-2024 Pharmacy Scheduler Office Visit Report [facility] [address], [address] [place] [address] OFFICE VISIT Date of Service: 08/13/24 MR#: [id number] Acct: [id number] Name: ANJU MUELLER Rep #: [id number] : 1995 Provider: FRANSISCO Forrester ams Age/Sex: 29/F Location: [facility] [place] Status: Signed Intake Vital Signs 06/18/24 14:33 07/16/24 13:26 08/13/24 14:11 Height 5 ft 7 in 5 ft 7 in 5 ft 7 in Weight: 175 lb BMI 27.3 BP 119/82 H Intake Visit Reasons: 21 wk ob Chief Complaint: 21wk OB Vehicle Upholsterer Required: No Is patient in pain?: No Allergies No Known Allergies Allergy (Verified 08/13/24 14:09) Medications ???Medication ???Instructions ???Recorded ???Confirmed ???Type vits no.126-ferrous fum tab PO 05/08/24 08/13/24 History 28 mg iron-folic acid 800 mcg tablet (Classic ) Last Menstrual Period: 03/17/24 : No PFSH PFSH Medical History Family history of BRCA2 gene positive Surgical History [place] teeth removed Family History Mother BRCA gene mutation positive Preventative mastectomy done, 16 other relatives also + Aunt Breast cancer Social History household members: significant other and children number of children: 1 current occupational status: employed current occupation: [employer] in [place] current occupational exposures/hazards: No pets and animals: [...] 3-4 times per week duration: 15-30 minutes/day carissa/hoahaoism: None seatbelt use: always do you feel safe at home: Yes additional social history: Fianc???: [employer] in [place] History 2 Elective abortions Hx Para 1 Spontaneous abortions Hx # Term Pregnancies 1 Ectopic pregnancies Hx # Pregnancies Multiple births # of living children 1 Past Pregnancies Del. Date Name GA/Weeks Outcome Route Bth Weight Gen Labor Lgth Anesthesia Del Locatn Provider FOB 05/14/19 Annie 42 live - full term 8lbs 4oz Female 10hours epidural WC H Dr Fall, Cintia Escalante Robert Delivery Date: 05/14/19 Last Updated by: [...] So m (more content not included)... Normal [facility] - Chemistry and C hemistry - challengeOrdered By: Tawanna Farfan on 07-16-2024 Glucose Ql (U) Negative [facility] - UrinalysisOrder ed By: Tawanna Farfan on 07-16-2024 Protein Ql (U) Negative [facility] Pharmacy Scheduler Office Visit Reporton 07-16-2024 Pharmacy Scheduler Office Visit Report [facility]'s [address], [address] [place] [address] OFFICE VISIT Date of Service: 07/16/24 MR#: [id number] Acct: [id number] Name: ANJU MUELLER Rep #: [id number] : 1995 Provider: VANNESA velez Age/Sex: 29/F Location: [facility] [place] Status: Signed Intake Vital Signs 05/21/24 11:09 06/18/24 14:33 07/16/24 13:26 07/16/24 13:26 Height 5 ft 5 in 5 ft 7 in 5 ft 7 in 5 ft 7 in Weight: 167 lb 2 oz BMI 26.2 BP 116/74 Intake Visit Reasons: 17 wk ob Vehicle Upholsterer Required: No Is patient in pain?: No [...] history of BRCA2 gene positive Surgical History [place] teeth removed Family History Mother BRCA gene mutation positive Preventative mastectomy done, 16 other relatives also + Aunt Breast cancer Social History household members: significant other and children number of children: 1 current occupational status: employed current occupation: [employer] in [place] current occupational exposures/hazards: No pets and animals: [...] 3-4 times per week duration: 15-30 minutes/day carissa/hoahaoism: None seatbelt use: always do you feel safe at home: Yes additional social history: Fianc???: [employer] in [place] History 2 Elective abortions Hx Para 1 Spontaneous abortions Hx # Term Pregnancies 1 Ectopic pregnancies Hx # Pregnancies Multiple births # of living children 1 Past Pregnancies Del. Date Name GA/Weeks Outcome Route Bth Weight Infant Gen Labor Lgth Anesthesia Del Locatn Provider FOB 05/14/19 Annie 42 live - full term 8lbs 4oz Female 10hours epidural WC H Dr RichardsonsCintia Robert Delivery Date: 05/14/19 Last Updated by: [...] -???-???-???-???-??? -???-???-???-???-??? -???-??? (more content not included)... [facility] CNOVon 06-19-2024 CNOV Office Visit (UCWSTR) ANJU MUELLER ([id number]) 1995 F Date Time Provider Department 06/19/24 9:30 AM [facility] During your visit today, we recorded the following information about you: Temperature Pulse Respiration Blood pressure 98.1 degrees 85/minute 20/minute 127/84 Weight 71 kg YvonErick manciniAPRN.CHIEF OPHTHALMIC TECHNICIAN 06/19/2024 9:40 AM Signed This note was [...] other new or worsening concerns. Erick Schafer APRN.CHIEF OPHTHALMIC TECHNICIAN Allergies As of Date: 06/19/2024 (No Known Allergies) Date Reviewed: 06/19/2024 Reviewed by: Erick Schafer APRN.CHIEF OPHTHALMIC TECHNICIAN - Fully Assessed Reason for Visit: Tick [...] Status:Closed by ERICK SCHAFER on 06/19/[address] [facility] Laboratory - Chemistry and C hemistry - challengeOrdered By: Cary Hollins on 06-18-2024 Glucose Ql (U) Negative [facility] - UrinalysisOrder ed By: Cary Hollins on 06-18-2024 Protein Ql (U) Negative [facility] Pharmacy Scheduler Office Visit Reporton 06-18-2024 Pharmacy Scheduler Office Visit Report [facility]'s [address], [address] [place] [address] OFFICE VISIT Date of Service: 06/18/24 MR#: [id number] Acct: [id number] Name: ANJU MUELLER Rep #: [id number] : 1995 Provider: Dr. Cary Munroe DO Age/Sex: 29/F Location: [facility] [place] Status: Signed Intake Vital Signs 05/13/19 14:26 05/24/24 09:45 06/18/24 14:33 Height 5 ft 5 in 5 ft 7 in 5 ft 7 in Weight: 162 lb 8 oz BMI 25.4 BP 116/77 Intake Visit Reasons: 13wk OB Vehicle Upholsterer Required: No Is patient in pain?: No Allergies No Known Allergies Allergy (Verified 06/18/24 14:39) Medications ???Medication ???Instructions ???Recorded ???Confirmed ???Type vits no.126-ferrous fum tab PO 05/08/24 06/18/24 History 28 mg iron-folic acid 800 mcg tablet (Classic ) Last Menstrual Period: 03/17/24 Zika: Zika virus screening: Negative : No PFSH PFSH Medical History Family history of BRCA2 gene positive Surgical History [place] teeth removed Family History Mother BRCA gene mutation positive Preventative mastectomy done, 16 other relatives also + Aunt Breast cancer Social History household members: significant other and children number of children: 1 current occupational status: employed current occupation: [employer] in [place] current occupational exposures/hazards: No pets and animals: [...] 3-4 times per week duration: 15-30 minutes/day carissa/hoahaoism: None seatbelt use: always do you feel safe at home: Yes additional social history: Fianc???: [employer] in [place] History 2 Elective abortions Hx Para 1 Spontaneous abortions Hx # Term Pregnancies 1 Ectopic pregnancies Hx # Pregnancies Multiple births # of living children 1 Past Pregnancies Del. Date Name GA/Weeks Outcome Route Bth Weight Infant Gen Labor Lgth Anesthesia Del Locatn Provider FOB 05/14/19 Annie 42 live - full term 8lbs 4oz Female 10hours epidural WC H Dr Calero's, Cintia Escalante Robert Delivery Date: 05/14/19 Last Updated by: [...] care, Ant (more content not included)... Normal [facility] Absolute lymphocyte countOrd ered By: Yirs Brown on 05-28-2024 Lymphocytes Auto (Unsp spec) [#/Vol] 1.89 10*3/uL 0.83-4.51 [facility] Absolute neutrophil countOrd ered By: Yris Brown on 05-28-2024 Neutrophils (Bld) [#/Vol] 5.5 10*3/uL 2.0-7.7 [facility] Automated lymphocyte count a s percentage of total leukocytesOrdered By: Yris Brown on 05-28-2024 Lymphocytes/100 WBC Auto (Unsp spec) 23.2 % -41 [facility] Basophil percentageOrdered B y: Yris Brown on 05-28-2024 Basophils/100 WBC (Bld) 0.2 % 0-1 [facility] CBC W/Diff, Automatedon 05-10-2024 Absolute Lymph 1.89 X10 3/uL Normal 0.83-4.51 [facility] Comment on above: Performed By: #### L 3890.6300, L509.4005, L900.0098, L3890.6100, BTS, L509.8000, L100.0100, L3890.6005 #### [facility] [address] [place], [address] Absolute Neut 5.5 X10 3/uL Normal 2.0-7.7 [facility] Comment on above: Performed By: #### L 3890.6300, L509.4005, L900.0098, L3890.6100, BTS, L509.8000, L100.0100, L3890.6005 #### [facility] [address] [place], [address] Basophils/100 WBC (Bld) 0.2 % Normal 0-1 [facility] Comment on above: Performed By: #### L 3890.6300, L509.4005, L900.0098, L3890.6100, BTS, L509.8000, L100.0100, L3890.6005 #### [facility] [address] [place], [address] Eosinophils/100 WBC (Bld) 0.9 % Normal 0-5 [facility] Comment on above: Performed By: #### L 3890.6300, L509.4005, L900.0098, L3890.6100, BTS, L509.8000, L100.0100, L3890.6005 #### [facility] [address] [place], [address] Erythrocyte distribution width (RBC) [Ratio] 13.2 % Normal 11.6-14.6 [facility] Comment on above: Performed By: #### L 3890.6300, L509.4005, L900.0098, L3890.6100, BTS, L509.8000, L100.0100, L3890.6005 #### [facility] [address] [place], [address] Hematocrit (Bld) [Volume fraction] 41.2 % Normal 37-47 [facility] Comment on above: Performed By: #### L 3890.6300, L509.4005, L900.0098, L3890.6100, BTS, L509.8000, L100.0100, L3890.6005 #### [facility] [address] [place], [address] Hemoglobin (Bld) [Mass/Vol] 13.2 g/dL Normal 12.0-15.0 [facility] Comment on above: Performed By: #### L 3890.6300, L509.4005, L900.0098, L3890.6100, BTS, L509.8000, L100.0100, L3890.6005 #### [facility] [address] [place], [address] IG% 0.400 Normal 0.0-0.9 [facility] Comment on above: Result Comment: IG% - Immature Granulocytes (promyelocytes, myelocytes and metamyelocytes) > 1% indicates that a LEFT SHIFT is Present. Performed By: #### L 3890.6300, L509.4005, L900.0098, L3890.6100, BTS, L509.8000, L100.0100, L3890.6005 #### [facility] [address] [place], [address] Lymphocytes/100 WBC (Bld) 23.2 % Normal 19-41 [facility] Comment on above: Performed By: #### L 3890.6300, L509.4005, L900.0098, L3890.6100, BTS, L509.8000, L100.0100, L3890.6005 #### [facility] [address] [place], [address] MCH (RBC) [Entitic mass] 27.4 pg Normal 27.0-32.0 [facility] Comment on above: Performed By: #### L 3890.6300, L509.4005, L900.0098, L3890.6100, BTS, L509.8000, L100.0100, L3890.6005 #### [facility] [address] [place], [address] MCHC (RBC) [Mass/Vol] 32.0 g/dL Normal 32-36 [facility] Comment on above: Performed By: #### L 3890.6300, L509.4005, L900.0098, L3890.6100, BTS, L509.8000, L100.0100, L3890.6005 #### [facility] [address] [place], [address] MCV (RBC) [Entitic vol] 85.5 fL Normal 81-99 [facility] Comment on above: Performed By: #### L 3890.6300, L509.4005, L900.0098, L3890.6100, BTS, L509.8000, L100.0100, L3890.6005 #### [facility] [address] [place], [address] Monocytes/100 WBC (Bld) 7.6 % Normal 0-10 [facility] Comment on above: Performed By: #### L 3890.6300, L509.4005, L900.0098, L3890.6100, BTS, L509.8000, L100.0100, L3890.6005 #### [facility] [address] [place], [address] Neutrophils/100 WBC (Bld) 67.7 % Normal 47-70 [facility] Comment on above: Performed By: #### L 3890.6300, L509.4005, L900.0098, L3890.6100, BTS, L509.8000, L100.0100, L3890.6005 #### [facility] [address] [place], [address] Nucleated RBC (Bld) [#/Vol] 0 10*3/uL Normal 0-5 [facility] Comment on above: Performed By: #### L 3890.6300, L509.4005, L900.0098, L3890.6100, BTS, L509.8000, L100.0100, L3890.6005 #### [facility] [address] [place], [address] Platelet mean volume (Bld) [Entitic vol] 10.2 fL Normal 6.2-12.0 [facility] Comment on above: Performed By: #### L 3890.6300, L509.4005, L900.0098, L3890.6100, BTS, L509.8000, L100.0100, L3890.6005 #### [facility] [address] [place], [address] Platelets (Bld) [#/Vol] 322 10*3/uL Normal 150-450 [facility] Comment on above: Performed By: #### L 3890.6300, L509.4005, L900.0098, L3890.6100, BTS, L509.8000, L100.0100, L3890.6005 #### [facility] [address] [place], [address] RBC (Bld) [#/Vol] 4.82 10*6/uL Normal 4.2-5.4 [facility] Comment on above: Performed By: #### L 3890.6300, L509.4005, L900.0098, L3890.6100, BTS, L509.8000, L100.0100, L3890.6005 #### [facility] [address] [place], [address] RDW SD 41.1 fl Normal 35.1-43.9 [facility] Comment on above: Performed By: #### L 3890.6300, L509.4005, L900.0098, L3890.6100, BTS, L509.8000, L100.0100, L3890.6005 #### [facility] [address] [place], [address] WBC (Bld) [#/Vol] 8.1 10*3/uL Normal 4.4-11.0 [facility] Comment on above: Performed By: #### L 3890.6300, L509.4005, L900.0098, L3890.6100, BTS, L509.8000, L100.0100, L3890.6005 #### [facility] [address] [place], [address] Eosinophil percentageOrdered By: Yris Brown on 05-28-2024 Eosinophils/100 WBC (Bld) 0.9 % 0-5 [facility] Erythrocyte distribution wid th ratioOrdered By: Yris Brown on 05-28-2024 Erythrocyte distribution width (RBC) [Ratio] 13.2 % 11.6-14.6 [facility] Erythrocyte distribution wid th standard deviationOrdered By: Yris Brown on 05-28-2024 Erythrocyte distribution width (RBC) [Ratio] 41.1 fl 35.1-43.9 [facility] HIV - WCHon 05-28-2024 HIV Non-Reactive Normal Nonreactive [facility] Comment on above: Order Comment: Reaso n for Exam: Performed By: #### L 3890.6300, L509.4005, L900.0098, L3890.6100, BTS, L509.8000, L100.0100, L3890.6005 ####[facility] [address] [place], [address] HIV 1 and HIV-2 antibody ass ay with HIV-1 p24 antigen detectionOrdered By: Yris Brown on 05-28-2024 HIV 1+2 Ab+HIV1 p24 Ag IA Ql Non-Reactive Nonreactive [facility] Hematocrit Auto (Bld) [Volum e fraction]Ordered By: Yris Brown on 05-28-2024 Hematocrit (Bld) [Volume fraction] 41.2 % 37-47 [facility] Hemoglobin measurementOrdere d By: Yris Brown on 05-28-2024 Hemoglobin (Bld) [Mass/Vol] 13.2 g/dL 12.0-15.0 [facility] Hepatitis B Surface Antigeno n 05-28-2024 HEP B Surf Ag Non-Reactive Normal Nonreactive [facility] Comment on above: Order Comment: Reaso n for Exam: Performed By: #### L 3890.6300, L509.4005, L900.0098, L3890.6100, BTS, L509.8000, L100.0100, L3890.6005 ####[facility] [address] [place], [address] Hepatitis C Antibodyon 05-28 Hepatitis C AB Non-Reactive Normal Nonreactive [facility] Comment on above: Order Comment: Reaso n for Exam: Result Comment: Non Reactive: < 0.8 Equivocal: >/= 0.8 to < 1.0 Reactive: >/= 1.0 The CDC requires that a reactive/equivocal HCV antibody result be sent out for confirmation. HCV Quant by PCR testing. Performed By: #### L 3890.6300, L509.4005, L900.0098, L3890.6100, BTS, L509.8000, L100.0100, L3890.6005 ####[facility] [address] [place], [address] Immature granulocytes/100 WB C Auto (Bld)Ordered By: Yris Brown on 05-28-2024 Immature granulocytes/100 WBC (Bld) 0.400 % 0.0-0.9 [facility] Comment on above: IG% - Immature Granu locytes (promyelocytes, myelocytes and metamyelocytes) > 1% indicates that a LEFT SHIFT is Present. L509.8000on 05-28-2024 Syphilis Abs Non-Reactive Normal [facility] Comment on above: Order Comment: Reaso n for Exam: Performed By: #### L 3890.6300, L509.4005, L900.0098, L3890.6100, BTS, L509.8000, L100.0100, L3890.6005 ####[facility] [address] [place], [place], [id number] MCV (mean corpuscular volume ) determinationOrdered By: Yris Brown on 05-28-2024 MCV (RBC) [Entitic vol] 85.5 fL 81-99 [facility] Mean corpuscular hemoglobin (MCH) determinationOrdered By: Yris Brown on 05-28-2024 MCH (RBC) [Entitic mass] 27.4 pg 27.0-32.0 [facility] Mean corpuscular hemoglobin concentration (MCHC) determinationOrdered By: Yris Brown on 05-28-2024 MCHC (RBC) [Mass/Vol] 32.0 g/dL 32-36 [facility] Mean platelet volume determi nationOrdered By: Yris Brown on 05-28-2024 Platelet mean volume (Bld) [Entitic vol] 10.2 fL 6.2-12.0 [facility] Monocyte percentageOrdered B y: Yris Brown on 05-28-2024 Monocytes/100 WBC (Bld) 7.6 % 0-10 [facility] NATERAon 05-28-2024 NATURA SEE SCANNED REPORT Normal [facility] Comment on above: Performed By: #### L 3890.6300, L509.4005, L900.0098, L3890.6100, BTS, L509.8000, L100.0100, L3890.6005 #### [facility] [address] [place], [address] Neutrophil percentageOrdered By: Yris Brown on 05-28-2024 Neutrophils/100 WBC (Bld) 67.7 % 47-70 [facility] Nucleated red blood cell per centageOrdered By: Yris Brown on 05-28-2024 Nucleated RBC/100 WBC (Bld) [Ratio] 0 % 0-5 [facility] Platelet countOrdered By: Arsenio Brown on 05-28-2024 Platelets (Bld) [#/Vol] 322 10*3/uL 150-450 [facility] RBC Auto (Bld) [#/Vol]Ordere d By: Yris Brown on 05-28-2024 RBC (Bld) [#/Vol] 4.82 10*6/uL 4.2-5.4 [facility] Rubella IgGon 05-28-2024 Rubella IgG Reactive Normal Nonreactive [facility] Comment on above: Order Comment: Reaso n for Exam: Result Comment: Anti body Results Interpretation of Immune Status Non Reactive Presumed Non-Immune Equivocal Equivocal Reactive Presumed Immune Performed By: #### L 3890.6300, L509.4005, L900.0098, L3890.6100, BTS, L509.8000, L100.0100, L3890.6005 ####[facility] [address] [facility] [place], [address] Serum Treponema species anti body detectionOrdered By: Yris Brown on 05-28-2024 Treponema sp Ab Ql (S) Non-Reactive [facility] Type AND Screenon 05-28-2024 Ab SCREEN GEL Negative Normal [facility] Comment on above: Order Comment: PN Performed By: #### L 3890.6300, L509.4005, L900.0098, L3890.6100, BTS, L509.8000, L100.0100, L3890.6005 #### [facility] [address] [place], [address] White blood cell (WBC) count Ordered By: Yris Brown on 05-28-2024 WBC (Bld) [#/Vol] 8.1 10*3/uL 4.4-11.0 [facility] Chlamydia/GC ROBIN aptimaon CHLAMY,NUC ACID Negative Normal Negative [facility] Comment on above: Performed By: #### M 100.2200, L7000.1800 #### [facility] [address] [place], [place], [address] GC BY NUC ACID Negative Normal Negative [facility] Comment on above: Result Comment: Perf ormed at: =G - [facility] [address] [id number] Glass Block Installer: Belem Lima MD, Phone: [phone] Performed By: #### M 100.2200, L7000.1800 #### [facility] [address] [place], [place], [address] Bilirubin Test strip Ql (U)O rdered By: ED PROVIDER on 05-24-2024 Bilirubin Ql (U) Negative Negative [facility] Emergency Department Summary on 05-24-2024 Emergency Department Summary [facility] Medical Records Department [address] [place] [address] Emergency Department Summary 05/24/24 MR#: [id number] Acct: [id number] Name: ANJU MUELLER Rep #: [id number] : 1995 28 From: Julio Louise DO [...] chart review she is O+. She sees [facility]. She states that she was seen in the office on and had a pelvic ultrasound and stated everything looked good [facility] Medical History Family history of BRCA2 gene [...] also + Aunt Breast cancer Surgical History [place] teeth removed Social History household members: significant other and children number of children: 1 current occupational status: employed current occupation: [employer] in [place] current occupational exposures/hazards: No pets and animals: [...] 3-4 times per week duration: 15-30 minutes/day carissa/hoahaoism: None seatbelt use: always do you feel safe at home: Yes additional social history: Fianc???: [employer] in [facility] ROS ED Constitutional Constitutional ED: Denies chills, [...] 5/5 throughout (more content not included)... Normal [facility] HH, Hemoglobin AND Hematocri ton 05-24-2024 Hematocrit (Bld) [Volume fraction] 36.4 % Low 37-47 [facility] Comment on above: Performed By: #### L 100.0600 #### [facility] [address] [place], [place], [id number] (546) Hemoglobin (Bld) [Mass/Vol] 12.2 g/dL Normal 12.0-15.0 [facility] Comment on above: Performed By: #### L 100.0600 #### [facility] [address] [place], [address] Hematocrit Auto (Bld) [Volum e fraction]Ordered By: Julio Louise on 05-24-2024 Hematocrit (Bld) [Volume fraction] 36.4 % Low 37-47 [facility] Hemoglobin measurementOrdere d By: Julio Louise on 05-24-2024 Hemoglobin (Bld) [Mass/Vol] 12.2 g/dL 12.0-15.0 [facility] Ketones Test strip Ql (U)Ord ered By: ED PROVIDER on 05-24-2024 Ketones Ql (U) Negative Negative [facility] Microscopic analysis of urin e for red blood cells (RBC)Ordered By: ED PROVIDER on 05-24-2024 Microscopic analysis of urine for red blood cells (RBC) 0 SEEN /hpf 0-5 [facility] Mucus LM Ql (Urine sed)Order ed By: ED PROVIDER on 05-24-2024 Mucus Ql (Urine sed) 0 SEEN /hpf [facility] Nitrite Test strip Ql (U)Ord ered By: ED PROVIDER on 05-24-2024 Nitrite Ql (U) Negative Negative [facility] ,Serum,hCG Quali.on 05-24-2024 HCG, SERUM QUAL Normal [facility] Comment on above: Result Comment: Canc elled via OM: order change Performed By: #### M 100.2200 #### [facility] [address] [facility] [address] [place], [place], [id number] INTERNAL QC OK? Normal [facility] Comment on above: Result Comment: Canc elled via OM: order change Performed By: #### M 100.2200 #### [facility] [address] [place], [place], [id number] RECORD KIT LOT# Normal [facility] Comment on above: Result Comment: Can elled via OM: order change Performed By: #### M 100.2200 #### [facility] [address] [place], [place], [id number] Protein Test strip Ql (U)Ord ered By: ED PROVIDER on 05-24-2024 Protein Ql (U) 15 mg/dl High Negative [facility] Serum human chorionic gonado tropin detection for pregnancyOrdered By: Julio Louise on 05-24-2024 HCG ( test) [place]l [address] mIU/mL High <4 [facility] Comment on above: hCG levels with Gest ational AgeGestational Age hCG mIU/mL (IU/L)0.2 - 1 week 5 - 501-2 weeks 50 - 5002-3 weeks 100 - 64049-1 weeks 500 - 984618-6 weeks 1000 - 925333-9 weeks 94068 - 100,0006-8 weeks 78961 - 200,0002-3 months 88255 - 100,000 Squamous epithelial cells de tection in urine sediment by light microscopyOrdered By: ED PROVIDER on 05-24-2024 Epithelial cells.squamous LM Ql (Urine sed) 0 SEEN /hpf 5-10 [facility] Transvaginal w/Preg USon Transvaginal w/Preg US [facility] [address] [place], [place] [address] Transvaginal w/Preg US MR#: [id number] Acct: [id number] Name: ANJU MUELLER Rep #: [id number] : 1995 F 28 From: Anu Martins [address], MD PCP: Care Physician,No Primary Status: [facility] Study: Transvaginal w/Preg US Date of Exam: 05/24/24 Exam# [id number] Ordering Dr: Julio Louise DO PROCEDURE: TRANSVAGINAL [...] the pelvis. DIMENSIONS: Parameter Measurement / EGA Glenvil Rump Length: 3.08 mm/9 weeks 5 days Yolk Sac: 3.9 mm 9 weeks 6 days/ ESTIMATED GESTATIONAL AGE: By Ultrasound: 9 weeks 6 days By LMP: 9 weeks 5 days ESTIMATED DATE OF DELIVERY: By Ultrasound: 12/21/2024 By LMP: 12/22/2024 US/Transvaginal w/Preg US IMPRESSION: UNREMARKABLE FIRST TRIMESTER ULTRASOUND. Reading Location: [id number] CC: Dr. Julio Louise, DO; No Primary Care Physician Dental Appliance Mechanic: Signed Normal [facility] Urinalysis, Completeon 05-24 RBC 0 SEEN Normal 0-5 [facility] Comment on above: Order Comment: KAYKAY CTOR TO SPECIFY Performed By: #### L 400.0001 ####[facility] [address] [place], [address] BACTERIA 0 SEEN Normal None Seen [facility] Comment on above: Order Comment: KAYKAY CTOR TO SPECIFY Performed By: #### L 400.0001 ####[facility] [address] [place], [address] EPI,SQUAMOUS 0 SEEN Normal 5-10 [facility] Comment on above: Order Comment: KAYKAY CTOR TO SPECIFY Performed By: #### L 400.0001 ####[facility] [address] [place], [address] Mucus Ql (Urine sed) 0 SEEN Normal [facility] Comment on above: Order Comment: KAYKAY CTOR TO SPECIFY Performed By: #### L 400.0001 ####[facility] [address] [place], [address] WBC 0 SEEN Normal 0-5 [facility] Comment on above: Order Comment: KAYKAY CTOR TO SPECIFY Performed By: #### L 400.0001 ####[facility] [address] [place], [address] Urine clarityOrdered By: ED PROVIDER on 05-24-2024 Clarity (U) Clear Clear [facility] Urine color determinationOrd ered By: ED PROVIDER on 05-24-2024 Color (U) Yellow Yellow [facility] Urine glucose detectionOrder ed By: ED PROVIDER on 05-24-2024 Glucose Ql (U) Normal mg/dl Normal [facility] Urine leukocyte esterase det ection by dipstickOrdered By: ED PROVIDER on 05-24-2024 Leukocyte esterase Test strip Ql (U) Negative Negative [facility] Urine pHOrdered By: ED PROVI REAL on 05-24-2024 pH (U) 7.0 [pH] 5.0 - 8.0 [facility] Urine sediment bacteria coun t by microscopy (number/high power field)Ordered By: ED PROVIDER on 05-24-2024 Bacteria LM.HPF (Urine sed) [#/Area] 0 /[HPF] None Seen [facility] Urine specific gravity measu rementOrdered By: ED PROVIDER on 05-24-2024 Specific gravity (U) [Rel density] 1.005 1.002-1.030 [facility] Urine urobilinogen measureme ntOrdered By: ED PROVIDER on 05-24-2024 Urobilinogen Ql (U) Normal mg/dl Normal [facility] White blood cell countOrdere d By: ED PROVIDER on 05-24-2024 White blood cell count 0 SEEN /hpf 0-5 [facility] hCG Titer Quant., Serumon HCG QUANT. 78845 mIU/mL High 1-3 [facility] Comment on above: Result Comment: hCG levels with Gestational Age Gestational Age hCG mIU/mL (IU/L) 0.2 - 1 week 5 - 50 1-2 weeks 50 - 500 2-3 weeks 100 - 5000 3-4 weeks 500 - 59613 4-5 weeks 1000 - 97086 5-6 weeks 95526 - 100,000 6-8 weeks 97557 - 200,000 2-3 months 35111 - 100,000 Performed By: #### M 100.2200 #### [facility] [address] [place], [address] Urine Cultureon 05-22-2024 URC Culture exhibits no growth. Normal [facility] Comment on above: Performed By: #### M 100.2200, L7000.1800 #### [facility] [address] [place], [address] Chlamydia trachomatis rRNA d etection by probe and target amplification methodOrdered By: Yris Brown on 05-21-2024 C. trachomatis rRNA ROBIN+probe Ql (Unsp spec) Negative Negative [facility] Neisseria gonorrhoeae nuclei c acid detection by amplified probe techniqueOrdered By: Yris Brown on 05-21-2024 N. gonorrhoeae DNA ROBIN+probe Ql (Unsp spec) Negative Negative [facility] Comment on above: Performed at: =[address] [id number] Director: Belem Lima MD, Phone: [phone] Pharmacy Scheduler Office Visit Reporton 05-21-2024 Pharmacy Scheduler Office Visit Report [facility] [address], [address] [place] [address] OFFICE VISIT Date of Service: 05/21/24 MR#: [id number] Acct: [id number] Name: ANJU MUELLER Rep #: [id number] : 1995 Provider: FRANSISCO Forrester ams Age/Sex: 28/F Location: [facility] Status: Signed Intake Vital Signs 05/21/24 11:09 [...] history of BRCA2 gene positive Surgical History [place] teeth removed Family History Mother BRCA gene mutation positive Preventative mastectomy done, 16 other relatives also + Aunt Breast cancer Social History household members: significant other and children number of children: 1 service: No current occupational status: employed current occupation: [employer] in [place] current occupational exposures/hazards: No pets and animals: [...] 3-4 times per week duration: 15-30 minutes/day carissa/hoahaoism: None seatbelt use: always do you feel safe at home: Yes additional social history: [employer] People???: [employer] in [place] History 2 Elective abortions Hx Para 1 [...] Structural Bi (more content not included)... Normal [facility] Urine cultureOrdered By: Presley Brown on 05-21-2024 Bacteria identified Cx Nom (U) Culture exhibits no growth. [facility] OB ultrasound panelOrdered B y: Unassigned Pacs on 06-13-2023 [facility] Work Phone: OB ultrasound panelon 2023 Radiology Study observation (narrative) [facility] US Pelvis transvaginalon IMPRESSION: 1. Endometrial canal is distended with heterogeneous avascular material most likely patient admitting representative of blood products. 2. Hemorrhagic right [...] distended with heterogeneous avascular material most likely patient admitting representative of blood products. 2. Hemorrhagic right ovarian cyst measuring up to 3.6 cm. 3. Normal left ovary. I personally viewed and interpreted these images and I have reviewed and approved this report. [facility] US Pelvis transvaginalOrdere d By: Yris Wei on 06-22-2022 [facility] Work Phone: CBC AND ELECTRONIC DIFFon Basophils (Bld) [#/Vol] K/uL 0.00 - 0.15 K/uL [facility] Basophils/100 WBC (Bld) 0.2 % O [facility] Differential cell count method Nom (Bld) Electronic Differential [facility] Eosinophils (Bld) [#/Vol] 0.08 10*3/uL 0.00 - 0.42 K/uL [facility] Eosinophils/100 WBC (Bld) 0.8 % [facility] Erythrocyte distribution width (RBC) [Ratio] 12.7 % 10.8 - 14.9 % [facility] Hematocrit (Bld) [Volume fraction] 38.4 % 34.9 - 44.3 % [facility] Hemoglobin (Bld) [Mass/Vol] 12.5 g/dL 11.4 - 15.2 g/dL [facility] Immature granulocytes (Bld) [#/Vol] K/uL NINF - 0.08 K/uL [facility] Immature granulocytes/100 WBC (Bld) 0.2 % [facility] Interpretation and review of laboratory results Abnormal [facility] Lymphocytes (Bld) [#/Vol] 1.98 10*3/uL 1.16 - 3.51 K/uL [facility] Lymphocytes/100 WBC (Bld) 18.7 % [facility] MCH (RBC) [Entitic mass] 27.9 pg 25.9 - 33.9 pg [facility] MCHC (RBC) [Mass/Vol] 32.6 g/dL 31.4 - 35.9 g/dL [facility] MCV (RBC) [Entitic vol] 85.7 fL 79.6 - 97.7 fL [facility] Monocytes (Bld) [#/Vol] 0.72 10*3/uL 0.22 - 0.87 K/uL [facility] Monocytes/100 WBC (Bld) 6.8 % [facility] Neutrophils (Bld) [#/Vol] 7.76 10*3/uL High 1.64 - 7.28 K/uL [facility] Nucleated RBC/100 WBC (Bld) [Ratio] 0.0 % NINF [facility] Platelet mean volume (Bld) [Entitic vol] 9.8 fL 8.5 - 12.2 fL [facility] Platelets (Bld) [#/Vol] 387 10*3/uL 150 - 393 K /uL [facility] RBC (Bld) [#/Vol] 4.48 10*6/uL [facility] Segmented neutrophils/100 WBC (Bld) 73.3 % [facility] WBC (Bld) [#/Vol] 10.58 10*3/uL 3.99 - 11 .19 K/uL [facility] HCG ( test) Qlon HCG.beta subunit [Moles/Vol] 3.5 mmol/L mIU/mL [facility] Comment on above: Non-: <10 mI U/mL Postmenopause: <10 mIU/mL Male: <10 mIU/mL FEMALE GESTATIONAL AGE 2-4 Weeks: 39.1-8,388 mIU/mL 5-6 Weeks: 861-88,769 mIU/mL 6-8 Weeks: 8,636-218,085 mIU/mL 8-10 Weeks: 18,700-244,467 mIU/mL 10-12 Weeks: 23,143-181,899 mIU/mL 13-27 Weeks: 6,303-97,171 mIU/mL 24-40 Weeks: 4,360-74,883 mIU/mL Test results cannot be interpreted as absolute evidence for the presence or absence of malignant disease. [facility] URINALYSISOrdered By: Lawrence dueñas on 06-21-2022 Appearance (U) Clear Clear [facility] Bacteria LM Ql (Urine sed) TRACE Abnormal ABSENT [facility] Color (U) Yellow Yellow [facility] Epithelial cells.squamous LM Ql (Urine sed) 1/hpf = 1+ 1/hpf = 1+, 2-5/hpf = 2+, 0/hpf = 0+, ABSENT [facility] Glucose Test strip (U) [Mass/Vol] Negative Negative [facility] Interpretation and review of laboratory results [facility] Ketones (U) [Mass/Vol] Negative Negative [facility] Leukocyte esterase Test strip Ql (U) Negative Negative [facility] Nitrite Ql (U) Negative [facility] pH (U) 6.5 [pH] 5.0 - 7.0 [facility] Protein (U) [Mass/Vol] Negative Negative [facility] RBC (U) [#/Vol] Large Abnormal Negative [facility] [place] RBC LM.HPF (Urine sed) [#/Area] 6-9 Abnormal [facility] Specific gravity (U) [Rel density] 1.001 - PINF [facility] Urobilinogen (U) [Mass/Vol] 0.2 E.U./dL 0.2 E.U/dL, 1.0 E.U/dL [facility] WBC LM.HPF (Urine sed) [#/Area] 0-5 [facility] US Pelvis transvaginalon Radiology Study observation (narrative) [facility] POCT RAPID STREP Aon 022 S. pyogenes Ag Ql (Throat) Negative (+/-) [facility] Internal controls [facility] THROAT CULTUREon 06-26-2021 Throat culture SPECIMEN DESCRIPTION THROAT SWAB CULTURE USUAL OROPHARYNGEAL DUNG * Result Note: Testing performed at [place], [place] [address] * REPORT STATUS 06/29/2021 * Result Note: FINAL * Normal [facility] Comment on above: Performed By: #### T HRC #### [place] [address] Vital Signs Date Time Vital Sign Value Performing Clinician Facility 12-10-2024 11:41-0400 Body height 170.18 cm No Primary Care Physician [facility] 12-10-2024 11:41-0400 Body mass index (BMI) [Ratio] 32.5 kg/m2 No Primary Care Physician [facility] 12-10-2024 11:41-0400 Body weight 94.34 kg No Primary Care Physician [facility] 12-10-2024 11:41-0400 Diastolic blood pressure 90 mm[Hg] No Primary Care Physician [facility] 12-10-2024 11:41-0400 Systolic blood pressure 137 mm[Hg] No Primary Care Physician [facility] 12-03-2024 14:52-0400 Body height 170.18 cm No Primary Care Physician [facility] 12-03-2024 14:52-0400 Body mass index (BMI) [Ratio] 32.6 kg/m2 No Primary Care Physician [facility] 12-03-2024 14:52-0400 Body weight 94.57 kg No Primary Care Physician [facility] 12-03-2024 14:52-0400 Diastolic blood pressure 76 mm[Hg] No Primary Care Physician [facility] 12-03-2024 14:52-0400 Systolic blood pressure 118 mm[Hg] No Primary Care Physician [facility] 11-26-2024 10:46-0400 Body height 170.18 cm No Primary Care Physician [facility] 11-26-2024 10:46-0400 Body mass index (BMI) [Ratio] 31.8 kg/m2 No Primary Care Physician [facility] 11-26-2024 10:46-0400 Body weight 92.22 kg No Primary Care Physician [facility] 11-26-2024 10:46-0400 Diastolic blood pressure 73 mm[Hg] No Primary Care Physician [facility] 11-26-2024 10:46-0400 Systolic blood pressure 110 mm[Hg] No Primary Care Physician [facility] 11-23-2024 14:01-0400 Body height 170.18 cm No Primary Care Physician [facility] 11-23-2024 14:01-0400 Body mass index (BMI) [Ratio] 31.8 kg/m2 No Primary Care Physician [facility] 11-23-2024 14:01-0400 Body weight 92.3 kg No Primary Care Physician [facility] 11-23-2024 13:49-0400 Heart rate 95 /min No Primary Care Physician [facility] 11-23-2024 13:49-0400 SaO2% (BldA) [Mass fraction] 97 % No Primary Care Physician [facility] 11-23-2024 13:48-0400 Body temperature 98.2 [degF] No Primary Care Physician [facility] 11-23-2024 13:48-0400 Diastolic blood pressure 73 mm[Hg] No Primary Care Physician [facility] 11-23-2024 13:48-0400 Respiratory rate 16 /min No Primary Care Physician [facility] 11-23-2024 13:48-0400 Systolic blood pressure 121 mm[Hg] No Primary Care Physician [facility] 11-13-2024 10:26-0400 Body height 170.18 cm No Primary Care Physician [facility] 11-13-2024 10:26-0400 Body mass index (BMI) [Ratio] 31 kg/m2 No Primary Care Physician [facility] 11-13-2024 10:26-0400 Body weight 89.95 kg No Primary Care Physician [facility] 11-13-2024 10:26-0400 Diastolic blood pressure 76 mm[Hg] No Primary Care Physician [facility] 11-13-2024 10:26-0400 Systolic blood pressure 122 mm[Hg] No Primary Care Physician [facility] 10-29-2024 10:12-0400 Body height 170.18 cm No Primary Care Physician [facility] 10-29-2024 10:12-0400 Body mass index (BMI) [Ratio] 30.7 kg/m2 No Primary Care Physician [facility] 10-29-2024 10:12-0400 Body weight 89.07 kg No Primary Care Physician [facility] 10-29-2024 10:12-0400 Diastolic blood pressure 73 mm[Hg] No Primary Care Physician [facility] 10-29-2024 10:12-0400 Systolic blood pressure 112 mm[Hg] No Primary Care Physician [facility] 10-16-2024 15:07-0400 Body height 170.18 cm No Primary Care Physician [facility] 10-16-2024 15:07-0400 Body mass index (BMI) [Ratio] 29.8 kg/m2 No Primary Care Physician [facility] 10-16-2024 15:07-0400 Body weight 86.4 kg No Primary Care Physician [facility] 10-16-2024 15:07-0400 Diastolic blood pressure 76 mm[Hg] No Primary Care Physician [facility] 10-16-2024 15:07-0400 Systolic blood pressure 116 mm[Hg] No Primary Care Physician [facility] 10-01-2024 10:13-0400 Body height 170.18 cm No Primary Care Physician [facility] 10-01-2024 10:05-0400 Body mass index (BMI) [Ratio] 29.4 kg/m2 No Primary Care Physician [facility] 10-01-2024 10:05-0400 Body weight 85.27 kg No Primary Care Physician [facility] 10-01-2024 10:05-0400 Diastolic blood pressure 68 mm[Hg] No Primary Care Physician [facility] 10-01-2024 10:05-0400 Systolic blood pressure 104 mm[Hg] No Primary Care Physician [facility] 09-10-2024 08:48-0400 Body height 170.18 cm No Primary Care Physician [facility] 09-10-2024 08:46-0400 Body mass index (BMI) [Ratio] 28.3 kg/m2 No Primary Care Physician [facility] 09-10-2024 08:46-0400 Body weight 82.15 kg No Primary Care Physician [facility] 09-10-2024 08:46-0400 Diastolic blood pressure 68 mm[Hg] No Primary Care Physician [facility] 09-10-2024 08:46-0400 Systolic blood pressure 101 mm[Hg] No Primary Care Physician [facility] 08-13-2024 14:11-0400 Body mass index (BMI) [Ratio] 27.3 kg/m2 No Primary Care Physician [facility] 08-13-2024 14:11-0400 Body weight 79.37 kg No Primary Care Physician [facility] 08-13-2024 14:11-0400 Diastolic blood pressure 82 mm[Hg] No Primary Care Physician [facility] 08-13-2024 14:11-0400 Systolic blood pressure 119 mm[Hg] No Primary Care Physician [facility] 07-16-2024 13:26-0400 Body mass index (BMI) [Ratio] 26.2 kg/m2 No Primary Care Physician [facility] 07-16-2024 13:26-0400 Body weight 75.8 kg No Primary Care Physician [facility] 07-16-2024 13:26-0400 Diastolic blood pressure 74 mm[Hg] No Primary Care Physician [facility] 07-16-2024 13:26-0400 Systolic blood pressure 116 mm[Hg] No Primary Care Physician [facility] 06-19-2024 09:29-0400 Body temperature 98.1 [degF] Erick Moomaw PHONE ENGINEER.CHIEF OPHTHALMIC TECHNICIAN Work Phone: [facility] 06-19-2024 09:29-0400 Body weight 71 kg Erick Moomaw PHONE ENGINEER.CHIEF OPHTHALMIC TECHNICIAN Work Phone: [facility] 06-19-2024 09:29-0400 Diastolic blood pressure 84 mm[Hg] Erick Moomaw PHONE ENGINEER.CHIEF OPHTHALMIC TECHNICIAN Work Phone: [facility] 06-19-2024 09:29-0400 Heart rate 85 /min Erick Moomaw PHONE ENGINEER.CHIEF OPHTHALMIC TECHNICIAN Work Phone: [facility] 06-19-2024 09:29-0400 Respiratory rate 20 /min Erick Moomaw PHONE ENGINEER.CHIEF OPHTHALMIC TECHNICIAN Work Phone: [facility] 06-19-2024 09:29-0400 SaO2% (BldA) [Mass fraction] 99 % Erick Moomaw PHONE ENGINEER.CHIEF OPHTHALMIC TECHNICIAN Work Phone: [facility] 06-19-2024 09:29-0400 Systolic blood pressure 127 mm[Hg] Erick Moomaw PHONE ENGINEER.CHIEF OPHTHALMIC TECHNICIAN Work Phone: [facility] 06-18-2024 14:33-0400 Body mass index (BMI) [Ratio] 25.4 kg/m2 No Primary Care Physician [facility] 06-18-2024 14:33-0400 Body weight 73.7 kg No Primary Care Physician [facility] 06-18-2024 14:33-0400 Diastolic blood pressure 77 mm[Hg] No Primary Care Physician [facility] 06-18-2024 14:33-0400 Systolic blood pressure 116 mm[Hg] No Primary Care Physician [facility] 05-24-2024 12:47-0500 Body temperature 98 [degF] No Primary Care Physician [facility] 05-24-2024 12:47-0500 Diastolic blood pressure 80 mm[Hg] No Primary Care Physician [facility] 05-24-2024 12:47-0500 Heart rate 80 /min No Primary Care Physician [facility] 05-24-2024 12:47-0500 Respiratory rate 16 /min No Primary Care Physician [facility] 05-24-2024 12:47-0500 SaO2% (BldA) [Mass fraction] 99 % No Primary Care Physician [facility] 05-24-2024 12:47-0500 Systolic blood pressure 118 mm[Hg] No Primary Care Physician [facility] 05-24-2024 09:45-0500 Body mass index (BMI) [Ratio] 25.1 kg/m2 No Primary Care Physician [facility] 05-24-2024 09:45-0500 Body weight 72.75 kg No Primary Care Physician [facility] 05-21-2024 11:09-0500 Body mass index (BMI) [Ratio] 26.6 kg/m2 No Primary Care Physician [facility] 05-21-2024 11:09-0500 Body weight 72.63 kg No Primary Care Physician [facility] 05-21-2024 11:09-0500 Diastolic blood pressure 79 mm[Hg] No Primary Care Physician [facility] 05-21-2024 11:09-0500 Systolic blood pressure 121 mm[Hg] No Primary Care Physician [facility] 06-13-2023 15:13-0500 Body height 165.1 cm Jamal Daniel MD Work Phone: [facility] 06-13-2023 15:13-0500 Body mass index (BMI) [Ratio] 27.46 kg/m2 Jamal Daniel MD Work Phone: [facility] 06-13-2023 15:13-0500 Body weight 74.84 kg Jamal Daniel MD Work Phone: [facility] 06-13-2023 15:13-0500 Diastolic blood pressure 80 mm[Hg] Jamal Daniel MD Work Phone: [facility] 06-13-2023 15:13-0500 Heart rate 85 /min Jamal Daniel MD Work Phone: [facility] 06-13-2023 15:13-0500 Respiratory rate 16 /min Jamal Daniel MD Work Phone: [facility] 06-13-2023 15:13-0500 SaO2% (BldA) [Mass fraction] 98 % Jamal Daniel MD Work Phone: [facility] 06-13-2023 15:13-0500 Systolic blood pressure 124 mm[Hg] Jamal Daniel MD Work Phone: [facility] 06-22-2022 01:22-0400 Diastolic blood pressure 72 mm[Hg] Dayanna Ariza MD Work Phone: 6(034)079-944409 [address] 06-22-2022 01:22-0400 Heart rate 86 /min Dayanna Ariza MD Work Phone: 1(486)274-836609 [address] 06-22-2022 01:22-0400 Respiratory rate 16 /min Dayanna Ariza MD Work Phone: 8(039)[phone] [address] 06-22-2022 01:22-0400 SaO2% (BldA) [Mass fraction] 100 % Dayanna Ariza MD Work Phone: 1(165)993-255999 [place] [address] 06-22-2022 01:22-0400 Systolic blood pressure 129 mm[Hg] Dayanna Ariza MD Work Phone: 5(914)[phone] [address] 06-21-2022 19:41-0400 Body temperature 98.01 [degF] Dayanna Ariza MD Work Phone: 6(659)[phone] [address] 06-21-2022 19:39-0400 Body height 165.1 cm Dayanna Ariza MD Work Phone: 8(899)[phone] [address] 03-23-2022 16:11-0500 Diastolic blood pressure 89 mm[Hg] Archana Garcia PHONE ENGINEER-CHIEF OPHTHALMIC TECHNICIAN Work Phone: [facility] 03-23-2022 16:11-0500 Heart rate 89 /min Archana Garcia PHONE ENGINEER-CHIEF OPHTHALMIC TECHNICIAN Work Phone: [facility] 03-23-2022 16:11-0500 Systolic blood pressure 129 mm[Hg] Archana Garcia PHONE ENGINEER-CHIEF OPHTHALMIC TECHNICIAN Work Phone: 9(482)[phone] [place] [address] 12-19-2021 16:50-0400 Body height 166.4 cm Jamal Daniel MD Work Phone: [facility] 12-19-2021 16:50-0400 Body mass index (BMI) [Ratio] 24.25 kg/m2 Jamal Daniel MD Work Phone: [facility] 12-19-2021 16:50-0400 Body weight 67.13 kg Jamal Daniel MD Work Phone: [facility] 12-19-2021 16:50-0400 Diastolic blood pressure 72 mm[Hg] Jamal Daniel MD Work Phone: [facility] 12-19-2021 16:50-0400 Heart rate 76 /min Jamal Daniel MD Work Phone: [facility] 12-19-2021 16:50-0400 Respiratory rate 16 /min Jamal Daniel MD Work Phone: [facility] 12-19-2021 16:50-0400 SaO2% (BldA) [Mass fraction] 99 % Jamal Daniel MD Work Phone: [facility] 12-19-2021 16:50-0400 Systolic blood pressure 112 mm[Hg] Jamal Daniel MD Work Phone: [facility] 06-26-2021 19:48-0400 Body height 165.1 cm Adeola Tirado PHONE ENGINEER-CHIEF OPHTHALMIC TECHNICIAN Work Phone: [facility] 06-26-2021 19:48-0400 Body mass index (BMI) [Ratio] 24.23 kg/m2 Adeola Tirado PHONE ENGINEER-CHIEF OPHTHALMIC TECHNICIAN Work Phone: [facility] 06-26-2021 19:48-0400 Body temperature 99.39 [degF] Adeola Tirado PHONE ENGINEER-CHIEF OPHTHALMIC TECHNICIAN Work Phone: [facility] [facility] 06-26-2021 19:48-0400 Body weight 66.04 kg Adeola Tirado PHONE ENGINEER-CHIEF OPHTHALMIC TECHNICIAN Work Phone: [employer] [facility] 06-26-2021 19:48-0400 Diastolic blood pressure 72 mm[Hg] Adeola Tirado PHONE ENGINEER-CHIEF OPHTHALMIC TECHNICIAN Work Phone: [facility] 06-26-2021 19:48-0400 Heart rate 73 /min Adeola Tirado PHONE ENGINEER-CHIEF OPHTHALMIC TECHNICIAN Work Phone: [facility] 06-26-2021 19:48-0400 Respiratory rate 16 /min Adeola Tirado PHONE ENGINEER-CHIEF OPHTHALMIC TECHNICIAN Work Phone: [facility] 06-26-2021 19:48-0400 SaO2% (BldA) [Mass fraction] 99 % Adeola Tirado PHONE ENGINEER-CHIEF OPHTHALMIC TECHNICIAN [facility] Phone: [facility] 06-26-2021 19:48-0400 Systolic blood pressure 115 mm[Hg] Adeola Celestino PHONE ENGINEER-CHIEF OPHTHALMIC TECHNICIAN Work Phone: [facility] Encounters Encounter Date Encounter Type Care Provider Facility Start: 12-10-2024 End: 12-10-2024 ambulatory No Primary Care Physician -[facility] Start: 12-10-2024 End: 12-10-2024 Patient encounter procedure Yris Brown CNM -[facility] Work Phone: Start: 12-10-2024 End: 12-10-2024 ambulatory No Primary Care Physician Facility:[facility] Start: 12-10-2024 End: 12-10-2024 Patient encounter procedure Yris Brown CNM -[facility] Work Phone: Start: 12-03-2024 End: 12-03-[address] Taina Huddleston MD -[facility] Work Phone: Start: 12-03-2024 End: 12-03-2024 ambulatory No Primary Care Physician -[facility] Start: 11-26-2024 End: 11-26-2024 ambulatory No Primary Care Physician -Laboratory Specimen Start: 11-26-2024 End: 11-26-[address] Taina Huddleston MD -Laboratory Specimen Work Phone: Start: 11-26-2024 End: 11-26-[address] Taina Huddleston MD -[facility] Work Phone: Start: 11-26-2024 End: 11-26-2024 ambulatory No Primary Care Physician [facility] Start: 11-26-2024 End: 11-26-2024 ambulatory Taina Huddleston Facility:[facility] Start: 11-23-2024 ambulatory No Primary Car e Physician Facility:[facility] Start: 11-23-2024 Non-patient / Non-visit Yris Hogan [facility] -[facility] Start: 11-23-2024 End: 11-23-2024 ambulatory No Primary Care Physician -[facility] Start: 11-23-2024 End: 11-23-2024 Patient encounter procedure Yris ZAMARRIPA -[facility] Work Phone: Start: 11-13-2024 End: 11-13-2024 Patient encounter procedure Yris Brown CNM -[facility] Work Phone: Start: 11-13-2024 End: 11-13-2024 ambulatory No Primary Care Physician [facility] Start: 10-29-2024 End: 10-29-[address] Taina Huddleston MD -[facility] Work Phone: Start: 10-29-2024 End: 10-29-2024 ambulatory No Primary Care Physician -[facility] Start: 10-16-2024 End: 10-16-2024 Patient encounter procedure Yris Brown CNM -[facility] Work Phone: Start: 10-16-2024 End: 10-16-2024 ambulatory No Primary Care Physician -[facility] Start: 10-01-2024 End: 10-01-2024 Patient encounter procedure Tawanna GRANADO -[facility] Work Phone: Start: 10-01-2024 End: 10-01-2024 ambulatory No Primary Care Physician [facility] Work Phone: Start: 10-01-2024 End: 10-01-2024 ambulatory Taina Huddleston Facility:[facility] Start: 09-10-2024 End: 09-10-2024 ambulatory No Primary Care Physician [facility] Work Phone: Start: 09-10-2024 End: 09-10-[address] Taina Huddleston MD -Laboratory Specimen Work Phone: Start: 09-10-2024 End: 09-10-[address] Taina Huddleston MD -[facility] Work Phone: Start: 09-10-2024 End: 09-10-2024 ambulatory No Primary Care Physician [facility] Work Phone: Start: 09-10-2024 End: 09-10-2024 ambulatory Taina Huddleston Facility:[facility] Start: 08-13-2024 End: 08-13-2024 Patient encounter procedure Yris Brown CNM -[facility] Work Phone: Start: 08-13-2024 End: 08-13-2024 ambulatory No Primary Care Physician Facility:[facility] Start: 07-30-2024 End: 07-30-2024 ambulatory NO PRIMARY CARE [facility] Start: 07-16-2024 End: 07-16-2024 Patient encounter procedure Tawanna GRANADO -[facility] Work Phone: Start: 07-16-2024 End: 07-16-2024 ambulatory No Primary Care Physician Facility:[facility] Start: 06-19-2024 End: 06-19-2024 ambulatory Facility:[facility] Start: 06-19-2024 End: 06-19-2024 Patient encounter procedure Erick Schafer LARRY.CHIEF OPHTHALMIC TECHNICIAN Work Phone: [facility] Comment on above: Tick bite of abdomen , initial encounter (Primary Dx) Start: 06-18-2024 End: 06-18-[address] Cary Brenner DO -[facility] Work Phone: Start: 06-18-2024 End: 06-18-2024 ambulatory No Primary Care Physician Facility:[facility] Start: 05-28-2024 End: 05-28-2024 Patient encounter procedure Yris Brown CNM -Lab [facility] Start: 05-28-2024 End: 05-28-2024 ambulatory No Primary Care Physician Facility:[facility] Start: 05-24-2024 End: 05-24-2024 Emergency department patient visit Dr. Julio Louise DO -Emergency Department Work Phone: Start: 05-21-2024 End: 05-21-2024 Patient encounter procedure Yris Brown CNM -Laboratory Specimen Work Phone: Start: 05-21-2024 End: 05-21-2024 Patient encounter procedure Yris Brown CNM -[facility] Work Phone: Start: 05-21-2024 End: 05-21-2024 ambulatory No Primary Care Physician Facility:[facility] Start: 05-21-2024 End: 05-21-2024 ambulatory No Primary Care Physician Facility:[facility] Start: 05-12-2024 ambulatory SELF SELF Facility:[facility] Start: 05-08-2024 ambulatory Farzana Mariana Facility :[facility] Start: 06-13-2023 End: 03-07-2024 Office outpatient visit 25 minutes Jamal Daniel MD Work Phone: [facility] Comment on above: BRCA2 gene mutation positive in female (Primary Dx); Cyst of right ovary Start: 06-13-2023 ambulatory SELF SELF Facility:[facility] Start: 06-21-2022 End: 06-22-2022 Emergency department patient visit Dayanna Ariza MD Work Phone: [facility] Emergency Department Start: 03-23-2022 End: 03-23-2022 Subsequent hospital visit by physician Archana aGrcia PHONE ENGINEER-CHIEF OPHTHALMIC TECHNICIAN Work Phone: Department of Radiology Comment on above: Arrived Start: 12-19-2021 End: 12-19-2021 Office outpatient new 45 minutes Jamal Daniel MD Work Phone: [facility] Comment on above: Thyroid mass (Primar y Dx); Encounter for initial prescription of contraceptive pills; BRCA2 gene mutation positive in female; Cervical cancer screening Start: 08-09-2021 End: 08-09-2021 Subsequent hospital visit by physician Archana Garcia PHONE ENGINEER-CHIEF OPHTHALMIC TECHNICIAN Work Phone: Department of Radiology Comment on above: Canceled (Cancel Fern son Not Listed - Please provide detailed information) Start: 06-26-2021 End: 06-26-2021 Office outpatient visit 15 minutes Adeola Tirado PHONE ENGINEER-CHIEF OPHTHALMIC TECHNICIAN Work Phone: [facility] [place] Comment on above: Viral pharyngitis (P rimary Dx); Sore throat Start: 09-06-2020 End: 09-06-2020 ambulatory [facility] Procedures Date Procedure Procedure Detail Performing Clinician Start: 11-26-2024 Beta-hemolytic Strep tococcus culture No Primary Care Physician Start: 11-23-2024 Measurement of pH in vaginal fluid specimen using nitrazine yellow for detection of rupture of amniotic membrane No Primary Care Physician Comment on above: Amniotic fluid not p resent indicates No Rupture of FetalMembranes at time of specimen collection. Start: 10-01-2024 Serologic test for syphilis No Primary Care Physician Start: 09-10-2024 Urine culture No Primar y [...] Iaadiadoo streptococ cus group a Adeola Tirado PHONE ENGINEER-CHIEF OPHTHALMIC TECHNICIAN Work Phone: Plan of Treatment Date Care Activity Detail Author Start: 12-10-2024 CBC W Auto Different ial panel - Blood [facility] Start: 12-10-2024 Comprehensive metabo lic 2000 panel - Serum or Plasma [facility] Start: 12-10-2024 Protein/Creatinine [ Ratio] in Urine [facility] Start: 11-23-2024 Nonstress test [facility] Start: 11-23-2024 Obstetric monitoring [facility] Start: 11-23-2024 Vital signs measurements [facility] Start: 11-23-2024 [facility] Start: 11-23-2024 Patient discharge [facility] Start: 10-01-2024 CBC W Auto Different ial panel - Blood [facility] Start: 10-01-2024 Measurement of gluco se 2 hours after glucose challenge for glucose tolerance test [facility] Start: 10-01-2024 Serologic test for syphilis [facility] Start: 10-01-2024 [facility] Start: 06-18-2024 End: 06-18-2024 Patient encounter procedure 06/18/2024 1:00 PM EDT Office Visit [facility] [address] [place] [address] Jamal Daniel MD [address] [place] [address] [facility] Start: 12-08-2023 Covid-19 Vaccine () Covid-19 Vaccine () [facility] Start: 12-08-2023 Influenza vaccination Influenza Vacc ine (#1) [facility] Start: 12-19-2022 Screening for malign ant neoplasm of cervix CERVICAL CANCER SCREENING DISCUSSION [facility] Start: 12-19-2022 End: 12-19-2022 Patient encounter procedure 12/19/2022 Office Visit Gynecology Jamal Daniel MD [address] [facility] [address] [facility] [address] [place] [address] [facility] Start: 12-07-2022 COVID-19 VACCINE (2 - 2023-24 season) COVID-19 VACCINE ( season) [facility] Start: 12-07-2022 Influenza vaccination INFLUENZA VACC INE (#1) [facility] Start: 10-30-2022 End: 10-30-2022 Patient encounter procedure 10/30/2022 Office Visit Surgical Oncology Archana Garcia, PHONE ENGINEER-CHIEF OPHTHALMIC TECHNICIAN [address] [facility] [address] [place] [id number] Division of Surgical Oncology Start: 03-28-2022 GONORRHEA SCREEN GONORRHEA SCREEN [facility] Start: 03-28-2022 Screening for Chlamy ty trachomatis [facility] Start: 12-19-2021 End: 12-19-2022 Thyrotropin [Units/volume] in Serum or Plasma TSH Lab Routine Thyroid mass Expected: 12/19/2021, Expires: 12/19/2022 [facility] Comment on above: Expected: 12/19/2021 , Expires: 12/19/2022 Start: 12-19-2021 End: 12-19-2022 Thyroxine (T4) free [Mass/volume] in Serum or Plasma T4 FREE Lab Routine Thyroid mass Expected: 12/19/2021, Expires: 12/19/2022 [facility] Comment on above: Expected: 12/19/2021 , Expires: 12/19/2022 Start: 12-19-2021 End: 12-19-2022 Triiodothyronine (T3) Free [Mass/volume] in Serum or Plasma T3 FREE Lab Routine Thyroid mass Expected: 12/19/2021, Expires: 12/19/2022 [facility] Comment on above: Expected: 12/19/2021 , Expires: 12/19/2022 Start: 12-07-2021 Influenza vaccination [facility] Start: 10-17-2021 End: 10-17-2021 Patient encounter procedure 10/17/2021 Office Visit Gynecology Jamal Daniel MD [address] [place] [id number] [facility] Start: 07-18-2021 End: 07-18-2021 Patient encounter procedure 07/18/2021 Office Visit Surgical Oncology Gretta Parra MD [address], [address] [place] [phone] Archana Garcia, PHONE ENGINEER-CHIEF OPHTHALMIC TECHNICIAN [address] [place] [address] Division of Surgical Oncology Start: 06-26-2021 End: 06-26-2022 Throat culture CULTURE THROAT Microbiology Routine Sore throat Expected: 06/26/2021, Expires: 06/26/2022 [facility] Comment on above: Expected: 06/26/2021 , Expires: 06/26/2022 Start: 01-14-2021 COVID-19 VACCINE (2 - Pfizer 3-dose series) COVID-19 VACCINE (2 - Pfizer 3-dose series) [facility] Start: 01-14-2021 COVID-19 VACCINE (2 - Pfizer series) COVID-19 VACCINE (2 - Pfizer series) [facility] Start: 12-07-2020 Influenza vaccination INFLUENZA VACC INE (#1) [facility] Start: 10-19-2020 Screening for malign ant neoplasm of cervix CERVICAL CANCER SCREENING DISCUSSION [facility] Start: 2017 Screening for malign ant neoplasm of cervix Cervical Cancer Screening [facility] Start: 06-11-2015 Pneumococcal vaccination Pneum ococcal Vaccine (1 of 2 - PCV) [facility] Start: 06-11-2015 Third diphtheria, te tanus and acellular pertussis (DTaP) vaccination TDAP (ADULT) [facility] Start: 2014 Anxiety Screening Anxiety Screening [facility] Start: 2014 Depression Screening Depression Scre ening [facility] Start: 2014 Hepatitis C screening Hepatitis C Sc reenakita [facility] Start: 2014 HIV screening HIV Screening [facility] Start: 2014 Tetanus vaccination TETANUS [facility] Start: 06-11-2011 HIV screening HIV SCREENING DISCUSSION [facility] Start: 06-11-2007 Urine microalbumin profile DTa P,Tdap,Td Vaccine (6 - Tdap) [facility] Start: 06-11-2007 Vaccination for nagi n papillomavirus HPV VACCINE ADOL (1 - 2-dose series) [facility] Start: 1996 Hepatitis C antibody , confirmatory test HEPATITIS C VIRUS SCREENING [facility] Start: 1996 Hepatitis C screening HEPATITI S C VIRUS SCREENING [facility] Start: 1996 Potassium [Moles/vol ume] in Serum or Plasma POTASSIUM [facility] Start: 1996 Tetanus vaccination TETANUS [facility] Alanine aminotransfe rase [Enzymatic activity/volume] in Serum or Plasma [facility] Albumin [Mass/volume ] in Serum or Plasma [facility] Alkaline phosphatase [Enzymatic activity/volume] in Serum or Plasma [facility] Anion gap in Serum o r Plasma [facility] Bilirubin, total measurement [facility] BUN/Creatinine ratio [facility] Calcium [Mass/volume ] in Serum or Plasma [facility] Carbon dioxide, tota l [Moles/volume] in Central venous blood [facility] CBC W Auto Different ial panel - Blood [facility] Creatinine [Mass/vol ume] in Serum or Plasma [facility] Creatinine [Mass/vol ume] in Urine collected for unspecified duration [facility] Cytology Cervical or vaginal smear or scraping study CYTOLOGY-TRAINMAN, LIQUID BASED Cytology Routine Cervical cancer screening 12/19/2021 6:19 PM EDT [facility] Erythrocyte mean corpuscular volume determination [facility] Erythrocyte mean corpuscular volume determination [facility] EXTRA MICRO EXTRA MICRO Flui ds STAT 06/21/2022 8:29 PM EDT [facility] Glucose [Mass/volume ] in Serum or Plasma [facility] GOLD TOP TUBE GOLD TOP TUBE La b STAT 06/21/2022 7:47 PM EDT [facility] Hematocrit [Volume Fraction] of Blood [facility] Hematocrit [Volume Fraction] of Blood [facility] Hemoglobin [Mass/vol ume] in Blood [facility] Hemoglobin [Mass/vol ume] in Blood [facility] LAVENDER TOP TUBE LAVENDER TOP T UBE Lab STAT 06/21/2022 7:47 PM EDT [facility] Leukocytes [#/volume ] in Blood [facility] Leukocytes [#/volume ] in Blood [facility] LT BLUE TOP TUBE LT BLUE TOP TUB E Lab STAT 06/21/2022 7:47 PM EDT [facility] Mean corpuscular hemoglobin concentration determination [facility] Mean corpuscular hemoglobin concentration determination [facility] Mean corpuscular hemoglobin determination [facility] Mean corpuscular hemoglobin determination [facility] Measurement of gluco se 2 hours after glucose challenge for glucose tolerance test [facility] Measurement of renal function [facility] Microscopic urinalysis URINALYSI S WITH CULTURE HOLD Lab STAT 06/21/2022 8:29 PM EDT [facility] MINT GREEN TOP TUBE MINT GREEN T OP TUBE Lab STAT 06/21/2022 7:47 PM EDT [facility] End: 03-23-2022 MR Breast - bilateral WO and W contrast IV [facility] Comment on above: 1 Occurrences starti ng 03/23/2022 until 03/23/2022 Neutrophil count [facility] Neutrophil count [facility] Neutrophil percent differential count [facility] Neutrophil percent differential count [facility] Patient Education [facility] Work Phone: Patient referral [facility] Work Phone: Platelets [#/volume] in Blood [facility] Platelets [#/volume] in Blood [facility] Potassium measurement [facility] Protein [Mass/volume ] in Urine [facility] Protein/Creatinine [ Mass Ratio] in Urine [facility] RAINBOW DRAW RAINBOW DRAW Lab STAT 06/21/2022 7:47 PM EDT [facility] Work Phone: Red blood cell count [facility] Red blood cell count [facility] Red cell distributio n width determination [facility] Red cell distributio n width determination [facility] Serologic test for syphilis [facility] Serum chloride measurement [facility] Sodium measurement [facility] Streptococcus agalac tiae [Presence] in Unspecified specimen by Organism specific culture [facility] Total protein measurement [facility] Urea nitrogen [Mass/volume] in Serum or Plasma [facility] Us transvaginal VT ECHOGRAPHY,TRANSVAGINA L VT - OFFICE PERFORMED IMAGING Routine BRCA2 gene mutation positive in female Cyst of right ovary Ordered: 06/13/2023 [facility] Comment on above: Ordered: 06/13/2023 [facility] Immunizations Immunization Date Immunization Notes Care Provider Gregory jay 10-01-2024 tetanus toxoid, redu fercho diphtheria toxoid, and acellular pertussis vaccine, adsorbed No Primary Care Physician [facility] 12-24-2020 COVID-19 vaccine, MR URIEL, Pfizer, 0.3 ML Adeola Tirado PHONE ENGINEER-CHIEF OPHTHALMIC TECHNICIAN Work Phone: [facility] 05-15-2019 influenza, injectabl e, quadrivalent, preservative free No Primary Care Physician [facility] 05-15-2019 influenza, seasonal, injectable, preservative free Adeola Tirado PHONE ENGINEER-CHIEF OPHTHALMIC TECHNICIAN Work Phone: [facility] 05-15-2019 influenza virus vaccine, unspecified formulation Adeola Tirado PHONE ENGINEER-CHIEF OPHTHALMIC TECHNICIAN Work Phone: [facility] 07-17-2001 diphtheria, tetanus toxoids and acellular pertussis vaccine, unspecified formulation Adeola Tirado PHONE ENGINEER-CHIEF OPHTHALMIC TECHNICIAN Work Phone: [facility] 07-17-2001 measles, mumps and rubella virus vaccine Adeola Tirado PHONE ENGINEER-CHIEF OPHTHALMIC TECHNICIAN Work Phone: [facility] 07-17-2001 poliovirus vaccine, inactivated Adeola Tirado PHONE ENGINEER-CHIEF OPHTHALMIC TECHNICIAN Work Phone: [facility] 04-06-1999 diphtheria, tetanus toxoids and acellular pertussis vaccine, unspecified formulation Adeola Tirado PHONE ENGINEER-CHIEF OPHTHALMIC TECHNICIAN Work Phone: [facility] 04-06-1999 poliovirus vaccine, inactivated Adeola Tirado PHONE ENGINEER-CHIEF OPHTHALMIC TECHNICIAN Work Phone: [facility] 10-21-1997 diphtheria, tetanus toxoids and acellular pertussis vaccine, unspecified formulation Adeola Tirado PHONE ENGINEER-CHIEF OPHTHALMIC TECHNICIAN Work Phone: [facility] 10-21-1997 haemophilus influenz ae type b vaccine, PRP-OMP conjugate Adeola Tiraod PHONE ENGINEER-CHIEF OPHTHALMIC TECHNICIAN Work Phone: [facility] 10-21-1997 measles, mumps and rubella virus vaccine Adeola Tirado PHONE ENGINEER-CHIEF OPHTHALMIC TECHNICIAN Work Phone: [facility] 05-28-1997 diphtheria, tetanus toxoids and acellular pertussis vaccine, unspecified formulation Adeola Tirado PHONE ENGINEER-CHIEF OPHTHALMIC TECHNICIAN Work Phone: [facility] 05-28-1997 haemophilus influenz ae type b vaccine, PRP-OMP conjugate Adeola Tirado PHONE ENGINEER-CHIEF OPHTHALMIC TECHNICIAN Work Phone: [facility] 05-28-1997 hepatitis B vaccine, pediatric or pediatric/adolescent dosage Adeola Tirado PHONE ENGINEER-CHIEF OPHTHALMIC TECHNICIAN Work Phone: [facility] 05-28-1997 trivalent poliovirus vaccine, live, oral Adeola Tirado PHONE ENGINEER-CHIEF OPHTHALMIC TECHNICIAN Work Phone: [facility] 1996 diphtheria, tetanus toxoids and acellular pertussis vaccine, unspecified formulation Adeola Tirado PHONE ENGINEER-CHIEF OPHTHALMIC TECHNICIAN Work Phone: [facility] 1996 haemophilus influenz ae type b vaccine, PRP-OMP conjugate Adeola Tirado PHONE ENGINEER-CHIEF OPHTHALMIC TECHNICIAN Work Phone: [facility] 1996 hepatitis B vaccine, pediatric or pediatric/adolescent dosage Adeola Tirado PHONE ENGINEER-CHIEF OPHTHALMIC TECHNICIAN Work Phone: [facility] 1996 trivalent poliovirus vaccine, live, oral Adeola Tirado PHONE ENGINEER-CHIEF OPHTHALMIC TECHNICIAN Work Phone: [facility] 1996 hepatitis B vaccine, pediatric or pediatric/adolescent dosage Adeola Tirado PHONE ENGINEER-CHIEF OPHTHALMIC TECHNICIAN Work Phone: [facility] Payers Date Payer Category Payer Self-pay 2024 Unknown [id number] 2020 Medicaid [id number] 2020 Medicaid [id number] 2019 Unknown [id number] 1996 Unknown [id number] 2.16. [id number] 1996 Unknown [id number] 2.16. [id number] 1996 Unknown [id number] 2.16. [id number] Unknown [id number] Unknown [id number] 2.16.8 [id number] Unknown [id number] 2.16.8 40.1.771311.3.579.2.462 Unknown [id number] 2.16.8 40.1.963668.3.579.2.462 Unknown [id number] 2.16.8 40.1.994601.3.579.2.462 Unknown [id number] 2.16.8 40.1.451800.3.579.2.462 Unknown [id number] 2.16.8 40.1.847464.3.579.2.462 Unknown [id number] 2.16.8 40.1.079491.3.579.2.462 Unknown [id number] 2.16.8 40.1.448801.3.579.2.462 Unknown [id number] 2.16.8 40.1.599128.3.579.2.462 Unknown [id number] 2.16.8 40.1.598109.3.579.2.462 Unknown [id number] 2.16.8 40.1.094422.3.579.2.462 Unknown [id number] 2.16.8 40.1.977475.3.579.2.462 Unknown [id number] 2.16.8 40.1.336524.3.579.2.462 Unknown [id number] 2.16.8 40.1.726032.3.579.2.462 Unknown [id number] 2.16.8 40.1.792087.3.579.2.462 Unknown [id number] 2.16.8 40.1.751981.3.579.2.462 Unknown [id number] 2.16.8 40.1.664084.3.579.2.462 Unknown [id number] 2.16.8 40.1.733795.3.579.2.462 Unknown [id number] 2.16.8 40.1.023669.3.579.2.462 Unknown [id number] 2.16.8 40.1.592871.3.579.2.462 Unknown [id number] 2.16.8 [id number] Social History Date Type Detail Facility Start: 10-20-2019 Tobacco smoking stat us [facility]IS Ex-smoker [facility] End: 08-06-2018 History of tobacco use Current smoker [facility] End: 08-06-2018 History of tobacco use Cigarette Smoker [facility] Start: 10-20-2019 End: 03-17-2020 Cigarettes smoked current (pack per day) - Reported 0.5 [facility] Start: 10-20-2019 End: 06-19-2024 Tobacco use and exposure Smokeless tobacco non-user [facility] Start: 06-26-2021 End: 05-03-2023 Alcohol intake Current drinker of alcohol (finding) [facility] Start: 06-26-2021 History SDOH Alcohol Comment occ [facility] Start: 1996 Sex Assigned At Not on file A [facility] Start: 07-18-2021 History SDOH Financial 5 [facility] Start: 04-12-2022 History SDOH Food Worry 1 [facility] Start: 07-18-2021 History SDOH Transpo rt Med 2 [facility] Start: 07-08-2021 End: 07-18-2021 Exposure to SARS-CoV-2 (event) Not sure [facility] Start: 03-13-2022 End: 03-23-2022 Exposure to SARS-CoV-2 (event) Unable to assess [facility] Start: 03-17-2020 End: 10-30-2022 Tobacco use panel [facility] How hard is it for y ou to pay for the very basics like food, housing, medical care, and heating Not hard at all [facility] (I/We) worried wheth er (my/our) food would run out before (I/we) got money to buy more. Never true [facility] Gender identity Identifies as fe male gender (finding) [facility] Start: 06-19-2024 [facility] Start: 03-31-2024 [facility] Start: 05-24-2024 [facility] (finding) [facility] Start: 1995 Sex Assigned At Female [facility] Clinical Notes 06-26-2021 to 12-10-2024 Note Date & Type Note Facility 12-10-2024 Progress note [facility] 11-26-2024 Progress note [facility] 11-23-2024 Progress note [facility] 11-13-2024 Progress note [facility] 10-29-2024 Progress note [facility] 10-16-2024 Progress note [facility] 10-16-2024 Progress note Note Date/Time October 16, 2024 3:40pm [facility] [address] [place] [address], [address] [place] [address] OFFICE VISIT Date of Service: 10/16/24 MR#: [id number] Acct: [id number] Name: ANJU MUELLER p #: [id number] : 1995 Provider: FRANSISCO Brown Age/Sex: 29/F Location: [facility] [place] [facility] Status: Signed Intake Vital Signs 08/13/24 14:11 10/01/24 10:13 10/16/24 15:07 Height 5 ft 7 in 5 ft 7 in 5 ft 7 in Weight: 190 lb 8 oz BMI 29.8 BP 116/76 Intake Visit Reasons: 30wk ob Vehicle Upholsterer Required: No Is patient in pain?: No Allergies No Known Allergies Allergy (Verified 10/16/24 15:08) Medications ?Medication ?Instructions ?Recorded ?Confirmed ?Type vits no.126-ferrous fum tab PO 05/08/2410/16 History 28 mg iron-folic acid 800 mcg tablet (Classic ) Last Menstrual Period: 03/17/24 Zika: Zika virus screening: Negative : No Have you fallen in the past year?: No PFSH PFSH Medical History BRCA2 gene mutation positive Family history of BRCA2 gene positive Surgical History [place] teeth removed Family History Mother BRCA gene mutation positive Preventative mastectomy done, 16 other relatives also + Aunt Breast cancer Social History household members: significant other and children number of children: 1 current occupational status: employed current occupation: [employer] in [place] current occupational exposures/hazards: No pets and animals: [...] 3-4 times per week duration: 15-30 minutes/day carissa/hoahaoism: None seatbelt use: always do you feel safe at home: Yes additional social history: Fianc?: [employer] in [place] History 2 Elective abortions Hx Para 1 Spontaneous abortions Hx # Term Pregnancies 1 Ectopic pregnancies Hx # Pregnancies Multiple births # of living children 1 Past Pregnancies Del. Date Name GA/Weeks Outcome Route Bth Weight Infant Gen Labor Lgth Anes thecailin Del Locatn Provider FOB 05/14/19 Annie 42 live - full term 8lbs 4oz Female 10hours epidural [facility] Dr Calero's, Cintia Jones Delivery Date: 05/14/19 Last Updated by: Farzana Peña RN Induced d/t post dates, small PP hemorrhage HPI 30wk ob Details: ANJU SEN is a 29 year old who presents for routine OB visit. OB Visit SAULO Calculator Estimated Delivery Date Method Current WG Current Estimate 12/22/24 LMP (Certain) 30w 3d Expected Delivery Route/Plan Labor Preferences- CB/BF classes: [...] Date -?-?-?-?-?-?-?-?-?-?-?-?- EGA Weight BP Urine Prot -?-?-?-?-?-?-?-?-?-?-?-?- Glucose FHR FuHt Pres Dilation -?-?-?-?-?-?-?-?-?-?-?-?- Effaced St Visit Note 05/21/24 -?-?-?-?-?-?-?-?-?-?-?-?- 9w 2d 160 lb 2 oz (+2 oz) 121/79 -?-?-?-?-?-?-?-?-?-?-?-?- 178 -?-?-?-?-?-?-?-?-?-?-?-?- KW- CRL cons wit h dates. accepts NIPT 06/18/24 -?-?-?-?-?-?-?-?-?-?-?-?- 13w 2d 162 lb 8 oz (+2 lb 8 oz) 116/77 Negative -?-?-?-?-?-?-?-?-?-?-?-?- Negative 158 -?-?-?-?-?-?-?-?-?-?-?-?- JV- MARGARET still co nsistent with established GA. no [...] oz (+21 lb 2 oz) 101/68 1+ -?-?-?-?-?-?-?-?-?--?-?-?- Negative 160 26 -?-?-?-?-?-?-?-?-?-?-?-?- Sm- no vb lof go od fm nr oegualr ctx Sm- no vb lof good fm nr oeg ualr ctx culture sent for proteinuria 10/01/24 -?-?-?-?-?-?-?-?-?-?-?-?- 28w 2d 188 lb (+28 lb) 104/68 Negative -?-?-?-?-?-?-?-?-?-?-?-?- Negative 143 28 -?-?-?-?-?-?-?-?-?-?-?-?- MH-NoVB, LOF. Go od FM. 28 wk labs pending. Larc, tdap. 10/16/24 -?-?-?-?-?-?-?-?-?-?-?-?- 30w 3d 190 lb 8 oz (+30 lb 8 oz) 116/76 Negative -?-?-?-?-?-?-?-?-?-?-?-?- Negative 145 30 -?-?-?-?-?-?-?-?-?-?-?-?- KW- no vb/lof/ct x. good fm. no concerns today ACOG First Trimester First Trimester: Desire for [...] and Symptoms of Preeclampsia, Feeding No , Education and Family Medical Leave or Disability Forms ROS Const Reports system reviewed and no additional complaints, except as documented Eyes Reports system reviewed and no additional complaints, except as documented ENT Reports system reviewed and no additional complaints, except as documented Card Reports system reviewed and no additional complaints, except as documented Resp Reports system reviewed and no additional complaints, except as documented GI Reports system reviewed and no additional complaints, except as documented, Denies nausea and Denies vomiting Reports system reviewed and no additional complaints, except as documented Musc Reports system reviewed and no additional complaints, except as documented Skin/Breast Reports system reviewed and no additional complaints, except as documented Neuro Yes system reviewed and no additional complaints, except as documented Psych Reports system reviewed and no additional complaints, except as documented Endo Reports system reviewed and no additional complaints, except as documented Jb/Lymph Reports system reviewed and no additional complaints, except as documented Aller/Immun Reports system reviewed and no additional complaints, except as documented Exam Const General: cooperative, healthy appearing and no acute distress Orientation: alert, awake and oriented x3 Neck Neck: normal visual inspection and full ROM Resp Effort & Inspection: normal respiratory effort, able to speak in complete sentences and symmetric chest movement GI Inspection: normal to inspection Palpation: soft and other Other: gravid Skin General: no rashes or lesions noted Neuro General: patient alert, patient awake and patient oriented x3 Cognition: normal cognition Speech: speech normal Gait: normal gait Motor: muscle tone normal throughout Extrem General: normal to inspection and full ROM Psych Appearance: grossly normal Mental Status: mental status grossly normal Mood: congruent mood Affect: normal affect Speech and Movement: speech and movement normal Attitude: cooperative Thought Process: normal Thought Content: normal Judgment: judgment good Results POC Urinalysis 2 Dip (Clinic) Office Urine Glucose Negative Last Edit by Olena Tam on 10/16/24 15:13 Office Urine Protein Negative Last Edit by Olena Tam on 10/16/24 15:13 Coding Level of Care Code Off vis,est,level 3 Diagnoses Cystic fibrosis carrier Z14.1 Encounter for supervision of other normal in third trimester Z34.83 Normal : other normal Trimester: third trimester 30 weeks gestation of Z3A.30 Weeks of gestation: 30 weeks BRCA2 gene mutation positive Z15.01; Z15.09 Assessment and Plan Assessment and Plan (1) Cystic fibrosis carrier: Status: Acute Comment: FOB neg. 03/19 (2) Supervision of normal : Status: Acute Qualifiers: Normal : other normal Trimester: third trimester Qualified Code(s): Z34.83 - Encounter for supervision of other normal , third trimester Comment: PRR, , SAULO 12/22/24, girl, Annika PC: Hank Valencia?: Shmuel (3) : Status: Acute Qualifiers: Weeks of gestation: 30 weeks Qualified Code(s): Z3A.30 - 30 weeks gestation of Comment: NIPT low risk- carrier neg / carrier for cystic fibrosis, nl anatomy. (4) BRCA2 gene mutation positive: Status: Acute Comment: OBGYN in [place]; gets yearly MRI w/contrast (Due 2/3 but wants to cancel d/t ) Orders: Orders POC Urinalysis 2 Dip (Clinic) Today Plan Details Additional Comments: ACOG trimester education reviewed and updated. see problem list details for updated plan management information and see below for orders placed at this visit. GA appropriate handout given. Clinical Quality Measures Falls Risk Screening/Assistive Devices Have you fallen in the past year?: No 10/16/24 4644 <Electronically signed by Yris govea CNM> Date _ Yris Brown CNM Cosigner Signature: Date (if applicable) CC: ~ [employer] Work Phone: 1(220) 181-618606-26-2025 [facility] [address], [address] [place] [address] OFFICE VISIT Date of Service: 10/01/24 MR#: [id number] Acct: [id number] Name: ANJU MUELLER p #: [id number] : 1995 Provider: VANNESA Farfan Age/Sex: 29/F Location: [facility] [place] Status: Signed Intake Vital Signs 08/13/24 14:11 09/10/24 08:48 10/01/24 10:05 10/01/24 10:13 Height 5 ft 7 in 5 ft 7 in 5 ft 7 in 5 ft 7 in Weight: 188 lb BMI 29.4 BP 104/68 Intake Visit Reasons: 28wk ob/glucose Chief Complaint: 28 Week OB/Glucose Vehicle Upholsterer Required: No Is patient in pain?: No [...] history of BRCA2 gene positive Surgical History [place] teeth removed Family History Mother BRCA gene mutation positive Preventative mastectomy done, 16 other relatives also + Aunt Breast cancer Social History household members: significant other and children number of children: 1 current occupational status: employed current occupation: [employer] in [place] current occupational exposures/hazards: No pets and animals: [...] 3-4 times per week duration: 15-30 minutes/day carissa/hoahaoism: None seatbelt use: always do you feel safe at home: Yes additional social history: Fianc?: [employer] in [place] History 2 Elective abortions Hx Para 1 Spontaneous abortions Hx # Term Pregnancies 1 Ectopic pregnancies Hx # Pregnancies Multiple births # of living children 1 Past Pregnancies Del. Date Name GA/Weeks Outcome Route Bth Weight Infant Gen Labor Lgth Anesthesia Del Locatn Provider FOB 05/14/19 Annie 42 live - full term 8lbs 4oz Female 10hours epidural [facility] Dr Fall, Cintia Jones Delivery Date: 05/14/19 [...] current plan of care details and appropriate ordersplaced. Relevant counseling for the gestational age provided. [...] oz) 116/74 Negative -?-?-?-?-?-?-?-?-?-?-?-?- Negative 149 -?-?-?-?-?-?-?-?-?-?-?-?- -No VB. Some f lutters. Denies concerns 08/13/24 -?-?-?-?-?-?-?-?-?-?-?-?- 21w 2d 175 lb (+15 lb) 119/82 Negative -?-?-?-?-?-?-?-?-?-?-?-?- Negative 145 20 -?-?-?-?-?-?-?-?-?-?-?-?- - no vb/crampi ng. good fm. US reviewed. [...] 104/68 Negative -?-?-?-?-?-?-?-?-?-?-?-?- Negative 143 28 -?-?-?-?-?-?-?-?-?-?-?-?- MH-NoVB, LOF. Go od FM. 28 wk labs pending. Larc, tdap. ACOG First Trimester First Trimester: Desire for , Alcohol, Tobacco Cessation, Illicit/Recreational Drug/Substance Use, Intimate Partner Violence, Barriers to care, Anticipated Course of Care, Use of Any medications, Sexual activity, Exercise, Dental Care, Sauna/Hot tub use, Seat Belt use, Childbirth c lasses/Hospital facilities, Travel, Indications for Ultrasound and Screening [...] Immediate Larc, Signs and Symptoms of Preeclampsia, Infant Feeding No , [place] Education and Family Medical Leave or Disability [...] third trimester Comment: PRR, , SAULO 12/22/24, girlAnnika PC: Hank Valencia?: Shmuel (2) : Status: Acute Qualifiers: Weeks of gestation: 28 weeks Qualified Code(s): Z3A.28 - 28 weeks gestation of Comment: NIPT low risk- carrier neg 13/14 carrier for cystic fibrosis, nl anatomy. (3) Cystic fibrosis carrier: Status: Acute Comment: FOB neg. 03/19 (4) BRCA2 gene mutation positive: Status: Acute Comment: OBGYN in [place]; gets yearly MRI w/contrast (Due 2/3 but wants to cancel d/t ) Orders: Orders POC Urinalysis 2 Dip (Clinic) Today Plan problem list reviewed and updated for most current plan of care and appropriate orders placed. Relevant counseling for the gestational age appropriate provided and ACOG education checklist updated. Continue routine care and follow up. 10/01/24 1024 s PRODUCT TESTER PRODUCT TESTER-C> Date _ Tawanna [place] PRODUCT TESTER PRODUCT TESTER-C Cosigner Signature: Date (if applicable) CC: ~ [facility]05-08-2025 Evaluation note* Diagnosis Onset Date Resolution Status Admit Date BRCA2 gene mutation positive acute August 13, 2024 2:08pm 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 M ay 2024 2:08pm acute August 13, 2024 2:08pm Supervision of normal acut e August 13, 2024 2:08pm BRCA2 gene mutation positive acute September 10, 2024 8:43am 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 J une 2024 8:43am acute September 10, 2024 8:43am Supervision of normal acut e September 10, 2024 8:43am BRCA2 gene mutation positive acute October 01, 2024 9:45am 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 J une 2024 9:45am acute October 01 9:45am Supervision of normal acut e October 01, 2024 9:45am BRCA2 gene mutation positive acute October 16, 2024 3:05pm 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 J candice 2024 3:05pm acute October 16 3:05pm Supervision of normal acut e October 16, 2024 3:05pm BRCA2 gene mutation positive acute October 29, 2024 10:06am 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 J candice 2024 10:06am acute October 29 10:06am Supervision of normal acut e October 29, 2024 10:06am BRCA2 gene mutation positive acute November 13, 2024 10:23am 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 A ugust 2024 10:23am acute November 13 10:23am Supervision of normal acut e November 13, 2024 10:23am BRCA2 gene mutation positive acute November 23, 2024 1:25pm 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 A ugust 2024 1:25pm acute November 23, 1:25pm Supervision of normal acut e November 23, 2024 1:25pm Vaginal discharge during acute November 23 1:25pm [facility] Work Phone: 1(293) 438-915105-08-2025 Evaluation note* Diagnosis Onset Date Resolution Status Admit Date BRCA2 gene mutation positive acute August 13, 2024 2:08pm 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 M ay 2024 2:08pm acute August 13, 2024 2:08pm Supervision of normal acute August 13, 2024 2: 08pm BRCA2 gene mutation positive acute September 10, 2024 8:43am 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 J une 2024 8:43am acute September 10, 2024 8:43am Supervision of normal acute September 10, 2024 8 :43am BRCA2 gene mutation positive acute October 01, 2024 9:45am 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 J une 2024 9:45am acute October 01 9:45am Supervision of normal acute October 01, 2024 9:45am BRCA2 gene mutation positive acute October 16, 2024 3:05pm 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 J candice 2024 3:05pm acute October 16 3:05pm Supervision of normal acute October 16, 2024 3:05pm BRCA2 gene mutation positive acute October 29, 2024 10:06am 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 J candice 2024 10:06am acute October 29 10:06am Supervision of normal acute October 29, 2024 10:06am BRCA2 gene mutation positive acute November 13, 2024 10:23am 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 A ugust 2024 10:23am acute November 13 10:23am Supervision of normal acute November 13, 2024 10:23am BRCA2 gene mutation positive acute November 23, 2024 1:25pm 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 A ugust 2024 1:25pm acute November 23, 025 1:25pm Supervision of normal acute November 23 1:25pm Vaginal discharge during resolved November 23 1:25pm BRCA2 gene mutation positive acute November 26, 2024 10:34am 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 A ugust 2024 10:34am acute November 26, 10:34am Supervision of normal acute November 26 10:34am [employer] Work Phone: 1(928) 977-217405-08-2025 Evaluation note* Diagnosis Onset Date Resolution Status Admit Date BRCA2 gene mutation positive acute August 13, 2024 2:08pm 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 M ay 2024 2:08pm acute August 13, 2024 2:08pm Supervision of normal acute August 13, 2024 2: 08pm BRCA2 gene mutation positive acute September 10, 2024 8:43am 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 J une 2024 8:43am acute September 10, 2024 8:43am Supervision of normal acute September 10, 2024 8 :43am BRCA2 gene mutation positive acute October 01, 2024 9:45am 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 J une 2024 9:45am acute October 01 9:45am Supervision of normal acute October 01, 2024 9:45am BRCA2 gene mutation positive acute October 16, 2024 3:05pm 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 J candice 2024 3:05pm acute October 16 3:05pm Supervision of normal acute October 16, 2024 3:05pm BRCA2 gene mutation positive acute October 29, 2024 10:06am 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 J candice 2024 10:06am acute October 29 10:06am Supervision of normal acute October 29, 2024 10:06am BRCA2 gene mutation positive acute November 13, 2024 10:23am 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 A ugust 2024 10:23am acute November 13 10:23am Supervision of normal acute November 13, 2024 10:23am BRCA2 gene mutation positive acute November 23, 2024 1:25pm 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 A ugust 2024 1:25pm acute November 23, 2 025 1:25pm Supervision of normal acute November 23 1:25pm Vaginal discharge during resolved November 23 1:25pm BRCA2 gene mutation positive acute November 26, 2024 10:34am 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 A ugust 2024 10:34am acute November 26, 2 025 10:34am Supervision of normal acute November 26 10:34am BRCA2 gene mutation positive acute December 03, 2024 2:46pm 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 A ugust 2024 2:46pm acute December 03, 2 025 2:46pm Supervision of normal acute December 03 2:46pm [facility] Work Phone: 1([phone]) 828-248705-08-2025 Evaluation note* Diagnosis Onset Date Resolution Status Admit Date BRCA2 gene mutation positive acute August 13, 2024 2:08pm 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 M ay 2024 2:08pm acute August 13, 2024 2:08pm Supervision of normal acute August 13, 2024 2: 08pm BRCA2 gene mutation positive acute September 10, 2024 8:43am 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 J une 2024 8:43am acute September 10, 2024 8:43am Supervision of normal acute September 10, 2024 8 :43am BRCA2 gene mutation positive acute October 01, 2024 9:45am 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 J une 2024 9:45am acute October 01 9:45am Supervision of normal acute October 01, 2024 9:45am BRCA2 gene mutation positive acute October 16, 2024 3:05pm 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 J candice 2024 3:05pm acute October 16 3:05pm Supervision of normal acute October 16, 2024 3:05pm BRCA2 gene mutation positive acute October 29, 2024 10:06am 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 J candice 2024 10:06am acute October 29 10:06am Supervision of normal acute October 29, 2024 10:06am BRCA2 gene mutation positive acute November 13, 2024 10:23am 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 A ugust 2024 10:23am acute November 13 10:23am Supervision of normal acute November 13, 2024 10:23am BRCA2 gene mutation positive acute November 23, 2024 1:25pm 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 A ugust 2024 1:25pm acute November 23, 025 1:25pm Supervision of normal acute November 23 1:25pm Vaginal discharge during resolved November 23 1:25pm BRCA2 gene mutation positive acute November 26, 2024 10:34am 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 A ugust 2024 10:34am acute November 26, 10:34am Supervision of normal acute November 26 10:34am BRCA2 gene mutation positive acute December 03, 2024 2:46pm 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 A ugust 2024 2:46pm acute December 03, 025 2:46pm Supervision of normal acute December 03 2:46pm BRCA2 gene mutation positive acute December 10, 2024 11:38am 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 S epte2024 11:38am Elevated blood pressure reading in office without diagnosis of hypertension acute 2024 11:38am acute December 10, 2024 11:38am Supervision of normal acute December 10 11:38am [facility] Work Phone: 1(242) 180-336304-10-2025 Evaluation note* Diagnosis Onset Date Resolution Status Admit Date BRCA2 gene mutation positive acute July 16, 2024 1:23pm 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 A pril 2024 1:23pm acute July 16 1:23pm Supervision of normal acut e July 16, 2024 1:23pm BRCA2 gene mutation positive acute August 13, 2024 2:08pm 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 M ay 2024 2:08pm acute August 13, 2024 2:08pm Supervision of normal acut e August 13, 2024 2:08pm BRCA2 gene mutation positive acute September 10, 2024 8:43am 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 J 2024 8:43am acute September 10, 2024 8:43am Supervision of normal acut e September 10, 2024 8:43am BRCA2 gene mutation positive acute October 01, 2024 9:45am 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 J une 2024 9:45am acute October 01 9:45am Supervision of normal acut e October 01, 2024 9:45am BRCA2 gene mutation positive acute October 16, 2024 3:05pm 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 J candice 2024 3:05pm acute October 16 3:05pm Supervision of normal acut e October 16, 2024 3:05pm BRCA2 gene mutation positive acute October 29, 2024 10:06am 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 J candice 2024 10:06am acute October 29 10:06am Supervision of normal acut e October 29, 2024 10:06am [facility] Work Phone: 1(343) 386-870404-10-2025 Evaluation note* Diagnosis Onset Date Resolution Status Admit Date BRCA2 gene mutation positive acute July 16, 2024 1:23pm 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 A pri2024 1:23pm acute July 16 1:23pm Supervision of normal acut e July 16, 2024 1:23pm BRCA2 gene mutation positive acute August 13, 2024 2:08pm 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 M ay 2024 2:08pm acute August 13, 2024 2:08pm Supervision of normal acut e August 13, 2024 2:08pm BRCA2 gene mutation positive acute September 10, 2024 8:43am 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 J une 2024 8:43am acute September 10, 2024 8:43am Supervision of normal acut e September 10, 2024 8:43am BRCA2 gene mutation positive acute October 01, 2024 9:45am 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 J une 2024 9:45am acute October 01 9:45am Supervision of normal acut e October 01, 2024 9:45am BRCA2 gene mutation positive acute October 16, 2024 3:05pm 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 J candice 2024 3:05pm acute October 16 3:05pm Supervision of normal acut e October 16, 2024 3:05pm BRCA2 gene mutation positive acute October 29, 2024 10:06am 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 J candice 2024 10:06am acute October 29 10:06am Supervision of normal acut e October 29, 2024 10:06am BRCA2 gene mutation positive acute November 13, 2024 10:23am 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 A ugust 2024 10:23am acute November 13 10:23am Supervision of normal acut e November 13, 2024 10:23am [facility] Work Phone: 1(170) 432-832903-14-2025 NoteHNO ID: [id number] Author: ERICK SCHAFER APRN.CHIEF OPHTHALMIC TECHNICIAN Service: ? Author Type: Nurse Practitioner Type: Progress Notes Filed: 06/19/2024 09:40 Note Text: This note was created using Micronotesriter. Subjective Anju Sen is a 29 year [...] other new or worsening concerns. Erick Schafer APRN.[facility]03-14-2025 History of Present illness Narrative* Erick Schafer APRN.[facility] - 06/19/2024 9:32 AM EDT This note was created using NoteWriter. Subjective [...] other new or worsening concerns. Erick Schafer APRN.[facility] Evaluation note* Diagnosis Onset Date Resolution Status Admit Date BRCA2 gene mutation positive acute June 18, 2024 2:19pm 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 M arch 2024 2:19pm acute June 18 2:19pm Supervision of normal acut e June 18, 2024 2:19pm BRCA2 gene mutation positive acute July 16, 2024 1:23pm 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 A pril 2024 1:23pm acute July 16 1:23pm Supervision of normal acut e July 16, 2024 1:23pm BRCA2 gene mutation positive acute August 13, 2024 2:08pm 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 M ay 2024 2:08pm acute August 13, 2024 2:08pm Supervision of normal acut e August 13, 2024 2:08pm BRCA2 gene mutation positive acute September 10, 2024 8:43am 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 J une 2024 8:43am acute September 10, 2024 8:43am Supervision of normal acut e September 10, 2024 8:43am BRCA2 gene mutation positive acute October 01, 2024 9:45am 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 J une 2024 9:45am acute October 01 9:45am Supervision of normal acut e October 01, 2024 9:45am [facility] Work Phone: 1(285) 906-569903-13-2025 Evaluation note* Diagnosis Onset Date Resolution Status Admit Date BRCA2 gene mutation positive acute June 18, 2024 2:19pm 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 M arch 2024 2:19pm acute June 18 2:19pm Supervision of normal acut e June 18, 2024 2:19pm BRCA2 gene mutation positive acute July 16, 2024 1:23pm 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 A pril 2024 1:23pm acute July 16 1:23pm Supervision of normal acut e July 16, 2024 1:23pm BRCA2 gene mutation positive acute August 13, 2024 2:08pm 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 M ay 2024 2:08pm acute August 13, 2024 2:08pm Supervision of normal acut e August 13, 2024 2:08pm BRCA2 gene mutation positive acute September 10, 2024 8:43am 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 J une 2024 8:43am acute September 10, 2024 8:43am Supervision of normal acut e September 10, 2024 8:43am BRCA2 gene mutation positive acute October 01, 2024 9:45am 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 J une 2024 9:45am acute October 01 9:45am Supervision of normal acut e October 01, 2024 9:45am BRCA2 gene mutation positive acute October 16, 2024 3:05pm 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 J candice 2024 3:05pm acute October 16 3:05pm Supervision of normal acut e October 16, 2024 3:05pm [facility] Work Phone: 1(299) 287-382902-13-2025 Evaluation note* Diagnosis Onset Date Resolution Status Admit Date BRCA2 gene mutation positive acute May 21, 2024 11:05am acute May 21, 2024 11:05am Supervision of normal acute May 21 11:05am BRCA2 gene mutation positive acute June 18, 2024 2:19pm 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 M 2024 2:19pm acute June 18 2:19pm Supervision of normal acute June 18, 2024 2:19pm BRCA2 gene mutation positive acute July 16, 2024 1:23pm 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 A pri2024 1:23pm acute July 16 1:23pm Supervision of [...] normal acute September 10, 2024 8 :43am [facility] Work Phone: 1(546) 893-401903-07-2024 History of Present illness Narrative* Yaz James - 06/13/2023 3:40 PM EST Anju Barber Dhara was offered and declined a Medical Journeyman Mechanic for this exam/procedure/test 06/16/2023. * Jamal Daniel [...] mutation in the BRCA2 gene called c.610delC (p.Xav636Zaikw*6), which puts her at 50% risk for [...] available to Ms. Francy govea through the [facility] Division of Human Genetics. The first is [...] or they may contact us by calling [phone]. Ms. Sen may be interested in sourceasy (www.[employer].org), an internet based support group specifically for families with BRCA gene mutations that meets regularly locally. She may also be interested inRedFlag Software (www.STAT-Diagnostica.org), an internet based support group specifically for young women with elevated cancer risks. The [employer] [place] Chapter page with event announcements can be found here: https://[email or web address]/communities/[email or web address]/ IMPRESSION AND PLAN: Based upon Ms. Sen [...] skin and eye exam for melanoma. Follow [place] Cancer Society guidelines for other cancer surveillance. See: http://www.cancer.org/ healthy/findcancerearly/cancerscreeningguidelines/ogutjjdo-myrcla-jmosuwk-guidel iqua-mca-bsh-cbfhh-ludrlhqtn-hx-cancer There are reproductive options for individuals with [...] counseling. Recommendations for screening are subject to change coordinator time. We encouraged Ms. Sen to maintain current contact information with our office and to check regularly with her care providers to ensurethat the most current recommendations are being followed. HISTORY OF PRESENT ILLNESS Anju Jules is a premenopausal 28 y.o. White female who presents to the [facility] for risk assessment and [...] had single site testing on 08/27/17 through [facility] and was positive for pathogenic mutation in BRCA2 c.610delC (p.Rbw793Zgjzl*6). She denies any current or new breast concerns, including lumps, skin changes, nipple changes/discharge or pain. She reports that she examines her breasts occasionally. SCREENING & HEALTH MAINTENANCE Colonoscopy: never Skin cancer screening: As needed - does have a derm Eye exams: annually Dental exams: Twice annually BMD: never Vitamin D deficiency: None known TRAINMAN exams: Annually - [facility] TRAINMAN Dermatological Surgeon RISK FACTORS FOR BREAST CANCER Social History Social History Narrative TRAINMAN: Patient's last menstrual period was 06/26/2021.. Last [...] had single site testing on 08/27/17 through [facility] and was positive for pathogenic mutation in BRCA2 c.610delC (p.Ovz485Rsnkg*6). Genes tested: BRCA2 Family Members with Genetic [...] individuals with 2 BRCA1 pathogenic variants. - Log Inspector for risk of autosomal recessive condition in [...] had single site testing on 08/27/17 through [facility] and was positive for pathogenic mutation in BRCA2 c.610delC (p.Pef835Qhscq*6). Chemoprevention discussion: She does not currently meet [...] her and pointed out 2 resources from [employer] and sourceasy websites. I also spent some time talking [...] were answered. Again, she does have followup. (DOC:[id number]) Current Outpatient Medications Medication Sig Multiple Vitamins-Minerals [...] Asked Domestic Violence No Social History Narrative TRAINMAN: Patient's last menstrual period was 06/26/2021.. Last [...] thetime counseling this patient. documented in this [facility]03-17-2023 Hospital Discharge instructions* Discharge Instructions* Dayanna Ariza MD - 06/22/2022 1:24 AM EDT US PELVIC W TRANSVAGINAL Final Result IMPRESSION: 1. Endometrial canal is distended with heterogeneous avascular material most likely patient admitting representative of blood products. 2. Hemorrhagic right ovarian cyst measuring up to 3.6 cm. 3. Normal left ovary. I personally viewed and interpreted these images and I have reviewed and approved this report. * Attachments The following attachments cannot be sent through Care Everywhere. * Vaginal Bleeding (Danish) documented in this [facility]03-16-2023 History of Present illness Narrative* Akila Bey - 06/21/2022 10:36 PM EDT Medical Journeyman Mechanic Declined. documented in this [facility]03-16-2023 Emergency department Note* Cassandra eRgalado RN - 06/21/2022 7:35 PM EDT Pt [...] chest pain or shortness of breath. [facility]03-16-2023 Emergency department Note* Cassandra Regalado RN - [...] or shortness of breath. [facility] History of Present illness Narrative* Miranda Donaldson - 03/23/2022 4:20 PM EST Second technologist present for imaging. No need for medical press hand. [facility] History of Present illness Narrative* Jamal Daniel [...] mutation in the BRCA2 gene called c.610delC (p.Poz923Hyltg*6), which puts her at 50% risk for [...] available to Ms. Francy govea through the [facility] Division of Human Genetics. The first is [...] or they may contact us by calling [phone]. Ms. Sen may be interested in sourceasy (www.[employer]), an internet based support group specifically for families with BRCA gene mutations that meets regularly locally. She may also be interested inRedFlag Software (www.STAT-Diagnostica.Moobia), an internet based support group specifically for young women with elevated cancer risks. The [employer] Chapter page with event announcements can be found here: https://[email or web address]/communities/[email or web address]/ IMPRESSION AND PLAN: Based upon Ms. Sen [...] skin and eye exam for melanoma. Follow [place] Cancer Society guidelines for other cancer surveillance. See: http://www.cancer.org/ healthy/findcancerearly/cancerscreeningguidelines/ltuzufpg-wticbg-rdfsval-guidel qaoa-djp-qdm-xsygs-fynewnsbw-jc-cancer There are reproductive options for individuals with [...] counseling. Recommendations for screening are subject to change coordinator time. We encouraged Ms. Sen to maintain current contact information with our office and to check regularly with her care providers to ensurethat the most current recommendations are being followed. HISTORY OF PRESENT ILLNESS Anju Jules is a premenopausal 26 y.o. White female who presents to the [facility] for risk assessment and [...] positive for pathogenic mutation in BRCA2 c.610delC (p.Mmp197Nrqlm*6). She denies any current or new breast concerns, including lumps, skin changes, nipple changes/discharge or pain. She reports that she examines her breasts occasionally. SCREENING & HEALTH MAINTENANCE Colonoscopy: never Skin cancer screening: As needed - does have a derm Eye exams: annually Dental exams: Twice annually BMD: never Vitamin D deficiency: None known TRAINMAN exams: Annually - [facility] TRAINMAN Dermatological Surgeon RISK FACTORS FOR BREAST CANCER Social History Social History Narrative TRAINMAN: Patient's last menstrual period was 06/26/2021.. Last [...] positive for pathogenic mutation in BRCA2 c.610delC (p.Ysu649Swfrf*6). Genes tested: BRCA2 Family Members with Genetic [...] individuals with 2 BRCA1 pathogenic variants. - Log Inspector for risk of autosomal recessive condition in [...] had single site testing on 08/27/17 through [facility] and was positive for pathogenic mutation in BRCA2 c.610delC (p.Lyj032Ogxzf*6). Chemoprevention discussion: She does not currently meet [...] Asked Domestic Violence No Social History Narrative TRAINMAN: Patient's last menstrual period was 06/26/2021.. Last [...] her and pointed out 2 resources from [employer] and sourceasy websites. I also spent some time talking [...] were answered. Again, she does have followup. (DOC:[id number]) [facility] History of Present illness Narrative* Adeola Tirado, LARRY-CHIEF OPHTHALMIC TECHNICIAN - 06/26/2021 7:15 PM EDT HPI Anju Anandncer-Francy female 1995 presents to the [facility] with Chief Complaint Patient [...] JUAN RAMON Bain 06/26/2021 [facility]* Diagnosis Viral pharyngitis- Primary Acute pharyngitis Sore throat Acute pharyngitis [facility] Diagnosis Thyroid mass- Primary Unspecified disorder of thyroid Encounter for initial prescription of contraceptive pills General counseling for prescription of oral contraceptives BRCA2 gene mutation positive in female Cervical cancer screening Screening for malignant neoplasm of the cervix [facility]* Diagnosis Family history of breast cancer Family history of malignant neoplasm of breast At high risk for breast cancer BRCA2 gene mutation positive in female [facility]* Diagnosis Vaginal bleeding- Primary Other specified noninflammatory disorder of vagina Right ovarian cyst Other and unspecified ovarian cyst [facility]* Diagnosis BRCA2 gene mutation positive in female- Primary Cyst of right ovary Other and unspecified ovarian cyst [facility]* Diagnosis Tick bite of abdomen, initial encounter- Primary [facility] Attachments The following attachments cannot be sent through Care Everywhere. * Sore Throat (Danish) documented in [facility] SystemProgress note Author Tawanna Farfan [facility] Note Date/Time October 01, 2024 10:2 3am [facility] [address], [address] [place] [address] OFFICE VISIT Date of Service: 10/01/24 MR#: [id number] Acct: [id number] Name: ANJU MUELLER p #: [id number] : 1995 Provider: VANNESA Farfan Age/Sex: 29/F Location: [facility] Status: Signed Intake Vital Signs 08/13/24 14:11 09/10/24 08:48 10/01/24 10:05 10/01/24 10:13 Height 5 ft 7 in 5 ft 7 in 5 ft 7 in 5 ft 7 in Weight: 188 lb BMI 29.4 BP 104/68 Intake Visit Reasons: 28wk ob/glucose Chief Complaint: 28 Week OB/Glucose Vehicle Upholsterer Required: No Is patient in pain?: No [...] history of BRCA2 gene positive Surgical History [place] teeth removed Family History Mother BRCA gene mutation positive Preventative mastectomy done, 16 other relatives also + Aunt Breast cancer Social History household members: significant other and children number of children: 1 current occupational status: employed current occupation: [employer] in [place] current occupational exposures/hazards: No pets and animals: [...] 3-4 times per week duration: 15-30 minutes/day carissa/hoahaoism: None seatbelt use: always do you feel safe at home: Yes additional social history: Fianc?: [employer] [place] History 2 Elective abortions Hx Para 1 Spontaneous abortions Hx # Term Pregnancies 1 Ectopic pregnancies Hx # Pregnancies Multiple births # of living children 1 Past Pregnancies Del. Date Name GA/Weeks Outcome Route Bth Weight Gen Labor Lgth Anesthesia Del Locatn Provider FOB 05/14/19 Annie 42 live - full term 8lbs 4oz Female 10hours epidural WC Dr Richardsons, Cintia Jones Delivery Date: 05/14/19 [...] -?-?-?-?-?-?-?-?-?-?-?-?- Negative 145 20 -?-?-?-?-?-?-?-?-?-?-?-?- KW- no vb/john cole fm. US reviewed. discussed tdap, flu and [...] 104/68 Negative -?-?-?-?-?-?-?-?-?-?-?-?- Negative 143 28 -?-?-?-?-?-?-?-?-?-?-?-?- MH-NoVB, LOF. Go od FM. 28 wk labs pending. [...] and Symptoms of Preeclampsia, Feeding No , [place] Education and Family Medical Leave or Disability [...] third trimester Comment: PRR, , SAULO 12/22/24, girl, Annika PC: Hank Valencia?: Shmuel (2) : Status: Acute Qualifiers: Weeks of gestation: 28 weeks Qualified Code(s): Z3A.28 - 28 weeks gestation of Comment: NIPT low risk- carrier neg carrier for cystic fibrosis, nl anatomy. (3) Cystic fibrosis carrier: Status: Acute Comment: FOB neg. 03/19 (4) BRCA2 gene mutation positive: Status: Acute Comment: OBGYN in [place]; gets yearly MRI w/contrast (Due / but wants to cancel d/t ) Orders: Orders POC Urinalysis 2 Dip (Clinic) Today Plan problem list reviewed and updated for most current plan of care and appropriate orders placed. Relevant counseling for the gestational age appropriate provided and ACOG education checklist updated. Continue routine care and follow up. 10/01/24 1024 <Electronically signed by Tawanna govea PRODUCT TESTER PRODUCT TESTER-C> Date _ Tawanna Farfan PRODUCT TESTER PRODUCT TESTER-C Cosigner Signature: Date (if applicable) CC: ~ [facility] Work Phone: progress note Author Taina Huddleston [facility] Note Date/Time October 29, 2024 10:4 2am [facility] [address], [address] [place] [address] OFFICE VISIT Date of Service: 10/29/24 MR#: [id number] Acct: [id number] Name: ANJU MUELLER p #: [phone] : 1995 Provider: Dr. Charli Huddleston MD Age/Sex: 29/F Location: [facility] Status: Signed Intake Vital Signs 10/01/24 10:13 10/16/24 15:07 10/29/24 10:12 Height 5 ft 7 in 5 ft 7 in 5 ft 7 in Weight: 196 lb 6 oz BMI 30.7 BP 112/73 Intake Visit Reasons: 32 wk ob Vehicle Upholsterer Required: No Is patient in pain?: No Feel stressed/tense/nervous/anxious/difficulty sleeping: not at all Allergies No Known Allergies Allergy (Verified 10/29/24 10:15) Medications ?Medication ?Instructions ?Recorded ?Confirmed ?Type vits no.126-ferrous fum tab PO 05/08/2410/29 History 28 mg iron-folic acid 800 mcg tablet (Classic ) Last Menstrual Period: 03/17/24 Zika: Zika virus screening: Negative : No PFSH PFSH Medical History BRCA2 gene mutation positive Family history of BRCA2 gene positive Surgical History [place] teeth removed Family History Mother BRCA gene mutation positive Preventative mastectomy done, 16 other relatives also + Aunt Breast cancer Social History household members: significant other and children number of children: 1 current occupational status: employed current occupation: [employer] in [place] current occupational exposures/hazards: No pets and animals: [...] 3-4 times per week duration: 15-30 minutes/day carissa/hoahaoism: None seatbelt use: always do you feel safe at home: Yes additional social history: Fianc?: [employer] in [place] History 2 Elective abortions Hx Para 1 Spontaneous abortions Hx # Term Pregnancies 1 Ectopic pregnancies Hx # Pregnancies Multiple births # of living children 1 Past Pregnancies Del. Date Name GA/Weeks Outcome Route Bth Weight Infant Gen Labor Lgth Anesthesia Del Locatn Provider FOB 05/14/19 Annie 42 live - full term 8lbs 4oz Female 10hours epidural [facility] Dr Richardsons, Cintia Jones Delivery Date: 05/14/19 Last Updated by: Farzana Peña RN Induced d/t post dates, small PP hemorrhage HPI 32 wk ob Details: ANJU SEN is a 29 year old who presents for routine OB visit. OB Visit SAULO Calculator Estimated Delivery Date Method Current WG Current Estimate 12/22/24 LMP (Certain) 32w 2d Expected Delivery Route/Plan Labor Preferences- CB/BF classes: no labor support person: Shmuel labor intervention preferences: [] pain management options preferred: epidural cut cord/dad catch: maybe : undecided PP control planned: discussed discussed possible routes of delivery and associated risks: [] special requests: [] Specific Issue/Plans Covid status: [] Flu vaccine: [] Tdap vaccine: given 10/01/24 Rhogam: NA LARC form signed: yes movement and labor precautions reviewed. Problem list reviewed and updated with the most current plan of care details and appropriate orders placed. Relevant counseling for the gestational age provided. Continue routine care and follow up unless otherwise noted in visit notes/problem list details Initial Weight: 160 lb Date -?-?-?-?-?-?-?-?-?-?-?-?- EGA Weight BP Urine Prot -?-?-?-?-?-?-?-?-?-?-?-?- Glucose FHR FuHt Pres Dilation -?-?-?-?-?-?-?-?-?-?-?-?- Effaced St Visit Note 05/21/24 -?-?-?-?-?-?-?-?-?-?-?-?- 9w 2d 160 lb 2 oz (+2 oz) 121/79 -?-?-?-?-?-?-?-?-?-?-?-?- 178 -?-?-?-?-?-?-?-?-?-?-?-?- KW- CRL cons wit h dates. accepts NIPT 06/18/24 -?-?-?-?-?-?-?-?-?-?-?-?- 13w 2d 162 lb 8 oz (+2 lb 8 oz) 116/77 Negative -?-?-?-?-?-?-?-?-?-?-?-?- Negative 158 -?-?-?-?-?-?-?-?-?-?-?-?- JV- CRL still co nsistent with established [...] 104/68 Negative -?-?-?-?-?-?-?-?-?-?-?-?- Negative 143 28 -?-?-?-?-?-?-?-?-?-?-?-?- MH-NoVB, LOF. Go od FM. 28 wk labs pending. Larc, tdap. 10/16/24 -?-?-?-?-?-?-?-?-?-?-?-?- 30w 3d 190 lb 8 oz (+30 lb 8 oz) 116/76 Negative -?-?-?-?-?-?-?-?-?-?-?-?- Negative 145 30 -?-?-?-?-?-?-?-?-?-?-?-?- KW- no vb/lof/ct x. good fm. no concerns today 10/29/24 -?-?-?-?-?-?-?-?-?-?-?-?- 32w 2d 196 lb 6 oz (+36 lb 6 oz) 112/73 Negative -?-?-?-?-?-?-?-?-?-?-?-?- Negative 140 32 -?-?-?-?-?-?-?-?-?-?-?-?- SM- no vb lof go od fm no reuglar ctx some more pelvic pressure ACOG First Trimester First Trimester: Desire for [...] and Symptoms of Preeclampsia, Feeding No , Education and Family Medical Leave or Disability Forms Results POC Urinalysis 2 Dip (Clinic) Office Urine Glucose Negative Last Edit by Tawanna Saucedo on 10/29/24 10:17 Office Urine Protein Negative Last Edit by Tawanna Saucedo on 10/29/24 10:17 Coding Level of Care Code OB Routine Diagnoses Cystic fibrosis carrier Z14.1 Encounter for supervision of other normal in third trimester Z34.83 Normal : other normal Trimester: third trimester 32 weeks gestation of Z3A.32 Weeks of gestation: 32 weeks BRCA2 gene mutation positive Z15.01; Z15.09 Assessment and Plan Assessment and Plan (1) Cystic fibrosis carrier: Status: Acute Comment: FOB neg. 03/19 (2) Supervision of normal : Status: Acute Qualifiers: Normal : other normal Trimester: third trimester Qualified Code(s): Z34.83 - Encounter for supervision of other normal , third trimester Comment: PRR, , SAULO 12/22/24, girl, [place] PC: Hank Valencia?: Shmuel (3) : Status: Acute Qualifiers: Weeks of gestation: 32 weeks Qualified Code(s): Z3A.32 - 32 weeks gestation of Comment: NIPT low risk- carrier neg carrier for cystic fibrosis, nl anatomy. (4) BRCA2 gene mutation positive: Status: Acute Comment: OBGYN in [place]; gets yearly MRI w/contrast (Due 2/3 but wants to cancel d/t ) Orders: Orders POC Urinalysis 2 Dip (Clinic) Today 10/29/24 1042 <Electronically signed by Taina brumfield MD> Date _ Taina Huddleston MD Cosigner Signature: Date (if applicable) CC: ~ [facility] Work Phone: Progress note Author Yris Brown [facility] Note Date/Time November 13, 2024 10: 40am [facility] [address], [address] [place] [address] OFFICE VISIT Date of Service: 11/13/24 MR#: [id number] Acct: [id number] Name: ANJU MUELLER Halima p #: [id number] : 1995 Provider: FRANSISCO Brown Age/Sex: 29/F Location: [facility] [place] [facility] Status: Signed Intake Vital Signs 10/01/24 10:13 10/29/24 10:12 11/13/24 10:26 Height 5 ft 7 in 5 ft 7 in 5 ft 7 in Weight: 198 lb 5 oz BMI 31.0 BP 122/76 H Intake Visit Reasons: 34 wk ob Chief Complaint: 34wk OB Vehicle Upholsterer Required: No Is patient in pain?: No Allergies No Known Allergies Allergy (Verified 11/13/24 10:24) Medications ?Medication ?Instructions ?Recorded ?Confirmed ?Type vits no.126-ferrous fum tab PO 05/08/2411/13 History 28 mg iron-folic acid 800 mcg tablet (Classic ) Last Menstrual Period: 03/17/24 : No PFSH PFSH Medical History BRCA2 gene mutation positive Family history of BRCA2 gene positive Surgical History [place] teeth removed Family History Mother BRCA gene mutation positive Preventative mastectomy done, 16 other relatives also + Aunt Breast cancer Social History household members: significant other and children number of children: 1 current occupational status: employed current occupation: [employer] in [place] current occupational exposures/hazards: No pets and animals: [...] 3-4 times per week duration: 15-30 minutes/day carissa/hoahaoism: None seatbelt use: always do you feel safe at home: Yes additional social history: Fianc?: [employer] in [place] History 2 Elective abortions Hx Para 1 Spontaneous abortions Hx # Term Pregnancies 1 Ectopic pregnancies Hx # Pregnancies Multiple births # of living children 1 Past Pregnancies Del. Date Name GA/Weeks Outcome Route Bth Weight Gen Labor Lgth Anesthesia Del Locatn Provider FOB 05/14/19 Annie 42 live - full term 8lbs 4oz Female 10hours epidural [facility] Dr Fall, Cintia Jones Delivery Date: 05/14/19 Last Updated by: Farzana Peña RN Induced d/t post dates, small PP hemorrhage HPI 34 wk ob Details: ANJU SEN is a 29 year old who presents for routine OB visit. OB Visit SAULO Calculator Estimated Delivery Date Method Current WG Current Estimate 12/22/24 LMP (Certain) 34w 3d Expected Delivery Route/Plan Labor Preferences- CB/BF classes: no labor support person: Shmuel labor intervention preferences: [] pain management options preferred: epidural cut cord/dad catch: maybe : undecided PP control planned: discussed discussed possible routes of delivery and associated risks: [] special requests: [] Specific Issue/Plans Covid status: [] Flu vaccine: [] Tdap vaccine: given 10/01/24 Rhogam: NA LARC form signed: yes movement and labor precautions reviewed. Problem list reviewed and updated with the most current plan of care details and appropriate orders placed. Relevant counseling for the gestational age provided. Continue routine care and follow up unless otherwise noted in visit notes/problem list details Initial Weight: 160 lb Date -?-?-?-?-?-?-?-?-?-?-?-?- EGA Weight BP Urine Prot -?-?-?-?-?-?-?-?-?-?-?-?- Glucose FHR FuHt Pres Dilation -?-?-?-?-?-?-?-?-?-?-?-?- Effaced St Visit Note 05/21/24 -?-?-?-?-?-?-?-?-?-?-?-?- 9w 2d 160 lb 2 oz (+2 oz) 121/79 -?-?-?-?-?-?-?-?-?-?-?-?- 178 -?-?-?-?-?-?-?-?-?-?-?-?- KW- CRL cons wit h dates. accepts NIPT 06/18/24 -?-?-?-?-?-?-?-?-?-?-?-?- 13w 2d 162 lb 8 oz (+2 lb 8 oz) 116/77 Negative -?-?-?-?-?-?-?-?-?-?-?-?- Negative 158 -?-?-?-?-?-?-?-?-?-?-?-?- JV- CRL still co nsistent with established [...] 104/68 Negative -?-?-?-?-?-?-?-?-?-?-?-?- Negative 143 28 -?-?-?-?-?-?-?-?-?-?-?-?- -NoVB, LOF. Go od FM. 28 wk labs pending. Larc, tdap. 10/16/24 -?-?-?-?-?-?-?-?-?-?-?-?- 30w 3d 190 lb 8 oz (+30 lb 8 oz) 116/76 Negative -?-?-?-?-?-?-?-?-?-?-?-?- Negative 145 30 -?-?-?-?-?-?-?-?-?-?-?-?- KW- no vb/lof/ct x. good fm. no concerns today 10/29/24 -?-?-?-?-?-?-?-?-?-?-?-?- 32w 2d 196 lb 6 oz (+36 lb 6 oz) 112/73 Negative -?-?-?-?-?-?-?-?-?-?-?-?- Negative 140 32 -?-?-?-?-?-?-?-?-?--?-?-?- SM- no vb lof go od fm no reuglar ctx some more pelvic pressure 11/13/24 -?-?-?-?-?-?-?-?-?-?-?-?- 34w 3d 198 lb 5 oz (+38 lb 5 oz) 122/76 Negative -?-?-?-?-?-?-?-?-?-?-?-?- Negative 155 34 -?-?-?-?-?-?-?-?-?-?-?-?- KW- no vb/lof/ct x. good fm. plans for RSV vaccine this week. ACOG First Trimester First Trimester: Desire for [...] and Symptoms of Preeclampsia, Feeding No , Education and Family Medical Leave or Disability Forms ROS Const Reports system reviewed and no additional complaints, except as documented Eyes Reports system reviewed and no additional complaints, except as documented ENT Reports system reviewed and no additional complaints, except as documented Card Reports system reviewed and no additional complaints, except as documented Resp Reports system reviewed and no additional complaints, except as documented GI Reports system reviewed and no additional complaints, except as documented, Denies nausea and Denies vomiting Reports system reviewed and no additional complaints, except as documented Musc Reports system reviewed and no additional complaints, except as documented Skin/Breast Reports system reviewed and no additional complaints, except as documented Neuro Yes system reviewed and no additional complaints, except as documented Psych Reports system reviewed and no additional complaints, except as documented Endo Reports system reviewed and no additional complaints, except as documented Jb/Lymph Reports system reviewed and no additional complaints, except as documented Aller/Immun Reports system reviewed and no additional complaints, except as documented Exam Const General: cooperative, healthy appearing and no acute distress Orientation: alert, awake and oriented x3 Neck Neck: normal visual inspection and full ROM Resp Effort & Inspection: normal respiratory effort, able to speak in complete sentences and symmetric chest movement GI Inspection: normal to inspection Palpation: soft and other Other: gravid Skin General: no rashes or lesions noted Neuro General: patient alert, patient awake and patient oriented x3 Cognition: normal cognition Speech: speech normal Gait: normal gait Motor: muscle tone normal throughout Extrem General: normal to inspection and full ROM Psych Appearance: grossly normal Mental Status: mental status grossly normal Mood: congruent mood Affect: normal affect Speech and Movement: speech and movement normal Attitude: cooperative Thought Process: normal Thought Content: normal Judgment: judgment good Results POC Urinalysis 2 Dip (Clinic) Office Urine Glucose Negative Last Edit by Marva Doe on 11/13/24 10:33 Office Urine Protein Negative Last Edit by Marva Doe on 11/13/24 10:33 Coding Level of Care Code Off vis,est,level 3 Diagnoses Cystic fibrosis carrier Z14.1 Encounter for supervision of other normal in third trimester Z34.83 Normal : other normal Trimester: third trimester 34 weeks gestation of Z3A.34 Weeks of gestation: 34 weeks BRCA2 gene mutation positive Z15.01; Z15.09 Assessment and Plan Assessment and Plan (1) Cystic fibrosis carrier: Status: Acute Comment: FOB neg. 03/19 (2) Supervision of normal : Status: Acute Qualifiers: Normal : other normal Trimester: third trimester Qualified Code(s): Z34.83 - Encounter for supervision of other normal , third trimester Comment: PRR, , SAULO 12/22/24, girl, Annika PC: Hank Valencia?: Shmuel (3) : Status: Acute Qualifiers: Weeks of gestation: 34 weeks Qualified Code(s): Z3A.34 - 34 weeks gestation of Comment: NIPT low risk- carrier neg 13/ carrier for cystic fibrosis, nl anatomy. (4) BRCA2 gene mutation positive: Status: Acute Comment: OBGYN in [place]; gets yearly MRI w/contrast (Due 2/3 but wants to cancel d/t ) Orders: Orders POC Urinalysis 2 Dip (Clinic) Today Plan Details Additional Comments: ACOG trimester education reviewed and updated. see problem list details for updated plan management information and see below for orders placed at this visit. GA appropriate handout given. 11/13/24 1040 <Electronically signed by Yris govea CNM> Date _ Yris Brown CNM Cosigner Signature: Date (if applicable) CC: ~ [employer] Work Phone: Progress note Author Yris Brown [facility] Note Date/Time November 23, 2024 2: 37pm [facility] Medical Records Department [address] [place] [address] OB Triage Progress Note 11/23/24 1436 MR#: [id number] Acct: [id number] Name: ANJU MUELLER Rep # :[id number] : 1995 29 From: Yris Brown CNM PCP: Care Physician,No Primary Status :REG CLI Y DOS: Location: [place] [address] Progress Notes Date of Service: 11/23/24 Progress Note: Patient presents for triage evaluation secondary to vaginal discharge at 35.6 weeks FHT: 145 Moderate variability reactive no decelerations category I tracing [place]: irregular Contractions Assessment and plan: neg rom, Reactive NST, reassuring maternal and statuspatient discharged to home to follow-up in office. See problem list details foradditional plan information. Laboratory Studies: Laboratory Tests 11/23/24 Range/Units 13:55 Vag Amniotic Fld Detect Negative (Negative) Charges/Coding Multi Select Codes Urinary/Genital Urinary/Genital CPT Codes: 22928-22 non-stress test Interp Assessment & Plan (1) Vaginal discharge during : COMMENT: rom + negative. reactive NST (2) Cystic fibrosis carrier: COMMENT: FOB neg. 03/19 (3) Supervision of normal : QUALIFIERS: Normal : other normal Trimester: third trimester Qualified Code(s): Z34.83 - Encounter for supervision of other normal , third trimester COMMENT: PRR, , SAULO 12/22/24, girl, Annika PC: Hank Valencia?: Shmuel (4) : QUALIFIERS: Weeks of gestation: 34 weeks Qualified Code(s): Z3A.34 - 34 weeks gestation of COMMENT: NIPT low risk- carrier neg carrier for cystic fibrosis, nl anatomy. (5) BRCA2 gene mutation positive: COMMENT: OBGYN in [place]; gets yearly MRI w/contrast (Due 2/3 but wants to cancel d/t ) 11/23/24 1437 <Electronically signed by Yris govea CNM> Date _ Yris Brown CNM Cosigner Signature (if applicable): Date CC: FRANSISCO Brown; No Primary Care Physician ~ Signed [facility] Work Phone: Progress note Author Taina Huddleston [facility] Note Date/Time November 26, 2024 11 :19am [facility] [address] [place] [address], [address] [place] [address] OFFICE VISIT Date of Service: 11/26/24 MR#: [id number] Acct: [id number] Name: ANJU MUELLER #: [id number] : 1995 Provider: Dr. Charli Huddleston MD Age/Sex: 29/F Location: [facility] [place] Status: Signed Intake Vital Signs 10/01/24 10:13 11/13/24 10:26 11/23/24 14:01 11/26/24 10:46 Height 5 ft 7 in 5 ft 7 in 5 ft 7 in 5 ft 7 in Weight: 203 lb 5 oz BMI 31.8 BP 110/73 Intake Visit Reasons: 36 wk ob Vehicle Upholsterer Required: No Is patient in pain?: No Allergies No Known Allergies Allergy (Verified 11/26/24 10:46) Medications ?Medication ?Instructions ?Recorded ?Confirmed ?Type vits no.126-ferrous fum 1 tab PO DAILY pregna ncy 05/08/24 11/26/24 History 28 mg iron-folic acid 800 mcg tablet (Classic ) Last Menstrual Period: 03/17/24 Zika: Zika virus screening: Negative : No PFSH PFSH Medical History BRCA2 gene mutation positive Family history of BRCA2 gene positive Surgical History [place] teeth removed Family History Mother BRCA gene mutation positive Preventative mastectomy done, 16 other relatives also + Aunt Breast cancer Social History household members: significant other and children number of children: 1 current occupational status: employed current occupation: [employer] in [place] current occupational exposures/hazards: No pets and animals: [...] 3-4 times per week duration: 15-30 minutes/day carissa/hoahaoism: None seatbelt use: always do you feel safe at home: Yes additional social history: Fianc?: [employer] in [place] History 2 Elective abortions Hx Para 1 Spontaneous abortions Hx # Term Pregnancies 1 Ectopic pregnancies Hx # Pregnancies Multiple births # of living children 1 Past Pregnancies Del. Date Name GA/Weeks Outcome Route Bth Weight Gen Labor Lgth Anesthesia Del Locatn Provider FOB 05/14/19 Annie 42 live - full term 8lbs 4oz Female 10hours epidural [facility] Dr Richardsons, Cintia Escalante Robert Delivery Date: 05/14/19 Last Updated by: Farzana Peña RN Induced d/t post dates, small PP hemorrhage HPI 36 wk ob Details: ANJU SEN is a 29 year old who presents for routine OB visit. OB Visit SAULO Calculator Estimated Delivery Date Method Current WG Current Estimate 12/22/24 LMP (Certain) 36w 2d Expected Delivery Route/Plan Labor Preferences- CB/BF classes: no labor support person: Shmuel labor intervention preferences: [] pain management options preferred: epidural cut cord/dad catch: maybe : undecided PP control planned: discussed discussed possible routes of delivery and associated risks: [] special requests: [] Specific Issue/Plans Covid status: [] Flu vaccine: [] Tdap vaccine: given 10/01/24 Rhogam: NA LARC form signed: yes movement and labor precautions reviewed. Problem list reviewed and updated with the most current plan of care details and appropriate orders placed. Relevant counseling for the gestational age provided. Continue routine care and follow up unless otherwise noted in visit notes/problem list details Initial Weight: 160 lb Date -?-?-?-?-?-?-?-?-?-?-?-?- EGA Weight BP Urine Prot -?-?-?-?-?-?-?-?-?-?--?-?- Glucose FHR FuHt Pres Dilation -?-?-?-?-?-?-?-?-?-?-?-?- Effaced St Visit Note 05/21/24 -?-?-?-?-?-?-?-?-?-?-?-?- 9w 2d 160 lb 2 oz (+2 oz) 121/79 -?-?-?-?-?-?-?-?-?-?-?-?- 178 -?-?-?-?-?-?-?-?-?-?-?-?- KW- CRL cons wit h dates. accepts NIPT 06/18/24 -?-?-?-?-?-?-?-?-?-?-?-?- 13w 2d 162 lb 8 oz (+2 lb 8 oz) 116/77 Negative -?-?-?-?-?-?-?-?-?-?-?-?- Negative 158 -?-?-?-?-?-?-?-?-?-?-?-?- JV- CRL still co nsistent with established GA. no complaints today low risk nipt girl 07/16/24 -?-?-?-?-?-?-?-?-?-?-?-?- 17w 2d 167 lb 2 oz (+7 lb 2 oz) 116/74 Negative -?-?-?-?-?-?-?-?-?-?-?-?- Negative 149 -?-?-?-?-?-?-?-?-?-?-?-?- MH-No VB. Some f lutters. Denies concerns 08/13/24 -?-?-?-?-?-?-?-?-?-?-?-?- 21w 2d 175 lb (+15 lb) 119/82 Negative -?-?-?-?-?-?-?-?-?-?-?-?- Negative 145 20 -?-?-?-?-?-?-?-?-?-?-?-?- KW- no vb/john harmon. good fm. US reviewed. discussed tdap, flu [...] 104/68 Negative -?-?-?-?-?-?-?-?-?-?-?-?- Negative 143 28 -?-?-?-?-?-?-?-?-?-?-?-?- -Yash, LOF. Go od FM. 28 wk labs pending. matthew Reddy. 10/16/24 -?-?-?-?-?-?--?-?-?-?-?-?- 30w 3d 190 lb 8 oz (+30 lb 8 oz) 116/76 Negative -?-?-?-?-?-?-?-?-?-?-?-?- Negative 145 30 -?-?-?-?-?-?-?-?-?-?-?-?- KW- no vb/lof/ct x. good fm. no concerns today 10/29/24 -?-?-?-?-?-?-?-?-?-?-?-?- 32w 2d 196 lb 6 oz (+36 lb 6 oz) 112/73 Negative -?-?-?-?-?-?-?-?-?-?-?-?- Negative 140 32 -?-?-?-?-?-?-?-?-?-?-?-?- SM- no vb lof go od fm no reuglar ctx some more pelvic pressure 11/13/24 -?-?-?-?-?-?-?-?-?-?-?-?- 34w 3d 198 lb 5 oz (+38 lb 5 oz) 122/76 Negative -?-?-?-?-?-?-?-?-?-?-?-?- Negative 155 34 -?-?--?-?-?-?-?-?-?-?-?-?- KW- no vb/lof/ct x. good fm. plans for RSV vaccine this week. 11/26/24 -?-?-?-?-?-?-?-?-?-?-?-?- 36w 2d 203 lb 5 oz (+43 lb 5 oz) 110/73 Negative -?-?-?-?-?-?-?-?-?-?-?-?- Negative 140 36 Cephalic 1 -?-?-?-?-?-?-?-?-?-?-?-?- 20 -4 SM- n ovb lof good fm no reuglar ctx gbs today ACOG First Trimester First Trimester: Desire for [...] Immediate Larc, Signs and Symptoms of Preeclampsia, Infant Feeding No , [place] Education and Family Medical Leave or Disability Forms Results POC Urinalysis 2 Dip (Clinic) Office Urine Glucose Negative Last Edit by Tawanna Saucedo on 11/26/24 10:56 Office Urine Protein Negative Last Edit by Tawanna Saucedo on 11/26/24 10:56 Coding Level of Care Code OB Routine Diagnoses Cystic fibrosis carrier Z14.1 Encounter for supervision of other normal in third trimester Z34.83 Normal : other normal Trimester: third trimester 36 weeks gestation of Z3A.36 Weeks of gestation: 36 weeks BRCA2 gene mutation positive Z15.01; Z15.09 Assessment and Plan Assessment and Plan (1) Cystic fibrosis carrier: Status: Acute Comment: FOB neg. 03/19 (2) Supervision of normal : Status: Acute Qualifiers: Normal : other normal Trimester: third trimester Qualified Code(s): Z34.83 - Encounter for supervision of other normal , third trimester Comment: PRR, , SAULO 12/22/24, girl, Annika PC: Hank Valencia?: Shmuel (3) : Status: Acute Qualifiers: Weeks of gestation: 36 weeks Qualified Code(s): Z3A.36 - 36 weeks gestation of Comment: NIPT low risk- carrier neg / carrier for cystic fibrosis, nl anatomy. (4) BRCA2 gene mutation positive: Status: Acute Comment: OBGYN in [place]; gets yearly MRI w/contrast (Due 2/3 but wants to cancel d/t ) Orders: Orders POC Urinalysis 2 Dip (Clinic) Today Culture, Group B Streptococcus Today Z34.83 - Encounter for supervision of other normal , third trimester 11/26/24 1119 <Electronically signed by Taina brumfield MD> Date _ Taina Huddleston MD Cosigner Signature: Date (if applicable) CC: ~ [facility] Work Phone: Progress note Author Yris Brown [facility] Note Date/Time December 10, 2024 11:59am [facility] [address] [place] [address], [address] [place] [address] OFFICE VISIT Date of Service: 12/10/24 MR#: [id number] Acct: [id number] Name: ANJU MUELLER p #: [id number] : 1995 Provider: FRANSISCO Brown Age/Sex: 29/F Location: [facility] [place] Status: Signed Intake Vital Signs 10/29/24 10:12 12/03/24 14:52 12/10/24 11:41 12/10/24 11:41 Height 5 ft 7 in 5 ft 7 in 5 ft 7 in 5 ft 7 in Weight: 208 lb 8 oz 208 lb BMI 32.6 32.5 BP 118/76 137/90 H Intake Visit Reasons: 38 WK OB Chief Complaint: 38wk OB Vehicle Upholsterer Required: No Is patient in pain?: No Allergies No Known Allergies Allergy (Verified 12/10/24 11:39) Medications ?Medication ?Instructions ?Recorded ?Confirmed ?Type vits no.126-ferrous fum 1 tab PO DAILY pregna ncy 05/08/24 12/10/24 History 28 mg iron-folic acid 800 mcg tablet (Classic ) Last Menstrual Period: 03/17/24 : No PFSH PFSH Medical History BRCA2 gene mutation positive Family history of BRCA2 gene positive Surgical History [place] teeth removed Family History Mother BRCA gene mutation positive Preventative mastectomy done, 16 other relatives also + Aunt Breast cancer Social History household members: significant other and children number of children: 1 current occupational status: employed current occupation: [employer] in [place] current occupational exposures/hazards: No pets and animals: [...] 3-4 times per week duration: 15-30 minutes/day carissa/hoahaoism: None seatbelt use: always do you feel safe at home: Yes additional social history: Fianc?: [employer] in [place] History 2 Elective abortions Hx Para 1 Spontaneous abortions Hx # Term Pregnancies 1 Ectopic pregnancies Hx # Pregnancies Multiple births # of living children 1 Past Pregnancies Del. Date Name GA/Weeks Outcome Route Bth Weight Infant Gen Labor Lgth Anesthesia Del Locatn Provider FOB 05/14/19 Annie 42 live - full term 8lbs 4oz Female 10hours epidural [facility] Richardsons, Cintia Jones Delivery Date: 05/14/19 Last Updated by: Farzana Peña RN Induced d/t post dates, small PP hemorrhage HPI 38 WK OB Details: ANJU SEN is a 29 year old who presents for routine OB visit. OB Visit SAULO Calculator Estimated Delivery Date Method Current WG Current Estimate 12/22/24 LMP (Certain) 38w 2d Expected Delivery Route/Plan Labor Preferences- CB/BF classes: no labor support person: Shmuel labor intervention preferences: [] pain management options preferred: epidural cut cord/dad catch: maybe : undecided PP control planned: discussed discussed possible routes of delivery and associated risks: [] special requests: [] Specific Issue/Plans Covid status: [] Flu vaccine: [] Tdap vaccine: given 10/01/24 Rhogam: NA LARC form signed: yes movement and labor precautions reviewed. Problem list reviewed and updated with the most current plan of care details and appropriate orders placed. Relevant counseling for the gestational age provided. Continue routine care and follow up unless otherwise noted in visit notes/problem list details Initial Weight: 160 lb Date -?-?-?-?-?-?-?-?-?-?-?-?- EGA Weight BP Urine Prot -?-?-?-?-?-?-?-?-?-?-?-?- Glucose FHR FuHt Pres Dilation -?-?-?-?-?-?-?-?-?-?-?-?- Effaced St Visit Note 05/21/24 -?-?-?-?-?-?-?-?-?-?-?-?- 9w 2d 160 lb 2 oz (+2 oz) 121/79 -?-?-?-?-?-?-?-?-?-?-?-?- 178 -?-?-?-?-?-?-?-?-?-?-?-?- KW- CRL cons wit h dates. accepts NIPT 06/18/24 -?-?-?-?-?-?-?-?-?-?-?--?- 13w 2d 162 lb 8 oz (+2 lb 8 oz) 116/77 Negative -?-?-?-?-?-?-?-?-?-?-?-?- Negative 158 -?-?-?-?-?-?-?-?-?-?-?-?- JV- CRL still co nsistent with established GA. no complaints today low risk nipt girl 07/16/24 -?-?-?-?-?-?-?-?-?-?-?-?- 17w 2d 167 lb 2 oz (+7 lb 2 oz) 116/74 Negative -?-?-?-?-?-?-?-?-?-?-?-?- Negative 149 -?-?-?-?-?-?-?-?-?-?-?-?- MH-No VB. Some f lutters. Denies concerns 08/13/24 -?-?-?-?-?-?-?-?-?-?-?-?- 21w 2d 175 lb (+15 lb) 119/82 Negative -?-?-?-?-?-?-?-?-?-?-?-?- Negative 145 20 -?-?-?-?-?-?--?-?-?-?-?-?- KW- no vb/crampi [place]. good fm. US reviewed. discussed tdap, flu and RSV shots. 09/10/24 -?-?-?-?-?-?-?-?-?-?-?-?- 25w 2d 181 lb 2 oz (+21 lb 2 oz) 101/68 1+ -?-?-?-?-?-?-?-?-?-?-?-?- Negative 160 26 -?-?-?-?-?-?-?-?-?-?-?-?- Sm- no vb lof go od fm nr oegualr ctx Sm- no vb lof good fm nr oeg ualr ctx culture sent for proteinuria 10/01/24 -?-?-?-?-?-?-?-?-?-?-?-?- 28w 2d 188 lb (+28 lb) 104/68 Negative -?-?-?--?-?-?-?-?-?-?-?-?- Negative 143 28 -?-?-?-?-?-?-?-?-?-?-?-?- -Yash, LOF. Go od FM. 28 wk labs pending. Barry tdap. 10/16/24 -?-?-?-?-?-?-?-?-?-?-?-?- 30w 3d 190 lb 8 oz (+30 lb 8 oz) 116/76 Negative -?-?-?-?-?-?-?-?-?-?-?-?- Negative 145 30 -?-?-?-?-?-?-?-?-?-?-?-?- KW- no vb/lof/ct x. good fm. no concerns today 10/29/24 -?-?-?-?-?-?-?-?-?-?-?-?- 32w 2d 196 lb 6 oz (+36 lb 6 oz) 112/73 Negative -?-?-?-?-?-?-?-?-?-?-?-?- Negative 140 32 -?-?-?-?-?-?-?-?-?-?-?-?- SM- no vb lof go od fm no reuglar ctx some more pelvic pressure 11/13/24 -?-?-?-?--?-?-?-?-?-?-?-?- 34w 3d 198 lb 5 oz (+38 lb 5 oz) 122/76 Negative -?-?-?-?-?-?-?-?-?-?-?-?- Negative 155 34 -?-?-?-?-?-?-?-?-?-?-?-?- KW- no vb/lof/ct x. good fm. plans for RSV vaccine this week. 11/26/24 -?-?-?-?-?-?-?-?-?-?-?-?- 36w 2d 203 lb 5 oz (+43 lb 5 oz) 110/73 Negative -?-?-?-?-?-?-?-?-?-?-?-?- Negative 140 36 Cephalic 1 -?-?-?-?-?-?-?-?-?-?-?-?- 20 -4 SM- n ovb lof good fm no reuglar ctx gbs today 12/03/24 -?-?-?-?-?-?-?-?-?-?-?-?- 37w 2d 208 lb 8 oz (+48 lb 8 oz) 118/76 Negative -?-?-?-?-?-?-?-?-?-?-?-?- Negative 140 37 Cephalic 1 -?-?-?-?-?-?-?-?-?-?-?-?- SM- no vb lof go od fm no regular ctx 12/10/24 -?-?-?-?-?-?-?-?-?-?-?-?- 38w 2d 208 lb (+48 lb) 137/90 Negative -?-?-?-?-?-?-?-?-?-?-?-?- Negative 135 39 -?-?-?-?-?-?-?-?-?-?-?-?- KW- no vb/lof/ct x. good fm. pre e labs today. 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 03/19 (2) Supervision of normal : Status: Acute Qualifiers: Normal : other normal Trimester: third trimester Qualified Code(s): Z34.83 - Encounter for supervision of other normal , third trimester Comment: PRR, , SAULO 12/22/24, girl, Annika PC: Hank Valencia?: Shmuel (3) : Status: Acute Qualifiers: Weeks of gestation: 38 weeks Qualified Code(s): Z3A.38 - 38 weeks gestation of Comment: NIPT low risk- carrier neg 14 carrier for cystic fibrosis, nl anatomy. (4) BRCA2 gene mutation positive: Status: Acute Comment: OBGYN in [place]; gets yearly MRI w/contrast (Due 2/3 but wants to cancel d/t ) (5) Elevated blood pressure reading in office without diagnosis of hypertension: Status: Acute Orders: Orders POC Urinalysis 2 Dip (Clinic) Today Protein+Creatinine Ratio,Urine Today R03.0 - Elevated blood-pressure reading, without diagnosis of hypertension CBC W/Diff, Automated Today R03.0 - Elevated blood-pressure reading, without diagnosis of hypertension Comprehensive Metabolic Profil Today R03.0 - Elevated blood-pressure reading, without diagnosis of hypertension 12/10/24 1159 <Electronically signed by Yris govea CNM> Date _ Yris Brown CNM Cosigner Signature: Date (if applicable) CC: ~ [facility] Work Phone: Reason for referral (narrative)No reason for referral information available[facility] Services Work Phone: Summary Purpose Family History Relationship Condition Age at Onset Recorded Date/T case mother BRCA gene mutation positive Unknown aunt Malignant neoplasm of breast Unknown Advance Directives Advance Directive Response Recorded Date/ Time Living Will No May 24 11:16am Do you have a Healthcare Power of Horticultural Worker? No May 24, 2024 11:16am Reason for Referral Specialty Diagnoses / Procedures Referred By Mayteac t Referred To Contact Diagnoses Family history of breast cancer At high risk for breast cancer BRCA2 gene mutation positive in female Procedures MRI BREAST BILATERAL WITH AND WITHOUT CONTRAST CHG MRI BREAST WITHOUT&WITH CONTRAST W/CAD BILATERAL Archana Garcia, PHONE ENGINEER-CHIEF OPHTHALMIC TECHNICIAN [address] [place] [address] Referral ID Status Reason Start Date Expiration Date Visits Re quested Visits Authorized [id number] Closed 07/18/2021 08/12/2022 1 1 Specialty Diagnoses / Procedures Referred By Contrichie t Referred To Contact Procedures US PELVIC W TRANSVAGINAL Dayanna Ariza MD [address] [place] [address] Referral ID Status Reason Start Date Expiration Date V isits Requested Visits Authorized [id number] New Request 06/21/2022 07/16/2023 1 1 Specialty Diagnoses / Procedures Referred By Contac t Referred To Contact Diagnoses BRCA2 gene mutation positive in female Cyst of right ovary Procedures US [facility] Jamal Daniel MD [address] [place] [address] Referral ID Status Reason Start Date Expiration Date V isits Requested Visits Authorized [id number] New Request 06/13/2023 07/07/2024 1 1 Chief Complaint and Reason for Visit Chief Complaint Admit Date New OB, LMP 03/17/24, SAULO 12/22/24 Februa ry 13th, 2025 11:05am PREG. VAG BLEED May 24, 2024 [...] 2:08pm BRCA2 gene mutation positive September 10, 2 025 8:43am Cystic fibrosis carrier September 10, [...] 2:08pm BRCA2 gene mutation positive September 10, 2 025 8:43am Cystic fibrosis carrier September 10, 2024 8 :43am September 10, 2024 8:43a m Supervision of normal September 8:43am BRCA2 gene mutation positive October 01, 2024 9:45am Cystic fibrosis carrier October 01, 2024 9:45am October 01, 2024 9:45 am Supervision of normal September 9:45am Chief Complaint Admit Date 13wk OB June 18, 2024 2:1 9pm 17 wk ob July 16, 2024 1:2 3pm 21 wk ob August 13, 2024 2:08pm 25 wk ob September 10, 2024 8:43a m 28wk ob/glucose October 01, 2024 9:45 am 30wk ob October 16, 2024 3:05 pm Reason for Visit Admit Date BRCA2 gene [...] 2:08pm BRCA2 gene mutation positive September 10, 2 025 8:43am Cystic fibrosis carrier September 10, 2024 8 :43am September 10, 2024 8:43a m Supervision of normal September 8:43am BRCA2 gene mutation positive October 01, 2024 9:45am Cystic fibrosis carrier October 01, 2024 9:45am October 01, 2024 9:45 am Supervision of normal September 9:45am BRCA2 gene mutation positive October 16, 2024 3:05pm Cystic fibrosis carrier October 16, 2024 3:05pm October 16, 2024 3:05 pm Supervision of normal October 3:05pm Chief Complaint Admit Date 17 wk ob July 16, 2024 1:2 3pm 21 wk ob August 13, 2024 2:08pm 25 wk ob September 10, 2024 8:43a m 28wk ob/glucose October 01, 2024 9:45 am 30wk ob October 16, 2024 3:05 pm 32 wk ob October 29, 2024 10:0 6am Reason for Visit Admit Date BRCA2 gene mutation positive July 16, 2024 1:23pm Cystic fibrosis carrier July 16, 2024 1:23pm July 16, 2024 1:2 3pm Supervision of normal July 162024 1:23pm BRCA2 gene mutation positive August 13 2:08pm Cystic fibrosis carrier August 13, 2024 2: 08pm August 13, 2024 2:08pm Supervision of normal August 13, 2024 2:08pm BRCA2 gene mutation positive September 10, 2 025 8:43am Cystic fibrosis carrier September 10, 2024 8 :43am September 10, 2024 8:43a m Supervision of normal September 8:43am BRCA2 gene mutation positive October 01, 2024 9:45am Cystic fibrosis carrier October 01, 2024 9:45am October 01, 2024 9:45 am Supervision of normal September 9:45am BRCA2 gene mutation positive October 16, 2024 3:05pm Cystic fibrosis carrier October 16, 2024 3:05pm October 16, 2024 3:05 pm Supervision of normal October 3:05pm BRCA2 gene mutation positive October 29, 2024 10:06am Cystic fibrosis carrier October 29, 2024 10:06am October 29, 2024 10:0 6am Supervision of normal October 10:06am Chief Complaint Admit Date 17 wk ob July 16, 2024 1:2 3pm 21 wk ob August 13, 2024 2:08pm 25 wk ob September 10, 2024 8:43a m 28wk ob/glucose October 01, 2024 9:45 am 30wk ob October 16, 2024 3:05 pm 32 wk ob October 29, 2024 10:0 6am 34 wk ob November 13, 2024 10: 23am Reason for Visit Admit Date BRCA2 gene mutation positive July 16, 2024 1:23pm Cystic fibrosis carrier July 16, 2024 1:23pm July 16, 2024 1:2 3pm Supervision of normal July 162024 1:23pm BRCA2 gene mutation positive August 13 2:08pm Cystic fibrosis carrier August 13, 2024 2: 08pm August 13, 2024 2:08pm Supervision of normal August 13, 2024 2:08pm BRCA2 gene mutation positive September 10 8:43am Cystic fibrosis carrier September 10, 2024 8 :43am September 10, 2024 8:43a m Supervision of normal September 8:43am BRCA2 gene mutation positive October 01, 2024 9:45am Cystic fibrosis carrier October 01, 2024 9:45am October 01, 2024 9:45 am Supervision of normal September 9:45am BRCA2 gene mutation positive October 16, 2024 3:05pm Cystic fibrosis carrier October 16, 2024 3:05pm October 16, 2024 3:05 pm Supervision of normal October 3:05pm BRCA2 gene mutation positive October 29, 2024 10:06am Cystic fibrosis carrier October 29, 2024 10:06am October 29, 2024 10:0 6am Supervision of normal October 10:06am BRCA2 gene mutation positive November 13, 2024 10:23am Cystic fibrosis carrier November 13, 2024 10:23am November 13, 2024 10: 23am Supervision of normal November 132024 10:23am Chief Complaint Admit Date 21 wk ob August 13, 2024 2:08pm 25 wk ob September 10, 2024 8:43a m 28wk ob/glucose October 01, 2024 9:45 am 30wk ob October 16, 2024 3:05 pm 32 wk ob October 29, 2024 10:0 6am 34 wk ob November 13, 2024 10: 23am R/O LABOR November 23, 2024 1: 25pm R/O LABOR November 23, 2024 2: 36pm Reason for Visit Admit Date BRCA2 gene mutation positive August 13 2:08pm [...] 9:45 am Supervision of normal September 9:45am BRCA2 gene mutation positive October 16, 2024 3:05pm Cystic fibrosis carrier October 16, 2024 3:05pm October 16, 2024 3:05 pm Supervision of normal October 3:05pm BRCA2 gene mutation positive October 29, 2024 10:06am Cystic fibrosis carrier October 29, 2024 10:06am October 29, 2024 10:0 6am Supervision of normal October 10:06am BRCA2 gene mutation positive November 13, 2024 10:23am Cystic fibrosis carrier November 13, 2024 10:23am November 13, 2024 10: 23am Supervision of normal November 132024 10:23am BRCA2 gene mutation positive November 1:25pm Cystic fibrosis carrier November 23 1:25pm November 23, 2024 1: 25pm Supervision of normal November 062024 1:25pm Vaginal discharge during Augus t 2024 1:25pm Chief Complaint Admit Date 21 wk ob August 13, 2024 2:08pm 25 wk ob September 10, 2024 8:43a m 28wk ob/glucose October 01, 2024 9:45 am 30wk ob October 16, 2024 3:05 pm 32 wk ob October 29, 2024 10:0 6am 34 wk ob November 13, 2024 10: 23am R/O LABOR November 23, 2024 1: 25pm R/O LABOR November 23, 2024 2: 36pm 36 wk ob November 26, 2024 10 :34am Reason for Visit Admit Date BRCA2 gene mutation positive August 13 2:08pm [...] 9:45 am Supervision of normal September 9:45am BRCA2 gene mutation positive October 16, 2024 3:05pm Cystic fibrosis carrier October 16, 2024 3:05pm October 16, 2024 3:05 pm Supervision of normal October 3:05pm BRCA2 gene mutation positive October 29, 2024 10:06am Cystic fibrosis carrier October 29, 2024 10:06am October 29, 2024 10:0 6am Supervision of normal October 10:06am BRCA2 gene mutation positive November 13, 2024 10:23am Cystic fibrosis carrier November 13, 2024 10:23am November 13, 2024 10: 23am Supervision of normal November 132024 10:23am BRCA2 gene mutation positive November 1:25pm Cystic fibrosis carrier November 23 1:25pm November 23, 2024 1: 25pm Supervision of normal November 062024 1:25pm Vaginal discharge during Augus t 2024 1:25pm BRCA2 gene mutation positive November 10:34am Cystic fibrosis carrier November 26 10:34am November 26, 2024 10 :34am Supervision of normal November 072024 10:34am Chief Complaint Admit Date 21 wk ob August 13, 2024 2:08pm 25 wk ob September 10, 2024 8:43a m 28wk ob/glucose October 01, 2024 9:45 am 30wk ob October 16, 2024 3:05 pm 32 wk ob October 29, 2024 10:0 6am 34 wk ob November 13, 2024 10: 23am R/O LABOR November 23, 2024 1: 25pm R/O LABOR November 23, 2024 2: 36pm 36 wk ob November 26, 2024 10 :34am 37 WK OB December 03, 2024 2: 46pm Reason for Visit Admit Date BRCA2 gene mutation positive August 13 2:08pm Cystic fibrosis carrier August 13, 2024 2: 08pm August 13, 2024 2:08pm Supervision of normal August 13, 2024 2:08pm BRCA2 gene mutation positive September 10 8:43am Cystic fibrosis carrier September 10, 2024 8 :43am September 10, 2024 8:43a m Supervision of normal September 8:43am BRCA2 gene mutation positive October 01, 2024 9:45am Cystic fibrosis carrier October 01, 2024 9:45am October 01, 2024 9:45 am Supervision of normal September 9:45am BRCA2 gene mutation positive October 16, 2024 3:05pm Cystic fibrosis carrier October 16, 2024 3:05pm October 16, 2024 3:05 pm Supervision of normal October 3:05pm BRCA2 gene mutation positive October 29, 2024 10:06am Cystic fibrosis carrier October 29, 2024 10:06am October 29, 2024 10:0 6am Supervision of normal October 10:06am BRCA2 gene mutation positive November 13, 2024 10:23am Cystic fibrosis carrier November 13, 2024 10:23am November 13, 2024 10: 23am Supervision of normal November 132024 10:23am BRCA2 gene mutation positive November 1:25pm Cystic fibrosis carrier November 23 1:25pm November 23, 2024 1: 25pm Supervision of normal November 062024 1:25pm Vaginal discharge during Augus t 2024 1:25pm BRCA2 gene mutation positive November 10:34am Cystic fibrosis carrier November 26 10:34am November 26, 2024 10 :34am Supervision of normal November 072024 10:34am BRCA2 gene mutation positive November 2:46pm Cystic fibrosis carrier December 03 2:46pm December 03, 2024 2: 46pm Supervision of normal November 072024 2:46pm Chief Complaint Admit Date 21 wk ob August 13, 2024 2:08pm 25 wk ob September 10, 2024 8:43a m 28wk ob/glucose October 01, 2024 9:45 am 30wk ob October 16, 2024 3:05 pm 32 wk ob October 29, 2024 10:0 6am 34 wk ob November 13, 2024 10: 23am R/O LABOR November 23, 2024 1: 25pm R/O LABOR November 23, 2024 2: 36pm 36 wk ob November 26, 2024 10 :34am 37 WK OB December 03, 2024 2: 46pm 38 WK OB December 10, 2024 11:38am Reason for Visit Admit Date BRCA2 gene mutation positive August 13 2:08pm [...] 9:45 am Supervision of normal September 9:45am BRCA2 gene mutation positive October 16, 2024 3:05pm Cystic fibrosis carrier October 16, 2024 3:05pm October 16, 2024 3:05 pm Supervision of normal October 3:05pm BRCA2 gene mutation positive October 29, 2024 10:06am Cystic fibrosis carrier October 29, 2024 10:06am October 29, 2024 10:0 6am Supervision of normal October 10:06am BRCA2 gene mutation positive November 13, 2024 10:23am Cystic fibrosis carrier November 13, 2024 10:23am November 13, 2024 10: 23am Supervision of normal November 132024 10:23am BRCA2 gene mutation positive November 1:25pm Cystic fibrosis carrier November 23 1:25pm November 23, 2024 1: 25pm Supervision of normal November 062024 1:25pm Vaginal discharge during Augus t 2024 1:25pm BRCA2 gene mutation positive November 10:34am Cystic fibrosis carrier November 26 10:34am November 26, 2024 10 :34am Supervision of normal November 072024 10:34am BRCA2 gene mutation positive November 2:46pm Cystic fibrosis carrier December 03 2:46pm December 03, 2024 2: 46pm Supervision of normal November 072024 2:46pm BRCA2 gene mutation positive December 102024 11:38am Cystic fibrosis carrier December 10, 025 11:38am Elevated blood pressure read ing in office without diagnosis of hypertension December 10, 2024 11:38am December 10, 2024 11:38am Supervision of normal [email or web address] 11:38am Chief Complaint Admit Date 21 wk ob August 13, 2024 2:08pm 25 wk ob September 10, 2024 8:43a m 28wk ob/glucose October 01, 2024 9:45 am 30wk ob October 16, 2024 3:05 pm 32 wk ob October 29, 2024 10:0 6am 34 wk ob November 13, 2024 10: 23am R/O LABOR November 23, 2024 1: 25pm R/O LABOR November 23, 2024 2: 36pm 36 wk ob November 26, 2024 10 :34am 37 WK OB December 03, 2024 2: 46pm 38 WK OB December 10, 2024 11:38am BP check per SM December 10, 2024 2:53pm Additional Source Comments INFORMATION SOURCE (unrecogn ized section and content) DATE CREATED AUTHOR 09/07/2020 [facility] DATE CREATED AUTHOR AUTHOR'S OZIELIZ ATLAURA 06/30/2021 [facility] DATE CREATED AUTHOR AUTHOR'S ORGANIZ ATION 05/20/2024 [facility] DATE CREATED AUTHOR AUTHOR'S ORGANIZ ATION 06/22/[address] [facility] DATE CREATED AUTHOR AUTHOR'S ORGANIZ ATION 07/31/2024 [facility] DATE CREATED AUTHOR AUTHOR'S ORGANIZ ATION 12/05/2024 [facility] Reason for Visit (unrecogniz ed section and content) Reason Comments Sore Throat Right side ear and t onsil is sore fever, started sat. YES vax. 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 Diagnoses / Procedures Referred By Yuliya lee Referred To Contact Gynecology Diagnoses BRCA2 gene mutation positive in female Archana Garcia, PHONE ENGINEER-CHIEF OPHTHALMIC TECHNICIAN [address] [place] [address] Jamal Daniel MD [address] [place] [address] [address] [place] [address] Referral ID Status Reason Start Date Expiration Date V isits Requested Visits Authorized [id number] New Request 07/18/2021 08/12/2022 1 1 Referral ID Status Reason Start Date Expiration Date Visits Re quested Visits Authorized [id number] Closed 07/18/2021 08/12/2022 1 1 Reason Comments Vaginal Bleeding Reason Comments Ultrasound Follow-up TRAINMAN Reason Comments Tick bite L side area, redness , swelling, thinks head is still in there, removed body this am Care Teams (unrecognized sec tion and content) [employer] General Supervisor Relationship Specialty Start Date End Date Self, Self PCP - General Other 06/21/22 [employer] General Supervisor Relationship Specialty Start Date End Date Self, [...] End: June 18, 2024 Dr. Cary Brenner DO Attending Provider Activ e Start: June 18, 2024 End: June 18, 2024 Team Status: Inactive Member Role Status Dates No Primary Care Physician Primary Care Provider Active Start: July 16, 2024 End: July 16, 2024 No Primary Care Physician Referring Provider Active Start: July 16, 2024 End: July 16, 2024 Tawanna Farfan NP, PRODUCT TESTER-C Attending Provider Active Start: July 16, 2024 [...] 2024 End: October 01, 2024 Tawanna Farfan NP PRODUCT TESTER-C Attending Provider Active Start: October 01, 2024 End: October 01, 2024 Team Status: Active Member Role Status Dates No Primary Care Physician Primary Care Provider Active Start: October 01, 2024 Dr. Taina Huddleston MD Attending Provider Active Start: October 01, 2024 Dr. Taina Huddleston MD Referring Provider Active Start: October 01, 2024 Team Status: Active Member Role/Relationship Status Dates No Primary Care Physician Primary Care Provider Active Team Status: Inactive Member Role/Relationship Status Dates No Primary Care Physician Primary Care Provider Active Start: June 18, 2024 End: June 18, 2024 No Primary Care Physician Referring Provider Active Start: June 18, 2024 End: June 18, 2024 Dr. Cary Brenner DO Attending Provider Activ e Start: June 18, 2024 End: June 18, 2024 Team Status: Inactive Member Role/Relationship Status Dates No Primary Care Physician Primary Care Provider Active Start: July 16, 2024 End: July 16, 2024 No Primary Care Physician Referring Provider Active Start: July 16, 2024 End: July 16, 2024 Tawanna Farfan PRODUCT TESTER, PRODUCT TESTER-C Attending Provider Active Start: July 16, 2024 End: July 16, 2024 Team Status: Inactive Member Role/Relationship Status Dates No Primary Care Physician Primary Care Provider Active Start: August 13, 2024 End: August 13, 2024 No Primary Care Physician Referring Provider Active Start: August 13, 2024 End: August 13, 2024 Yris Brown CNM Attending Provider Active S tart: August 13, 2024 End: August 13, 2024 Team Status: Inactive Member Role/Relationship Status Dates No Primary Care Physician Primary Care Provider Active Start: September 10, 2024 End: September 10, 2024 No Primary Care Physician Referring Provider Active Start: September 10, 2024 End: September 10, 2024 Dr. Taina Huddleston MD Attending Provider Active Start: September 10, 2024 End: September 10, 2024 Team Status: Inactive Member Role/Relationship Status Dates No Primary Care Physician Primary Care Provider Active Start: September 10, 2024 End: September 10, 2024 Dr. Taina Huddleston MD Attending Provider Active Start: September 10, 2024 End: September 10, 2024 Dr. Taina Huddleston MD Referring Provider Active Start: September 10, 2024 End: September 10, 2024 Team Status: Inactive Member Role/Relationship Status Dates No Primary Care Physician Primary Care Provider Active Start: October 01, 2024 End: October 01, 2024 No Primary Care Physician Referring Provider Active Start: October 01, 2024 End: October 01, 2024 Tawanna Farfan NP, NP-C Attending Provider Active Start: October 01, 2024 End: October 01, 2024 Team Status: Inactive Member Role/Relationship Status Dates No Primary Care Physician Primary Care Provider Active Start: October 01, 2024 End: October 01, 2024 Dr. Taina Huddleston MD Attending Provider Active Start: October 01, 2024 End: October 01, 2024 Dr. Taina Huddleston MD Referring Provider Active Start: October 01, 2024 End: October 01, 2024 Team Status: Inactive Member Role/Relationship Status Dates No Primary Care Physician Primary Care Provider Active Start: October 16, 2024 End: October 16, 2024 No Primary Care Physician Referring Provider Active Start: October 16, 2024 End: October 16, 2024 Yris Brown CNM Attending Provider Active S tart: October 16, 2024 End: October 16, 2024 Team Status: Inactive Member Role/Relationship Status Dates No Primary Care Physician Primary Care Provider Active Start: July 16, 2024 End: July 16, 2024 No Primary Care Physician Referring Provider Active Start: July 16, 2024 End: July 16, 2024 Tawanna Farfan NP, PRODUCT TESTER-C Attending Provider Active Start: July 16, 2024 End: July 16, 2024 Team Status: Inactive Member Role/Relationship Status Dates No Primary Care Physician Primary Care Provider Active Start: August 13, 2024 End: August 13, 2024 No Primary Care Physician Referring Provider Active Start: August 13, 2024 End: August 13, 2024 Yris Brown CNM Attending Provider Active S tart: August 13, 2024 End: August 13, 2024 Team Status: Inactive Member Role/Relationship Status Dates No Primary Care Physician Primary Care Provider Active Start: September 10, 2024 End: September 10, 2024 No Primary Care Physician Referring Provider Active Start: September 10, 2024 End: September 10, 2024 Dr. Taina Huddleston MD Attending Provider Active Start: September 10, 2024 End: September 10, 2024 Team Status: Inactive Member Role/Relationship Status Dates No Primary Care Physician Primary Care Provider Active Start: September 10, 2024 End: September 10, 2024 Dr. Taina Huddleston MD Attending Provider Active Start: September 10, 2024 End: September 10, 2024 Dr. Taina Huddleston MD Referring Provider Active Start: September 10, 2024 End: September 10, 2024 Team Status: Inactive Member Role/Relationship Status Dates No Primary Care Physician Primary Care Provider Active Start: October 01, 2024 End: October 01, 2024 No Primary Care Physician Referring Provider Active Start: October 01, 2024 End: October 01, 2024 Tawanna [place] PRODUCT TESTER, PRODUCT TESTER-C Attending Provider Active Start: October 01, 2024 End: October 01, 2024 Team Status: Inactive Member Role/Relationship Status Dates No Primary Care Physician Primary Care Provider Active Start: October 01, 2024 End: October 01, 2024 Dr. Taina Huddleston MD Attending Provider Active Start: October 01, 2024 End: October 01, 2024 Dr. Taina Huddleston MD Referring Provider Active Start: October 01, 2024 End: October 01, 2024 Team Status: Inactive Member Role/Relationship Status Dates No Primary Care Physician Primary Care Provider Active Start: October 16, 2024 End: October 16, 2024 No Primary Care Physician Referring Provider Active Start: October 16, 2024 End: October 16, 2024 Yris Brown CNM Attending Provider Active S tart: October 16, 2024 End: October 16, 2024 Team Status: Inactive Member Role/Relationship Status Dates No Primary Care Physician Primary Care Provider Active Start: October 29, 2024 End: October 29, 2024 No Primary Care Physician Referring Provider Active Start: October 29, 2024 End: October 29, 2024 Dr. Taina Huddleston MD Attending Provider Active Start: October 29, 2024 End: October 29, 2024 Team Status: Inactive Member Role/Relationship Status Dates No Primary Care Physician Primary Care Provider Active Start: November 13, 2024 End: November 13, 2024 No Primary Care Physician Referring Provider Active Start: November 13, 2024 End: November 13, 2024 Yris Brown CNM Attending Provider Active S tart: November 13, 2024 End: November 13, 2024 Team Status: Inactive Member Role/Relationship Status Dates No Primary Care Physician Primary Care Provider Active Start: August 13, 2024 End: August 13, 2024 No Primary Care Physician Referring Provider Active Start: August 13, 2024 End: August 13, 2024 Yris Brown CNM Attending Provider Active S tart: August 13, 2024 End: August 13, 2024 Team Status: Inactive Member Role/Relationship Status Dates No Primary Care Physician Primary Care Provider Active Start: September 10, 2024 End: September 10, 2024 No Primary Care Physician Referring Provider Active Start: September 10, 2024 End: September 10, 2024 Dr. Taina Huddleston MD Attending Provider Active Start: September 10, 2024 End: September 10, 2024 Team Status: Inactive Member Role/Relationship Status Dates No Primary Care Physician Primary Care Provider Active Start: September 10, 2024 End: September 10, 2024 Dr. Taina Huddleston MD Attending Provider Active Start: September 10, 2024 End: September 10, 2024 Dr. Taina Huddleston MD Referring Provider Active Start: September 10, 2024 End: September 10, 2024 Team Status: Inactive Member Role/Relationship Status Dates No Primary Care Physician Primary Care Provider Active Start: October 01, 2024 End: October 01, 2024 No Primary Care Physician Referring Provider Active Start: October 01, 2024 End: October 01, 2024 Tawanna Farfan NP, PRODUCT TESTER-C Attending Provider Active Start: October 01, 2024 End: October 01, 2024 Team Status: Inactive Member Role/Relationship Status Dates No Primary Care Physician Primary Care Provider Active Start: October 01, 2024 End: October 01, 2024 Dr. Taina Huddleston MD Attending Provider Active Start: October 01, 2024 End: October 01, 2024 Dr. Taina Huddleston MD Referring Provider Active Start: October 01, 2024 End: October 01, 2024 Team Status: Inactive Member Role/Relationship Status Dates No Primary Care Physician Primary Care Provider Active Start: October 16, 2024 End: October 16, 2024 No Primary Care Physician Referring Provider Active Start: October 16, 2024 End: October 16, 2024 Yris Brown CNM Attending Provider Active S tart: October 16, 2024 End: October 16, 2024 Team Status: Inactive Member Role/Relationship Status Dates No Primary Care Physician Primary Care Provider Active Start: October 29, 2024 End: October 29, 2024 No Primary Care Physician Referring Provider Active Start: October 29, 2024 End: October 29, 2024 Dr. Taina Huddleston MD Attending Provider Active Start: October 29, 2024 End: October 29, 2024 Team Status: Inactive Member Role/Relationship Status Dates No Primary Care Physician Primary Care Provider Active Start: November 13, 2024 End: November 13, 2024 No Primary Care Physician Referring Provider Active Start: November 13, 2024 End: November 13, 2024 Yris Brown CNM Attending Provider Active S tart: November 13, 2024 End: November 13, 2024 Team Status: Inactive Member Role/Relationship Status Dates No Primary Care Physician Primary Care Provider Active Start: November 23, 2024 End: November 23, 2024 Yris Brown CNM Attending Provider Active S tart: November 23, 2024 End: November 23, 2024 Yris Brown CNM Referring Provider Active S tart: November 23, 2024 End: November 23, 2024 Team Status: Active Member Role/Relationship Status Dates No Primary Care Physician Primary Care Provider Active Start: November 23, 2024 Yris Brown CNM Attending Provider Active S tart: November 23, 2024 Yris Brown CNM Referring Provider Active S tart: November 23, 2024 Yris Brown CNM Other Provider Active Start : November 23, 2024 Team Status: Inactive Member Role/Relationship Status Dates No Primary Care Physician Primary Care Provider Active Start: November 26, 2024 End: November 26, 2024 No Primary Care Physician Referring Provider Active Start: November 26, 2024 End: November 26, 2024 Dr. Taina Huddleston MD Attending Provider Active Start: November 26, 2024 End: November 26, 2024 Team Status: Inactive Member Role/Relationship Status Dates No Primary Care Physician Primary Care Provider Active Start: November 26, 2024 End: November 26, 2024 Dr. Taina Huddleston MD Attending Provider Active Start: November 26, 2024 End: November 26, 2024 Dr. Taina Huddleston MD Referring Provider Active Start: November 26, 2024 End: November 26, 2024 Team Status: Inactive Member Role/Relationship Status Dates No Primary Care Physician Primary Care Provider Active Start: December 03, 2024 End: December 03, 2024 No Primary Care Physician Referring Provider Active Start: December 03, 2024 End: December 03, 2024 Dr. Taina Huddleston MD Attending Provider Active Start: December 03, 2024 End: December 03, 2024 Team Status: Inactive Member Role/Relationship Status Dates No Primary Care Physician Primary Care Provider Active Start: December 10, 2024 End: December 10, 2024 No Primary Care Physician Referring Provider Active Start: December 10, 2024 End: December 10, 2024 Yris Brown CNM Attending Provider Active S tart: December 10, 2024 End: December 10, 2024 Team Status: Active Member Role/Relationship Status Dates No Primary Care Physician Primary Care Provider Active Start: December 10, 2024 Yris Brown CNM Attending Provider Active S tart: December 10, 2024 Yris Brown CNM Referring Provider Active S tart: December 10, 2024 Team Status: Inactive Member Role/Relationship Status Dates No Primary Care Physician Primary Care Provider Active Start: December 10, 2024 End: December 10, 2024 No Primary Care Physician Referring Provider Active Start: December 10, 2024 End: December 10, 2024 Yris Brown CNM Attending Provider Active S tart: December 10, 2024 End: December 10, 2024 Source Comments (unrecognize d section and content) In the event this informatio n is protected by the Federal Confidentiality of Alcohol and Drug Abuse Patient Records regulations: The Federal rules restrict any use of the information to criminally investigate or prosecute any alcohol or drug abuse patient.[facility] Goals (unrecognized section and content) Goals may [...] BE BASED ON THE PRIMARY CLINICAL RECORDS. [facility] [employer] [facility]. provides no warranty or guarantee of the accuracy or completeness of information in this document.
[2024-12-11] VITALS (69 sets, daily range): BP systolic 98–152; BP diastolic 50–82; PULSE 69–122; RESP 14–18; TEMP 36.3–37.4; O2SAT 81–100
[2024-12-11] MEDS: LACTATED RINGERS 500 ML 999 ML IV ×2 (06:18→15:08)
--- NOTE | 2024-12-11 08:22 | PCM.PN.BLA ---
Progress Note 2-3cm cat I tracing s/p cytotec overnight will get shower and breakfast and plan fb. still vertex bps WNL
[2024-12-11] MEDS: 0.9% Normal Saline Single 100 ML IV.SOLN. INTRA-UTER (10:04)
[2024-12-11] MEDS: Lactated Ringers 1,000 ML 50 ML IV (11:05)
[2024-12-11] MEDS: Lactated Ringers 1,000 ML 999 ML IV (11:10)
[2024-12-11] MEDS: fentaNYL-bupivacaine (epidural) 100 ML BAG EPIDURAL ×2 (11:55→15:59)
--- NOTE | 2024-12-11 13:23 | PCM.PN.BLA ---
Progress Note arom clear fluid /-2 cat I tracing s/p fb iupc placed s/p epi exp managmeent
[2024-12-11] MEDS: Lactated Ringers 1,000 ML 200 ML IV (17:22)
[2024-12-11] MEDS: Oxytocin 15 Units/NS 250ml 15 UNITS/250 ML IV.SOLN 334 UNITS IV (18:21)
[2024-12-11] MEDS: Oxytocin 15 Units/NS 250ml 15 UNITS/250 ML IV.SOLN 83 UNITS IV (19:05)
--- NOTE | 2024-12-11 19:27 | EX.PCM.OBVAG ---
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 03/19 (4) Supervision of normal : QUALIFIERS: Normal : other normal Trimester: third trimester Qualified Code(s): Z34.83 - Encounter for supervision of other normal , third trimester COMMENT: PRR, , SAULO 12/22/24, girlAnnika PC: Hank Valencia?: Shmuel (5) : QUALIFIERS: Weeks of gestation: 38 weeks Qualified Code(s): Z3A.38 - 38 weeks gestation of COMMENT: NIPT low risk- carrier neg carrier for cystic fibrosis, nl anatomy. (6) BRCA2 gene mutation positive: COMMENT: OBGYN in [place]; gets yearly MRI w/contrast (Due 2/3 but wants to cancel d/t ) (7) Vaginal delivery: COMMENT: sm iol ghtn 38 girl gustavo Maternal Data Information SAULO Calculator Estimated Delivery Date Method Current WG Current Estimate 12/22/24 LMP (Certain) 38w 3d Vaginal Delivery Maternal Presentation Maternal Presentation: see assessment and plan Vaginal Delivery Information Surgeon/Practitioner: Taina Huddleston Date of Procedure: 12/11/24 Type of anesthesia: Epidural Estimated Blood Loss: 100 Findings Description of procedure: Patient began pushing and delivered the head in the AMRIT presentation. The head was delivered atraumatically . The anterior and posterior shoulders delivered without complication followed by the rest of the infant and the infant was placed on the maternal abdomen. Delayed cord clamping was employed for approximately 60 seconds. Cord was clamped and cut and gentle traction was applied to the cord and the placenta delivered spontaneously immediately following it was noted to be intact with three-vessel cord. The perineum and vagina were inspected and noted to have no laceration. EBL was 100 cc. Patient and infant tolerated delivery well. Presentation: Vertex Placental Delivery Description: Spontaneous Specimen collected: Yes Description of specimen(s) removed: placenta Margarine Churn Operator broke beater: No Post Vaginal Deli Medications given after delivery: Other (pitocin) Complication Complications: No Multi Select Codes Urinary/Genital Urinary/Genital CPT Codes: 28288 Vaginal Delivery+ PP Care([facility])
--- NOTE | 2024-12-11 19:28 | DCINST_ITS ---
Discharge Instructions DC O2, CPAP, BIPAP needs Home O2 Discharge instructions: No Dressing / Incision Discharge Activity: Return to Normal Activity, May Not Drive (while taking narcotic pain medications.) and May Shower May resume sexual activity in: 4-6 weeks Dressing / Incision Call your doctor if your incision/area has: Continuous Slow Oozing, Sudden Increased Bleeding, Increased Pain/ Swelling, Increased Redness and Foul Smelling Discharge Follow Up Care Please Follow Up With: Taina Huddleston MD When: Call [phone] to make an appointment with your doctor in 6 weeks. If you had elevated blood pressure or 4th degree laceration, you will need to be seen in 2 weeks. Test Results: Test results from this visit will be discussed in further detail at your follow- up appointment, if applicable. Discharge Plan Admission Admit Date/Time: 12/10/24 17:57 Attending Provider: Taina Huddleston Primary Care Provider: Dalila Physician,Eunice Primary Discharge Orders/Prescriptions Prescriptions: No Action Classic 28 mg iron- 800 mcg tablet 1 tab PO DAILY Referrals / Follow Up: Care Physician,Eunice Primary [Primary Care Provider] -
[2024-12-11] MEDS: 0.9% Saline Lock 10 ML Syringe IV (21:52)
[2024-12-12 01:55] VITALS: BP 119/75; PULSE 79; RESP 18; TEMP 36.1; O2SAT 97
[2024-12-12 05:05] VITALS: BP 105/75; PULSE 79; RESP 16; TEMP 36.3
[2024-12-12 08:18] VITALS: BP 131/90; PULSE 70; RESP 16; TEMP 36.3; O2SAT 98
--- NOTE | 2024-12-12 11:16 | PCM.PN.CNM ---
Subjective Subjective Calm, cooperative, resting comfortably in room w/family members present. Denies current needs or concerns. Objective Data Objective Data Vital Signs: Vital Signs Temp Pulse Resp BP Pulse Ox O2 Del Method 97.4 F L 70 16 131/90 H 98 Room Air 12/12/24 08:18 12/12/24 08:18 12/12/24 08:18 12/12/24 08:18 12/12/24 08:18 12/12/24 08:18 Oxygen Delivery Method Room Air Weight: 207 lb 3.752 oz Body Mass Index (BMI) 32.4 Intake & Output: Intake and Output for Last 24 Hours 12/10/24 12/11/24 12/12/24 23:59 23:59 23:59 Intake Total 0.83 / 0.83 4626.57 / 4626.57 Output Total 1400 / 1400 Balance 0.83 / 0.83 3226.57 / 3226.57 Lab / Micro Data Attestation: I reviewed the patient's lab results. ROS Constitutional Constitutional: Reports systems reviewed and no addt'l complaints, except as documented Respiratory/Chest Respiratory/Chest: Reports systems reviewed and no addt'l complaints, except as documented Gastrointestinal Gastrointestinal: Reports systems reviewed and no addt'l complaints, except as documented Genitourinary Genitourinary: Reports systems reviewed and no addt'l complaints, except as documented Psychiatric Psychiatric: Reports systems reviewed and no addt'l complaints, except as documented Physical Exam Const alert, oriented x3 and no apparent distress General Appearance: cooperative, comfortable, well kempt and well developed Resp normal respiratory effort Resp Narrative: Respirations eased & unlabored. Uterus Palpation: uterus fundus firm (Midline, u/1, small lochia rubra, no odor per nursing staff. (pt declines exam)) Extremity normal to inspection Psych mental status grossly normal, thought process normal, cooperative and affect normal Charges/Coding Multi Select Codes Urinary/Genital Urinary/Genital CPT Codes: 30036 CARE AFTER DELIVERY Assessment & Plan (1) Vaginal delivery: COMMENT: anisha iol ghtn 38 girl gustavo PLAN: D/C home today, to f/u in office (2) Gestational hypertension: COMMENT: plan IOL PLAN: D/C home today if BP <140/90, monitor BP's at home daily, call if >140/90 or s/s of Pre-E occur. PLAN: Plan s/p PPD # 1 1. routine post delivery care. 2. bottle feeding - breast comfort instructions given. 3. rh positive. 4. rubella immune. 5. Gestational HTN delivered.
[2024-12-12 12:56] VITALS: BP 126/89; PULSE 77; RESP 16; TEMP 36.3; O2SAT 98
[2024-12-12 17:03] VITALS: BP 125/87; PULSE 69; RESP 16; TEMP 36.3; O2SAT 98
--- NOTE | 2024-12-17 11:38 | NURSING ---
F/up phone call performed. Pt. denies s+s of complications, minimal lochia. Denies questions or concerns. Encouragement and support given.
== END 2024-12-12 19:10 | disposition home or self-care (01) | DRG 560 ==
LOC: WPOUT 18:17 → WP 18:17
PROVIDERS: Admitting Provider Obstetrics & Gynecology; Visit Provider Obstetrics & Gynecology
DX: O13.4 Gestational [pregnancy-induced] hypertension without significant proteinuria, complicating childbirth (principal); Z37.0 Single live birth; O32.1XX0 Maternal care for breech presentation, not applicable or unspecified; Z14.1 Cystic fibrosis carrier; Z3A.38 38 weeks gestation of pregnancy; Z87.59 Personal history of other complications of pregnancy, childbirth and the puerperium
CPT/HCPCS: 36415; 59025; 59050; 76815; 80053; 82570; 84156; 85025; 86780; 86850; 86900; 86901; 99221; A4216; G0378

== ENCOUNTER → 2024-12-10 | Outpatient (CLI) | payer MEDICAID, SELFPAY ==
[2024-12-10 12:27] LABS: Hematocrit 38.5 % (37-47); Hemoglobin 13.0 g/dL (12.0-15.0); Immature Granulocytes Count 0.050 X10^3/uL (0.0-0.0); Mean Corp Hgb Conc 33.8 g/dL (32-36); Mean Corpuscular Volume 83.3 fL (81-99); Mean Platelet Vol. 10.7 fl (6.2-12.0); NRBC Flagged by Analyzer 0 % (0-5); Platelet Count 249 K/mm3 (150-450); RBC Distribution Width CV 12.7 % (11.6-14.6); RBC Distribution Width SD 38.3 fl (35.1-43.9); Red Blood Count 4.62 M/mm3 (4.2-5.4); White Blood Count 9.7 K/mm3 (4.4-11.0)
[2024-12-10 13:05] LABS: AST(SGOT) 30 U/L (<=31); Alanine Aminotransfer ALT/SGPT 16 U/L (<=34); Albumin, Serum 3.6 g/dL (3.5-5.0); Alkaline Phosphatase 147 U/L (35-104); Anion Gap 12 (5-15); BUN 6 mg/dL (4-19); BUN/Creat Ratio 10.2 RATIO (10-20); Calcium,Total 9.1 mg/dL (7.6-11.0); Carbon Dioxide 21.6 mmol/L (21.0-32.0); Chloride 99 mmol/L (98-108); Globulin 3.4 g/dL (2.2-4.2); Glucose 112 mg/dL (70-99); Potassium 3.8 mmol/L (3.3-5.1)
[2024-12-10 13:10] LABS: Creatinine, Urine (random) 54.40 mg/dL (28.00-217.00); Protein, Urine (Random) 11.4 mg/dL (0.0-12.0); Protein:Creat Ratio 210 mg/g CRE (0-200)
== END | disposition home or self-care (01) ==
PROVIDERS: Referring Provider Advanced Practice Midwife; Visit Provider Advanced Practice Midwife
DX: R03.0 Elevated blood-pressure reading, without diagnosis of hypertension (principal)
CPT/HCPCS: 36415; 80053; 82570; 84156; 85025

== ENCOUNTER → 2025-01-21 | Outpatient (CLI) | payer MEDICAID, SELFPAY ==
--- OUTSIDE RECORDS SUMMARY | 2025-01-21 17:03 | XMS RPT_ITS | CCD ---
Author Organization [facility] Care Team Providers Care Denier Control Operator Name Role Phone Ori MADDEN Attending Unavailable Unavailable Primary Care Provider Unavailabl e Unavailable Primary Care Provider Unavailabl e Self, Self Primary Care Provider Unavailabl e Self, Self Primary Care Provider Unavailabl e SELF, SELF Primary Care Unavailable ARCHANA GARCIA Attending Unavailable ARCHANA GARCIA Referring Unavailable SELF, SELF Primary Care Unavailable JAMAL LAGOS Attending Unavailabl e JAMAL LAGOS Referring Unavailabl e Unavailable Primary Care Provider Unavailabl e NO PRIMARY CARE, Primary Care Unavailable AADN CHRISTIANSEN Attending Unavailable CARY MARTIN Referring Unavailab le Care Physician, No Primary Primary Care Provider Unavailable Care Physician, No Primary Referring Provider Un available Yris Brown CNM Attending Provider Yris Brown CNM Referring Provider [phone] Dr. Julio Louise DO Attending Provider Dr. Julio Louise DO Emergency Provider Dr. Cary Brenner DO Attending Provider Tawanna Yuan Attending Provider [phone] Dr. Taina Huddleston MD Attending Provider [phone] Dr. Taina Huddleston MD Referring Provider [phone] Care Physician, No Primary Primary Care Provider Unavailable Care Physician, No Primary Referring Provider Un available Yris Brown CNM Attending Provider [phone] Care Physician, No Primary Primary Care Provider Unavailable Care Physician, No Primary Referring Provider Un available Care Physician, No Primary Primary Care Provider Unavailable Care Physician, No Primary Referring Provider Un available Tawanna Yuan Attending Provider Yris Brown CNM Referring Provider Kevin CNM, Yris Other Provider [phone] Care Physician, No Primary Primary Care Provider Unavailable Care Physician, No Primary Referring Provider Un available Kevin MOODY, Yris Attending Provider Flaquito DOWD, Dr. Her Other Provider Flaquito DOWD, Dr. Her Admit Provider Fabricio MOODY, Dayanna Attending Provider Unavaila ble Care Physician, No Primary Referring Unava ilable Care Physician, No Primary Primary Care Unava ilable Yris Brown Attending Unavailable Care Physician, No Primary Referring Unava ilable Care Physician, No Primary Primary Care Unava ilable Taina Huddleston Attending Unavailable Care Physician, No Primary Referring Unava ilable Care Physician, No Primary Primary Care Unava ilable Yris Brown Attending Unavailable Care Physician, No Primary Referring Unava ilable Care Physician, No Primary Primary Care Unava ilable Yris Brown Attending Unavailable Yris Brown Referring Unavailable Yris Brown Attending Unavailable Care Physician, No Primary Primary Care Unava ilable Taina Huddleston Consulting Unavailable Marcanthsyed, Taina Attending Unavailable Care Physician, No Primary Primary Care Unava ilable Taina Huddleston Referring Unavailable Care Physician, No Primary Referring Unava ilable Care Physician, No Primary Primary Care Unava ilable Yris Brown Attending Unavailable Care Physician, No Primary Primary Care Unava ilable Farzana Peña Attending Unavailable MarcTaina zendejas Attending Unavailable Care Physician, No Primary Referring Unava ilable Care Physician, No Primary Primary Care Unava ilable Care Physician, No Primary Referring Unava ilable Care Physician, No Primary Primary Care Unava ilable Naheed SUPERINTENDENT PRESSURE, Tawanna Attending Unavailable Care Physician, No Primary Primary Care Unava ilable Julio Louise Attending Unavailable MarcTaina zendejas Attending Unavailable Care Physician, No Primary Primary Care Unava ilable Taina Huddleston Referring Unavailable Care Physician, No Primary Primary Care Unava ilable Taina Huddleston Attending Unavailable MarcTaina zendejas Referring Unavailable Yris Brown Referring Unavailable Yris Brown Attending Unavailable Care Physician, No Primary Primary Care Unava ilable Care Physician, No Primary Referring Unava ilable Care Physician, No Primary Primary Care Unava ilable Cary Brenner Attending Unavailabl e Taina Huddleston Attending Unavailable Care Physician, No Primary Referring Unava ilable Care Physician, No Primary Primary Care Unava ilable Care Physician, No Primary Referring Unava ilable Care Physician, No Primary Primary Care Unava ilable Yris Brown Attending Unavailable Care Physician, No Primary Primary Care Unava ilable Yris Brown Attending Unavailable Kevin, Yris Referring Unavailable Marcanthsyed, Taina Attending Unavailable Care Physician, No Primary Primary Care Unava ilable Marcanthony, Taina Referring Unavailable Marcanthony, Taina Admitting Unavailable Care Physician, No Primary Primary Care Unava ilable Yris Brown Attending Unavailable Kevin, Yris Referring Unavailable Marcanthony, Taina Attending Unavailable Care Physician, No Primary Primary Care Unava ilable Marcanthony, Taina Referring Unavailable Marcanthsyed, Taina Attending Unavailable Care Physician, No Primary Referring Unava ilable Care Physician, No Primary Primary Care Unava ilable Care Physician, No Primary Referring Unava ilable Care Physician, No Primary Primary Care Unava ilable Yris Brown Attending Unavailable Care Physician, No Primary Referring Unava ilable Care Physician, No Primary Primary Care Unava ilable Naheed SUPERINTENDENT PRESSURE, Tawanna Attending Unavailable Kevin, Yris Attending Unavailable Care Physician, No Primary Primary Care Unava ilable Yris Brown Referring Unavailable Yris Brown Consulting Unavailable Care Physician, No Primary Primary Care Unava ilable Dayanna Regalado Attending Unavailable Marcanthony, Taina Admitting Unavailable Marcanthony, Taina Consulting Unavailable Marcanthsyed, Taina Attending Unavailable Care Physician, No Primary Referring Unava ilable Care Physician, No Primary Primary Care Unava ilable Yris Brown Attending Unavailable Allergies Allergy Classification Reported Allergen(s) Allergy Type Date of Onset Reaction(s) Facility (6 sources) carboxypolymethylene Drug Allergy 2 [facility] Medications Current Medications Medication Drug Class(es) [...] PO) Take by mouth. 0 Active Vit No.782-Cpbp-Gjr ic (Classic ) 28 mg iron- 800 mcg tablet (15 sources) Start: 05-08-2024 Vit N o.127-Vjra-Oatcq (Classic ) 28 mg iron- 800 mcg tablet Active 1 {tbl} PO DAILY May 08, 2024 1:00am Start: 05-08-2024 Vit N o.164-Tzsg-Fctki (Classic ) 28 mg iron- 800 mcg [...] (Original) docosahexaenoic acid 200 mg oral capsule (15 sources) Start: 05-13-2019 End: 01-31-2025 Docosahexaenoic Acid 200 MG capsule Discontinued 1 {tbl} PO DAILY May 13, 2019 1:00am May 08, 2024 10:42am gadoterate Meglumine (DOTAREM) 5 MMOL/10ML injection 3-60 mL (1 source) Start: 03-23-2022 End: 03-23-2022 gadoterate Meglumine (DOTAREM) 5 MMOL/10ML injection 3-60 mL Problems Active Problems Problem Classification Problem Date Documented Date Episodic/Chronic Contraceptive and procreative management (5 sources) Patient encounter status; Translations: [Encounter for initial prescription of contraceptive pills] Episodic Hypertension complicating ; childbirth and the puerperium (5 sources) -induced hypertension; Translations: [Gestational [-induced] hypertension without significant proteinuria, unspecified trimester] Onset: 12-22-2024 12-10-2024 Episodic Comment on above: plan IOL Menstrual disorders (6 sources) Dysmenorrhea; Translations: [Dysmenorrhea, unspecified] Onset: 08-19-2018 08-19-2018 Chronic Other circulatory disease (8 sources) Elevated blood-pressure reading without diagnosis of hypertension; Translations: [Elevated blood-pressure reading, without diagnosis of hypertension] 12-10-2024 Episodic Other circulatory disease (1 source) Elevated blood-pressure reading, without diagnosis of hypertension; Translations: [Elevated blood-pressure reading, without diagnosis of hypertension] Onset: 12-16-2024 Episodic Other complications of (16 sources) Vaginal discharge; Translations: [Other specified related conditions, unspecified trimester] 11-23-2024 Episodic Comment on above: rom + negative. reac tive NST Other complications of (1 source) Other specified related conditions, unspecified trimester; Translations: [Other specified related conditions, unspecified trimester] Onset: 12-02-2024 Episodic Other female genital disorders (16 sources) Vaginal bleeding; Translations: [Abnormal uterine and [...] girl, [facility]: Hank Valencia : Shmuel NIPT low risk- stevo er neg carrier for cystic fibrosis, nl anatomy. sm iol ghtn 38 g irl delmahiren Other screening for suspected conditions (not mental [...] 09-09-2017 Episodic Comment on above: OBGYN in [place]; g ets yearly MRI w/contrast (Due 2/3 [...] above: FOB neg. 03/19 Residual codes; unclassified (2 sources) Cystic fibrosis carrier; Translations: [Cystic fibrosis carrier] Onset: 12-11-2024 Episodic Residual codes; unclassified (2 sources) 38 weeks gestation of ; Translations: [38 weeks gestation of ] Onset: 12-11-2024 Episodic Residual codes; unclassified (1 source) 36 weeks gestation of ; Translations: [36 weeks gestation of ] Onset: 11-26-2024 Episodic Residual codes; unclassified (1 source) 34 weeks gestation of ; Translations: [34 weeks gestation of ] Onset: 12-02-2024 Episodic Residual codes; unclassified (1 source) 32 weeks gestation of ; Translations: [32 weeks gestation of ] Onset: 10-29-2024 Episodic Superficial injury; contusion (1 source) Tick [...] Problem Classification Problem Date Documented Date Episodic/Chronic Hemorrhage during ; abruptio placenta; placenta previa (16 sources) Threatened miscarriage; Translations: [Threatened ] Onset: 06-04-2024 06-01-2024 Episodic Immunizations and screening for infectious disease (1 source) Encounter for immunization; Translations: [Encounter for immunization] Onset: 10-01-2024 Episodic Mood disorders (5 sources) Mood disorders Onset: [...] 06-13-2023 Episodic Residual codes; unclassified (1 source) 30 weeks gestation of ; Translations: [30 weeks gestation of ] Onset: 10-16-2024 Episodic Residual codes; unclassified (1 source) 21 [...] Test Name Value Interpretation Reference Range Facility Discharge Instructionon 090 Discharge Instruction [facility] Medical Records Department [address] [place] [address] Instructions for Home/Discharge Instructions 12/11/241927 MR#: [id number] Acct: [id number] Name: ANJU MUELLER Rep #: [id number] : 1995 29 From: Taina Huddleston MD PCP: Dalila Physician,No Primary Status:ADM IN Discharge Instructions DC O2, CPAP, BIPAP needs Home O2 Discharge instructions: No Dressing / Incision Discharge Activity: Return to Normal Activity, May Not Drive (while taking narcotic pain medications.) and May Shower May resume sexual activity in: 4-6 weeks Dressing / Incision Call your doctor if your incision/area has: Continuous Slow Oozing, Sudden Increased Bleeding, Increased Pain/ Swelling, Increased Redness and Foul Smelling Discharge Follow Up Care Please Follow Up With: Taina Huddleston MD When: Call [phone] to make an appointment with your doctor in 6 weeks. If you had elevated blood pressure or 4th degree laceration, you will need to be seen in 2 weeks. Test Results: Test results from this visit will be discussed in further detail at your follow-up appointment, if applicable. Discharge Plan Admission Admit Date/Time: 12/10/24 17:57 Attending Provider: Taina Huddleston Primary Care Provider: Dalila Physician,Eunice Primary Discharge Orders/Prescriptions Prescriptions: No Action Classic 28 mg iron- 800 mcg tablet 1 tab PO DAILY Referrals / Follow Up: Dalila Physician,Eunice Primary [Primary Care Provider] - 12/11/241928 Taina Huddleston MD CC: No Primary Care Physician Signed Normal [facility] MR/OB.VAGDELIon 12-11-2024 MR/OB.VAGDELI [facility] Medical Records Department [address] [place] [address] OB Vaginal Delivery 12/11/241926 MR#: [id number] Acct: [id number] Name: ANJU MUELLER Rep #: [id number] : 1995 29 From: Taina Huddleston MD PCP: Care Physician,No Primary Status:ADM IN Location: [place] [id number] Assessment Plan (1) Encounter for induction of labor: (2) Gestational hypertension: COMMENT: plan IOL (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 03/19 (4) Supervision of normal : QUALIFIERS: Normal : other normal Trimester: third trimester Qualified Code(s): Z34.83 - Encounter for supervision of other normal , third trimester COMMENT: PRR, , SAULO 12/22/24, girl, [facility]ika [facility]: Hank Valencia???: Shmuel (5) : QUALIFIERS: Weeks of gestation: 38 weeks Qualified Code(s): Z3A.38 - 38 weeks gestation of COMMENT: NIPT low risk- carrier neg carrier for cystic fibrosis, nl anatomy. (6) BRCA2 gene mutation positive: COMMENT: OBGYN in [place]; gets yearly MRI w/contrast (Due / but wants to cancel d/t ) (7) Vaginal delivery: COMMENT: sm iol ghtn 38 girl gustavo Maternal Data Information SAULO Calculator Estimated Delivery Date Method Current WG Current Estimate 12/22/24 LMP (Certain) 38w 3d Vaginal Delivery Maternal Presentation Maternal Presentation: see assessment and plan Vaginal Delivery Information Surgeon/Practitioner : Taina Huddleston Date of Procedure: 12/11/24 Type of anesthesia: Epidural Estimated Blood Loss: 100 Findings Description of procedure: Patient began pushing and delivered the head in the AMRIT presentation. The head was delivered atraumatically . The anterior and posterior shoulders delivered without complication followed by the rest of the infant and the was placed on the maternal abdomen. Delayed cord clamping was employed for approximately 60 seconds. Cord was clamped and cut and gentle traction was applied to the cord and the placenta delivered spontaneously immediately following it was noted to be intact with three-vessel cord. The perineum and vagina were inspected and noted to have no laceration. EBL was 100 cc. Patient and infant tolerated delivery well. Presentation: Vertex Placental Delivery Description: Spontaneous Specimen collected: Yes Description of specimen(s) removed: placenta Medical Microbiologist pot reliner: No Post Vaginal Deli Medications given after delivery: Other (pitocin) Complication Complications: No Multi Select Codes Urinary/Genital Urinary/Genital CPT Codes: 83572 Vaginal Delivery+ PP Care([facility]) 12/11/241927 Cosigner Signature (if applicable): CC: Dr. Taina Huddleston MD; No Primary Care Physician Signed Normal [facility] Absolute lymphocyte countOrd ered By: Yris Brown on 12-10-2024 Lymphocytes Auto (Unsp spec) [#/Vol] 1.29 10*3/uL 0.83-4.51 [facility] Absolute neutrophil countOrd ered By: Yris Brown on 12-10-2024 Neutrophils (Bld) [#/Vol] 7.7 10*3/uL 2.0-7.7 [facility] Anion gap in Serum or Plasma Ordered By: Yris Brown on 12-10-2024 Anion gap [Moles/Vol] 12 mmol/L 5-15 [facility] Automated blood erythrocyte countOrdered By: Yris Brown on 12-10-2024 RBC (Bld) [#/Vol] 4.62 10*6/uL Normal 4.2-5.4 [facility] Comment on above: Performed By: #### L 100.0100, L501.0900, L500.4050 #### [facility] [address] [place], [address] Automated blood hematocrit ( percentage)Ordered By: Yris Brown on 12-10-2024 Hematocrit (Bld) [Volume fraction] 38.5 % Normal 37-47 [facility] Comment on above: Performed By: #### L 100.0100, L501.0900, L500.4050 #### [facility] [address] [place], [address] Automated lymphocyte count a s percentage of total leukocytesOrdered By: Yris Brown on 12-10-2024 Lymphocytes/100 WBC Auto (Unsp spec) 13.3 % Low 19-41 [facility] BUN/creatinine ratioOrdered By: Yris Brown on 12-10-2024 Urea nitrogen/Creatinine [Mass ratio] 10.2 mg/mg 10-20 [facility] Basophil percentageOrdered B y: Yris Brown on 09-04-2025 Basophils/100 WBC (Bld) 0.2 % Normal 0-[address] [facility] Comment on above: Performed By: #### L 100.0100, L501.0900, L500.4050 #### [facility] [address] [place], [address] Bilirubin, totalOrdered By: Yris Brown on 12-10-2024 Bilirubin [Mass/Vol] 0.27 mg/dL Normal 0.00-1.30 [facility] Comment on above: Performed By: #### L 100.0100, L501.0900, L500.4050 #### [facility] [address] [place], [address] CBC W/Diff, Automatedon 09 Absolute Lymph 1.29 X10 3/uL Normal 0.83-4.51 [facility] Comment on above: Performed By: #### L 100.0100, L501.0900, L500.4050 #### [facility] [address] [place], [address] Absolute Neut 7.7 X10 3/uL Normal 2.0-7.7 [facility] Comment on above: Performed By: #### L 100.0100, L501.0900, L500.4050 #### [facility] [address] [place], [address] IG% 0.500 Normal 0.0-0.9 [facility] Comment on above: Result Comment: IG% - Immature Granulocytes (promyelocytes, myelocytes and metamyelocytes) > 1% indicates that a LEFT SHIFT is Present. Performed By: #### L 100.0100, L501.0900, L500.4050 #### [facility] [address] [place], [address] Lymphocytes/100 WBC (Bld) 13.3 % Low 19-41 [facility] Comment on above: Performed By: #### L 100.0100, L501.0900, L500.4050 #### [facility] [address] [place], [address] Nucleated RBC (Bld) [#/Vol] 0 10*3/uL Normal 0-5 [facility] Comment on above: Performed By: #### L 100.0100, L501.0900, L500.4050 #### [facility] [address] [place], [address] RDW SD 38.3 fl Normal 35.1-43.9 [facility] Comment on above: Performed By: #### L 100.0100, L501.0900, L500.4050 #### [facility] [address] [place], [address] Carbon dioxide, total [Moles /volume] in Central venous bloodOrdered By: Yris Brown on 12-10-2024 CO2 [Moles/Vol] 21.6 mmol/L Normal 21.0-32.0 [facility] Comment on above: Performed By: #### L 100.0100, L501.0900, L500.4050 #### [facility] [address] [place], [address] Chloride assayOrdered By: Arsenio Brown on 12-10-2024 Chloride [Moles/Vol] 99 mmol/L Normal 98-108 [facility] Comment on above: Performed By: #### L 100.0100, L501.0900, L500.4050 #### [facility] [address] [place], [address] Comprehensive Metabolic Prof ilon 12-10-2024 ALK PHOS 147 U/L High 35-104 [facility] Comment on above: Performed By: #### L 100.0100, L501.0900, L500.4050 #### [facility] [address] [place], [address] BUN/CRE 10.2 RATIO Normal 10-20 [facility] Comment on above: Performed By: #### L 100.0100, L501.0900, L500.4050 #### [facility] [address] [place], [address] GAP 12 Normal 5-15 [facility] Comment on above: Performed By: #### L 100.0100, L501.0900, L500.4050 #### [facility] [address] [place], [address] Potassium [Moles/Vol] 3.8 mmol/L Normal 3.3-5.1 [facility] Comment on above: Performed By: #### L 100.0100, L501.0900, L500.4050 #### [facility] [address] [place], [address] T PROT 7.0 g/dL Normal 5.9-8.4 [facility] Comment on above: Performed By: #### L 100.0100, L501.0900, L500.4050 #### [facility] [address] [place], [address] Comprehensive Metabolic Prof ilOrdered By: Yris Brown on 12-10-2024 AST [Catalytic activity/Vol] 30 U/L Normal <=31 [facility] Comment on above: Performed By: #### L 100.0100, L501.0900, L500.4050 #### [facility] [address] [place], [address] Eosinophil percentageOrdered By: Yris Brown on 12-10-2024 Eosinophils/100 WBC (Bld) 0.2 % Normal 0-5 [facility] Comment on above: Performed By: #### L 100.0100, L501.0900, L500.4050 #### [facility] [address] [place], [address] Erythrocyte distribution wid th ratioOrdered By: Yris Brown on 12-10-2024 Erythrocyte distribution width (RBC) [Ratio] 12.7 % Normal 11.6-14.6 [facility] Comment on above: Performed By: #### L 100.0100, L501.0900, L500.4050 #### [facility] [address] [place], [address] Erythrocyte distribution wid th standard deviationOrdered By: Yris Brown on 12-10-2024 Erythrocyte distribution width (RBC) [Ratio] 38.3 fl 35.1-43.9 [facility] Glomerular filtration rate ( GFR) estimation/1.73 sq m using serum, plasma, or whole bOrdered By: Yris Brown on 12-10-2024 GFR/1.73 sq M.predicted among non-blacks MDRD (S/P/Bld) [Vol rate/Area] 127 mL/min/{1.73_m2} Normal >60 [facility] Comment on above: mL/min/1.73m2 CKD-EP I Creatinine Equation (2020) Result Comment: mL/m in/1.73m2 CKD-EPI Creatinine Equation (2020) Performed By: #### L 100.0100, L501.0900, L500.4050 #### [facility] [address] [place], [address] H AND P Exam - OB/GYNon H&P Exam - MOTOR VEHICLE EXAMINER [facility] Medical Records Department [address] [place] [address] H P Exam - MOTOR VEHICLE EXAMINER 12/10/24 1740 MR#: [id number] Acct: [id number] Name: ANJU MUELLER Rep #: [id number] : 1995 29 From: Taina Huddleston MD PCP: Care Physician,No Primary Status:REG CLI [facility] - General HPI Narrative ANJU SEN, is a 29 F who presents with elevated bps, gestational hypertension no barbosa bv but incresaed sewlling since over the weekend. she dneies any bleeding or abnormnal discharge. Maternal Data Information SAULO Calculator Estimated Delivery Date Method Current WG Current Estimate 12/22/24 LMP (Certain) 38w 2d PFSH PFSH Medical History BRCA2 gene mutation positive Family history of BRCA2 gene positive Home Medications ???Medication ???Instructions ???Recorded ???Last Taken ???Type vits no.126-ferrous fum 1 tab PO DAILY 05/08/24 12/10/24 08:00 History 28 mg iron-folic acid 800 mcg 1 TAB tablet (Classic ) Allergy/AdvReac Type Severity Reaction Status Date / Time No Known Allergies Allergy Verified 12/10/24 16:39 Family History Mother BRCA gene mutation positive Preventative mastectomy done, 16 other relatives also + Aunt Breast cancer Surgical History [place] teeth removed Social History household members: significant other and children number of children: 1 current occupational status: employed current occupation: [employer] in [place] current occupational exposures/hazards: No pets and animals: [...] 3-4 times per week duration: 15-30 minutes/day carissa/orthodoxy: None seatbelt use: always do you feel safe at home: Yes additional social history: Fianc???: [employer] in [place] History 2 Elective abortions Hx Para 1 [...] Induced d/t post dates, small PP hemorrhage Visit Details Expected Delivery Route/Plan Labor Preferences- CB/BF classes: no labor support person: Shmuel labor intervention preferences: [] pain management options preferred: epidural cut cord/dad catch: maybe : undecided PP control planned: discussed discussed possible routes of delivery and associated risks: [] special requests: [] Plans Covid status: [] Flu vaccine: [] Tdap vaccine: given 10/01/24 Rhogam: NA LARC form signed: yes movement and labor precautions reviewed. Problem list reviewed and updated with the most current plan of care details and appropriate orders placed. Relevant counseling for the gestational age provided. Continue routine care and follow up unless otherwise noted in visit notes/problem list details OB Flowsheet Initial Weight: 160 lb Date -???-???-???-???-??? -???-???-???-???-??? [...] Negative -???-???-???-???-??? -???-???-???-???-??? -???-???- Negative 149 -???-???-???-???-??? -???-???-???-??? (more content not included)... Normal [facility] Hemoglobin measurementOrdere d By: Yris Brown on 12-10-2024 Hemoglobin (Bld) [Mass/Vol] 13.0 g/dL Normal 12.0-15.0 [facility] Comment on above: Performed By: #### L 100.0100, L501.0900, L500.4050 #### [facility] [address] [place], [address] Immature granulocytes/100 WB C Auto (Bld)Ordered By: Yris Brown on 12-10-2024 Immature granulocytes/100 WBC (Bld) 0.500 % 0.0-0.9 [facility] Comment on above: IG% - Immature Granu locytes (promyelocytes, myelocytes and metamyelocytes) > 1% indicates that a LEFT SHIFT is Present. Laboratory - Chemistry and C hemistry - challengeOrdered By: Yris Brown on 12-10-2024 Glucose Ql (U) Negative [facility] Laboratory - UrinalysisOrder ed By: Yris Brown on 12-10-2024 Protein Ql (U) Negative [facility] MCV (mean corpuscular volume ) determinationOrdered By: Yris Brown on 12-10-2024 MCV (RBC) [Entitic vol] 83.3 fL Normal 81-[address] [facility] Comment on above: Performed By: #### L 100.0100, L501.0900, L500.4050 #### [facility] [address] [facility] [place], [address] Mean corpuscular hemoglobin (MCH) determinationOrdered By: Yris Brown on 12-10-2024 MCH (RBC) [Entitic mass] 28.1 pg Normal 27.0-32.0 [facility] Comment on above: Performed By: #### L 100.0100, L501.0900, L500.4050 #### [facility] [address] [place], [address] Mean corpuscular hemoglobin concentration (MCHC) determinationOrdered By: Yris Brown on 12-10-2024 MCHC (RBC) [Mass/Vol] 33.8 g/dL Normal 32-36 [facility] Comment on above: Performed By: #### L 100.0100, L501.0900, L500.4050 #### [facility] [address] [place], [address] Mean platelet volume determi nationOrdered By: Yris Brown on 12-10-2024 Platelet mean volume (Bld) [Entitic vol] 10.7 fL Normal 6.2-12.0 [facility] Comment on above: Performed By: #### L 100.0100, L501.0900, L500.4050 #### [facility] [address] [place], [address] Monocyte percentageOrdered B y: Yris Brown on 12-10-2024 Monocytes/100 WBC (Bld) 6.7 % Normal 0-[address] [facility] Comment on above: Performed By: #### L 100.0100, L501.0900, L500.4050 #### [facility] [address] [place], [address] Neutrophil percentageOrdered By: Yris Brown on 12-10-2024 Neutrophils/100 WBC (Bld) 79.1 % High 47-70 [facility] Comment on above: Performed By: #### L 100.0100, L501.0900, L500.4050 #### [facility] [address] [place], [address] Nucleated red blood cell per centageOrdered By: Yris Brown on 12-10-2024 Nucleated RBC/100 WBC (Bld) [Ratio] 0 % 0-5 [facility] Vocal [employer] Teacher Office Visit Reporton 12-10-2024 Vocal Music Teacher Office Visit Report [facility]'[address], [address] [place] [address] OFFICE VISIT Date of Service: 12/10/24 MR#: [id number] Acct: [id number] Name: ANJU MUELLER Rep #: [id number] : 1995 Provider: FRANSISCO Forrester ams Age/Sex: 29/F Location: [facility] [place] Status: Signed Intake Vital Signs 10/29/24 10:12 12/03/24 14:52 12/10/24 11:41 12/10/24 11:41 Height 5 ft 7 in 5 ft 7 in 5 ft 7 in 5 ft 7 in Weight: 208 lb 8 oz 208 lb BMI 32.6 32.5 BP 118/76 137/90 H Intake Visit Reasons: 38 WK OB Chief Complaint: 38wk OB 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 Is patient in pain?: No Allergies No Known Allergies Allergy (Verified 12/10/24 11:39) Medications ???Medication ???Instructions ???Recorded ???Confirmed ???Type vits no.126-ferrous fum 1 tab PO DAILY 05/08/24 12/10/24 History 28 mg iron-folic acid 800 mcg tablet (Classic ) Last Menstrual Period: 03/17/24 : No PFSH PFSH Medical History BRCA2 gene mutation positive Family history of BRCA2 gene positive Surgical History [place] teeth removed Family History Mother BRCA gene mutation positive Preventative mastectomy done, 16 other relatives also + Aunt Breast cancer Social History household members: significant other and children number of children: 1 current occupational status: employed current occupation: [employer] in [place] current occupational exposures/hazards: No pets and animals: [...] 3-4 times per week duration: 15-30 minutes/day carissa/orthodoxy: None seatbelt use: always do you feel safe at home: Yes additional social history: Fianc???: [employer] in [place] History 2 Elective abortions Hx Para 1 [...] low risk nipt girl 07/16/24 -???-???-???-???-??? -???-???-???-???-??? -? (more content not included)... Normal [facility] Platelet countOrdered By: Arsenio Brown on 12-10-2024 Platelets (Bld) [#/Vol] 249 10*3/uL Normal 150-450 [facility] Comment on above: Performed By: #### L 100.0100, L501.0900, L500.4050 #### [facility] [address] [facility] [place], [address] Potassium measurement (mass/ volume)Ordered By: Yris Brown on 12-10-2024 Potassium (Unsp spec) [Mass/Vol] 3.8 mmol/L 3.3-5.1 [facility] Protein+Creatinine Ratio,Uri neon 12-10-2024 PROT:CRE RATIO 210 mg/g CRE High 0-200 [facility] Comment on above: Performed By: #### L 100.0100, L501.0900, L500.4050 #### [facility] [address] [place], [address] Protein (U) [Mass/Vol] 11.4 mg/dL Normal 0.0-12.0 [facility] Comment on above: Performed By: #### L 100.0100, L501.0900, L500.4050 #### [facility] [address] [place], [address] UR CREAT 54.40 mg/dL Normal 28.00-217.00 [facility] Comment on above: Performed By: #### L 100.0100, L501.0900, L500.4050 #### [facility] [address] [place], [address] Random urine creatinine mecca urement (mass/volume)Ordered By: Yris Brown on 12-10-2024 Creatinine Unsp time (U) [Mass/Vol] 54.40 mg/dL 28.00-217.00 [facility] Serum creatinine measurement (mass/volume)Ordered By: Yris Brown on 12-10-2024 Creatinine [Mass/Vol] 0.57 mg/dL Low 0.70-1.20 [facility] Comment on above: Performed By: #### L 100.0100, L501.0900, L500.4050 #### [facility] [address] [place], [address] Serum globulin measurementOr dered By: Yris Brown on 12-10-2024 Globulin (S) [Mass/Vol] 3.4 g/dL Normal 2.2-4.2 [facility] Comment on above: Performed By: #### L 100.0100, L501.0900, L500.4050 #### [facility] [address] [place], [address] Serum glucose measurement (m ass/volume)Ordered By: Yris Brown on 12-10-2024 Glucose [Mass/Vol] 112 mg/dL High 70-99 [facility] Comment on above: Performed By: #### L 100.0100, L501.0900, L500.4050 #### [facility] [address] [place], [address] Serum or plasma alanine gandhi otransferase (ALT) measurementOrdered By: Yris Brown on 12-10-2024 ALT [Catalytic activity/Vol] 16 U/L Normal <=34 [facility] Comment on above: Performed By: #### L 100.0100, L501.0900, L500.4050 #### [facility] [address] [place], [address] Serum or plasma albumin mecca urement (mass/volume)Ordered By: Yris Brown on 12-10-2024 Albumin [Mass/Vol] 3.6 g/dL Normal 3.5-5.0 [facility] Comment on above: Performed By: #### L 100.0100, L501.0900, L500.4050 #### [facility] [address] [place], [address] Serum or plasma albumin/glob ulin mass ratioOrdered By: Yris Brown on 12-10-2024 Albumin/Globulin [Mass ratio] 1.0 {ratio} Normal 0.9-2.4 [facility] Comment on above: Performed By: #### L 100.0100, L501.0900, L500.4050 #### [facility] [address] [place], [address] Serum or plasma alkaline augustus sphatase measurementOrdered By: Yris Brown on 12-10-2024 ALP [Catalytic activity/Vol] 147 U/L High 35-104 [facility] Serum or plasma calcium mecca urement (mass/volume)Ordered By: Yris Brown on 12-10-2024 Calcium [Mass/Vol] 9.1 mg/dL Normal 7.6-11.0 [facility] Comment on above: Performed By: #### L 100.0100, L501.0900, L500.4050 #### [facility] [address] [place], [address] Serum or plasma urea nitroge n measurement (mass/volume)Ordered By: Yris Brown on 12-10-2024 Urea nitrogen [Mass/Vol] 6 mg/dL Normal 4-19 [facility] Comment on above: Performed By: #### L 100.0100, L501.0900, L500.4050 #### [facility] [address] [place], [address] Sodium levelOrdered By: Riana Brown on 12-10-2024 Sodium [Moles/Vol] 133 mmol/L Normal 133-145 [facility] Comment on above: Performed By: #### L 100.0100, L501.0900, L500.4050 #### [facility] [address] [place], [address] Syphilis Antibodieson 2024 Syphilis Abs Non-Reactive Normal Nonreactive [facility] Comment on above: Performed By: #### L 509.8002 #### [facility] [address] [place], [address] Total proteinOrdered By: Presley Brown on 12-10-2024 Protein [Mass/Vol] 7.0 g/dL 5.9-8.4 [facility] Type AND Screenon 12-10-2024 Ab SCREEN GEL Negative Normal [facility] Comment on above: Order Comment: Labor Performed By: #### L 100.0600 #### [facility] [address] [place], [address] Urine protein measurement (m ass/volume)Ordered By: Yris Brown on 12-10-2024 Protein (U) [Mass/Vol] 11.4 mg/dL 0.0-12.0 [facility] Urine protein/creatinine mas s ratioOrdered By: Yris Brown on 12-10-2024 Protein/Creatinine (U) [Mass ratio] 210 mg/g CRE High 0-200 [facility] White blood cell (WBC) count Ordered By: Yris Brown on 12-10-2024 WBC (Bld) [#/Vol] 9.7 10*3/uL Normal 4.4-11.0 [facility] Comment on above: Performed By: #### L 100.0100, L501.0900, L500.4050 #### [facility] [address] [place], [place], [address] Laboratory - Chemistry and C hemistry - challengeOrdered By: Taina Huddleston on 12-03-2024 Glucose Ql (U) Negative [facility] - UrinalysisOrder ed By: Taina Huddleston on 12-03-2024 Protein Ql (U) Negative [facility] Vocal [employer] Teacher Office Visit Reporton 12-03-2024 Vocal Music Teacher Office Visit Report [facility] [address], [address] [place] [address] OFFICE VISIT Date of Service: 12/03/24 MR#: [id number] Acct: [id number] Name: ANJU MUELLER Rep #: [id number] : 1995 Provider: Dr. 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 Is patient in pain?: No [...] history of BRCA2 gene positive Surgical History [place] teeth removed Family History Mother BRCA gene mutation positive Preventative mastectomy done, 16 other relatives also + Aunt Breast cancer Social History household members: significant other and children number of children: 1 current occupational status: employed current occupation: [employer] in [place] current occupational exposures/hazards: No pets and animals: [...] 3-4 times per week duration: 15-30 minutes/day carissa/orthodoxy: None seatbelt use: always do you feel safe at home: Yes additional social history: Fianc???: [employer] in [place] History 2 Elective abortions Hx Para 1 Spontaneous abortions Hx # Term Pregnancies 1 Ectopic pregnancies Hx # Pregnancies Multiple births # of living children 1 Past Pregnancies Del. Date Name GA/Weeks Outcome Route Bth Weight Infant Gen Labor [facility] F[facility] 05/14/19 Annie 42 live - full term 8lbs 4oz Female 10hours epidural WC H Dr Richardsons, Cintia Escalante Robert Delivery Date: [...] complaints toda (more content not included)... Normal [facility] Rule out Beta Strep (Grp. B) on 11-29-2024 SHAYNA Group B Beta Streptococcus is not isolated. Normal [facility] Comment on above: Performed By: #### L 100.0600 #### [facility] [place], [address] Laboratory - Chemistry and C hemistry - challengeOrdered By: Taina Huddleston on 11-26-2024 Glucose Ql (U) Negative [facility] - UrinalysisOrder ed By: Taina Huddleston on 11-26-2024 Protein Ql (U) Negative [facility] Vocal [employer] Teacher Office Visit Reporton 11-26-2024 Vocal Music Teacher Office Visit Report [facility] [address], [address] [place] [address] OFFICE VISIT Date of Service: 11/26/24 MR#: [id number] Acct: [id number] Name: ANJU MUELLER Rep #: [id number] : 1995 Provider: Dr. Taina mallory MD Age/Sex: 29/F Location: [facility] Status: Signed Intake Vital Signs 10/01/24 10:13 11/13/24 10:26 11/23/24 14:01 11/26/24 10:46 Height 5 ft 7 in 5 ft 7 in 5 ft 7 in 5 ft 7 in Weight: 203 lb 5 oz BMI 31.8 BP 110/73 Intake Visit Reasons: 36 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 Is patient in pain?: No [...] history of BRCA2 gene positive Surgical History [place] teeth removed Family History Mother BRCA gene mutation positive Preventative mastectomy done, 16 other relatives also + Aunt Breast cancer Social History household members: significant other and children number of children: 1 current occupational status: employed current occupation: [employer] in [place] current occupational exposures/hazards: No pets and animals: [...] 3-4 times per week duration: 15-30 minutes/day carissa/orthodoxy: None seatbelt use: always do you feel safe at home: Yes additional social history: Fianc???: [employer] in [place] History 2 Elective abortions Hx Para 1 [...] -???-???-???-???-??? -???-???-?? (more content not included)... Normal [facility] Screening beta-hemolytic Str eptococcus cultureOrdered By: Taina Huddleston on 11-26-2024 Beta-hemolytic Streptococcus culture Group B Beta Streptococcus is not isolated. [facility] (ROM) Rupture Of Membraneson 11-23-2024 ROM Negative Normal Negative [facility] Comment on above: Result Comment: Amni otic fluid not present indicates No Rupture of Membranes at time of specimen collection. Performed By: #### L 205.1000 #### [facility] [address] [place], [address] OB Triage Progress Noteon OB Triage Progress Note [facility] Medical Records Department [address] [place] [address] OB Triage Progress Note 11/23/24 1436 MR#: [id number] Acct: [id number] Name: ANJU MUELLER Rep #: [id number] : 1995 29 From: Yris Brown CNM PCP: Care Physician,No Primary Status:REG CLI Y DOS: Location: [place] [address] Progress Notes Date of Service: 11/23/24 Progress Note: Patient presents for triage evaluation secondary to vaginal discharge at 35.6 weeks FHT: 145 Moderate variability reactive no decelerations category I tracing [place]: irregular Contractions Assessment and plan: neg rom, Reactive NST, reassuring maternal and status patient discharged to home to follow-up in office. See problem list details for additional plan information. Laboratory Studies: Laboratory Tests 11/23/24 Range/Units 13:55 Vag Amniotic Fld Detect Negative (Negative) Charges/Coding Multi Select Codes Urinary/Genital Urinary/Genital CPT Codes: 99161-18 non-stress test Interp Assessment Plan (1) Vaginal [...] BRCA2 gene mutation positive: COMMENT: OBGYN in [place]; gets yearly MRI w/contrast (Due 2/3 but wants to cancel d/t ) 11/23/24 1437 Date Yris Brown CNM Cosigner Signature (if applicable): Date _ CC: FRANSISCO Brown; No Primary Care Physician Signed Normal [facility] - Chemistry and C hemistry - challengeOrdered By: Yris Brown on 11-13-2024 Glucose Ql (U) Negative [facility] - UrinalysisOrder ed By: Yris Brown on 11-13-2024 Protein Ql (U) Negative [facility] Vocal [employer] Teacher Office Visit Reporton 11-13-2024 Vocal Music Teacher Office Visit Report [facility] [address], [address] [place] [address] OFFICE VISIT Date of Service: 11/13/24 MR#: [id number] Acct: [id number] Name: ANJU MUELLER Rep #: [id number] : 1995 Provider: FRANSISCO Forrester [facility] Age/Sex: 29/F Location: [facility] [place] [facility] Status: Signed Intake Vital Signs 10/01/24 10:13 10/29/24 10:12 11/13/24 10:26 Height 5 ft 7 in 5 ft 7 in 5 ft 7 in Weight: 198 lb 5 oz BMI 31.0 BP 122/76 H Intake Visit Reasons: 34 wk ob Chief Complaint: 34wk OB 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 Is patient in pain?: No Allergies No Known Allergies Allergy (Verified 11/13/24 10:24) Medications ???Medication ???Instructions ???Recorded ???Confirmed ???Type vits no.126-ferrous fum tab PO 05/08/24 11/13/24 History 28 mg iron-folic acid 800 mcg tablet (Classic ) Last Menstrual Period: 03/17/24 : No PFSH PFSH Medical History BRCA2 gene mutation positive Family history of BRCA2 gene positive Surgical History [place] teeth removed Family History Mother BRCA gene mutation positive Preventative mastectomy done, 16 other relatives also + Aunt Breast cancer Social History household members: significant other and children number of children: 1 current occupational status: employed current occupation: [employer] in [place] current occupational exposures/hazards: No pets and animals: [...] 3-4 times per week duration: 15-30 minutes/day carissa/orthodoxy: None seatbelt use: always do you feel safe at home: Yes additional social history: Fianc???: [employer] in [place] History 2 Elective abortions Hx Para 1 [...] Negative -??? (more content not included)... Normal [facility] - Chemistry and C hemistry - challengeOrdered By: Taina Huddleston on 10-29-2024 Glucose Ql (U) Negative [facility] - UrinalysisOrder ed By: Taina Huddleston on 10-29-2024 Protein Ql (U) Negative [facility] Vocal Music Teacher Office Visit Reporton 10-29-2024 Vocal Music Teacher Office Visit Report [facility] [address], [address] [place] [address] OFFICE VISIT Date of Service: 10/29/24 MR#: [id number] Acct: [id number] Name: ANJU MUELLER Rep #: [id number] : 1995 Provider: Dr. 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 Is patient in pain?: No [...] history of BRCA2 gene positive Surgical History [place] teeth removed Family History Mother BRCA gene mutation positive Preventative mastectomy done, 16 other relatives also + Aunt Breast cancer Social History household members: significant other and children number of children: 1 current occupational status: employed current occupation: [employer] in [place] current occupational exposures/hazards: No pets and animals: [...] 3-4 times per week duration: 15-30 minutes/day carissa/orthodoxy: None seatbelt use: always do you feel safe at home: Yes additional social history: Fianc???: [employer] in [place] History 2 Elective abortions Hx Para 1 [...] 07/16/24 -???-??? (more content not included)... Normal [facility] - Chemistry and C hemistry - challengeOrdered By: Yris Brown on 10-16-2024 Glucose Ql (U) Negative [facility] - UrinalysisOrder ed By: Yris Brown on 10-16-2024 Protein Ql (U) Negative [facility] Vocal [employer] Teacher Office Visit Reporton 10-16-2024 Vocal Music Teacher Office Visit Report [facility] [address], [address] [place] [address] OFFICE VISIT Date of Service: 10/16/24 MR#: [id number] Acct: [id number] Name: ANJU MUELLER Rep #: [id number] : 1995 Provider: FRANSISCO Forrester [facility] Age/Sex: 29/F Location: [facility] [place] Status: Signed Intake Vital Signs 08/13/24 14:11 10/01/24 10:13 10/16/24 15:07 Height 5 ft 7 in 5 ft 7 in 5 ft 7 in Weight: 190 lb 8 oz BMI 29.8 BP 116/76 Intake Visit Reasons: 30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 Is patient in pain?: No [...] history of BRCA2 gene positive Surgical History [place] teeth removed Family History Mother BRCA gene mutation positive Preventative mastectomy done, 16 other relatives also + Aunt Breast cancer Social History household members: significant other and children number of children: 1 current occupational status: employed current occupation: [employer] in [place] current occupational exposures/hazards: No pets and animals: [...] 3-4 times per week duration: 15-30 minutes/day carissa/orthodoxy: None seatbelt use: always do you feel safe at home: Yes additional social history: Fianc???: [employer] in [place] History 2 Elective abortions Hx Para 1 [...] oz (+7 lb 2 oz) 116/74 Negative -???-?? (more content not included)... Normal [facility] Absolute lymphocyte countOrd ered By: Taina Huddleston on 10-01-2024 Lymphocytes Auto (Unsp spec) [#/Vol] 1.19 10*3/uL 0.83-4.51 [facility] Absolute neutrophil countOrd ered By: Taina Huddleston on 10-01-2024 Neutrophils (Bld) [#/Vol] 5.4 10*3/uL 2.0-7.7 [facility] Automated lymphocyte count a s percentage of total leukocytesOrdered By: Taina Huddleston on 10-01-2024 Lymphocytes/100 WBC Auto (Unsp spec) 16.6 % Low 19-41 [facility] Basophil percentageOrdered B y: Taina Huddleston on 10-01-2024 Basophils/100 WBC (Bld) 0.1 % 0-[address] [facility] CBC W/Diff, Automatedon 06-2 Absolute Lymph 1.19 X10 3/uL Normal 0.83-4.51 [facility] Comment on above: Performed By: #### M 100.2200, L7000.1800 #### [facility] [address] [place], [address] Absolute Neut 5.4 X10 3/uL Normal 2.0-7.7 [facility] Comment on above: Performed By: #### M 100.2200, L7000.1800 #### [facility] [address] [place], [address] Basophils/100 WBC (Bld) 0.1 % Normal 0-[address] [facility] Comment on above: Performed By: #### M 100.2200, L7000.1800 #### [facility] [address] [place], [address] Eosinophils/100 WBC (Bld) 0.4 % Normal 0-5 [facility] Comment on above: Performed By: #### M 100.2200, L7000.1800 #### [facility] [address] [place], [address] Erythrocyte distribution width (RBC) [Ratio] 13.3 % Normal 11.6-14.6 [facility] Comment on above: Performed By: #### M 100.2200, L7000.1800 #### [facility] [address] [place], [address] Hematocrit (Bld) [Volume fraction] 36.8 % Low 37-47 [facility] Comment on above: Performed By: #### M 100.2200, L7000.1800 #### [facility] [address] [place], [address] Hemoglobin (Bld) [Mass/Vol] 12.0 g/dL Normal 12.0-15.0 [facility] Comment on above: Performed By: #### M 100.2200, L7000.1800 #### [facility] [address] [place], [address] IG% 0.800 Normal 0.0-0.9 [facility] Comment on above: Result Comment: IG% - Immature Granulocytes (promyelocytes, myelocytes and metamyelocytes) > 1% indicates that a LEFT SHIFT is Present. Performed By: #### M 100.2200, L7000.1800 #### [facility] [address] [place], [address] Lymphocytes/100 WBC (Bld) 16.6 % Low 19-41 [facility] Comment on above: Performed By: #### M 100.2200, L7000.1800 #### [facility] [address] [place], [address] MCH (RBC) [Entitic mass] 28.2 pg Normal 27.0-32.0 [facility] Comment on above: Performed By: #### M 100.2200, L7000.1800 #### [facility] [address] [place], [address] MCHC (RBC) [Mass/Vol] 32.6 g/dL Normal 32-36 [facility] Comment on above: Performed By: #### M 100.2200, L7000.1800 #### [facility] [address] [place], [address] MCV (RBC) [Entitic vol] 86.6 fL Normal 81-[address] [facility] Comment on above: Performed By: #### M 100.2200, L7000.1800 #### [facility] [address] [place], [place], [address] Monocytes/100 WBC (Bld) 7.5 % Normal 0-[address] [facility] Comment on above: Performed By: #### M 100.2200, L7000.1800 #### [facility] [address] [place], [address] Neutrophils/100 WBC (Bld) 74.6 % High 47-70 [facility] Comment on above: Performed By: #### M 100.2200, L7000.1800 #### [facility] [address] [place], [address] Nucleated RBC (Bld) [#/Vol] 0 10*3/uL Normal 0-5 [facility] Comment on above: Performed By: #### M 100.2200, L7000.1800 #### [facility] [address] [place], [address] Platelet mean volume (Bld) [Entitic vol] 10.0 fL Normal 6.2-12.0 [facility] Comment on above: Performed By: #### M 100.2200, L7000.1800 #### [facility] [address] [place], [address] Platelets (Bld) [#/Vol] 285 10*3/uL Normal 150-450 [facility] Comment on above: Performed By: #### M 100.2200, L7000.1800 #### [facility] [address] [place], [address] RBC (Bld) [#/Vol] 4.25 10*6/uL Normal 4.2-5.4 [facility] Comment on above: Performed By: #### M 100.2200, L7000.1800 #### [facility] [address] [place], [address] RDW SD 41.7 fl Normal 35.1-43.9 [facility] Comment on above: Performed By: #### M 100.2200, L7000.1800 #### [facility] [address] [place], [address] WBC (Bld) [#/Vol] 7.2 10*3/uL Normal 4.4-11.0 [facility] Comment on above: Performed By: #### M 100.2200, L7000.1800 #### [facility] [address] [place], [address] Eosinophil percentageOrdered By: Taina Huddleston on 10-01-2024 Eosinophils/100 WBC (Bld) 0.4 % 0-5 [facility] Erythrocyte distribution wid th ratioOrdered By: Taina Huddleston on 10-01-2024 Erythrocyte distribution width (RBC) [Ratio] 13.3 % 11.6-14.6 [facility] Erythrocyte distribution wid th standard deviationOrdered By: Taina Huddleston on 10-01-2024 Erythrocyte distribution width (RBC) [Ratio] 41.7 fl 35.1-43.9 [facility] Glucose Challenge Gest 1H 50 fabiola 10-01-2024 GLU GEST 50g 1H 130 mg/dL Normal 70-140 [facility] Comment on above: Performed By: #### M 100.2200, L7000.1800 #### [facility] [address] [place], [address] Glucose measurement at 2 mingo rs post-dose gestational glucose tolerance testOrdered By: Taina Huddleston on 10-01-2024 Glucose [Mass/Vol] 130 mg/dL 70-140 [facility] HIVon 10-01-2024 HIV Non-Reactive Normal Nonreactive [facility] Comment on above: Result Comment: Non- Reactive Reactive Repeatedly reactive samples must be confirmed according to CDC recommended confirmatory algorithms. The subresults for either HIVAG or AHIV can be used as an aid in the selection of the confirmation algorithm for reactive samples. Send out specimens with Reactive results to [facility] for confirmation. Order the HIV antibody detection and differentiation: lc#[id number] Performed By: #### L 100.0600 #### [facility] [address] [place], [address] Hematocrit Auto (Bld) [Volum e fraction]Ordered By: Taina Huddleston on 10-01-2024 Hematocrit (Bld) [Volume fraction] 36.8 % Low 37-47 [facility] Hemoglobin measurementOrdere d By: Taina Huddleston on 10-01-2024 Hemoglobin (Bld) [Mass/Vol] 12.0 g/dL 12.0-15.0 [facility] Immature granulocytes/100 WB C Auto (Bld)Ordered By: Taina Huddleston on 10-01-2024 Immature granulocytes/100 WBC (Bld) 0.800 % 0.0-0.9 [facility] Comment on above: IG% - Immature Granu locytes (promyelocytes, myelocytes and metamyelocytes) > 1% indicates that a LEFT SHIFT is Present. Laboratory - Chemistry and C hemistry - challengeOrdered By: Tawanna Farfan on 10-01-2024 Glucose Ql (U) Negative [facility] - UrinalysisOrder ed By: Tawanna Farfan on 10-01-2024 Protein Ql (U) Negative [facility] MCV (mean corpuscular volume ) determinationOrdered By: Taina Huddleston on 10-01-2024 MCV (RBC) [Entitic vol] 86.6 fL 81-[address] [facility] Mean corpuscular hemoglobin (MCH) determinationOrdered By: Taina Huddleston on 10-01-2024 MCH (RBC) [Entitic mass] 28.2 pg 27.0-32.0 [facility] Mean corpuscular hemoglobin concentration (MCHC) determinationOrdered By: Taina Huddleston on 10-01-2024 MCHC (RBC) [Mass/Vol] 32.6 g/dL 32-36 [facility] Mean platelet volume determi nationOrdered By: Taina Huddleston on 10-01-2024 Platelet mean volume (Bld) [Entitic vol] 10.0 fL 6.2-12.0 [facility] Monocyte percentageOrdered B y: Taina Huddleston on 10-01-2024 Monocytes/100 WBC (Bld) 7.5 % 0-[address] [facility] Neutrophil percentageOrdered By: Taina Huddleston on 10-01-2024 Neutrophils/100 WBC (Bld) 74.6 % High 47-70 [facility] No Panel InformationOrdered By: Taina Huddleston on 10-01-2024 HIV (1&2) Antibody Non-Reactive Nonreactive [facility] Comment on above: Non-ReactiveReactive Repeatedly reactive samples must be confirmed according to CDC recommended confirmatory algorithms. 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 [facility] [address], [address] [place] [address] OFFICE VISIT Date of Service: 10/01/24 MR#: [id number] Acct: [id number] Name: ANJU MUELLER Rep #: [id number] : 1995 Provider: VANNESA velez Age/Sex: 29/F Location: [facility] Status: Signed with Addenda ADDENDUM by Courtney Regalado on 10/01/24 at 1026 Office Procedure Documentation entered by Courtney Regalado 10/01/24 10:26: Immunizations Adacel(Tdap Adolesn/Adult)(PF) 2 Lf-(2.5-5-3-5)-5 Lf/0.5 mL IM syringe Performing Provider: VANNESA Browning NP Performing Location: 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 Is patient in pain?: No [...] history of BRCA2 gene positive Surgical History [place] teeth removed Family History Mother BRCA gene mutation positive Preventative mastectomy done, 16 other relatives also + Aunt Breast cancer Social History household members: significant other and children number of children: 1 current occupational status: employed current occupation: [employer] in [place] current occupational exposures/hazards: No pets and animals: [...] 3-4 times per week duration: 15-30 minutes/day carissa/orthodoxy: None seatbelt use: always do you feel safe at home: Yes additional social history: Fianc???: [employer] in [place] History 2 Elective abortions Hx Para 1 [...] Prot -??? (more content not included)... Normal [facility] Platelet countOrdered By: Leonardo Huddleston on 10-01-2024 Platelets (Bld) [#/Vol] 285 10*3/uL 150-450 [facility] RBC Auto (Bld) [#/Vol]Ordere d By: Taina Huddleston on 10-01-2024 RBC (Bld) [#/Vol] 4.25 10*6/uL 4.2-5.4 [facility] Syphilis Antibodieson 2024 Syphilis Abs Non-Reactive Normal Nonreactive [facility] Comment on above: Performed By: #### M 100.2200, L7000.1800 #### [facility] [address] [place], [address] White blood cell (WBC) count Ordered By: Taina Huddleston on 10-01-2024 WBC (Bld) [#/Vol] 7.2 10*3/uL 4.4-11.0 [facility] Urine Cultureon 09-11-2024 URC Culture exhibits no growth. Normal [facility] Comment on above: Performed By: #### L 100.0100, L501.0900, L500.4050 #### [facility] [address] 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 Is patient in pain?: No [...] history of BRCA2 gene positive Surgical History [place] teeth removed Family History Mother BRCA gene mutation positive Preventative mastectomy done, 16 other relatives also + Aunt Breast cancer Social History household members: significant other and children number of children: 1 current occupational status: employed current occupation: [employer] in [place] current occupational exposures/hazards: No pets and animals: [...] 3-4 times per week duration: 15-30 minutes/day carissa/orthodoxy: None seatbelt use: always do you feel safe at home: Yes additional social history: Fianc???: [employer] in [place] History 2 Elective abortions Hx Para 1 [...] -???-???-???-???-??? -???- (more content not included)... Normal [facility] Urine cultureOrdered By: Pacheco Huddleston on 09-10-2024 Bacteria identified Cx Nom (U) Culture exhibits no growth. 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 Report [facility] [address], [address] [place] [address] OFFICE VISIT Date of Service: 08/13/24 MR#: [id number] Acct: [id number] Name: ANJU MUELLER Rep #: [id number] : 1995 Provider: FRANSISCO Forrester ams Age/Sex: 29/F Location: [facility] Status: Signed Intake Vital Signs 06/18/24 14:33 07/16/24 13:26 08/13/24 14:11 Height 5 ft 7 in 5 ft 7 in 5 ft 7 in Weight: 175 lb BMI 27.3 BP 119/82 H Intake Visit Reasons: 21 wk ob Chief Complaint: 21wk OB 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 Is patient in pain?: No Allergies No Known Allergies Allergy (Verified 08/13/24 14:09) Medications ???Medication ???Instructions ???Recorded ???Confirmed ???Type vits no.126-ferrous fum tab PO 05/08/24 08/13/24 History 28 mg iron-folic acid 800 mcg tablet (Classic ) Last Menstrual Period: 03/17/24 : No PFSH PFSH Medical History Family history of BRCA2 gene positive Surgical History [place] teeth removed Family History Mother BRCA gene mutation positive Preventative mastectomy done, 16 other relatives also + Aunt Breast cancer Social History household members: significant other and children number of children: 1 current occupational status: employed current occupation: [employer] in [place] current occupational exposures/hazards: No pets and animals: [...] 3-4 times per week duration: 15-30 minutes/day carissa/orthodoxy: None seatbelt use: always do you feel safe at home: Yes additional social history: Fianc???: [employer] in [place] History 2 Elective abortions Hx Para 1 Spontaneous abortions Hx # Term Pregnancies 1 Ectopic pregnancies Hx # Pregnancies Multiple births # of living children 1 Past Pregnancies Del. Date Name GA/Weeks Outcome Route Bth Weight Gen Labor Lgth Anesthesia Del Locatn Provider FOMarshall 05/14/19 Annie 42 live - full term [...] So m (more content not included)... Normal [facility] - Chemistry and C hemistry - challengeOrdered By: Tawanna Farfan on 07-16-2024 Glucose Ql (U) Negative [facility] - UrinalysisOrder ed By: Tawanna Farfan on 07-16-2024 Protein Ql (U) Negative [facility] Vocal Music Teacher Office Visit Reporton 07-16-2024 Vocal Music Teacher Office Visit Report [facility] [address], [address] [place] [address] OFFICE VISIT Date of Service: 07/16/24 MR#: [id number] Acct: [id number] Name: ANJU MUELLER Rep #: [id number] : 1995 Provider: VANNESA velez Age/Sex: 29/F Location: [facility] Status: Signed Intake Vital Signs 05/21/24 11:09 06/18/24 14:33 07/16/24 13:26 07/16/24 13:26 Height 5 ft 5 in 5 ft 7 in 5 ft 7 in 5 ft 7 in Weight: 167 lb 2 oz BMI 26.2 BP 116/74 Intake Visit 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: 17 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 Is patient 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?: No [...] history of BRCA2 gene positive Surgical History [place] teeth removed Family History Mother BRCA gene mutation positive Preventative mastectomy done, 16 other relatives also + Aunt Breast cancer Social History household members: significant other and children number of children: 1 current occupational status: employed current occupation: [employer] in [place] current occupational exposures/hazards: No pets and animals: [...] 3-4 times per week duration: 15-30 minutes/day carissa/orthodoxy: None seatbelt use: always do you feel safe at home: Yes additional social history: Fianc???: [employer] in [place] History 2 Elective abortions Hx Para 1 [...] -???-???-???-???-??? -???-???-???-???-??? -???-??? (more content not included)... [facility] Office Visit (UCWSTR) ANJU MUELLER ([id number]) 1995 F Date Time Provider Department 06/19/24 9:30 AM ERICK DOWELL [facility] During your visit today, we recorded the following information about you: Temperature Pulse Respiration Blood pressure 98.1 degrees 85/minute 20/minute 127/84 Weight 71 kg Erick Dowell APRN.PERFORMANCE IMPROVEMENT ANALYST 06/19/2024 9:40 AM Signed This note was created using NoteWriter. Subjective Anju M Segundo Sen is a 29 year old female. [...] any other new or worsening concerns. Erick Dowell APRN.PERFORMANCE IMPROVEMENT ANALYST Allergies As of Date: 06/19/2024 (No Known Allergies) Date Reviewed: 06/19/2024 Reviewed by: Erick Dowell APRN.PERFORMANCE IMPROVEMENT ANALYST - Fully Assessed Reason for Visit: Tick [...] Date: 06/19/2024 (None) Encounter Status:Closed by ERICK DOWELL on 06/19/24 Normal [facility] - Chemistry and C hemistry - challengeOrdered By: Cary Hollins on 06-18-2024 Glucose Ql (U) Negative [facility] - UrinalysisOrder ed By: Cary Hollins on 06-18-2024 Protein Ql (U) Negative [facility] Vocal Music Teacher Office Visit Reporton 06-18-2024 Vocal Music Teacher Office Visit Report [facility] [address], [address] [place] [address] OFFICE VISIT Date of Service: 06/18/24 MR#: [id number] Acct: [id number] Name: SEGUNDO SENANJU MARY Rep #: [id number] : 1995 Provider: Dr. Cary Munroe DO Age/Sex: 29/F Location: [facility] Status: Signed Intake Vital Signs 05/13/19 14:26 05/24/24 09:45 06/18/24 14:33 Height 5 ft 5 in 5 ft 7 in 5 ft 7 in Weight: 162 lb 8 oz BMI 25.4 BP 116/77 Intake Visit Reasons: 13wk OB 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 Is patient in pain?: No Allergies No Known Allergies Allergy (Verified 06/18/24 14:39) Medications ???Medication ???Instructions ???Recorded ???Confirmed ???Type vits no.126-ferrous fum tab PO 05/08/24 06/18/24 History 28 mg iron-folic acid 800 mcg tablet (Classic ) Last Menstrual Period: 03/17/24 Zika: Zika virus screening: Negative : No PFSH PFSH Medical History Family history of BRCA2 gene positive Surgical History [place] teeth removed Family History Mother BRCA gene mutation positive Preventative mastectomy done, 16 other relatives also + Aunt Breast cancer Social History household members: significant other and children number of children: 1 current occupational status: employed current occupation: [employer] in [place] current occupational exposures/hazards: No pets and animals: [...] 3-4 times per week duration: 15-30 minutes/day carissa/orthodoxy: None seatbelt use: always do you feel safe at home: Yes additional social history: Fianc???: [employer] in [place] History 2 Elective abortions Hx Para 1 [...] care, Ant (more content not included)... Normal [facility] Absolute lymphocyte countOrd ered By: Yris Brown on 05-28-2024 Lymphocytes Auto (Unsp spec) [#/Vol] 1.89 10*3/uL 0.83-4.51 [facility] Absolute neutrophil countOrd ered By: Yris Brown on 05-28-2024 Neutrophils (Bld) [#/Vol] 5.5 10*3/uL 2.0-7.7 [facility] Automated lymphocyte count a s percentage of total leukocytesOrdered By: Yris Brown on 05-28-2024 Lymphocytes/100 WBC Auto (Unsp spec) 23.2 % 19-41 [facility] Basophil percentageOrdered B y: Yris Brown on 05-28-2024 Basophils/100 WBC (Bld) 0.2 % 0-[address] [facility] CBC W/Diff, Automatedon 05-10 Absolute Lymph 1.89 X10 3/uL Normal 0.83-4.51 [facility] Comment on above: Performed By: #### L 100.0100, L3890.6005, L3890.6300, L509.4005, L900.0098, L3890.6100, BTS, L509.8000 #### [facility] [address] [place], [place], [id number] Absolute Neut 5.5 X10 3/uL Normal 2.0-7.7 [facility] Comment on above: Performed By: #### L 100.0100, L3890.6005, L3890.6300, L509.4005, L900.0098, L3890.6100, BTS, L509.8000 #### [facility] [address] [place], [address] Basophils/100 WBC (Bld) 0.2 % Normal 0-[address] [facility] Comment on above: Performed By: #### L 100.0100, L3890.6005, L3890.6300, L509.4005, L900.0098, L3890.6100, BTS, L509.8000 #### [facility] [address] [place], [address] Eosinophils/100 WBC (Bld) 0.9 % Normal 0-5 [facility] Comment on above: Performed By: #### L 100.0100, L3890.6005, L3890.6300, L509.4005, L900.0098, L3890.6100, BTS, L509.8000 #### [facility] [address] [place], [address] Erythrocyte distribution width (RBC) [Ratio] 13.2 % Normal 11.6-14.6 [facility] Comment on above: Performed By: #### L 100.0100, L3890.6005, L3890.6300, L509.4005, L900.0098, L3890.6100, BTS, L509.8000 #### [facility] [address] [place], [address] Hematocrit (Bld) [Volume fraction] 41.2 % Normal 37-47 [facility] Comment on above: Performed By: #### L 100.0100, L3890.6005, L3890.6300, L509.4005, L900.0098, L3890.6100, BTS, L509.8000 #### [facility] [address] [place], [address] Hemoglobin (Bld) [Mass/Vol] 13.2 g/dL Normal 12.0-15.0 [facility] Comment on above: Performed By: #### L 100.0100, L3890.6005, L3890.6300, L509.4005, L900.0098, L3890.6100, BTS, L509.8000 #### [facility] [address] [place], [address] IG% 0.400 Normal 0.0-0.9 [facility] Comment on above: Result Comment: IG% - Immature Granulocytes (promyelocytes, myelocytes and metamyelocytes) > 1% indicates that a LEFT SHIFT is Present. Performed By: #### L 100.0100, L3890.6005, L3890.6300, L509.4005, L900.0098, L3890.6100, BTS, L509.8000 #### [facility] [address] [place], [address] Lymphocytes/100 WBC (Bld) 23.2 % Normal 19-41 [facility] Comment on above: Performed By: #### L 100.0100, L3890.6005, L3890.6300, L509.4005, L900.0098, L3890.6100, BTS, L509.8000 #### [facility] [address] [place], [address] MCH (RBC) [Entitic mass] 27.4 pg Normal 27.0-32.0 [facility] Comment on above: Performed By: #### L 100.0100, L3890.6005, L3890.6300, L509.4005, L900.0098, L3890.6100, BTS, L509.8000 #### [facility] [address] [place], [address] MCHC (RBC) [Mass/Vol] 32.0 g/dL Normal 32-36 [facility] Comment on above: Performed By: #### L 100.0100, L3890.6005, L3890.6300, L509.4005, L900.0098, L3890.6100, BTS, L509.8000 #### [facility] [address] [place], [address] MCV (RBC) [Entitic vol] 85.5 fL Normal 81-99 [facility] Comment on above: Performed By: #### L 100.0100, L3890.6005, L3890.6300, L509.4005, L900.0098, L3890.6100, BTS, L509.8000 #### [facility] [address] [facility] [place], [address] Monocytes/100 WBC (Bld) 7.6 % Normal 0-10 [facility] Comment on above: Performed By: #### L 100.0100, L3890.6005, L3890.6300, L509.4005, L900.0098, L3890.6100, BTS, L509.8000 #### [facility] [address] [facility] [place], [address] Neutrophils/100 WBC (Bld) 67.7 % Normal 47-70 [facility] Comment on above: Performed By: #### L 100.0100, L3890.6005, L3890.6300, L509.4005, L900.0098, L3890.6100, BTS, L509.8000 #### [facility] [address] [place], [address] Nucleated RBC (Bld) [#/Vol] 0 10*3/uL Normal 0-5 [facility] Comment on above: Performed By: #### L 100.0100, L3890.6005, L3890.6300, L509.4005, L900.0098, L3890.6100, BTS, L509.8000 #### [facility] [address] [place], [address] Platelet mean volume (Bld) [Entitic vol] 10.2 fL Normal 6.2-12.0 [facility] Comment on above: Performed By: #### L 100.0100, L3890.6005, L3890.6300, L509.4005, L900.0098, L3890.6100, BTS, L509.8000 #### [facility] [address] [place], [address] Platelets (Bld) [#/Vol] 322 10*3/uL Normal 150-450 [facility] Comment on above: Performed By: #### L 100.0100, L3890.6005, L3890.6300, L509.4005, L900.0098, L3890.6100, BTS, L509.8000 #### [facility] [address] [place], [address] RBC (Bld) [#/Vol] 4.82 10*6/uL Normal 4.2-5.4 [facility] Comment on above: Performed By: #### L 100.0100, L3890.6005, L3890.6300, L509.4005, L900.0098, L3890.6100, BTS, L509.8000 #### [facility] [address] [place], [address] RDW SD 41.1 fl Normal 35.1-43.9 [facility] Comment on above: Performed By: #### L 100.0100, L3890.6005, L3890.6300, L509.4005, L900.0098, L3890.6100, BTS, L509.8000 #### [facility] [address] [place], [address] WBC (Bld) [#/Vol] 8.1 10*3/uL Normal 4.4-11.0 [facility] Comment on above: Performed By: #### L 100.0100, L3890.6005, L3890.6300, L509.4005, L900.0098, L3890.6100, BTS, L509.8000 #### [facility] [address] [place] [place], [address] Eosinophil percentageOrdered By: Yris Brown on 05-28-2024 Eosinophils/100 WBC (Bld) 0.9 % 0-5 [facility] Erythrocyte distribution wid th ratioOrdered By: Yris Brown on 05-28-2024 Erythrocyte distribution width (RBC) [Ratio] 13.2 % 11.6-14.6 [facility] Erythrocyte distribution wid th standard deviationOrdered By: Yris Brown on 05-28-2024 Erythrocyte distribution width (RBC) [Ratio] 41.1 fl 35.1-43.9 [facility] HIV - WCHon 05-28-2024 HIV Non-Reactive Normal Nonreactive [facility] Comment on above: Order Comment: Reaso n for Exam: Performed By: #### M 100.2200, L7000.1800 #### [facility] [address] [facility] [place], [address] HIV 1 and HIV-2 antibody ass ay with HIV-1 p24 antigen detectionOrdered By: Yris Brown on 05-28-2024 HIV 1+2 Ab+HIV1 p24 Ag IA Ql Non-Reactive Nonreactive [facility] Hematocrit Auto (Bld) [Volum e fraction]Ordered By: Yris Brown on 05-28-2024 Hematocrit (Bld) [Volume fraction] 41.2 % 37-47 [facility] Hemoglobin measurementOrdere d By: Yris Brown on 05-28-2024 Hemoglobin (Bld) [Mass/Vol] 13.2 g/dL 12.0-15.0 [facility] Hepatitis B Surface Antigeno n 05-28-2024 HEP B Surf Ag Non-Reactive Normal Nonreactive [facility] Comment on above: Order Comment: Reaso n for Exam: Performed By: #### M 100.2200, L7000.1800 #### [facility] [address] [place], [address] Hepatitis C Antibodyon 05-28 Hepatitis C AB Non-Reactive Normal Nonreactive [facility] Comment on above: Order Comment: Reaso n for Exam: Result Comment: Non Reactive: < 0.8 Equivocal: >/= 0.8 to < 1.0 Reactive: >/= 1.0 The [facility] [place] 2] requires that a reactive/equivocal HCV antibody result be sent out for confirmation. HCV Quant by PCR testing. Performed By: #### M 100.2200, L7000.1800 #### [facility] [address] [place], [address] Immature granulocytes/100 WB C Auto (Bld)Ordered By: Yris Brown on 05-28-2024 Immature granulocytes/100 WBC (Bld) 0.400 % 0.0-0.9 [facility] Comment on above: IG% - Immature Granu locytes (promyelocytes, myelocytes and metamyelocytes) > 1% indicates that a LEFT SHIFT is Present. L509.8000on 05-28-2024 Syphilis Abs Non-Reactive Normal [facility] Comment on above: Order Comment: Reaso n for Exam: Performed By: #### M 100.2200, L7000.1800 #### [facility] [address] [place], [address] MCV (mean corpuscular volume ) determinationOrdered By: Yris Brown on 05-28-2024 MCV (RBC) [Entitic vol] 85.5 fL 81-[address] [facility] Mean corpuscular hemoglobin (MCH) determinationOrdered By: Yris Brown on 05-28-2024 MCH (RBC) [Entitic mass] 27.4 pg 27.0-32.0 [facility] Mean corpuscular hemoglobin concentration (MCHC) determinationOrdered By: Yris Brown on 05-28-2024 MCHC (RBC) [Mass/Vol] 32.0 g/dL 32-36 [facility] Mean platelet volume determi nationOrdered By: Yris Brown on 05-28-2024 Platelet mean volume (Bld) [Entitic vol] 10.2 fL 6.2-12.0 [facility] Monocyte percentageOrdered B y: Yris Brown on 05-28-2024 Monocytes/100 WBC (Bld) 7.6 % 0-[address] [facility] NATERAon 05-28-2024 NATURA SEE SCANNED REPORT Normal [facility] Comment on above: Performed By: #### L 100.0100, L3890.6005, L3890.6300, L509.4005, L900.0098, L3890.6100, BTS, L509.8000 #### [facility] [address] [place], [address] Neutrophil percentageOrdered By: Yris Brown on 05-28-2024 Neutrophils/100 WBC (Bld) 67.7 % 47-70 [facility] Nucleated red blood cell per centageOrdered By: Yris Brown on 05-28-2024 Nucleated RBC/100 WBC (Bld) [Ratio] 0 % 0-5 [facility] Platelet countOrdered By: Arsenio Brown on 05-28-2024 Platelets (Bld) [#/Vol] 322 10*3/uL 150-450 [facility] RBC Auto (Bld) [#/Vol]Ordere d By: Yris Brown on 05-28-2024 RBC (Bld) [#/Vol] 4.82 10*6/uL 4.2-5.4 [facility] Rubella IgGon 05-28-2024 Rubella IgG Reactive Normal Nonreactive [facility] Comment on above: Order Comment: Reaso n for Exam: Result Comment: Anti body Results Interpretation of Immune Status Non Reactive Presumed Non-Immune Equivocal Equivocal Reactive Presumed Immune Performed By: #### M 100.2200, L7000.1800 #### [facility] [address] [place], [address] Serum Treponema species anti body detectionOrdered By: Yris Brown on 05-28-2024 Treponema sp Ab Ql (S) Non-Reactive [facility] Type AND Screenon 05-28-2024 Ab SCREEN GEL Negative Normal [facility] Comment on above: Order Comment: PN Performed By: #### M 100.2200, L7000.1800 #### [facility] [address] [place], [address] White blood cell (WBC) count Ordered By: Yris Brown on 05-28-2024 WBC (Bld) [#/Vol] 8.1 10*3/uL 4.4-11.0 [facility] Chlamydia/GC ROBIN aptimaon CHLAMY,NUC ACID Negative Normal Negative [facility] Comment on above: Performed By: #### M 100.2200, L7000.1800 #### [facility] [address] [place], [place], [address] GC BY NUC ACID Negative Normal Negative [facility] Comment on above: Result Comment: Perf ormed at: =G - [facility] [address] [id number] Industrial Hygiene Manager: Belem Lima MD, Phone: [phone] Performed By: #### M 100.2200, L7000.1800 #### [facility] [address] [facility] [place], [address] Bilirubin Test strip Ql (U)O rdered By: ED PROVIDER on 05-24-2024 Bilirubin Ql (U) Negative Negative [facility] Emergency Department Summary on 05-24-2024 Emergency Department Summary [facility] Medical Records Department [address] [place] [address] Emergency Department Summary 05/24/24 MR#: [id number] Acct: [id number] Name: ANJU MUELLER Rep #: [id number] : 1995 28 From: Julio Louise DO [...] chart review she is O+. She sees [facility]. She states that she was seen in the office on and had a pelvic ultrasound and stated everything looked good" [facility] Medical History Family history of BRCA2 [...] also + Aunt Breast cancer Surgical History [place] teeth removed Social History household members: significant other and children number of children: 1 current occupational status: employed current occupation: [employer] in [place] current occupational exposures/hazards: No pets and animals: [...] 3-4 times per week duration: 15-30 minutes/day carissa/orthodoxy: None seatbelt use: always do you feel safe at home: Yes additional social history: Fianc???: [employer] in [facility] ROS ED Constitutional Constitutional ED: Denies [...] 5/5 throughout (more content not included)... Normal [facility] HH, Hemoglobin AND Hematocri ton 05-24-2024 Hematocrit (Bld) [Volume fraction] 36.4 % Low 37-47 [facility] Comment on above: Performed By: #### L 100.0600 #### [facility] [address] [place], [place], [address] Hemoglobin (Bld) [Mass/Vol] 12.2 g/dL Normal 12.0-15.0 [facility] Comment on above: Performed By: #### L 100.0600 #### [facility] [address] [place], [place], [address] Hematocrit Auto (Bld) [Volum e fraction]Ordered By: Julio Louise on 05-24-2024 Hematocrit (Bld) [Volume fraction] 36.4 % Low 37-47 [facility] Hemoglobin measurementOrdere d By: Julio Louise on 05-24-2024 Hemoglobin (Bld) [Mass/Vol] 12.2 g/dL 12.0-15.0 [facility] Ketones Test strip Ql (U)Ord ered By: ED PROVIDER on 05-24-2024 Ketones Ql (U) Negative Negative [facility] Microscopic analysis of urin e for red blood cells (RBC)Ordered By: ED PROVIDER on 05-24-2024 Microscopic analysis of urine for red blood cells (RBC) 0 SEEN /hpf 0-5 [facility] Mucus LM Ql (Urine sed)Order ed By: ED PROVIDER on 05-24-2024 Mucus Ql (Urine sed) 0 SEEN /hpf [facility] Nitrite Test strip Ql (U)Ord ered By: ED PROVIDER on 05-24-2024 Nitrite Ql (U) Negative Negative [facility] ,Serum,hCG Quali.on 05-24-2024 HCG, SERUM QUAL Normal [facility] Comment on above: Result Comment: Didier wonged via OM: order change Performed By: #### L 100.0600 #### [facility] [address] [place], [place], [address] INTERNAL QC OK? Normal [facility] Comment on above: Result Comment: Didier wonged via OM: order change Performed By: #### L 100.0600 #### [facility] [address] [place], [place], [address] RECORD KIT LOT# Normal [facility] Comment on above: Result Comment: Canc elled via OM: order change Performed By: #### L 100.0600 #### [facility] [address] [place], [place], [address] Protein Test strip Ql (U)Ord ered By: ED PROVIDER on 05-24-2024 Protein Ql (U) 15 mg/dl High Negative [facility] Serum human chorionic gonado tropin detection for pregnancyOrdered By: Julio Louise on 05-24-2024 HCG ( test[place] [address] mIU/mL High <4 [facility] Comment on above: hCG levels with Gest ational AgeGestational Age hCG mIU/mL (IU/L)0.2 - 1 week 5 - 501-2 weeks 50 - 5002-3 weeks 100 - 11974-9 weeks 500 - 247280-0 weeks 1000 - 573770-0 weeks 71096 - 100,0006-8 weeks 13764 - 200,0002-3 months 21647 - 100,000 Squamous epithelial cells de tection in urine sediment by light microscopyOrdered By: ED PROVIDER on 05-24-2024 Epithelial cells.squamous LM Ql (Urine sed) 0 SEEN /hpf 5-10 [facility] Transvaginal w/Preg USon Transvaginal w/Preg US [facility] Imaging Services [address] [place], [place] [address] Transvaginal w/Preg US MR#: [id number] Acct: [id number] Name: SEGUNDO FRANCYANJU MARY Rep #: [id number] : 1995 F 28 From: Anu Martins nd, MD PCP: Care Physician,No Primary Status: DEP ER Study: Transvaginal w/Preg US Date of Exam: 05/24/24 Exam# [id number] Ordering Dr: Julio Louise DO PROCEDURE: TRANSVAGINAL [...] the pelvis. DIMENSIONS: Parameter Measurement / EGA G[employer]. [employer] Rump Length: 3.08 mm/9 weeks 5 days Yolk Sac: 3.9 mm 9 weeks 6 days/ ESTIMATED GESTATIONAL AGE: By Ultrasound: 9 weeks 6 days By LMP: 9 weeks 5 days ESTIMATED DATE OF DELIVERY: By Ultrasound: 12/21/2024 By LMP: 12/22/2024 US/Transvaginal w/Preg US IMPRESSION: UNREMARKABLE FIRST TRIMESTER ULTRASOUND. Reading Location: [id number] CC: Dr. Julio Louise, DO; No Primary Care Physician Brine Tank Tender: Signed Normal [facility] Urinalysis, Completeon 05-24 RBC 0 SEEN Normal 0-5 [facility] Comment on above: Order Comment: KAYKAY CTOR TO SPECIFY Performed By: #### M 100.2200, L7000.1800 #### [facility] [address] [facility] [place], [address] BACTERIA 0 SEEN Normal None Seen [facility] Comment on above: Order Comment: KAYKAY CTOR TO SPECIFY Performed By: #### M 100.2200, L7000.1800 #### [facility] [address] [place], [address] EPI,SQUAMOUS 0 SEEN Normal 5-10 [facility] Comment on above: Order Comment: KAYKAY CTOR TO SPECIFY Performed By: #### M 100.2200, L7000.1800 #### [facility] [address] [place], [address] Mucus Ql (Urine sed) 0 SEEN Normal [facility] Comment on above: Order Comment: KAYKAY CTOR TO SPECIFY Performed By: #### M 100.2200, L7000.1800 #### [facility] [address] [place], [address] WBC 0 SEEN Normal 0-5 [facility] Comment on above: Order Comment: COLLE CTOR TO SPECIFY Performed By: #### M 100.2200, L7000.1800 #### [facility] [address] [place], [address] Urine clarityOrdered By: ED PROVIDER on 05-24-2024 Clarity (U) Clear Clear [facility] Urine color determinationOrd ered By: ED PROVIDER on 05-24-2024 Color (U) Yellow Yellow [facility] Urine glucose detectionOrder ed By: ED PROVIDER on 05-24-2024 Glucose Ql (U) Normal mg/dl Normal [facility] Urine leukocyte esterase det ection by dipstickOrdered By: ED PROVIDER on 05-24-2024 Leukocyte esterase Test strip Ql (U) Negative Negative [facility] Urine pHOrdered By: ED PROVI REAL on 05-24-2024 pH (U) 7.0 [pH] 5.0 - 8.0 [facility] Urine sediment bacteria coun t by microscopy (number/high power field)Ordered By: ED PROVIDER on 05-24-2024 Bacteria LM.HPF (Urine sed) [#/Area] 0 /[HPF] None Seen [facility] Urine specific gravity measu rementOrdered By: ED PROVIDER on 05-24-2024 Specific gravity (U) [Rel density] 1.005 1.002-1.030 [facility] Urine urobilinogen measureme ntOrdered By: ED PROVIDER on 05-24-2024 Urobilinogen Ql (U) Normal mg/dl Normal [facility] White blood cell countOrdere d By: ED PROVIDER on 05-24-2024 White blood cell count 0 SEEN /hpf 0-[address] [facility] hCG Titer Quant., Serumon HCG QUANT. 09283 mIU/mL High 1-3 [facility] Comment on above: Result Comment: hCG levels with Gestational Age Gestational Age hCG mIU/mL (IU/L) 0.2 - 1 week 5 - 50 1-2 weeks 50 - 500 2-3 weeks 100 - 5000 3-4 weeks 500 - 05974 4-5 weeks 1000 - 85126 5-6 weeks 24311 - 100,000 6-8 weeks 22171 - 200,000 2-3 months 68403 - 100,000 Performed By: #### L 100.0600 #### [facility] [address] [place], [address] Urine Cultureon 05-22-2024 URC Culture exhibits no growth. Normal [facility] Comment on above: Performed By: #### M 100.2200, L7000.1800 #### [facility] [address] [place], [address] Chlamydia trachomatis rRNA d etection by probe and target amplification methodOrdered By: Yris Brown on 05-21-2024 C. trachomatis rRNA ROBIN+probe Ql (Unsp spec) Negative Negative [facility] Neisseria gonorrhoeae nuclei c acid detection by amplified probe techniqueOrdered By: Yris Brown on 05-21-2024 N. gonorrhoeae DNA ROIBN+probe Ql (Unsp spec) Negative Negative [facility] Comment on above: Performed at: =[address] [id number] Director: Belem Lima MD, Phone: [phone] Vocal Music Teacher Office Visit Reporton 05-21-2024 Vocal Music Teacher Office Visit Report [facility] [address], [address] [place] [address] OFFICE VISIT Date of Service: 05/21/24 MR#: [id number] Acct: [id number] Name: ANJU MUELLER Rep #: [id number] : 1995 Provider: FRANSISCO Forrester ams Age/Sex: 28/F Location: [facility] Status: Signed Intake Vital Signs 05/21/24 [...] history of BRCA2 gene positive Surgical History [place] teeth removed Family History Mother BRCA gene mutation positive Preventative mastectomy done, 16 other relatives also + Aunt Breast cancer Social History household members: significant other and children number of children: 1 service: No current occupational status: employed current occupation: [employer] in [place] current occupational exposures/hazards: No pets and animals: [...] 3-4 times per week duration: 15-30 minutes/day carissa/orthodoxy: None seatbelt use: always do you feel safe at home: Yes additional social history: Fianc???: [employer] in [place] History 2 Elective abortions Hx Para 1 [...] Structural Bi (more content not included)... Normal [facility] Urine cultureOrdered By: Presley Brown on 05-21-2024 Bacteria identified Cx Nom (U) Culture exhibits no growth. [facility] OB ultrasound panelOrdered B y: Unassigned Pacs on 06-13-2023 [facility] Work Phone: OB ultrasound panelon 2023 Radiology Study observation (narrative) [facility] US Pelvis transvaginalon IMPRESSION: 1. 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 2. Hemorrhagic right [...] distended with heterogeneous avascular material most likely small business representative of blood products. 2. Hemorrhagic right ovarian cyst measuring up to 3.6 cm. 3. Normal left ovary. I personally viewed and interpreted these images and I have reviewed and approved this report. [facility] US Pelvis transvaginalOrdere d By: Yris Wei on 06-22-2022 [facility] Work Phone: CBC AND ELECTRONIC DIFFon Basophils (Bld) [#/Vol] K/uL 0.00 - 0.15 K/uL [facility] Basophils/100 WBC (Bld) 0.2 % [facility] Differential cell count method Nom (Bld) Electronic Differential [facility] Eosinophils (Bld) [#/Vol] 0.08 10*3/uL 0.00 - 0.42 K/uL [facility] Eosinophils/100 WBC (Bld) 0.8 % [facility] Erythrocyte distribution width (RBC) [Ratio] 12.7 % 10.8 - 14.9 % [facility] Hematocrit (Bld) [Volume fraction] 38.4 % 34.9 - 44.3 % [facility] Hemoglobin (Bld) [Mass/Vol] 12.5 g/dL 11.4 - 15.2 g/dL [facility] Immature granulocytes (Bld) [#/Vol] K/uL NINF - 0.08 K/uL [facility] Immature granulocytes/100 WBC (Bld) 0.2 % [facility] Interpretation and review of laboratory results Abnormal [facility] Lymphocytes (Bld) [#/Vol] 1.98 10*3/uL 1.16 - 3.51 K/uL [facility] Lymphocytes/100 WBC (Bld) 18.7 % [facility] MCH (RBC) [Entitic mass] 27.9 pg 25.9 - 33.9 pg [facility] MCHC (RBC) [Mass/Vol] 32.6 g/dL 31.4 - 35.9 g/dL [facility] MCV (RBC) [Entitic vol] 85.7 fL 79.6 - 97.7 fL [facility] Monocytes (Bld) [#/Vol] 0.72 10*3/uL 0.22 - 0.87 K/uL [facility] Monocytes/100 WBC (Bld) 6.8 % [facility] Neutrophils (Bld) [#/Vol] 7.76 10*3/uL High 1.64 - 7.28 K/uL [facility] Nucleated RBC/100 WBC (Bld) [Ratio] 0.0 % [facility] Platelet mean volume (Bld) [Entitic vol] 9.8 fL 8.5 - 12.2 fL [facility] Platelets (Bld) [#/Vol] 387 10*3/uL 150 - 393 K /uL [facility] RBC (Bld) [#/Vol] 4.48 10*6/uL [facility] Segmented neutrophils/100 WBC (Bld) 73.3 % [facility] WBC (Bld) [#/Vol] 10.58 10*3/uL 3.99 - 11 .19 K/uL [facility] HCG ( test) [facility] HCG.beta subunit [Moles/Vol] 3.5 mmol/L mIU/mL [facility] Comment on above: Non-: <10 mI U/mL Postmenopause: <10 mIU/mL Male: <10 mIU/mL FEMALE GESTATIONAL AGE 2-4 Weeks: 39.1-8,388 mIU/mL 5-6 Weeks: 861-88,769 mIU/mL 6-8 Weeks: 8,636-218,085 mIU/mL 8-10 Weeks: 18,700-244,467 mIU/mL 10-12 Weeks: 23,143-181,899 mIU/mL 13-27 Weeks: 6,303-97,171 mIU/mL 24-40 Weeks: 4,360-74,883 mIU/mL Test results cannot be interpreted as absolute evidence for the presence or absence of malignant disease. [facility] URINALYSISOrdered By: Lawrence dueñas on 06-21-2022 Appearance (U) Clear Clear [facility] Bacteria LM Ql (Urine sed) TRACE Abnormal [facility] Color (U) Yellow Yellow [facility] Epithelial cells.squamous LM Ql (Urine sed) 1/hpf = 1+ 1/hpf = 1+, 2-5/hpf = 2+, 0/hpf = 0+, ABSENT [facility] Glucose Test strip (U) [Mass/Vol] Negative Negative [facility] Interpretation and review of laboratory results Abnormal [facility] Ketones (U) [Mass/Vol] Negative Negative [facility] Leukocyte esterase Test strip Ql (U) Negative Negative [facility] Nitrite Ql (U) Negative Negative [facility] pH (U) 6.5 [pH] 5.0 - 7.0 [facility] Protein (U) [Mass/Vol] Negative Negative [facility] RBC (U) [#/Vol] Large [facility]normal [facility] RBC LM.HPF (Urine sed) [#/Area] 6-9 Abnormal [facility] Specific gravity (U) [Rel density] 1.001 - PINF [facility] Urobilinogen (U) [Mass/Vol] 0.2 E.U./dL 0.2 E.U/dL, 1.0 E.U/dL [facility] WBC LM.HPF (Urine sed) [#/Area] 0-5 [facility] US Pelvis transvaginalon Radiology Study observation (narrative) [facility] POCT RAPID STREP Aon 022 S. pyogenes Ag Ql (Throat) Negative (+/-) [facility] Internal controls OK [facility] THROAT CULTUREon 06-26-2021 Throat culture SPECIMEN DESCRIPTION THROAT SWAB CULTURE USUAL OROPHARYNGEAL DUNG * Result Note: Testing performed at [place], [place] [address] * REPORT STATUS 06/29/2021 * Result Note: FINAL * Normal [facility] Comment on above: Performed By: #### T HRC #### Testing performed at [address] [address] Vital Signs Date Time Vital Sign Value Performing Clinician Facility 12-12-2024 17:03-0400 Body temperature 97.4 [degF] No Primary Care Physician [facility] 12-12-2024 17:03-0400 Diastolic blood pressure 87 mm[Hg] No Primary Care Physician [facility] 12-12-2024 17:03-0400 Heart rate 69 /min No Primary Care Physician [facility] 12-12-2024 17:03-0400 Respiratory rate 16 /min No Primary Care Physician [facility] 12-12-2024 17:03-0400 SaO2% (BldA) [Mass fraction] 98 % No Primary Care Physician [facility] 12-12-2024 17:03-0400 Systolic blood pressure 125 mm[Hg] No Primary Care Physician [facility] 12-10-2024 16:47-0400 Body height 170.18 cm No Primary Care Physician [facility] 12-10-2024 16:47-0400 Body mass index (BMI) [Ratio] 32.4 kg/m2 No Primary Care Physician [facility] 12-10-2024 16:47-0400 Body weight 94 kg No Primary Care Physician [facility] 12-10-2024 11:41-0400 Body height 170.18 cm No Primary Care Physician [facility] 12-10-2024 11:41-0400 Body mass index (BMI) [Ratio] 32.5 kg/m2 No Primary Care Physician [facility] 12-10-2024 11:41-0400 Body weight 94.34 kg No Primary Care Physician [facility] 12-10-2024 11:41-0400 Diastolic blood pressure 90 mm[Hg] No Primary Care Physician [facility] 12-10-2024 11:41-0400 Systolic blood pressure 137 mm[Hg] No Primary Care Physician [facility] 12-03-2024 14:52-0400 Body height 170.18 cm No Primary Care Physician [facility] 12-03-2024 14:52-0400 Body mass index (BMI) [Ratio] 32.6 kg/m2 No Primary Care Physician [facility] 12-03-2024 14:52-0400 Body weight 94.57 kg No Primary Care Physician [facility] 12-03-2024 14:52-0400 Diastolic blood pressure 76 mm[Hg] No Primary Care Physician [facility] 12-03-2024 14:52-0400 Systolic blood pressure 118 mm[Hg] No Primary Care Physician [facility] 11-26-2024 10:46-0400 Body height 170.18 cm No Primary Care Physician [facility] 11-26-2024 10:46-0400 Body mass index (BMI) [Ratio] 31.8 kg/m2 No Primary Care Physician [facility] 11-26-2024 10:46-0400 Body weight 92.22 kg No Primary Care Physician [facility] 11-26-2024 10:46-0400 Diastolic blood pressure 73 mm[Hg] No Primary Care Physician [facility] 11-26-2024 10:46-0400 Systolic blood pressure 110 mm[Hg] No Primary Care Physician [facility] 11-23-2024 14:01-0400 Body height 170.18 cm No Primary Care Physician [facility] 11-23-2024 14:01-0400 Body mass index (BMI) [Ratio] 31.8 kg/m2 No Primary Care Physician [facility] 11-23-2024 14:01-0400 Body weight 92.3 kg No Primary Care Physician [facility] 11-23-2024 13:49-0400 Heart rate 95 /min No Primary Care Physician [facility] 11-23-2024 13:49-0400 SaO2% (BldA) [Mass fraction] 97 % No Primary Care Physician [facility] 11-23-2024 13:48-0400 Body temperature 98.2 [degF] No Primary Care Physician [facility] 11-23-2024 13:48-0400 Diastolic blood pressure 73 mm[Hg] No Primary Care Physician [facility] 11-23-2024 13:48-0400 Respiratory rate 16 /min No Primary Care Physician [facility] 11-23-2024 13:48-0400 Systolic blood pressure 121 mm[Hg] No Primary Care Physician [facility] 11-13-2024 10:26-0400 Body height 170.18 cm No Primary Care Physician [facility] 11-13-2024 10:26-0400 Body mass index (BMI) [Ratio] 31 kg/m2 No Primary Care Physician [facility] 11-13-2024 10:26-0400 Body weight 89.95 kg No Primary Care Physician [facility] 11-13-2024 10:26-0400 Diastolic blood pressure 76 mm[Hg] No Primary Care Physician [facility] 11-13-2024 10:26-0400 Systolic blood pressure 122 mm[Hg] No Primary Care Physician [facility] 10-29-2024 10:12-0400 Body height 170.18 cm No Primary Care Physician [facility] 10-29-2024 10:12-0400 Body mass index (BMI) [Ratio] 30.7 kg/m2 No Primary Care Physician [facility] 10-29-2024 10:12-0400 Body weight 89.07 kg No Primary Care Physician [facility] 10-29-2024 10:12-0400 Diastolic blood pressure 73 mm[Hg] No Primary Care Physician [facility] 10-29-2024 10:12-0400 Systolic blood pressure 112 mm[Hg] No Primary Care Physician [facility] 10-16-2024 15:07-0400 Body height 170.18 cm No Primary Care Physician [facility] 10-16-2024 15:07-0400 Body mass index (BMI) [Ratio] 29.8 kg/m2 No Primary Care Physician [facility] 10-16-2024 15:07-0400 Body weight 86.4 kg No Primary Care Physician [facility] 10-16-2024 15:07-0400 Diastolic blood pressure 76 mm[Hg] No Primary Care Physician [facility] 10-16-2024 15:07-0400 Systolic blood pressure 116 mm[Hg] No Primary Care Physician [facility] 10-01-2024 10:13-0400 Body height 170.18 cm No Primary Care Physician [facility] 10-01-2024 10:05-0400 Body mass index (BMI) [Ratio] 29.4 kg/m2 No Primary Care Physician [facility] 10-01-2024 10:05-0400 Body weight 85.27 kg No Primary Care Physician [facility] 10-01-2024 10:05-0400 Diastolic blood pressure 68 mm[Hg] No Primary Care Physician [facility] 10-01-2024 10:05-0400 Systolic blood pressure 104 mm[Hg] No Primary Care Physician [facility] 09-10-2024 08:48-0400 Body height 170.18 cm No Primary Care Physician [facility] 09-10-2024 08:46-0400 Body mass index (BMI) [Ratio] 28.3 kg/m2 No Primary Care Physician [facility] 09-10-2024 08:46-0400 Body weight 82.15 kg No Primary Care Physician [facility] 09-10-2024 08:46-0400 Diastolic blood pressure 68 mm[Hg] No Primary Care Physician [facility] 09-10-2024 08:46-0400 Systolic blood pressure 101 mm[Hg] No Primary Care Physician [facility] 08-13-2024 14:11-0400 Body mass index (BMI) [Ratio] 27.3 kg/m2 No Primary Care Physician [facility] 08-13-2024 14:11-0400 Body weight 79.37 kg No Primary Care Physician [facility] 08-13-2024 14:11-0400 Diastolic blood pressure 82 mm[Hg] No Primary Care Physician [facility] 08-13-2024 14:11-0400 Systolic blood pressure 119 mm[Hg] No Primary Care Physician [facility] 07-16-2024 13:26-0400 Body mass index (BMI) [Ratio] 26.2 kg/m2 No Primary Care Physician [facility] 07-16-2024 13:26-0400 Body weight 75.8 kg No Primary Care Physician [facility] 07-16-2024 13:26-0400 Diastolic blood pressure 74 mm[Hg] No Primary Care Physician [facility] 07-16-2024 13:26-0400 Systolic blood pressure 116 mm[Hg] No Primary Care Physician [facility] 06-19-2024 09:29-0400 Body temperature 98.1 [degF] Erick Hanh SMOKING PIPE MOUNTER.PERFORMANCE IMPROVEMENT ANALYST Work Phone: [facility] 06-19-2024 09:29-0400 Body weight 71 kg Erick Moomaw SMOKING PIPE MOUNTER.PERFORMANCE IMPROVEMENT ANALYST Work Phone: [facility] 06-19-2024 09:29-0400 Diastolic blood pressure 84 mm[Hg] Erick Moomaw SMOKING PIPE MOUNTER.PERFORMANCE IMPROVEMENT ANALYST Work Phone: [facility] 06-19-2024 09:29-0400 Heart rate 85 /min Erick Moomaw SMOKING PIPE MOUNTER.PERFORMANCE IMPROVEMENT ANALYST Work Phone: [facility] 06-19-2024 09:29-0400 Respiratory rate 20 /min Erick Moomaw SMOKING PIPE MOUNTER.PERFORMANCE IMPROVEMENT ANALYST Work Phone: [facility] 06-19-2024 09:29-0400 SaO2% (BldA) [Mass fraction] 99 % Erick Moomaw SMOKING PIPE MOUNTER.PERFORMANCE IMPROVEMENT ANALYST Work Phone: [facility] 06-19-2024 09:29-0400 Systolic blood pressure 127 mm[Hg] Erick Moomaw SMOKING PIPE MOUNTER.PERFORMANCE IMPROVEMENT ANALYST Work Phone: [facility] 06-18-2024 14:33-0400 Body mass index (BMI) [Ratio] 25.4 kg/m2 No Primary Care Physician [facility] 06-18-2024 14:33-0400 Body weight 73.7 kg No Primary Care Physician [facility] 06-18-2024 14:33-0400 Diastolic blood pressure 77 mm[Hg] No Primary Care Physician [facility] 06-18-2024 14:33-0400 Systolic blood pressure 116 mm[Hg] No Primary Care Physician [facility] 05-24-2024 12:47-0500 Body temperature 98 [degF] No Primary Care Physician [facility] 05-24-2024 12:47-0500 Diastolic blood pressure 80 mm[Hg] No Primary Care Physician [facility] 05-24-2024 12:47-0500 Heart rate 80 /min No Primary Care Physician [facility] 05-24-2024 12:47-0500 Respiratory rate 16 /min No Primary Care Physician [facility] 05-24-2024 12:47-0500 SaO2% (BldA) [Mass fraction] 99 % No Primary Care Physician [facility] 05-24-2024 12:47-0500 Systolic blood pressure 118 mm[Hg] No Primary Care Physician [facility] 05-24-2024 09:45-0500 Body mass index (BMI) [Ratio] 25.1 kg/m2 No Primary Care Physician [facility] 05-24-2024 09:45-0500 Body weight 72.75 kg No Primary Care Physician [facility] 05-21-2024 11:09-0500 Body mass index (BMI) [Ratio] 26.6 kg/m2 No Primary Care Physician [facility] 05-21-2024 11:09-0500 Body weight 72.63 kg No Primary Care Physician [facility] 05-21-2024 11:09-0500 Diastolic blood pressure 79 mm[Hg] No Primary Care Physician [facility] 05-21-2024 11:09-0500 Systolic blood pressure 121 mm[Hg] No Primary Care Physician [facility] 06-13-2023 15:13-0500 Body height 165.1 cm Jamal Lagos MD Work Phone: [facility] 06-13-2023 15:13-0500 Body mass index (BMI) [Ratio] 27.46 kg/m2 Jamal Lagos MD Work Phone: [facility] 06-13-2023 15:13-0500 Body weight 74.84 kg Jamal Lagos MD Work Phone: [facility] 06-13-2023 15:13-0500 Diastolic blood pressure 80 mm[Hg] Jamal Lagos MD Work Phone: [facility] 06-13-2023 15:13-0500 Heart rate 85 /min Jamal Lagos MD Work Phone: [facility] 06-13-2023 15:13-0500 Respiratory rate 16 /min Jamal Lagos MD Work Phone: [facility] 06-13-2023 15:13-0500 SaO2% (BldA) [Mass fraction] 98 % Jamal Lagos MD Work Phone: [facility] 06-13-2023 15:13-0500 Systolic blood pressure 124 mm[Hg] Jamal Lagos MD Work Phone: [facility] 06-22-2022 01:22-0400 Diastolic blood pressure 72 mm[Hg] Dayanna Ariza MD Work Phone: [facility] 06-22-2022 01:22-0400 Heart rate 86 /min Dayanna Ariza MD Work Phone: [facility] 06-22-2022 01:22-0400 Respiratory rate 16 /min Dayanna Ariza MD Work Phone: [facility] 06-22-2022 01:22-0400 SaO2% (BldA) [Mass fraction] 100 % Dayanna Ariza MD Work Phone: [facility] 06-22-2022 01:22-0400 Systolic blood pressure 129 mm[Hg] Dayanna Ariza MD Work Phone: [facility] 06-21-2022 19:41-0400 Body temperature 98.01 [degF] Dayanna Ariza MD Work Phone: [facility] 06-21-2022 19:39-0400 Body height 165.1 cm Dayanna Ariza MD Work Phone: [facility] 03-23-2022 16:11-0500 Diastolic blood pressure 89 mm[Hg] Archana Jose SMOKING PIPE MOUNTER-PERFORMANCE IMPROVEMENT ANALYST Work Phone: [facility] 03-23-2022 16:11-0500 Heart rate 89 /min Archana Jose SMOKING PIPE MOUNTER-PERFORMANCE IMPROVEMENT ANALYST Work Phone: [facility] 03-23-2022 16:11-0500 Systolic blood pressure 129 mm[Hg] Archana Jose SMOKING PIPE MOUNTER-PERFORMANCE IMPROVEMENT ANALYST Work Phone: [facility] 12-19-2021 16:50-0400 Body height 166.4 cm Jamal Lagos MD Work Phone: [facility] 12-19-2021 16:50-0400 Body mass index (BMI) [Ratio] 24.25 kg/m2 Jamal Lagos MD Work Phone: [facility] 12-19-2021 16:50-0400 Body weight 67.13 kg Jamal Lagos MD Work Phone: [phone] [place] [address] 12-19-2021 16:50-0400 Diastolic blood pressure 72 mm[Hg] Jamal Lagos MD Work Phone: 6(728)[phone] [place] [address] 12-19-2021 16:50-0400 Heart rate 76 /min Jamal Lagos MD Work Phone: [facility] 12-19-2021 16:50-0400 Respiratory rate 16 /min Jamal Lagos MD Work Phone: [facility] 12-19-2021 16:50-0400 SaO2% (BldA) [Mass fraction] 99 % Jamal Lagos MD Work Phone: [facility] 12-19-2021 16:50-0400 Systolic blood pressure 112 mm[Hg] Jamal Lagos MD Work Phone: [facility] 06-26-2021 19:48-0400 Body height 165.1 cm Adeola Tirado SMOKING PIPE MOUNTER-PERFORMANCE IMPROVEMENT ANALYST Work Phone: [facility] 06-26-2021 19:48-0400 Body mass index (BMI) [Ratio] 24.23 kg/m2 Adeola Tirado SMOKING PIPE MOUNTER-PERFORMANCE IMPROVEMENT ANALYST Work Phone: [facility] 06-26-2021 19:48-0400 Body temperature 99.39 [degF] Adeola Tirado SMOKING PIPE MOUNTER-PERFORMANCE IMPROVEMENT ANALYST Work Phone: [employer] [facility] 06-26-2021 19:48-0400 Body weight 66.04 kg Adeola Tirado SMOKING PIPE MOUNTER-PERFORMANCE IMPROVEMENT ANALYST Work Phone: [employer] 06-26-2021 19:48-0400 Diastolic blood pressure 72 mm[Hg] Adeola Tirado SMOKING PIPE MOUNTER-PERFORMANCE IMPROVEMENT ANALYST Work Phone: [employer] [facility] 06-26-2021 19:48-0400 Heart rate 73 /min Adeola Tirado SMOKING PIPE MOUNTER-PERFORMANCE IMPROVEMENT ANALYST Work Phone: [employer] [facility] 06-26-2021 19:48-0400 Respiratory rate 16 /min Adeola Tirado SMOKING PIPE MOUNTER-PERFORMANCE IMPROVEMENT ANALYST Work Phone: [employer] [facility] 06-26-2021 19:48-0400 SaO2% (BldA) [Mass fraction] 99 % Adeola Tirado SMOKING PIPE MOUNTER-PERFORMANCE IMPROVEMENT ANALYST Work Phone: [employer] [facility] 06-26-2021 19:48-0400 Systolic blood pressure 115 mm[Hg] Adeola Tirado SMOKING PIPE MOUNTER-PERFORMANCE IMPROVEMENT ANALYST Work Phone: [facility] Encounters Encounter Date Encounter Type Care Provider Facility Start: 01-21-2025 ambulatory No Primary Car e Physician Facility:[facility] Start: 12-12-2024 Non-patient / Non-visit Dayanna pop CNM -[facility] Start: 12-11-2024 Non-patient / Non-visit Dr. Leonardo Huddleston MD -[facility] Start: 12-10-2024 End: 12-12-2024 Evaluation and management of inpatient Dr. Taina Huddleston MD -[facility] Work Phone: Start: 12-10-2024 ambulatory No Primary Car e Physician Facility:[facility] Start: 12-10-2024 Non-patient / Non-visit Dr. Leonardo Huddleston MD -[facility] Start: 12-10-2024 End: 12-10-2024 Patient encounter procedure Yris Brown CNM -[facility] Work Phone: Start: 12-10-2024 End: 12-10-2024 ambulatory No Primary Care Physician -[facility] Start: 12-10-2024 End: 12-10-2024 Patient encounter procedure Yris Brown CNM -[facility] Work Phone: Start: 12-10-2024 End: 12-10-2024 ambulatory No Primary Care Physician -[facility] Start: 12-10-2024 End: 12-10-2024 ambulatory No Primary Care Physician Facility:[facility] Start: 12-03-2024 End: 12-03-[address] Taina Huddleston MD -[facility] Work Phone: Start: 12-03-2024 End: 12-03-2024 ambulatory No Primary Care Physician -[facility] Start: 11-26-2024 End: 11-26-2024 ambulatory No Primary Care Physician -[facility] Start: 11-26-2024 End: 11-26-[address] Taina Huddleston MD -[facility] Work Phone: Start: 11-26-2024 End: 11-26-[address] Taina Huddleston MD -[facility] Work Phone: Start: 11-26-2024 End: 11-26-2024 ambulatory No Primary Care Physician -[facility] Start: 11-26-2024 End: 11-26-2024 ambulatory No Primary Care Physician Facility:[facility] Start: 11-23-2024 ambulatory Yris Brown Facility :[facility] Start: 11-23-2024 Non-patient / Non-visit Yris Hogan [facility] Start: 11-23-2024 End: 11-23-2024 ambulatory No Primary Care Physician -[facility] Start: 11-23-2024 End: 11-23-2024 Patient encounter procedure Yris Brown CNM -[facility] Work Phone: Start: 11-13-2024 End: 11-13-2024 Patient encounter procedure Yris Bronw CNM -[facility] Work Phone: Start: 11-13-2024 End: 11-13-2024 ambulatory No Primary Care Physician -[facility] Start: 10-29-2024 End: 10-29-[address] Taina Huddleston MD -[facility] Work Phone: Start: 10-29-2024 End: 10-29-2024 ambulatory No Primary Care Physician -[facility] Start: 10-16-2024 End: 10-16-2024 Patient encounter procedure Yris Brown CNM -[facility] Work Phone: Start: 10-16-2024 End: 10-16-2024 ambulatory No Primary Care Physician [facility] Start: 10-01-2024 End: 10-01-2024 Patient encounter procedure Tawanna GRANADO -[facility] Work Phone: Start: 10-01-2024 End: 10-01-2024 ambulatory No Primary Care Physician [facility] Work Phone: Start: 10-01-2024 End: 10-01-2024 [facility] Start: 09-10-2024 End: 09-10-2024 ambulatory No Primary Care Physician [facility] Work Phone: Start: 09-10-2024 End: 09-10-[address] Taina Huddleston MD -[facility] Work Phone: Start: 09-10-2024 End: 09-10-[address] Taina Huddleston MD -[facility] Work Phone: Start: 09-10-2024 End: 09-10-2024 ambulatory No Primary Care Physician [facility] Work Phone: Start: 09-10-2024 End: 09-10-2024 ambulatory Taina Huddleston Facility:[facility] Start: 08-13-2024 End: 08-13-2024 Patient encounter procedure Yris Brown CNM -[facility] Work Phone: Start: 08-13-2024 End: 08-13-2024 ambulatory No Primary Care Physician Facility:[facility] Start: 07-30-2024 End: 07-30-2024 ambulatory MD NO PRIMARY CARE [facility] Start: 07-16-2024 End: 07-16-2024 Patient encounter procedure Tawanna GRANADO -[facility] Work Phone: Start: 07-16-2024 End: 07-16-2024 ambulatory No Primary Care Physician Facility:[facility] Start: 06-19-2024 End: 06-19-2024 ambulatory Facility:[facility] Start: 06-19-2024 End: 06-19-2024 Patient encounter procedure Erick Dowell APRN.PERFORMANCE IMPROVEMENT ANALYST Work Phone: [facility] Comment on above: Tick bite of abdomen , initial encounter (Primary Dx) Start: 06-18-2024 End: 06-18-[address] Cary Brenner DO -[facility] Work Phone: Start: 06-18-2024 End: 06-18-2024 ambulatory No Primary Care Physician Facility:[facility] Start: 05-28-2024 End: 05-28-2024 Patient encounter procedure Yris Brown CNM -Lab [facility] Start: 05-28-2024 End: 05-28-2024 ambulatory Yris Brown Facility:[facility] Start: 05-24-2024 End: 05-24-2024 Emergency department patient visit Dr. Julio Louise DO -Emergency Department Work Phone: Start: 05-21-2024 End: 05-21-2024 Patient encounter procedure Yris ZAMARRIPAM -[facility] Specimen Work Phone: Start: 05-21-2024 End: 05-21-2024 Patient encounter procedure Yris Brown CNM -[facility] Work Phone: Start: 05-21-2024 End: 05-21-2024 ambulatory No Primary Care Physician Facility:[facility] Start: 05-21-2024 End: 05-21-2024 ambulatory Yris Brown Facility:[facility] Start: 05-12-2024 ambulatory SELF SELF Facility:[facility] Start: 05-08-2024 ambulatory No Primary Car e Physician Facility:[facility] Start: 06-13-2023 End: 06-13-2023 Office outpatient visit 25 minutes Jamal Lagos MD Work Phone: [facility] Comment on above: BRCA2 gene mutation positive in female (Primary Dx); Cyst of right ovary Start: 06-13-2023 ambulatory SELF SELF Facility:[facility] Start: 06-21-2022 End: 06-22-2022 Emergency department patient visit Dayanna Ariza MD Work Phone: [facility] Start: 03-23-2022 End: 03-23-2022 Subsequent hospital visit by physician Archana Garcia SMOKING PIPE MOUNTER-PERFORMANCE IMPROVEMENT ANALYST Work Phone: Department of Radiology Comment on above: Arrived Start: 12-19-2021 End: 12-19-2021 Office outpatient new 45 minutes Jamal Lagos MD Work Phone: [facility] Comment on above: Thyroid mass (Primar y Dx); Encounter for initial prescription of contraceptive pills; BRCA2 gene mutation positive in female; Cervical cancer screening Start: 08-09-2021 End: 08-09-2021 Subsequent hospital visit by physician Archana Garcia SMOKING PIPE MOUNTER-PERFORMANCE IMPROVEMENT ANALYST Work Phone: Department of Radiology Comment on above: Canceled (Cancel [place] son Not Listed - Please provide detailed information) Start: 06-26-2021 End: 06-26-2021 Office outpatient visit 15 minutes Adeola Tirado SMOKING PIPE MOUNTER-PERFORMANCE IMPROVEMENT ANALYST Work Phone: [facility] Comment on above: Viral pharyngitis (P rimary Dx); Sore throat Start: 09-06-2020 End: 09-06-2020 ambulatory [facility] Procedures Date Procedure Procedure Detail Performing Clinician Start: 12-10-2024 Serologic test for syphilis No Primary Care Physician Start: 11-26-2024 Beta-hemolytic Strep tococcus culture No [...] Start: 06-13-2023 OB ultrasound panel Rosendo gonzalez Lagos MD Work Phone: Start: 06-21-2022 Us pelvic [...] Iaadiadoo streptococ cus group a Adeola Tirado SMOKING PIPE MOUNTER-PERFORMANCE IMPROVEMENT ANALYST Work Phone: Plan of Treatment Date Care Activity Detail Author Start: 12-12-2024 Patient discharge [facility] Start: 12-11-2024 Documentation procedure [facility] Start: 12-11-2024 Application of ice c ollar, cap or bag [facility] Start: 12-11-2024 Catheterization of vein [facility] Start: 12-11-2024 Introduction of urin edward catheter [facility] Start: 12-11-2024 Measuring intake and output [facility] Start: 12-11-2024 Notification of physician [facility] Start: 12-11-2024 Procedure discontinued [facility] Start: 12-11-2024 Provision of activit y privileges [facility] Start: 12-11-2024 Vital signs measurements [facility] Start: 12-11-2024 End: 12-11-2024 [facility] Start: 12-11-2024 [facility] Start: 12-11-2024 Notification of physician [facility] Start: 12-11-2024 [facility] Start: 12-10-2024 acoustic stimu lation test [facility] Start: 12-10-2024 Intrauterine catheterization [facility] Start: 12-10-2024 Notification of physician [facility] Start: 12-10-2024 End: 12-10-2024 [facility] Start: 12-10-2024 Admission procedure [facility] Start: 12-10-2024 Anesthesia consultation [facility] Start: 12-10-2024 Application of intermittent pneumatic compression device [facility] Start: 12-10-2024 Catheterization of vein [facility] Start: 12-10-2024 Introduction of urin edward catheter [facility] Start: 12-10-2024 Provision of activit y privileges [facility] Start: 12-10-2024 Nonstress test [facility] Start: 12-10-2024 End: 12-10-2024 Obstetric monitoring [facility] Start: 12-10-2024 Vital signs measurements [facility] Start: 12-10-2024 CBC W Auto Different ial panel - Blood [facility] Start: 12-10-2024 Comprehensive metabo lic 2000 panel - Serum or Plasma [facility] Start: 12-10-2024 Protein/Creatinine [ Ratio] in Urine [facility] Start: 11-23-2024 Nonstress test [facility] Start: 11-23-2024 Obstetric monitoring [facility] Start: 11-23-2024 Vital signs measurements [facility] Start: 11-23-2024 [facility] Start: 11-23-2024 Patient discharge [facility] Start: 10-01-2024 CBC W Auto Different ial panel - Blood [facility] Start: 10-01-2024 Measurement of gluco se 2 hours after glucose challenge for glucose tolerance test [facility] Start: 10-01-2024 Serologic test for syphilis [facility] Start: 10-01-2024 [facility] Start: 06-18-2024 End: 06-18-2024 Patient encounter procedure 06/18/2024 1:00 PM EDT Office Visit [facility] [address] [place] [address] Jamal Lagos MD [address] [place] [address] [facility] Start: 12-08-2023 Covid-19 Vaccine ( season) Covid-19 Vaccine ( season) [facility] Start: 12-08-2023 Influenza vaccination Influenza Vacc ine (#1) [facility] Start: 12-19-2022 Screening for malign ant neoplasm of cervix CERVICAL CANCER SCREENING DISCUSSION [facility] Start: 12-19-2022 End: 12-19-2022 Patient encounter procedure 12/19/2022 Office Visit Gynecology Jamal Lagos MD [address] [place] [address] [facility] [place] Start: 12-07-2022 COVID-19 VACCINE ( season) COVID-19 VACCINE ( season) [facility] Start: 12-07-2022 Influenza vaccination INFLUENZA VACC INE (#1) [facility] Start: 10-30-2022 End: 10-30-2022 Patient encounter procedure 10/30/2022 Office Visit Surgical Oncology Archana Garcia, SMOKING PIPE MOUNTER-PERFORMANCE IMPROVEMENT ANALYST [address] [facility] [place] [address] Division of Surgical Oncology Start: 03-28-2022 GONORRHEA SCREEN GONORRHEA SCREEN [facility] Start: 03-28-2022 Screening for Chlamy ty trachomatis [facility] Start: 12-19-2021 End: 12-19-2022 Thyrotropin [Units/volume] in Serum or Plasma TSH Lab Routine Thyroid mass Expected: 12/19/2021, Expires: 12/19/2022 [facility] Comment on above: Expected: 12/19/2021 , Expires: 12/19/2022 Start: 12-19-2021 End: 12-19-2022 Thyroxine (T4) free [Mass/volume] in Serum or Plasma T4 FREE Lab Routine Thyroid mass Expected: 12/19/2021, Expires: 12/19/2022 [facility] Comment on above: Expected: 12/19/2021 , Expires: 12/19/2022 Start: 12-19-2021 End: 12-19-2022 Triiodothyronine (T3) Free [Mass/volume] in Serum or Plasma T3 FREE Lab Routine Thyroid mass Expected: 12/19/2021, Expires: 12/19/2022 [facility] Comment on above: Expected: 12/19/2021 , Expires: 12/19/2022 Start: 12-07-2021 Influenza vaccination [facility] Start: 10-17-2021 End: 10-17-2021 Patient encounter procedure 10/17/2021 Office Visit Gynecology Jamal Lagos MD [address] [place] [address] [facility] Start: 07-18-2021 End: 07-18-2021 Patient encounter procedure 07/18/2021 Office Visit Surgical Oncology Gretta Parra MD [address], [address] [place] [id number] Archana Garcia, SMOKING PIPE MOUNTER-PERFORMANCE IMPROVEMENT ANALYST [address] [place] [address] Division of Surgical Oncology Start: 06-26-2021 End: 06-26-2022 Throat culture CULTURE THROAT Microbiology Routine Sore throat Expected: 06/26/2021, Expires: 06/26/2022 [facility] Comment on above: Expected: 06/26/2021 , Expires: 06/26/2022 Start: 01-14-2021 COVID-19 VACCINE (2 - Pfizer 3-dose series) COVID-19 VACCINE (2 - Pfizer 3-dose series) [facility] Start: 01-14-2021 COVID-19 VACCINE (2 - Pfizer series) COVID-19 VACCINE (2 - Pfizer series) [facility] Start: 12-07-2020 Influenza vaccination INFLUENZA VACC INE (#1) [facility] Start: 10-19-2020 Screening for malign ant neoplasm of cervix CERVICAL CANCER SCREENING DISCUSSION [facility] Start: 2017 Screening for malign ant neoplasm of cervix Cervical Cancer Screening [facility] Start: 06-11-2015 Pneumococcal vaccination Pneum ococcal Vaccine (1 of 2 - PCV) [facility] Start: 06-11-2015 Third diphtheria, te tanus and acellular pertussis (DTaP) vaccination TDAP (ADULT) [facility] Start: 2014 Anxiety Screening Anxiety Screening [facility] Start: 2014 Depression Screening Depression Scre ening [facility] Start: 2014 Hepatitis C screening Hepatitis C Sc neftali [facility] Start: 2014 HIV screening HIV Screening [facility] Start: 2014 Tetanus vaccination TETANUS [facility] Start: 06-11-2011 HIV screening HIV SCREENING DISCUSSION [facility] Start: 06-11-2007 Urine microalbumin profile DTa P,Tdap,Td Vaccine (6 - Tdap) [facility] Start: 06-11-2007 Vaccination for nagi n papillomavirus HPV VACCINE ADOL (1 - 2-dose series) [facility] Start: 1996 Hepatitis C antibody , confirmatory test HEPATITIS C VIRUS SCREENING [facility] Start: 1996 Hepatitis C screening HEPATITI S C VIRUS SCREENING [facility] Start: 1996 Potassium [Moles/vol ume] in Serum or Plasma POTASSIUM [facility] Start: 1996 Tet[facility] Alanine aminotransfe rase [Enzymatic activity/volume] in Serum or Plasma [facility] Albumin [Mass/volume ] in Serum or Plasma [facility] Alkaline phosphatase [Enzymatic activity/volume] in Serum or Plasma [facility] Anion gap in Serum o r Plasma [facility] Bilirubin, total measurement [facility] BUN/Creatinine ratio [facility] Calcium [Mass/volume ] in Serum or Plasma [facility] Carbon dioxide, tota l [Moles/volume] in Central venous blood [facility] CBC W Auto Different ial panel - Blood [facility] Creatinine [Mass/vol ume] in Serum or Plasma [facility] Creatinine [Mass/vol ume] in Urine collected for unspecified duration [facility] Cytology Cervical or vaginal smear or scraping study CYTOLOGY-FIRST HELPER, LIQUID BASED Cytology Routine Cervical cancer screening 12/19/2021 6:19 PM EDT [facility] Erythrocyte mean corpuscular volume determination [facility] Erythrocyte mean corpuscular volume determination [facility] EXTRA MICRO EXTRA MICRO Flui ds STAT 06/21/2022 8:29 PM EDT [facility] Glucose [Mass/volume ] in Serum or Plasma [facility] GOLD TOP TUBE GOLD TOP TUBE La b STAT 06/21/2022 7:47 PM EDT [facility] Hematocrit [Volume Fraction] of Blood [facility] Hematocrit [Volume Fraction] of Blood [facility] Hemoglobin [Mass/vol ume] in Blood [facility] Hemoglobin [Mass/vol ume] in Blood [facility] LAVENDER TOP TUBE LAVENDER TOP T UBE Lab STAT 06/21/2022 7:47 PM EDT [facility] Leukocytes [#/volume ] in Blood [facility] Leukocytes [#/volume ] in Blood [facility] LT BLUE TOP TUBE LT BLUE TOP TUB E Lab STAT 06/21/2022 7:47 PM EDT [facility] Mean corpuscular hemoglobin concentration determination [facility] Mean corpuscular hemoglobin concentration determination [facility] Mean corpuscular hemoglobin determination [facility] Mean corpuscular hemoglobin determination [facility] Measurement of gluco se 2 hours after glucose challenge for glucose tolerance test [facility] Measurement of renal function [facility] Microscopic urinalysis URINALYSI S WITH CULTURE HOLD Lab STAT 06/21/2022 8:29 PM EDT [facility] MINT GREEN TOP TUBE MINT GREEN T OP TUBE Lab STAT 06/21/2022 7:47 PM EDT [facility] End: 03-23-2022 MR Breast - bilateral WO and W contrast IV [facility] Comment on above: 1 Occurrences starti ng 03/23/2022 until 03/23/2022 Neutrophil count [facility] Neutrophil count [facility] Neutrophil percent differential count [facility] Neutrophil percent differential count [facility] Patient Education [facility] Work Phone: Patient referral [facility] Work Phone: Platelets [#/volume] in Blood [facility] Platelets [#/volume] in Blood [facility] Potassium measurement [facility] Protein [Mass/volume ] in Urine [facility] Protein/Creatinine [ Mass Ratio] in Urine [facility] RAINBOW DRAW RAINBOW DRAW Lab STAT 06/21/2022 7:47 PM EDT [facility] Work Phone: Red blood cell count [facility] Red blood cell count [facility] Red cell distributio n width determination [facility] Red cell distributio n width determination [facility] Serologic test for syphilis [facility] Serum chloride measurement [facility] Sodium measurement [facility] Streptococcus agalac tiae [Presence] in Unspecified specimen by Organism specific culture [facility] Total protein measurement [facility] Urea nitrogen [Mass/volume] in Serum or Plasma [facility] Us transvaginal GA ECHOGRAPHY,TRANSVAGINA L GA - OFFICE PERFORMED IMAGING Routine BRCA2 gene mutation positive in female Cyst of right ovary Ordered: 06/13/2023 [facility] Comment on above: Ordered: 06/13/2023 [facility] Immunizations Immunization Date Immunization Notes Care Provider Fa misty 10-01-2024 tetanus toxoid, redu fercho diphtheria toxoid, and acellular pertussis vaccine, adsorbed No Primary Care Physician [facility] 12-24-2020 COVID-19 vaccine, MR URIEL, Pfizer, 0.3 ML Adeola Tirado SMOKING PIPE MOUNTER-PERFORMANCE IMPROVEMENT ANALYST Work Phone: [facility] 05-15-2019 influenza, injectabl e, quadrivalent, preservative free No Primary Care Physician [facility] 05-15-2019 influenza, seasonal, injectable, preservative free Adeola Tirado SMOKING PIPE MOUNTER-PERFORMANCE IMPROVEMENT ANALYST Work Phone: [facility] 05-15-2019 influenza virus vaccine, unspecified formulation Adeola Tirado SMOKING PIPE MOUNTER-PERFORMANCE IMPROVEMENT ANALYST Work Phone: [facility] 07-17-2001 diphtheria, tetanus toxoids and acellular pertussis vaccine, unspecified formulation Adeola Tirado SMOKING PIPE MOUNTER-PERFORMANCE IMPROVEMENT ANALYST Work Phone: [facility] 07-17-2001 measles, mumps and rubella virus vaccine Adeola Tirado SMOKING PIPE MOUNTER-PERFORMANCE IMPROVEMENT ANALYST Work Phone: [facility] 07-17-2001 poliovirus vaccine, inactivated Adeola Tirado SMOKING PIPE MOUNTER-PERFORMANCE IMPROVEMENT ANALYST Work Phone: [facility] 04-06-1999 diphtheria, tetanus toxoids and acellular pertussis vaccine, unspecified formulation Adeola Tirado SMOKING PIPE MOUNTER-PERFORMANCE IMPROVEMENT ANALYST Work Phone: [facility] 04-06-1999 poliovirus vaccine, inactivated Adeola Tirado SMOKING PIPE MOUNTER-PERFORMANCE IMPROVEMENT ANALYST Work Phone: [facility] 10-21-1997 diphtheria, tetanus toxoids and acellular pertussis vaccine, unspecified formulation Adeola Tirado SMOKING PIPE MOUNTER-PERFORMANCE IMPROVEMENT ANALYST Work Phone: [facility] 10-21-1997 haemophilus influenz ae type b vaccine, PRP-OMP conjugate Adeola Tirado SMOKING PIPE MOUNTER-PERFORMANCE IMPROVEMENT ANALYST Work Phone: [facility] 10-21-1997 measles, mumps and rubella virus vaccine Adeola Tirado SMOKING PIPE MOUNTER-PERFORMANCE IMPROVEMENT ANALYST Work Phone: [facility] 05-28-1997 diphtheria, tetanus toxoids and acellular pertussis vaccine, unspecified formulation Adeola Tirado SMOKING PIPE MOUNTER-PERFORMANCE IMPROVEMENT ANALYST Work Phone: [facility] 05-28-1997 haemophilus influenz ae type b vaccine, PRP-OMP conjugate Adeola Tirado SMOKING PIPE MOUNTER-PERFORMANCE IMPROVEMENT ANALYST Work Phone: [facility] 05-28-1997 hepatitis B vaccine, pediatric or pediatric/adolescent dosage Adeola Tirado SMOKING PIPE MOUNTER-PERFORMANCE IMPROVEMENT ANALYST Work Phone: [facility] 05-28-1997 trivalent poliovirus vaccine, live, oral Adeola Tirado SMOKING PIPE MOUNTER-PERFORMANCE IMPROVEMENT ANALYST Work Phone: [facility] 1996 diphtheria, tetanus toxoids and acellular pertussis vaccine, unspecified formulation Adeola Tirado SMOKING PIPE MOUNTER-PERFORMANCE IMPROVEMENT ANALYST Work Phone: [facility] 1996 haemophilus influenz ae type b vaccine, PRP-OMP conjugate Adeola Tirado SMOKING PIPE MOUNTER-PERFORMANCE IMPROVEMENT ANALYST Work Phone: [facility] 1996 hepatitis B vaccine, pediatric or pediatric/adolescent dosage Adeola Tirado SMOKING PIPE MOUNTER-PERFORMANCE IMPROVEMENT ANALYST Work Phone: [facility] 1996 trivalent poliovirus vaccine, live, oral Adeola Tirado SMOKING PIPE MOUNTER-PERFORMANCE IMPROVEMENT ANALYST Work Phone: [facility] 1996 hepatitis B vaccine, pediatric or pediatric/adolescent dosage Adeola Tirado SMOKING PIPE MOUNTER-PERFORMANCE IMPROVEMENT ANALYST Work Phone: [facility] Payers Date Payer Category Payer Self-pay 2024 Unknown [id number] 2020 Medicaid [id number] 2020 Medicaid [id number] 2019 Unknown [id number] 1996 Unknown [id number] 2.16. [id number] 1996 Unknown [id number] 2.16. 840.1.568246.3.579.2.594 1996 Unknown [id number] 2.16. 840.1.811093.3.579.2.479 Unknown [id number] Unknown [id number] 2.16.8 40.1.504191.3.579.2.462 Unknown [id number] 2.16.8 40.1.499765.3.579.2.462 Unknown [id number] 2.16.8 40.1.733524.3.579.2.462 Unknown [id number] 2.16.8 40.1.508551.3.579.2.462 Unknown [id number] 2.16.8 40.1.287511.3.579.2.462 Unknown [id number] 2.16.8 40.1.526014.3.579.2.462 Unknown [id number] 2.16.8 40.1.714486.3.579.2.462 Unknown [id number] 2.16.8 40.1.053172.3.579.2.462 Unknown [id number] 2.16.8 40.1.940051.3.579.2.462 Unknown [id number] 2.16.8 40.1.478248.3.579.2.462 Unknown [id number] 2.16.8 40.1.006852.3.579.2.462 Unknown [id number] 2.16.8 40.1.570653.3.579.2.462 Unknown [id number] 2.16.8 40.1.654262.3.579.2.462 Unknown [id number] 2.16.8 40.1.696600.3.579.2.462 Unknown [id number] 2.16.8 40.1.338325.3.579.2.462 Unknown [id number] 2.16.8 40.1.880392.3.579.2.462 Unknown [id number] 2.16.8 40.1.446536.3.579.2.462 Unknown [id number] 2.16.8 40.1.777757.3.579.2.462 Unknown [id number] 2.16.8 40.1.349556.3.579.2.462 Unknown [id number] 2.16.8 40.1.290505.3.579.2.462 Unknown [id number] 2.16.8 40.1.398025.3.579.2.462 Unknown [id number] 2.16.8 40.1.501308.3.579.2.462 Unknown [id number] 2.16.8 40.1.673751.3.579.2.462 Unknown [id number] 2.16.8 40.1.916577.3.579.2.462 Unknown [id number] 2.16.8 40.1.931400.3.579.2.462 Unknown [id number] 2.16.8 40.1.096534.3.579.2.462 Unknown [id number] 2.16.8 40.1.880148.3.579.2.462 Unknown [id number] 2.16.8 40.1.793884.3.579.2.462 Social History Date Type Detail Facility Start: 10-20-2019 Tobacco smoking stat us NHIS Ex-smoker [facility] End: 08-06-2018 History of tobacco use Current smoker [facility] End: 08-06-2018 History of tobacco use Cigarette Smoker [facility] Start: 10-20-2019 End: 03-17-2020 Cigarettes smoked current (pack per day) - Reported 0.5 [facility] Start: 10-20-2019 End: 06-19-2024 Tobacco use and exposure Smokeless tobacco non-user [facility] Start: 06-26-2021 End: 05-03-2023 Alcohol intake Current drinker of alcohol (finding) [facility] Start: 06-26-2021 History SDOH Alcohol Comment occ [facility] Start: 1995 Sex Assigned At Not on file A [facility] Start: 07-18-2021 History SDOH Financial 5 [facility] Start: 07-18-2021 History SDOH Food Worry 1 [facility] Start: 07-18-2021 History SDOH Transpo rt Med 2 [facility] Start: 07-08-2021 End: 07-18-2021 Exposure to SARS-CoV-2 (event) Not sure [facility] Start: 03-13-2022 End: 03-23-2022 Exposure to SARS-CoV-2 (event) Unable to assess [facility] Start: 03-17-2020 End: 10-30-2022 Tobacco use panel [facility] How hard is it for y ou to pay for the very basics like food, housing, medical care, and heating Not hard at all [facility] (I/We) worried whemarainna er (my/our) food would run out before (I/we) got money to buy more. Never true [facility] Gender identity Identifies as fe male gender (finding) [facility] Start: 06-19-2024 Tobacco smoking stat us DEIS Smokes tobacco daily [facility] Start: 03-31-2024 [facility] Start: 05-24-2024 End: 09-04-2025 Tobacco smoking status NHIS Never smoked tobacco (finding) [facility] Start: 1995 Sex Assigned At Female W [facility] Goals Date Patient Goal Desired Activity /State Clinical Notes 06-26-2021 to 12-12-2024 Note Date & Type Note Facility 12-12-2024 Progress note Note Date/Time December 12, 2024 11:34am [facility] Medical Records Department [address] [place] [address] Progress Note - OBGYN 12/12/24 1116 MR#: [id number] Acct: [id number] Name: ANJU MUELLER Rep # :[id number] : 1995 29 From: Dayanna Regalado CNM PCP: Care Physician,No Primary Status :ADM IN Location: [id number] Subjective Subjective Calm, cooperative, resting comfortably in room w/family members present. Denies current needs or concerns. Objective Data Objective Data Vital Signs: Vital Signs Temp Pulse Resp BP Pulse Ox O2 Del Method 97.4 F L 70 16 131/90 H 98 Room Air 12/12/24 08:18 12/12/24 08:18 12/12/24 08:18 12/12/24 08:18 12/12/24 08:18 12/12/24 08:18 Oxygen Delivery Method Room Air Weight: 207 lb 3.752 oz Body Mass Index (BMI) 32.4 Intake & Output: Intake and Output for Last 24 Hours 12/10/24 12/11/24 12/12/24 23:59 23:59 23:59 Intake Total 0.83 / 0.83 4626.57 / 4626.57 Output Total 1400 / 1400 Balance 0.83 / 0.83 3226.57 / 3226.57 Lab / Micro Data Attestation: I reviewed the patient's lab results. ROS Constitutional Constitutional: Reports systems reviewed and no addt'l complaints, except as documented Respiratory/Chest Respiratory/Chest: Reports systems reviewed and no addt'l complaints, except as documented Gastrointestinal Gastrointestinal: Reports systems reviewed and no addt'l complaints, except as documented Genitourinary Genitourinary: Reports systems reviewed and no addt'l complaints, except as documented Psychiatric Psychiatric: Reports systems reviewed and no addt'l complaints, except as documented Physical Exam Const alert, oriented x3 and no apparent distress General Appearance: cooperative, comfortable, well kempt and well developed Resp normal respiratory effort Resp Narrative: Respirations eased & unlabored. Uterus Palpation: uterus fundus firm (Midline, u/1, small lochia rubra, no odor per nursing staff. (pt declines exam)) Extremity normal to inspection Psych mental status grossly normal, thought process normal, cooperative and affect normal Charges/Coding Multi Select Codes Urinary/Genital Urinary/Genital CPT Codes: 87758 CARE AFTER DELIVERY Assessment & Plan (1) Vaginal delivery: COMMENT: sm iol ghtn 38 girl gustavo PLAN: D/C home today, to f/u in office (2) Gestational hypertension: COMMENT: plan IOL PLAN: D/C home today if BP <140/90, monitor BP's at home daily, call if >140/90 or s/s of Pre-E occur. PLAN: Plan s/p PPD # 1 1. routine post delivery care. 2. bottle feeding - breast comfort instructions given. 3. rh positive. 4. rubella immune. 5. Gestational HTN delivered. 12/12/24 1134 <Electronically signed by Dayanna Regalado CNM> Cosigner Signature (if applicable): CC: ~ Signed [facility] Work Phone: 1(403) 182-162709-06-2025 Progress note [facility] Medical Records Department [address] [place] [address] Progress Note - OBGYN 12/12/24 1116 MR#: [id number] Acct: [id number] Name: ANJU MUELLER Rep # :[id number] : 1995 29 From: Dayanna Regalado CNM PCP: Care Physician,No Primary Status :ADM IN Location: [id number] Subjective Subjective Calm, cooperative, resting comfortably in room w/family members present. Denies current needs or concerns. Objective Data Objective Data Vital Signs: Vital Signs Temp Pulse Resp BP Pulse Ox O2 Del Method 97.4 F L 70 16 131/90 H 98 Room Air 12/12/24 08:18 12/12/24 08:18 12/12/24 08:18 12/12/24 08:18 12/12/24 08:18 12/12/24 08:18 Oxygen Delivery Method Room Air Weight: 207 lb 3.752 oz Body Mass Index (BMI) 32.4 Intake & Output: Intake and Output for Last 24 Hours 12/10/24 12/11/24 12/12/24 23:59 23:59 23:59 Intake Total 0.83 / 0.83 4626.57 / 4626.57 Output Total 1400 / 1400 Balance 0.83 / 0.83 3226.57 / 3226.57 Lab / Micro Data Attestation: I reviewed the patient's lab results. ROS Constitutional Constitutional: Reports systems reviewed and no addt'l complaints, except as documented Respiratory/Chest Respiratory/Chest: Reports systems reviewed and no addt'l complaints, except as documented Gastrointestinal Gastrointestinal: Reports systems reviewed and no addt'l complaints, except as documented Genitourinary Genitourinary: Reports systems reviewed and no addt'l complaints, except as documented Psychiatric Psychiatric: Reports systems reviewed and no addt'l complaints, except as documented Physical Exam Const alert, oriented x3 and no apparent distress General Appearance: cooperative, comfortable, well kempt and well developed Resp normal respiratory effort Resp Narrative: Respirations eased & unlabored. Uterus Palpation: uterus fundus firm (Midline, u/1, small lochia rubra, no odor per nursing staff. (pt declines exam)) Extremity normal to inspection Psych mental status grossly normal, thought process normal, cooperative and affect normal Charges/Coding Multi Select Codes Urinary/Genital Urinary/Genital CPT Codes: 95507 CARE AFTER DELIVERY Assessment & Plan (1) Vaginal delivery: COMMENT: anisha iol ghtn 38 girl gustavo PLAN: D/C home today, to f/u in office (2) Gestational hypertension: COMMENT: plan IOL PLAN: D/C home today if BP <140/90, monitor BP's at home daily, call if >140/90 or s/s of Pre-E occur. PLAN: Plan s/p PPD # 1 1. routine post delivery care. 2. bottle feeding - breast comfort instructions given. 3. rh positive. 4. rubella immune. 5. Gestational HTN delivered. 12/12/24 1134 Cosigner Signature (if applicable): CC: ~ Signed [facility]09-06-2025 Hospital Discharge instructionsAdditional Instructions Monitor BP daily, call if >140/90 or if s/s of Pre-E occur. F/U in office in 1-2 wks for BP check.[facility] Work Phone: 1(364) 629-119109-05-2025 Discharge summary Author Taina Huddleston [facility] Note Date/Time December 11, 2024 7:29pm [facility] Medical Records Department [address] [place] [address] Instructions for Home/Discharge Instructions 12/11/241927 MR#: [id number] Acct: [id number] Name: ANJU MUELLER Rep # :[id number] : 1995 29 From: Taina lynch MD PCP: Dalila Physician,No Primary Status :ADM IN Discharge Instructions DC O2, CPAP, BIPAP needs Home O2 Discharge instructions: No Dressing / Incision Discharge Activity: Return to Normal Activity, May Not Drive (while taking narcotic pain medications.) and May Shower May resume sexual activity in: 4-6 weeks Dressing / Incision Call your doctor if your incision/area has: Continuous Slow Oozing, Sudden Increased Bleeding, Increased Pain/ Swelling, Increased Redness and Foul Smelling Discharge Follow Up Care Please Follow Up With: Taina Huddleston MD When: Call [phone] to make an appointment with your doctor in 6 weeks. If you had elevated blood pressure or 4th degree laceration, you will need to be seen in 2 weeks. Test Results: Test results from this visit will be discussed in further detail at your follow- up appointment, if applicable. Discharge Plan Admission Admit Date/Time: 12/10/24 17:57 Attending Provider: Taina Huddleston Primary Care Provider: Dalila Physician,Eunice Primary Discharge Orders/Prescriptions Prescriptions: No Action Classic 28 mg iron- 800 mcg tablet 1 tab PO DAILY Referrals / Follow Up: Dalila Goel,Eunice Primary [Primary Care Provider] - 12/11/241928<Electronically signed by Taina Huddleston MD>Taina Huddleston MD CC: No Primary Care Physician ~ Signed [facility] Work Phone: 1(125) 100-939609-05-2025 Discharge summary [facility] Medical Records Department [address] [place] [address] Instructions for Home/Discharge Instructions 12/11/241927 MR#: [id number] Acct: [id number] Name: ANJU MUELLER Rep # :[id number] : 1995 From: Taina lynch MD PCP: Dalila Physician,No Primary Status :ADM IN Discharge Instructions DC O2, CPAP, BIPAP needs Home O2 Discharge instructions: No Dressing / Incision Discharge Activity: Return to Normal Activity, May Not Drive (while taking narcotic pain medications.) and May Shower May resume sexual activity in: 4-6 weeks Dressing / Incision Call your doctor if your incision/area has: Continuous Slow Oozing, Sudden Increased Bleeding, Increased Pain/ Swelling, Increased Redness and Foul Smelling Discharge Follow Up Care Please Follow Up With: Taina Huddleston MD When: Call [phone] to make an appointment with your doctor in 6 weeks. If you had elevated blood pressure or 4th degree laceration, you will need to be seen in 2 weeks. Test Results: Test results from this visit will be discussed in further detail at your follow- up appointment, if applicable. Discharge Plan Admission Admit Date/Time: 12/10/24 17:57 Attending Provider: Taina Huddleston Primary Care Provider: Dalila Physician,No Primary Discharge Orders/Prescriptions Prescriptions: No Action Classic 28 mg iron- 800 mcg tablet 1 tab PO DAILY Referrals / Follow Up: Dalila Physician,No Primary [Primary Care Provider] - 12/11/241928Taina Huddleston MD CC: No Primary Care Physician ~ Signed [facility]09-05-2025 Procedure note [facility] Medical Records Department [address] [place] [address] OB Vaginal Delivery 12/11/241926 MR#: [id number] Acct: [id number] Name: ANJU MUELLER Rep # :[id number] : 1995 From: Taina lynch MD PCP: Dalila Physician,No Primary Status :ADM IN Location: [place] [address] Assessment & Plan (1) Encounter for induction of labor: (2) Gestational hypertension: COMMENT: plan IOL (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 03/19 (4) Supervision of normal : QUALIFIERS: Normal : other normal Trimester: third trimester QualifiedCode(s): Z34.83 - Encounter for supervision of other normal , third trimester COMMENT: PRR, , SAULO 12/22/24, Annika matute PC: Hank Valencia?: Shmuel (5) : QUALIFIERS: Weeks of gestation: 38 weeks Qualified Code(s): Z3A.38 - 38 weeks gestation of COMMENT: NIPT low risk- carrier neg carrier for cystic fibrosis, nl anatomy. (6) BRCA2 gene mutation positive: COMMENT: OBGYN in [place]; gets yearly MRI w/contrast (Due 2/3 but wants to cancel d/t ) (7) Vaginal delivery: COMMENT: sm iol ghtn 38 girl gustavo Maternal Data Information SAULO Calculator Estimated Delivery Date Method Current WG Current Estimate 12/22/24 LMP (Certain) 38w 3d Vaginal Delivery Maternal Presentation Maternal Presentation: see assessment and plan Vaginal Delivery Information Surgeon/Practitioner: Taina Huddleston Date of Procedure: 12/11/24 Type of anesthesia: Epidural Estimated Blood Loss: 100 Findings Description of procedure: Patient began pushing and delivered the head in the AMRIT presentation. The head was delivered atraumatically . The anterior and posterior shoulders delivered without complication followed by the rest of the infant and the infant was placed on the maternal abdomen. Delayed cord clamping was employed for approximately 60 seconds. Cord was clamped and cut and gentle traction was applied to the cord and the placenta delivered spontaneously immediately following it was noted to be intact with three-vessel cord. The perineum and vagina were inspected and noted to have no laceration. EBL was 100 cc. Patient and tolerated delivery well. Presentation: Vertex Placental Delivery Description: Spontaneous Specimen collected: Yes Description of specimen(s) removed: placenta Medical Microbiologist pot reliner: No Post Vaginal Deli Medications given after delivery: Other (pitocin) Complication Complications: No Multi Select Codes Urinary/Genital Urinary/Genital CPT Codes: 04444 Vaginal Delivery+ PP Care([facility]) 12/11/241927 Cosigner Signature (if applicable): CC: Dr. Taina Huddleston MD; No Primary Care Physician~ Signed [facility]09-05-2025 Progress note Author Taina Huddleston [facility] Note Date/Time December 11, 2024 1:23pm [facility] Medical Records Department [address] [place] [address] Progress Note 12/11/24 1323 MR#: [id number] Acct: [id number] Name: SEGUNDOJOE SENANJU MARY Rep # :[id number] : 1995 29 From: Taina lynch MD PCP: Care Physician,No Primary Status :ADM IN [facility] Note arom clear fluid 6/70/-2 cat I tracing s/p fb iupc placed s/p epi exp managmeent 12/11/24 1323 <Electronically signed by Taina Huddleston MD> Taina Huddleston MD Cosigner Signature (if applicable): CC: ~ Signed [facility] Work Phone: 1(232) 235-966209-05-2025 Progress note [facility] Medical Records Department [address] [place] [address] Progress Note 12/11/24 1323 MR#: [id number] Acct: [id number] Name: SEGUNDO ANJU SEN Rep # :[id number] : 1995 29 From: Taina lynch MD PCP: Care Physician,No Primary Status :ADM IN [facility] Progress Note arom clear fluid 670/-2 cat I tracing s/p fb iupc placed s/p epi exp managmeent 12/11/24 132 Taina Huddleston MD Cosigner Signature (if applicable): CC: ~ Signed [facility]09-05-2025 Progress note Author Taina Huddleston [facility] Note Date/Time December 11, 2024 8:23am [facility] Medical Records Department [address] [place] [address] Progress Note 12/11/24 0822 MR#: [id number] Acct: [id number] Name: ANJU MUELLER Rep # :[id number] : 1995 29 From: Taina lynch MD PCP: Care Physician,No Primary Status :ADM IN [facility] Progress Note 2-3cm cat I tracing s/p cytotec overnight will get shower and breakfast and planfb. still [facility] WN 12/11/24822 <Electronically signed by Taina Huddleston MD> Taina Huddleston MD Cosigner Signature (if applicable): CC: ~ Signed [facility] Work Phone: 1(592) 795-790209-05-2025 Progress note [facility] Medical Records Department [address] [place] [address] Progress Note 12/11/24821 MR#: [id number] Acct: [id number] Name: ANJU MUELLER Rep # :[id number] : 1995 29 From: Taina lynch MD PCP: Care Physician,No Primary Status :ADM IN [facility] Progress Note 2-3cm cat I tracing s/p cytotec overnight will get shower and breakfast and planfb. still [facility] 12/11/24822 Taina Huddleston MD Cosigner Signature (if applicable): CC: ~ Signed [facility]09-04-2025 Progress note Author Taina Huddleston [facility] Note Date/Time December 10, 2024 9:03pm [facility] Medical Records Department [address] [place] [address] Progress Note 12/10/242101 MR#: [id number] Acct: [id number] Name: ANJU MUELLER Rep # :[id number] : 1995 29 From: Taina lynch MD PCP: Care Physician,No Primary Status :ADM IN [facility] Progress Note patient scanned at bedside prior ot induction started and found to be breech- counseled for ECV and agreed. Preprocedure diagnosis: Breech presentation Post procedure diagnosis: Vertex presentation Procedure: External cephalic version Surgeon: Taina Huddleston EBL: None Complications: None Anesthesia: None Special medications: Terbutaline Seizure details: The fetus was found to be in breech presentation informed by ultrasound. Patient had an IV in place, normal amniotic fluid, no contraindications to a vaginal delivery, and reactive nonstress test prior to the procedure. Patient was placed in the dorsal supine position after the terbutaline was given. Ultrasound gel was applied to the patient's abdomen and using constant upward pressure to elevate the buttocks out of the pelvic inlet constant pressure was applied to the buttocks and to the area behind the back ofthe neck and head to encourage a forward roll of the fetus. Constant pressure was applied and slowly the was converted to a vertex presentation. Bedside ultrasound was used to confirm vertex presentation and reassuring heart rate. Patient was replaced on the NST and monitored to assure reassuring status. No complications. will proceed with IOL Procedures Urinary/Genital 52xxx-59xxx: 87056 ECV 12/10/242102 <Electronically signed by Taina Huddleston MD> Taina Huddleston MD Cosigner Signature (if applicable): CC: ~ Signed [facility] Work Phone: 1(803) 476-289909-04-2025 Progress note [facility] Medical Records Department [address] [place] [address] Progress Note 12/10/242101 MR#: [id number] Acct: [id number] Name: ANJU MUELLER Rep # :[id number] : 1995 29 From: Taina lynch MD PCP: Care Physician,No Primary Status :ADM IN Location: [place] [address] Progress Note patient scanned at bedside prior ot induction started and found to be breech- counseled for ECV andagreed. Preprocedure diagnosis: Breech presentation Post procedure diagnosis: Vertex presentation Procedure: External cephalic version Surgeon: Taina Huddleston EBL: None Complications: None Anesthesia: None Special medications: Terbutaline Seizure details: The fetus was found to be in breech presentation informed by ultrasound. Patient had an IV in place, normal amniotic fluid, no contraindications to a vaginal delivery, and reactive nonstress test prior to the procedure. Patient was placed in the dorsal supine position after the terb utaline was given. Ultrasound gel was applied to the patient's abdomen and using constant upward pressure to elevate the buttocks out of the pelvic inlet constant pressure was applied to the buttocksand to the area behind the back ofthe neck and head to encourage a forward roll of the fetus. Constant pressure was applied and slowly the was converted to a vertex presentation. Bedside ultrasound was used to confirm vertex presentation and reassuring heart rate. Patient was replaced on the NST and monitored to assure reassuring status. No complications. will proceed with IOL Procedures Urinary/Genital 52xxx-59xxx: 48160 ECV 12/10/242102 Taina Huddleston MD Cosigner Signature (if applicable): CC: ~ Signed [facility]09-04-2025 History and physical note Author Taina Huddleston [facility] Note Date/Time December 10, 2024 5:43pm [facility] Medical Records Department [address] [facility] [address] H&P Exam - MOTOR VEHICLE EXAMINER 12/10/24 1740 MR#: [id number] Acct: [id number] Name: ANJU MUELLER Rep # :[id number] : 1995 29 From: Taina lynch MD PCP: Care Physician,No Primary Status :REG CLI Location: [place] [address] HPI - General HPI Narrative ANJU SEN, is a 29 F who presents with elevated bps, gestational hypertension no barbosa bv but incresaed sewlling since over the weekend. she dneiesany bleeding or abnormnal discharge. Maternal Data Information SAULO Calculator Estimated Delivery Date Method Current WG Current Estimate 12/22/24 LMP (Certain) 38w 2d PFSH PFSH Medical History BRCA2 gene mutation positive Family history of BRCA2 gene positive Home Medications ?Medication ?Instructions ?Recorded ?Last Taken ?Type vits no.126-ferrous fum 1 tab PO DAILY pregna ncy 05/08/24 12/10/24 08:00 History 28 mg iron-folic acid 800 mcg 1 TAB tablet (Classic ) Allergy/AdvReac Type Severity Reaction Status Date / Time No Known Allergies Allergy Verified 12/10/24 16:39 Family History Mother BRCA gene mutation positive Preventative mastectomy done, 16 other relatives also + Aunt Breast cancer Surgical History [place] teeth removed Social History household members: significant other and children number of children: 1 current occupational status: employed current occupation: [employer] in [place] current occupational exposures/hazards: No pets and animals: [...] 3-4 times per week duration: 15-30 minutes/day carissa/orthodoxy: None seatbelt use: always do you feel safe at home: Yes additional social history: Fianc?: [employer] in [place] History 2 Elective abortions Hx Para 1 Spontaneous abortions Hx # Term Pregnancies 1 Ectopic pregnancies Hx # Pregnancies Multiple births # of living children 1 Past Pregnancies Del. Date Name GA/Weeks Outcome Route Bth Weight Infant Gen Labor Lgth Anesthesia Del Locatn Provider FOB 05/14/19 Annie 42 live - full term 8lbs 4oz Female 10hours epidural [facility] Dr Richardsons, Cintia Jones Delivery Date: 05/14/19 Last Updated by: Farzana Peña RN Induced d/t post dates, small PP hemorrhage Visit Details Expected Delivery Route/Plan Labor Preferences- CB/BF classes: no labor support person: Shmuel labor intervention preferences: [] pain management options preferred: epidural cut cord/dad catch: maybe : undecided PP control planned: discussed discussed possible routes of delivery and associated risks: [] special requests: [] Plans Covid status: [] Flu vaccine: [] Tdap vaccine: given 10/01/24 Rhogam: NA LARC form signed: yes movement and labor precautions reviewed. Problem list reviewed and updated with the most current plan of care details and appropriate orders placed. Relevant counseling for the gestational age provided. Continue routine care and follow up unless otherwise noted in visit notes/problem list details OB Flowsheet Initial Weight: 160 lb Date -?-?-?-?-?-?-?-?-?-?-?-?- EGA [...] x. good fm. pre e labs today. NST FHR Rate Baby A Baseline: 140 Variability:: Moderate Accelerations:: 15 x 15 Decelerations:: None NST Reactive:: Yes FHR Category:: Category I Uterine Activity:: irregular ROS Constitutional Constitutional: Reports systems reviewed and no addt'l complaints, except as documented Eyes Eyes: Denies change in vision ENT HEENT: Reports systems reviewed and no addt'l complaints, except as documented; Denies headache(s) Cardiovascular Cardiovascular: Reports systems reviewed and no addt'l complaints, except as documented; Denies chest pain or dyspnea Respiratory/Chest Respiratory/Chest: Reports systems reviewed and no addt'l complaints, except as documented Gastrointestinal Gastrointestinal: Reports systems reviewed and no addt'l complaints, except as documented; Denies abdominal pain Genitourinary Genitourinary: Reports systems reviewed and no addt'l complaints, except as documented, contractions Details: present (irregular) and movement Details: present; Denies dysuria or genital lesions Musculoskeletal Musculoskeletal: Reports systems reviewed and no addt'l complaints, except as documented Neurologic Neurologic: Reports systems reviewed and no addt'l complaints, except as documented Endocrine Endocrinology: Reports systems reviewed and no addt'l complaints, except as documented Vital Signs Vital Signs Vital Signs: 12/10/24 15:52 12/10/24 15:52 12/10/24 16:07 Temperature Temperature Source Pulse Rate 107 H Respiratory Rate Blood Pressure 134/90 H 130/86 H BP Systolic 134 130 BP Diastolic 90 86 12/10/24 16:07 12/10/24 16:22 12/10/24 16:22 Temperature Temperature Source Pulse Rate 107 H 122 H Respiratory Rate Blood Pressure 144/89 H BP Systolic 144 BP Diastolic 89 12/10/24 16:29 12/10/24 16:29 12/10/24 16:29 Temperature Temperature Source Temporal Pulse Rate 108 H Respiratory Rate Blood Pressure 147/93 H BP Systolic 147 BP Diastolic 93 12/10/24 16:29 12/10/24 16:29 12/10/24 16:29 Temperature 98.5 F Temperature Source Temporal Pulse Rate Respiratory Rate 16 Blood Pressure BP Systolic BP Diastolic 12/10/24 16:29 12/10/24 16:29 12/10/24 16:37 Temperature 98.5 F Temperature Source Pulse Rate Respiratory Rate 16 Blood Pressure 150/93 H BP Systolic 150 BP Diastolic 93 12/10/24 16:37 12/10/24 16:52 12/10/24 16:52 Temperature Temperature Source Pulse Rate 106 H 113 H Respiratory Rate Blood Pressure 147/90 H BP Systolic 147 BP Diastolic 90 12/10/24 17:07 12/10/24 17:07 12/10/24 17:08 Temperature Temperature Source Pulse Rate 115 H Respiratory Rate Blood Pressure 135/90 H 136/91 H BP Systolic 135 136 BP Diastolic 90 91 12/10/24 17:08 12/10/24 17:23 12/10/24 17:23 Temperature Temperature Source Pulse Rate 109 H 101 H Respiratory Rate Blood Pressure 136/89 H BP Systolic 136 BP Diastolic 89 Weight Weight: 207 lb 3.752 oz Body Mass Index (BMI) 32.4 Physical Exam Const alert, oriented x3, no apparent distress and healthy appearing HEENT normocephalic and moist oral mucous membranes Head and Scalp: atraumatic Neck full ROM, no lymphadenopathy, supple and thyroid normal General: trachea midline Lymph Lymphatic: no lymphadenopathy noted Chest inspection of chest normal Resp normal respiratory effort Cardio regular rate GI soft to palpation and non-tender GI Narrative: gravid Inspection: gravid external exam normal Manual OB Exam: estimated gestational size appropriate, presentation cephalic, dilated, effaced and station Extremity normal to inspection General Extremity: Negative for edema Skin no rashes or lesions noted Neuro no focal motor deficits and deep tendon reflexes 2+ bilaterally Motor Exam: strength 5/5 throughout and clonus absent Psych mental status grossly normal Labs Labs Labs: Blood Type O POSITIVE Antibody Screen NEGATIVE Hct 38.5 % (37-47) Hgb 13.0 g/dL (12.0-15.0) Obstetrics Ultrasound Syphilis Total Ab Nonreactive (Nonreactive) Rubella IgG Antibody Reactive (Nonreactive) Hep Bs Antigen Non-Reactive (Nonreactive) Hepatitis C Antibody Non-Reactive (Nonreactive) Chlamydia DNA (ROBIN) Negative (Negative) N.gonorrhoeae DNA (ROBIN) Negative (Negative) HIV 1&2 Antibody Nonreactive (Nonreactive) Glucose 1 Hr 50 gm 130 mg/dL (70-140) Gest Glucose Tolerance MG/DL Rhogam given: No Assessment & Plan (1) Cystic fibrosis carrier: COMMENT: FOB neg. 03/19 (2) Supervision of normal : QUALIFIERS: Normal : other normal Trimester: third trimester Qualified Code(s): Z34.83 - Encounter for supervision of other normal , third trimester COMMENT: PRR, , SAULO 12/22/24, girl, Annika PC: Hank Valencia?: Shmuel (3) : QUALIFIERS: Weeks of gestation: 38 weeks Qualified Code(s): Z3A.38 - 38 weeks gestation of COMMENT: NIPT low risk- carrier neg carrier for cystic fibrosis, nl anatomy. (4) BRCA2 gene mutation positive: COMMENT: OBGYN in [place]; gets yearly MRI w/contrast (Due / but wants to cancel d/t ) (5) Gestational hypertension: COMMENT: plan IOL (6) Encounter for induction of labor: PLAN: Plan Patient presents IOL, plan management for with cytotec. Pain management: plans epidural. GBS negative. Management of any complications: monitor bps I have reviewed the [facility] and made any clinically relevant updates. 12/10/241742 <Electronically signed by Taina Huddleston MD> Cosigner Signature (if applicable): CC: Dr. Taina Huddleston MD; No Primary Care Physician~ Signed [facility] Work Phone: 1(651) 154-147009-04-2025 History and physical note [facility] Medical Records Department [address] [place] [address] H&P Exam - MOTOR VEHICLE EXAMINER 12/10/24 1740 MR#: [id number] Acct: [id number] Name: ANJU MUELLER Rep # :[id number] : 1995 29 From: Taina lynch MD PCP: Care Physician,No Primary Status :REG CLI [facility] HPI - General HPI Narrative ANJU SEN, is a 29 F who presents with elevated bps, gestational hypertension no barbosa bv but incresaed sewlling since over the weekend. she dneiesany bleeding or abnormnal discharge. Maternal Data Information SAULO Calculator Estimated Delivery Date Method Current WG Current Estimate 12/22/24 LMP (Certain) 38w 2d [facility] Medical History BRCA2 gene mutation positive Family history of BRCA2 gene positive Home Medications ?Medication ?Instructions ?Recorded ?Last Taken ?Type vits no.126-ferrous fum 1 tab PO DAILY pregna ncy 05/08/24 12/10/24 08:00 History 28 mg iron-folic acid 800 mcg 1 TAB tablet (Classic ) Allergy/AdvReac Type Severity Reaction Status Date / Time No Known Allergies Allergy Verified 12/10/24 16:39 Family History Mother BRCA gene mutation positive Preventative mastectomy done, 16 other relatives also + Aunt Breast cancer Surgical History [place] teeth removed Social History household members: significant other and children number of children: 1 current occupational status: employed current occupation: [employer] in [place] current occupational exposures/hazards: No pets and animals: [...] 3-4 times per week duration: 15-30 minutes/day carissa/orthodoxy: None seatbelt use: always do you feel safe at home: Yes additional social history: Fianc?: [employer] in [place] History 2 Elective abortions Hx Para 1 Spontaneous abortions Hx # Term Pregnancies 1 Ectopic pregnancies Hx # Pregnancies Multiple births # of living children 1 Past Pregnancies Del. Date Name GA/Weeks Outcome Route Bth Weight Gen Labor Lgth Anesthesia Del Locatn Provider FOB 05/14/19 Annie 42 live - full term 8lbs 4oz Female 10hours epidural [facility] Dr Richardsons, Cintia Escalante Robert Delivery Date: 05/14/19 Last Updated by: Farzana Peña, RN Induced d/t post dates, small PP hemorrhage Visit Details Expected Delivery Route/Plan Labor Preferences- CB/BF classes: no labor support person: Shmuel labor intervention preferences: [] pain management options preferred: epidural cut cord/dad catch: maybe : undecided PP control planned: discussed discussed possible routes of delivery and associated risks: [] special requests: [] Plans Covid status: [] Flu vaccine: [] Tdap vaccine: given 10/01/24 Rhogam: NA LARC form signed: yes movement and labor precautions reviewed. Problem list reviewed and updated with the most current plan of care details and appropriate ordersplaced. Relevant counseling for the gestational age provided. Continue routine care and follow up unless otherwise noted in visit notes/problem list details OB Flowsheet Initial Weight: 160 lb Date -?-?-?-?-?-?-?-?-?-?-?-?- EGA [...] -?-?-?-?-?-?-?-?-?-?-?-?- Negative 145 20 -?-?-?-?-?-?-?-?-?-?-?-?- KW- no vb/crampgini ng. good fm. US reviewed. discussed tdap, [...] x. good fm. pre e labs today. NST FHR Rate Baby A Baseline: 140 Variability:: Moderate Accelerations:: 15 x 15 Decelerations:: None NST Reactive:: Yes FHR Category:: Category I Uterine Activity:: irregular ROS Constitutional Constitutional: Reports systems reviewed and no addt'l complaints, except as documented Eyes Eyes: Denies change in vision ENT HEENT: Reports systems reviewed and no addt'l complaints, except as documented; Denies headache(s) Cardiovascular Cardiovascular: Reports systems reviewed and no addt'l complaints, except as documented; Denies chest pain or dyspnea Respiratory/Chest Respiratory/Chest: Reports systems reviewed and no addt'l complaints, except as documented Gastrointestinal Gastrointestinal: Reports systems reviewed and no addt'l complaints, except as documented; Denies abdominal pain Genitourinary Genitourinary: Reports systems reviewed and no addt'l complaints, except as documented, contractions Details: present (irregular) and movement Details: present; Denies dysuria or genital lesions Musculoskeletal Musculoskeletal: Reports systems reviewed and no addt'l complaints, except as documented Neurologic Neurologic: Reports systems reviewed and no addt'l complaints, except as documented Endocrine Endocrinology: Reports systems reviewed and no addt'l complaints, except as documented Vital Signs Vital Signs Vital Signs: 12/10/24 15:52 12/10/24 15:52 12/10/24 16:07 Temperature Temperature Source Pulse Rate 107 H Respiratory Rate Blood Pressure 134/90 H 130/86 H BP Systolic 134 130 BP Diastolic 90 86 12/10/24 16:07 12/10/24 16:22 12/10/24 16:22 Temperature Temperature Source Pulse Rate 107 H 122 H Respiratory Rate Blood Pressure 144/89 H BP Systolic 144 BP Diastolic 89 12/10/24 16:29 12/10/24 16:29 12/10/24 16:29 Temperature Temperature Source Temporal Pulse Rate 108 H Respiratory Rate Blood Pressure 147/93 H BP Systolic 147 BP Diastolic 93 12/10/24 16:29 12/10/24 16:29 12/10/24 16:29 Temperature 98.5 F Temperature Source Temporal Pulse Rate Respiratory Rate 16 Blood Pressure BP Systolic BP Diastolic 12/10/24 16:29 12/10/24 16:29 12/10/24 16:37 Temperature 98.5 F Temperature Source Pulse Rate Respiratory Rate 16 Blood Pressure 150/93 H BP Systolic 150 BP Diastolic 93 12/10/24 16:37 12/10/24 16:52 12/10/24 16:52 Temperature Temperature Source Pulse Rate 106 H 113 H Respiratory Rate Blood Pressure 147/90 H BP Systolic 147 BP Diastolic 90 12/10/24 17:07 12/10/24 17:07 12/10/24 17:08 Temperature Temperature Source Pulse Rate 115 H Respiratory Rate Blood Pressure 135/90 H 136/91 H BP Systolic 135 136 BP Diastolic 90 91 12/10/24 17:08 12/10/24 17:23 12/10/24 17:23 Temperature Temperature Source Pulse Rate 109 H 101 H Respiratory Rate Blood Pressure 136/89 H BP Systolic 136 BP Diastolic 89 Weight Weight: 207 lb 3.752 oz Body Mass Index (BMI) 32.4 Physical Exam Const alert, oriented x3, no apparent distress and healthy appearing HEENT normocephalic and moist oral mucous membranes Head and Scalp: atraumatic Neck full ROM, no lymphadenopathy, supple and thyroid normal General: trachea midline Lymph Lymphatic: no lymphadenopathy noted Chest inspection of chest normal Resp normal respiratory effort Cardio regular rate GI soft to palpation and non-tender GI Narrative: gravid Inspection: gravid external exam normal Manual OB Exam: estimated gestational size appropriate, presentation cephalic, dilated, effaced and station Extremity normal to inspection General Extremity: Negative for edema Skin no rashes or lesions noted Neuro no focal motor deficits and deep tendon reflexes 2+ bilaterally Motor Exam: strength 5/5 throughout and clonus absent Psych mental status grossly normal Labs Labs Labs: Blood Type O POSITIVE Antibody Screen NEGATIVE Hct 38.5 % (37-47) Hgb 13.0 g/dL (12.0-15.0) Obstetrics Ultrasound Syphilis Total Ab Nonreactive (Nonreactive) Rubella IgG Antibody Reactive (Nonreactive) Hep Bs Antigen Non-Reactive (Nonreactive) Hepatitis C Antibody Non-Reactive (Nonreactive) Chlamydia DNA (ROBIN) Negative (Negative) N.gonorrhoeae DNA (ROBIN) Negative (Negative) HIV 1&2 Antibody Nonreactive (Nonreactive) Glucose 1 Hr 50 gm 130 mg/dL (70-140) Gest Glucose Tolerance MG/DL Rhogam given: No Assessment & Plan (1) Cystic fibrosis carrier: COMMENT: FOB neg. 03/19 (2) Supervision of normal : QUALIFIERS: Normal : other normal Trimester: third trimester QualifiedCode(s): Z34.83 - Encounter for supervision of other normal , third trimester COMMENT: PRR, , SAULO 12/22/24, girl, Annika PC: Hank Valencia?: Shmuel (3) : QUALIFIERS: Weeks of gestation: 38 weeks Qualified Code(s): Z3A.38 - 38 weeks gestation of COMMENT: NIPT low risk- carrier neg /14 carrier for cystic fibrosis, nl anatomy. (4) BRCA2 gene mutation positive: COMMENT: OBGYN in [place]; gets yearly MRI w/contrast (Due 2/3 but wants to cancel d/t ) (5) Gestational hypertension: COMMENT: plan IOL (6) Encounter for induction of labor: PLAN: Plan Patient presents IOL, plan management for with cytotec. Pain management: plans epidural. GBS negative. Management of any complications: monitor bps I have reviewed the [facility] and made any clinically relevant updates. 12/10/24 2301 Cosigner Signature (if applicable): CC: Dr. Taina Huddleston MD; No Primary Care Physician~ Signed [facility]09-04-2025 Progress [facility] [address], [address] [place] [address] OFFICE VISIT Date of Service: 12/10/24 MR#: [id number] Acct: [id number] Name: ANJU MUELLER p #: [id number] : 1995 Provider: FRANSISCO Brown Age/Sex: 29/F Location: [facility] [facility] Status: Signed Intake Vital Signs 10/29/24 10:12 12/03/24 14:52 12/10/24 11:41 12/10/24 11:41 Height 5 ft 7 in 5 ft 7 in 5 ft 7 in 5 ft 7 in Weight: 208 lb 8 oz 208 lb BMI 32.6 32.5 BP 118/76 137/90 H Intake Visit Reasons: 38 WK OB Chief Complaint: 38wk OB 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 Is patient in pain?: No [...] history of BRCA2 gene positive Surgical History [place] teeth removed Family History Mother BRCA gene mutation positive Preventative mastectomy done, 16 other relatives also + Aunt Breast cancer Social History household members: significant other and children number of children: 1 current occupational status: employed current occupation: [employer] in [place] current occupational exposures/hazards: No pets and animals: [...] 3-4 times per week duration: 15-30 minutes/day carissa/orthodoxy: None seatbelt use: always do you feel safe at home: Yes additional social history: Fianc?: [employer] in [place] History 2 Elective abortions Hx Para 1 Spontaneous abortions Hx # Term Pregnancies 1 Ectopic pregnancies Hx # Pregnancies Multiple births # of living children 1 Past Pregnancies Del. Date Name GA/Weeks Outcome Route Bth Weight Gen Labor Lgth Anesthesia Del Locatn Provider FOB 05/14/19 Annie 42 live - full term 8lbs 4oz Female 10hours epidural [facility] Dr Richardsons, Cintia Jones Delivery Date: 05/14/19 [...] Negative 145 20 -?-?-?-?-?-?--?-?-?-?-?-?- KW- no vb/crampi ng. good fm. US [...] 104/68 Negative -?-?-?--?-?-?-?-?-?-?-?-?- Negative 143 28 -?-?-?-?-?-?-?-?-?-?-?-?- -NoVB, LOF. Go [...] and Symptoms of Preeclampsia, Feeding No , [place] Education and Family Medical Leave or Disability [...] 13/14 carrier for cystic fibrosis, nl anatomy. (4) BRCA2 gene mutation positive: Status: Acute Comment: OBGYN in [place]; gets yearly MRI w/contrast (Due 05/11 but wants to cancel d/t ) (5) [...] reading, without diagnosis of hypertension 12/10/24 1159 s CNM> Date _ Yris Tovarignjoe Signature: Date (if applicable) CC: ~ [facility]08-21-2025 Progress [facility] [address] [place] [address], [address] [place] [address] OFFICE VISIT Date of Service: 11/26/24 MR#: [id number] Acct: [id number] Name: ANJU MUELLER p #: [id number] : 1995 Provider: Dr. Charli Huddleston MD Age/Sex: 29/F Location: [facility] Status: Signed Intake Vital Signs 10/01/24 10:13 11/13/24 10:26 11/23/24 14:01 11/26/24 10:46 Height 5 ft 7 in 5 ft 7 in 5 ft 7 in 5 ft 7 in Weight: 203 lb 5 oz BMI 31.8 BP 110/73 Intake Visit Reasons: 36 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 Is patient in pain?: No [...] history of BRCA2 gene positive Surgical History [place] teeth removed Family History Mother BRCA gene mutation positive Preventative mastectomy done, 16 other relatives also + Aunt Breast cancer Social History household members: significant other and children number of children: 1 current occupational status: employed current occupation: [employer] in [place] current occupational exposures/hazards: No pets and animals: [...] 3-4 times per week duration: 15-30 minutes/day carissa/orthodoxy: None seatbelt use: always do you feel safe at home: Yes additional social history: Fianc?: [employer] in [place] History 2 Elective abortions Hx Para 1 Spontaneous abortions Hx # Term Pregnancies 1 Ectopic pregnancies Hx # Pregnancies Multiple births # of living children 1 Past Pregnancies Del. Date Name GA/Weeks Outcome Route Bth Weight Infant Gen Labor Lgth Anesthesia Del Locatn Provider FOB 05/14/19 Annie 42 live - full term 8lbs 4oz Female 10hours epidural [facility] Dr Fall, Cintia Jones Delivery Date: 05/14/19 [...] Negative -?-?-?-?-?-?-?-?-?-?-?-?- Negative 143 28 -?-?-?-?-?-?-?-?-?-?-?-?- MH-Yash, LOF. Go od FM. 28 wk labs pending. Larc, tdap. 10/16/24 -?-?-?-?-?-?--?-?-?-?-?-?- 30w 3d 190 lb 8 [...] third trimester Comment: PRR, , SAULO 12/22/24, giovani Annika PC: Hank Valencia?: Shmuel (3) : Status: Acute Qualifiers: Weeks of gestation: 36 weeks Qualified Code(s): Z3A.36 - 36 weeks gestation of Comment: NIPT low risk- carrier neg 14 carrier for cystic fibrosis, nl anatomy. (4) BRCA2 gene mutation positive: Status: Acute Comment: OBGYN in [place]; gets yearly MRI w/contrast (Due 2/3 but wants to cancel d/t ) Orders: Orders POC Urinalysis 2 Dip (Clinic) Today Culture, Group B Streptococcus Today Z34.83 - Encounter for supervision of other normal , third trimester 11/26/24 1119 brissa DOWD> Date _ Taina Huddleston MD Cosign Signature: Date (if applicable) CC: ~ [facility]08-18-2025 Progress note [facility] Medical Records Department [address] [place] [address] OB Triage Progress Note 11/23/24 1436 MR#: [id number] Acct: [id number] Name: ANJU MUELLER Rep # :[id number] : 1995 29 From: Yris Brown CNM PCP: Care Physician,No Primary Status :REG CLI Y DOS: Location: [place] [address] Progress Notes Date of Service: 11/23/24 Progress Note: Patient presents for triage evaluation secondary to vaginal discharge at 35.6 weeks FHT: 145 Moderate variability reactive no decelerations category I tracing [place]: irregular Contractions Assessment and plan: neg rom, Reactive NST, reassuring maternal and statuspatient discharged to home to follow-up in office. See problem list details foradditional plan information. Laboratory Studies: Laboratory Tests 11/23/24 Range/Units 13:55 Vag Amniotic Fld Detect Negative (Negative) Charges/Coding Multi Select Codes Urinary/Genital Urinary/Genital CPT Codes: 78947-88 non-stress test Interp Assessment & Plan (1) Vaginal discharge during : COMMENT: rom + negative. reactive NST (2) Cystic fibrosis carrier: COMMENT: FOB neg. 03/19 (3) Supervision of normal : QUALIFIERS: Normal : other normal Trimester: third trimester QualifiedCode(s): Z34.83 - Encounter for supervision of other normal , third trimester COMMENT: PRR, , SAULO 12/22/24, girl, Annika PC: Hank Valencia?: Shmuel (4) : QUALIFIERS: Weeks of gestation: 34 weeks Qualified Code(s): Z3A.34 - 34 weeks gestation of COMMENT: NIPT low risk- carrier neg 14 carrier for cystic fibrosis, nl anatomy. (5) BRCA2 gene mutation positive: COMMENT: OBGYN in [place]; gets yearly MRI w/contrast (Due 2/3 but wants to cancel d/t ) 11/23/24 1437 s CNM> Date _ Yris Brown CNM Cosigner Signature (if applicable): Date CC: FRANSISCO Brown; No Primary Care Physician ~ Signed [facility]08-08-2025 Progress [facility] [address], [address] [place] [address] OFFICE VISIT Date of Service: 11/13/24 MR#: [id number] Acct: [id number] Name: ANJU MUELLER p #: [id number] : 1995 Provider: FRANSISCO Brown Age/Sex: 29/F Location: [facility] Status: Signed Intake Vital Signs 10/01/24 10:13 10/29/24 10:12 11/13/24 10:26 Height 5 ft 7 in 5 ft 7 in 5 ft 7 in Weight: 198 lb 5 oz BMI 31.0 BP 122/76 H Intake Visit Reasons: 34 wk ob Chief Complaint: 34wk OB 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 Is patient in pain?: No Allergies No Known Allergies Allergy (Verified 11/13/24 10:24) Medications ?Medication ?Instructions ?Recorded ?Confirmed ?Type vits no.126-ferrous fum tab PO 05/08/2411/13 History 28 mg iron-folic acid 800 mcg tablet (Classic ) Last Menstrual Period: 03/17/24 : No PFSH PFSH Medical History BRCA2 gene mutation positive Family history of BRCA2 gene positive Surgical History [place] teeth removed Family History Mother BRCA gene mutation positive Preventative mastectomy done, 16 other relatives also + Aunt Breast cancer Social History household members: significant other and children number of children: 1 current occupational status: employed current occupation: [employer] in [place] current occupational exposures/hazards: No pets and animals: [...] 3-4 times per week duration: 15-30 minutes/day carissa/orthodoxy: None seatbelt use: always do you feel safe at home: Yes additional social history: Fianc?: Shmuel - [employer] in [place] History 2 Elective abortions Hx Para 1 Spontaneous abortions Hx # Term Pregnancies 1 Ectopic pregnancies Hx # Pregnancies Multiple births # of living children 1 Past Pregnancies Del. Date Name GA/Weeks Outcome Route Bth Weight Infant Gen Labor Lgth Anesthesia Del Locatn Provider FOB 05/14/19 Annie 42 live - full term 8lbs 4oz Female 10hours epidural [facility] Dr Fall, Cintia Jones Delivery Date: 05/14/19 [...] Go od FM. 28 wk labs pending. Barry, tdap. 10/16/24 -?-?-?-?-?-?-?-?-?-?-?-?- 30w 3d 190 lb [...] mutation positive: Status: Acute Comment: OBGYN in [place]; gets yearly MRI w/contrast (Due 2/3 but wants to cancel d/t ) Orders: Orders POC Urinalysis 2 Dip (Clinic) Today Plan Details Additional Comments: ACOG trimester education reviewed and updated. see problem list details for updated plan management information and see below for orders placed atthis visit. GA appropriate handout given. 11/13/24 1040 s CNM> Date _ Yris Brown CNM Cosigner Signature: Date (if applicable) CC: ~ [facility]07-24-2025 Progress [facility] [address] [place] [address], [address] [place] [address] OFFICE VISIT Date of Service: 10/29/24 MR#: [id number] Acct: [id number] Name: ANJU MUELLER Halima p #: [id number] : 1995 Provider: Dr. Charli Huddleston MD Age/Sex: 29/F Location: [facility] Status: Signed Intake Vital Signs 10/01/24 10:13 10/16/24 15:07 10/29/24 10:12 Height 5 ft 7 in 5 ft 7 in 5 ft 7 in Weight: 196 lb 6 oz BMI 30.7 BP 112/73 Intake Visit Reasons: 32 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 Is patient in pain?: No [...] history of BRCA2 gene positive Surgical History [place] teeth removed Family History Mother BRCA gene mutation positive Preventative mastectomy done, 16 other relatives also + Aunt Breast cancer Social History household members: significant other and children number of children: 1 current occupational status: employed current occupation: [employer] in [place] current occupational exposures/hazards: No pets and animals: [...] 3-4 times per week duration: 15-30 minutes/day carissa/orthodoxy: None seatbelt use: always do you feel safe at home: Yes additional social history: Fianc?: [employer] in [place] History 2 Elective abortions Hx Para 1 Spontaneous abortions Hx # Term Pregnancies 1 Ectopic pregnancies Hx # Pregnancies Multiple births # of living children 1 Past Pregnancies Del. Date Name GA/Weeks Outcome Route Bth Weight Gen Labor Lgth Anesthesia Del Locatn Provider FOB 05/14/19 Annie 42 live - full term 8lbs 4oz Female 10hours epidural [facility] Dr Richardsons, Cintia Jones Delivery Date: 05/14/19 [...] Symptoms of Preeclampsia, Infant Feeding No , [place] Education and Family Medical Leave or Disability [...] 12/22/24, Annika matute PC: Hank Valencia?: Shmuel (3) : Status: Acute Qualifiers: Weeks of gestation: 32 weeks Qualified Code(s): Z3A.32 - 32 weeks gestation of Comment: NIPT low risk- carrier neg 13/14 carrier for cystic fibrosis, nl anatomy. (4) BRCA2 gene mutation positive: Status: Acute Comment: OBGYN in [place]; gets yearly MRI w/contrast (Due 2/3 but wants to cancel d/t ) Orders: Orders POC Urinalysis 2 Dip (Clinic) Today 10/29/24 1042 brissa DOWD> Date _ Tain[facility]uddleston [facility] Signature: Date (if applicable) CC: ~ [facility] [id number] [facility] [address] [place] [address], [address] [place] [address] OFFICE VISIT Date of Service: 10/16/24 MR#: [id number] Acct: [id number] Name: SEGUNDOJOE SENANJU MARY Halima p #: [id number] : 1995 Provider: FRANSISCO Brown Age/Sex: 29/F Location: [facility] Status: Signed Intake Vital Signs 08/13/24 14:11 10/01/24 10:13 10/16/24 15:07 Height 5 ft 7 in 5 ft 7 in 5 ft 7 in Weight: 190 lb 8 oz BMI 29.8 BP 116/76 Intake Visit Reasons: 30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 Is patient in pain?: No [...] history of BRCA2 gene positive Surgical History [place] teeth removed Family History Mother BRCA gene mutation positive Preventative mastectomy done, 16 other relatives also + Aunt Breast cancer Social History household members: significant other and children number of children: 1 current occupational status: employed current occupation: [employer] in [place] current occupational exposures/hazards: No pets and animals: [...] 3-4 times per week duration: 15-30 minutes/day carissa/orthodoxy: None seatbelt use: always do you feel safe at home: Yes additional social history: Fianc?: [employer] in [place] History 2 Elective abortions Hx Para 1 Spontaneous abortions Hx # Term Pregnancies 1 Ectopic pregnancies Hx # Pregnancies Multiple births # of living children 1 Past Pregnancies Del. Date Name GA/Weeks Outcome Route Bth Weight Gen Labor Lgth Anes thesikenny German Locatn Provider FOB 05/14/19 Annie 42 live - full term 8lbs 4oz Female 10hours epidural [facility] Dr Fall, Cintia Jones Delivery Date: 05/14/19 [...] SAULO 12/22/24, girlAnnika PC: Hank Valencia?: Shmuel (3) : Status: Acute Qualifiers: Weeks of gestation: 30 weeks Qualified Code(s): Z3A.30 - 30 weeks gestation of Comment: NIPT low risk- carrier neg carrier for cystic fibrosis, nl anatomy. (4) BRCA2 gene mutation positive: Status: Acute Comment: OBGYN in [place]; gets yearly MRI w/contrast (Due 2/3 but wants to cancel d/t ) Orders: Orders POC Urinalysis 2 Dip (Clinic) Today Plan Details Additional Comments: ACOG trimester education reviewed and updated. see problem list details for updated plan management information and see below for orders placed atthis visit. [place] appropriate handout given. Clinical Quality Measures [place] Risk Screening/Assistive Devices Have you fallen in the past year?: No 10/16/24 1540 s CNM> Date _ Yris Kevin FRANSISCO Cosigner Signature: Date (if applicable) CC: ~ [facility]07-11-2025 Progress note Author Yris Brown [facility] Note Date/Time October 16, 2024 3:40 pm [facility] [address] [place] [address], [address] [place] [address] OFFICE VISIT Date of Service: 10/16/24 MR#: [id number] Acct: [id number] Name: ANJU MUELLER p #: [id number] : 1995 Provider: FRANSISCO Brown Age/Sex: 29/F Location: [facility] Status: Signed Intake Vital Signs 08/13/24 14:11 10/01/24 10:13 10/16/24 15:07 Height 5 ft 7 in 5 ft 7 in 5 ft 7 in Weight: 190 lb 8 oz BMI 29.8 BP 116/76 Intake Visit Reasons: 30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 Is patient in pain?: No [...] history of BRCA2 gene positive Surgical History [place] teeth removed Family History Mother BRCA gene mutation positive Preventative mastectomy done, 16 other relatives also + Aunt Breast cancer Social History household members: significant other and children number of children: 1 current occupational status: employed current occupation: [employer] in [place] current occupational exposures/hazards: No pets and animals: [...] 3-4 times per week duration: 15-30 minutes/day carissa/orthodoxy: None seatbelt use: always do you feel safe at home: Yes additional social history: Fianc?: [employer] in [place] History 2 Elective abortions Hx Para 1 Spontaneous abortions Hx # Term Pregnancies 1 Ectopic pregnancies Hx # Pregnancies Multiple births # of living children 1 Past Pregnancies Del. Date Name GA/Weeks Outcome Route Bth Weight Gen Labor Lgth Anes thesia Del Locatn Provider FOB 05/14/19 Annie 42 live - full term 8lbs 4oz Female 10hours epidural [facility] Dr Fall, Cintia Jones Delivery Date: 05/14/19 Last Updated by: Farzana Peña RN Induced d/t post dates, small PP hemorrhage HPI 30wk ob Details: ANUJ SEN is a 29 year old who [...] Symptoms of Preeclampsia, Infant Feeding No , Education and Family Medical [...] mutation positive: Status: Acute Comment: OBGYN in [place]; gets yearly MRI w/contrast (Due 2/3 but [...] fallen in the past year?: No 10/16/24 0050 <Electronically signed by Yris govea CNM> Date _ Yris Brown CNM Cosigner Signature: Date (if applicable) CC: ~ [facility] Work Phone: 1(564) 845-742506-26-2025 Progress [facility] [address] [place] [address], [address] [place] [address] OFFICE VISIT Date of Service: 10/01/24 MR#: [id number] Acct: [id number] Name: ANJU MUELLER p #: [id number] : 1995 Provider: VANNESA Farfan Age/Sex: 29/F Location: [facility] [facility] Status: Signed Intake Vital Signs 08/13/24 14:11 09/10/24 08:48 10/01/24 10:05 10/01/24 10:13 Height 5 ft 7 in 5 ft 7 in 5 ft 7 in 5 ft 7 in Weight: 188 lb BMI 29.4 BP 104/68 Intake Visit Reasons: 28wk ob/glucose Chief Complaint: 28 Week OB/Glucose 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 Is patient in pain?: No [...] history of BRCA2 gene positive Surgical History [place] teeth removed Family History Mother BRCA gene mutation positive Preventative mastectomy done, 16 other relatives also + Aunt Breast cancer Social History household members: significant other and children number of children: 1 current occupational status: employed current occupation: [employer] in [place] current occupational exposures/hazards: No pets and animals: [...] 3-4 times per week duration: 15-30 minutes/day carissa/orthodoxy: None seatbelt use: always do you feel safe at home: Yes additional social history: Fianc?: Shmuel - [employer] in [place] History 2 Elective abortions Hx Para 1 Spontaneous abortions Hx # Term Pregnancies 1 Ectopic pregnancies Hx # Pregnancies Multiple births # of living children 1 Past Pregnancies Del. Date Name GA/Weeks Outcome Route Bth Weight Infant Gen Labor Lgth Anesthesia Del Locatn Provider FOB 05/14/19 Annie 42 live - full term 8lbs 4oz Female 10hours epidural [facility] Dr Fall, Cintia Jones Delivery Date: 05/14/19 [...] 145 20 -?-?-?-?-?-?-?-?-?-?-?-?- KW- no vb/john harmon. kelsey fm. [place] reviewed. discussed tdap, flu and [...] tub use, Seat Belt use, [facility], Travel, Indications for Ultrasound and Screening [...] Symptoms of Preeclampsia, Infant Feeding No , [place] Education and Family Medical Leave or Disability [...] mutation positive: Status: Acute Comment: OBGYN in [place]; gets yearly MRI w/contrast (Due / but wants to cancel d/t ) Orders: Orders POC Urinalysis 2 Dip (Clinic) Today Plan problem list reviewed and updated for most current plan of care and appropriate orders placed. Relevant counseling for the gestational age appropriate provided and ACOG education checklist updated. Continue routine care and follow up. 10/01/24 1024 s SUPERINTENDENT PRESSURE SUPERINTENDENT PRESSURE-C> Date _ Tawanna Farfan SUPERINTENDENT PRESSURE SUPERINTENDENT PRESSURE-C Cosigner Signature: Date (if applicable) CC: ~ 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 S eptember 2024 11:38am acute December 10, 2024 11:38am Supervision of normal acute December 10, 025 11:38am Elevated blood pressure reading in office without diagnosis of hypertension resolved 2024 11:38am BRCA2 gene mutation positive acute December 10, 2024 5:57pm 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 S epte2024 5:57pm Encounter for induction of labor acute December 10, 025 5:57pm Gestational hypertension acute December 10, 2024 5:57pm acute December 10, 2024 5:57pm Supervision of normal acute December 10 025 5:57pm [facility] Work Phone: 1(678) 501-609305-08-2025 Evaluation note* Diagnosis Onset Date Resolution Status [...] Vaginal discharge during acute November 23 1:25pm [facility] Work Phone: 1(699) 551-662505-08-2025 Evaluation note* Diagnosis Onset Date Resolution Status [...] 1:25pm 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 A ugust 18th, 2025 1:25pm acute November 23, 2 025 1:25pm Supervision of normal acute November 23 1:25pm Vaginal discharge during resolved November 23 1:25pm BRCA2 gene mutation positive acute November 26, 2024 10:34am 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 A ugust 2024 10:34am acute November 26, 2 025 10:34am Supervision of normal acute November 26 10:34am [facility] Work Phone: 1(681) 794-868905-08-2025 Evaluation note* Diagnosis Onset Date Resolution Status [...] Supervision of normal acute December 03 2:46pm [facility] Work Phone: 1(520) 184-283705-08-2025 Evaluation note* Diagnosis Onset Date Resolution Status Admit Date BRCA2 gene mutation positive acute August 13, 2024 2:08pm 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 M 2024 2:08pm acute August 13, 2024 2:08pm Supervision of normal acute August 13, 2024 2: 08pm BRCA2 gene mutation positive acute September 10, 2024 8:43am 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 J [facility] 2024 8:43am acute September 10, 2024 8:43am [...] 2024 11:38am 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 Work Phone: 1(248) 708-411704-10-2025 Evaluation note* Diagnosis Onset Date Resolution Status [...] 2024 8:43am 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 J [facility] 2024 8:43am acute September 10, 2024 8:43am [...] normal acut e November 13, 2024 10:23am [facility] Work Phone: 1(226) 810-409003-14-2025 NoteHNO ID: [id number] Author: ERICK DOWELL APRN.PERFORMANCE IMPROVEMENT ANALYST Service: ? Author Type: Nurse Practitioner Type: Progress Notes Filed: 06/19/2024 09:40 Note Text: This note was created using Intelligence Architectsriter. Subjective Anju Sen is a 29 year [...] aches, any other new or worsening concerns. Eirck Dowell APRN.[facility] [facility] History of Present illness Narrative* Erick Dowell APRN.PERFORMANCE IMPROVEMENT ANALYST - 06/19/2024 9:32 AM EDT This note was created using Intelligence Architects[employer]. Subjective Anju Sen is a 29 year [...] any other new or worsening concerns. Erick Dowell APRN.CNP documented in this encounterHol[facility]* Diagnosis Onset Date Resolution [...] normal acut e October 01, 2024 9:45am [facility] Work Phone: 1(488) 781-548103-13-2025 Evaluation note* Diagnosis Onset Date Resolution Status [...] normal acut e October 16, 2024 3:05pm [facility] Work Phone: [phone] Evaluation note* Diagnosis Onset Date Resolution Status Admit Date BRCA2 gene mutation positive acute May 21, 2024 11:05am acute May 21, 2024 11:05am Supervision of normal acute May 21, 2 025 11:05am BRCA2 gene mutation positive acute June [...] normal acute September 10, 2024 8 :43am [facility] Work Phone: 1(282) 927-150403-07-2024 History of Present illness Narrative* Yaz James - 06/13/2023 3:40 PM EST Anju Barber Dhara was offered and declined a Medical Wood Technologist for this exam/procedure/test 06/16/2023. * Jamal Lagos MD - 06/13/2023 3:40 PM EST Patient [...] mutation in the BRCA2 gene called c.610delC (p.Ybk667Iltib*6), which puts her at 50% risk for [...] available to Ms. Francy govea through the [facility] Division of Human Genetics. The first [...] or they may contact us by calling [phone]. Ms. Sen may be interested in [employer] (www.GoIn[employer].org), an internet based support group specifically for families with BRCA gene mutations that meets regularly locally. She may also be interested inBe [employer] (www.Kindling.org), an internet based support group specifically for young women with elevated cancer risks. The [employer] [place] Chapter page with event announcements can be found here: [email or web address]/communities/[email or web address]/ IMPRESSION AND PLAN: Based upon Ms. Francy [...] skin and eye exam for melanoma. Follow [place] [employer] Society guidelines for other cancer surveillance. See: http://www.cancer.org/ healthy/findcancerearly/cancerscreeningguidelines/llvvojmh-ebfwle-scobezo-guidel qgqc-fsk-rma-eenfu-ltgnlnyaq-bn-cancer There are reproductive options for individuals with [...] Recommendations for screening are subject to change control manager time. We encouraged Ms. Sen to maintain current contact information with our office and to check regularly with her care providers to ensurethat the most current recommendations are being followed. HISTORY OF PRESENT ILLNESS Anju Jules is a premenopausal 28 y.o. White female who presents to the [facility] for risk assessment and [...] had single site testing on 08/27/17 through [facility] and was positive for pathogenic mutation in BRCA2 c.610delC (p.Gtj720Zvxql*6). She denies any current or new breast concerns, including lumps, skin changes, nipple changes/discharge or pain. She reports that she examines her breasts occasionally. SCREENING & HEALTH MAINTENANCE Colonoscopy: never Skin cancer screening: As needed - does have a derm Eye exams: annually Dental exams: Twice annually BMD: never Vitamin D deficiency: None known FIRST HELPER exams: Annually - [facility] FIRST HELPER Head Of Housekeeping RISK FACTORS FOR BREAST CANCER Social History Social History Narrative FIRST HELPER: Patient's last menstrual period was 06/26/2021.. Last [...] had single site testing on 08/27/17 through [facility] and was positive for pathogenic mutation in BRCA2 c.610delC (p.Ngw259Ikxtg*6). Genes tested: BRCA2 Family Members with Genetic [...] Sitting) Pulse 85 Resp 16 Ht 5' 5" (1.651 m) Wt 165 lb (74.8 kg) [...] was interested in a referral to Dr. Lagos for management. I will place this referral. [...] individuals with 2 BRCA1 pathogenic variants. - [facility] for risk of autosomal recessive condition in [...] had single site testing on 08/27/17 through [facility] and was positive for pathogenic mutation in BRCA2 c.610delC (p.Btw271Kmpzd*6). Chemoprevention discussion: She does not currently meet [...] her and pointed out 2 resources from [employer] and [employer] websites. I also spent some time talking [...] were answered. Again, she does have followup. (DOC:[id number]) Current Outpatient Medications Medication Sig Multiple Vitamins-Minerals [...] Asked Domestic Violence No Social History Narrative FIRST HELPER: Patient's last menstrual period was 06/26/2021.. Last [...] Sitting) Pulse 85 Resp 16 Ht 5' 5" (1.651 m) Wt 165 lb (74.8 kg) [...] thetime counseling this patient. [facility] Discharge instructions* Discharge Instructions* Dayanna Ariza MD - 06/22/2022 1:24 AM EDT US PELVIC W TRANSVAGINAL Final Result IMPRESSION: 1. 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 2. Hemorrhagic right ovarian cyst measuring up to 3.6 cm. 3. Normal left ovary. I personally viewed and interpreted these images and I have reviewed and approved this report. * Attachments The following attachments cannot be sent through Care Everywhere. * Vaginal Bleeding (Faroese) documented in [facility] encounter[facility] History of Present illness Narrative* Akila Bey - 06/21/2022 10:36 PM EDT Medical Wood Technologist Declined. documented [facility] Emergency department Note* Cassandra Regalado RN [...] chest pain or shortness of breath. [facility] Emergency department Note* Cassandra Regalado RN [...] or shortness of breath. [facility] History of Present illness Narrative* Miranda Donaldson - 03/23/2022 4:20 PM EST Second technologist present for imaging. No need for medical care transition mgr. documented in this [facility]09-13-2022 History of Present illness Narrative* Jamal Lagos MD - 12/19/2021 4:30 PM EDT Patient [...] mutation in the BRCA2 gene called c.610delC (p.Tsn052Vlsqt*6), which puts her at 50% risk for [...] available to Ms. Francy govea through the [facility] Division of Human Genetics. The first [...] or they may contact us by calling [phone]. Ms. Sen may be interested in [employer] (www.GoInformatics.org), an internet based support group specifically for families with BRCA gene mutations that meets regularly locally. She may also be interested in[employer] (www.Kindling.org), an internet based support group specifically for young women with elevated cancer risks. The [employer] [place] Chapter page with event announcements can be found here: [email or web address]/communities/[email or web address]/ IMPRESSION AND PLAN: Based upon Ms. Sen [...] skin and eye exam for melanoma. Follow [place] Cancer Society guidelines for other cancer surveillance. See: http://www.cancer.org/ healthy/findcancerearly/cancerscreeningguidelines/lztfsubs-apallm-nheyhqq-guidel jxqi-jyi-qeq-oqmgc-xyxlcqhbj-kf-cancer There are reproductive options for individuals with [...] Recommendations for screening are subject to change control manager time. We encouraged Ms. Sen to maintain current contact information with our office and to check regularly with her care providers to ensurethat the most current recommendations are being followed. HISTORY OF PRESENT ILLNESS Anju Jules is a premenopausal 26 y.o. White female who presents to the [facility] for [...] had single site testing on 08/27/17 through [facility] and was positive for pathogenic mutation in BRCA2 c.610delC (p.Sll211Yldai*6). She denies any current or new breast concerns, including lumps, skin changes, nipple changes/discharge or pain. She reports that she examines her breasts occasionally. SCREENING & HEALTH MAINTENANCE Colonoscopy: never Skin cancer screening: As needed - does have a derm Eye exams: annually Dental exams: Twice annually BMD: never Vitamin D deficiency: None known FIRST HELPER exams: Annually - [facility] FIRST HELPER Head Of Housekeeping RISK FACTORS FOR BREAST CANCER Social History Social History Narrative FIRST HELPER: Patient's last menstrual period was 06/26/2021.. Last [...] had single site testing on 08/27/17 through [facility] and was positive for pathogenic mutation in BRCA2 c.610delC (p.Rbq837Boliv*6). Genes tested: BRCA2 Family Members with Genetic [...] 76 Resp 16 Ht 1.664 m (5' 5.5") Wt 67.1 kg (148 lb) SpO2 99% [...] was interested in a referral to Dr. Lagos for management. I will place this referral. [...] individuals with 2 BRCA1 pathogenic variants. - [facility] for risk of autosomal recessive condition in [...] had single site testing on 08/27/17 through [facility] and was positive for pathogenic mutation in BRCA2 c.610delC (p.Mep915Ujvjd*6). Chemoprevention discussion: She does not currently meet [...] Asked Domestic Violence No Social History Narrative FIRST HELPER: Patient's last menstrual period was 06/26/2021.. Last [...] 76 Resp 16 Ht 1.664 m (5' 5.5") Wt 67.1 kg (148 lb) SpO2 99% [...] her and pointed out 2 resources from [employer] and [employer] websites. I also spent some time talking [...] were answered. Again, she does have followup. (DOC:[id number]) documented in [facility] encounterC[facility] History of Present illness Narrative* Adeola Cierra Tirado, SMOKING PIPE MOUNTER-PERFORMANCE IMPROVEMENT ANALYST - 06/26/2021 7:15 PM EDT HPI Anju Gudino-Francy female 1995 presents to the [facility] with Chief Complaint Patient [...] (Temporal) Resp 16 Ht 1.651 m (5' 5") Wt 66 kg (145 lb 9.6 oz) [...] JUAN RAMON Bain 06/26/2021 documented in this encounterBarnesville HospitalEvaluation note* Diagnosis Viral pharyngitis- Primary Acute pharyngitis Sore throat Acute pharyngitis documented in this encounter [facility]* Diagnosis Thyroid mass- Primary Unspecified disorder of thyroid Encounter for initial prescription of contraceptive pills General counseling for prescription of oral contraceptives BRCA2 gene mutation positive in female Cervical cancer screening Screening for malignant neoplasm of the cervix documented in this encounter [facility]* Diagnosis Family history of breast cancer Family history of malignant neoplasm of breast At high risk for breast cancer BRCA2 gene mutation positive in female documented in this encounter [facility]* Diagnosis Vaginal bleeding- Primary Other specified noninflammatory disorder of vagina Right ovarian cyst Other and unspecified ovarian cyst documented in this encounter [facility]* Diagnosis BRCA2 gene mutation positive in female- Primary Cyst of right ovary Other and unspecified ovarian cyst documented in this encounter [facility]* Diagnosis Tick bite of abdomen, initial encounter- Primary documented [facility] Attachments The following attachments cannot be sent through Care Everywhere. * Sore Throat (Faroese) documented in this encounterBarnesville HospitalProgress note Author Tawanna Farfan [facility] Note Date/Time October 01, 2024 10:2 3am [facility] [address] [place] [address], [address] [place] [address] OFFICE VISIT Date of Service: 10/01/24 MR#: [id number] Acct: [id number] Name: ANJU MUELELR p #: [id number] : 1995 Provider: VANNESA Farfan Age/Sex: 29/F Location: [facility] Status: Signed Intake Vital Signs 08/13/24 14:11 09/10/24 08:48 10/01/24 10:05 10/01/24 10:13 Height 5 ft 7 in 5 ft 7 in 5 ft 7 in 5 ft 7 in Weight: 188 lb BMI 29.4 BP 104/68 Intake Visit Reasons: 28wk ob/glucose Chief Complaint: 28 Week OB/Glucose 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 Is patient in pain?: No [...] history of BRCA2 gene positive Surgical History [place] teeth removed Family History Mother BRCA gene mutation positive Preventative mastectomy done, 16 other relatives also + Aunt Breast cancer Social History household members: significant other and children number of children: 1 current occupational status: employed current occupation: [employer] in [place] current occupational exposures/hazards: No pets and animals: [...] 3-4 times per week duration: 15-30 minutes/day carissa/orthodoxy: None seatbelt use: always do you feel safe at home: Yes additional social history: Fianc?: Shmuel - [employer] in [place] History 2 Elective abortions Hx Para 1 Spontaneous abortions Hx # Term Pregnancies 1 Ectopic pregnancies Hx # Pregnancies Multiple births # of living children 1 Past Pregnancies Del. Date Name GA/Weeks Outcome Route Bth Weight Gen Labor Lgth Anesthesia Del Locatn Provider FOB 05/14/19 Annie 42 live - full term 8lbs 4oz Female 10hours epidural [facility] Fall, Cintia Boris Robert Delivery Date: 05/14/19 Last [...] Preferences- CB/BF classes: no labor support person: Shmeul labor intervention preferences: [] pain management options [...] 116/77 Negative -?-?-?-?-?-?-?-?-?-?-?-?- Negative 158 -?-?-?-?-?-?-?-?--?-?-?-?- [facility] still co nsistent with established GA. no [...] Symptoms of Preeclampsia, Infant Feeding No , [place] Education and Family Medical Leave or Disability [...] mutation positive: Status: Acute Comment: OBGYN in [place]; gets yearly MRI w/contrast (Due / but wants to cancel d/t ) Orders: Orders POC Urinalysis 2 Dip (Clinic) Today Plan problem list reviewed and updated for most current plan of care and appropriate orders placed. Relevant counseling for the gestational age appropriate provided and ACOG education checklist updated. Continue routine care and follow up. 10/01/24 1024 <Electronically signed by Tawanna govea NP SUPERINTENDENT PRESSURE-C> Date _ Tawanna SIMMONSC Cosigner Signature: Date (if applicable) CC: ~ [facility] Work Phone: Progress note Author Taina Huddleston [facility] Note Date/Time October 29, 2024 10:4 2am [facility] [address] [place] [address], [address] [place] [address] OFFICE VISIT Date of Service: 10/29/24 MR#: [id number] Acct: [id number] Name: ANJU MUELLER p #: [id number] : 1995 Provider: Dr. Charli Huddleston MD Age/Sex: 29/F Location: [facility] Status: Signed Intake Vital Signs 10/01/24 10:13 10/16/24 15:07 10/29/24 10:12 Height 5 ft 7 in 5 ft 7 in 5 ft 7 in Weight: 196 lb 6 oz BMI 30.7 BP 112/73 Intake Visit Reasons: 32 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 Is patient in pain?: No [...] history of BRCA2 gene positive Surgical History [place] teeth removed Family History Mother BRCA gene mutation positive Preventative mastectomy done, 16 other relatives also + Aunt Breast cancer Social History household members: significant other and children number of children: 1 current occupational status: employed current occupation: [employer] in [place] current occupational exposures/hazards: No pets and animals: [...] 3-4 times per week duration: 15-30 minutes/day carissa/orthodoxy: None seatbelt use: always do you feel safe at home: Yes additional social history: Fianc?: Shmuel - [employer] in [place] History 2 Elective abortions Hx Para 1 Spontaneous abortions Hx # Term Pregnancies 1 Ectopic pregnancies Hx # Pregnancies Multiple births # of living children 1 Past Pregnancies Del. Date Name GA/Weeks Outcome Route Bth Weight Gen Labor Lgth Anesthesia Del Locatn Provider FOB 05/14/19 Annie 42 live - full term 8lbs 4oz Female 10hours epidural [facility] Fall, Cintia Boris Jones Delivery Date: [...] 178 -?-?-?-?-?-?-?-?-?-?-?-?- [facility]- [facility] cons wit h roverto. accepts NIPT 06/18/24 -?-?-?-?-?-?-?-?-?-?-?-?- 13w 2d 162 lb 8 oz (+2 lb 8 oz) 116/77 Negative -?-?-?-?-?-?-?-?-?-?-?-?- Negative 158 -?-?-?-?-?-?-?-?-?-?-?-?- [facility] still co nsistent with established GA. no [...] 28 wk labs pending. matthew Reddy. 10/16/24 -?-?-?-?-?-?-?-?-?-?-?-?- 30w 3d 190 lb 8 [...] and Symptoms of Preeclampsia, Feeding No , [place] Education and Family Medical Leave or Disability [...] 12/22/24, Annika matute PC: Hank [place]?: Shmuel (3) : Status: Acute Qualifiers: Weeks of gestation: 32 weeks Qualified Code(s): Z3A.32 - 32 weeks gestation of Comment: NIPT low risk- carrier neg /14 carrier for cystic fibrosis, nl anatomy. (4) BRCA2 gene mutation positive: Status: Acute Comment: OBGYN in [place]; gets yearly MRI w/contrast (Due 2/3 but wants to cancel d/t ) Orders: Orders POC Urinalysis 2 Dip (Clinic) Today 10/29/24 1042 <Electronically signed by Taina brumfield MD> Date _ Taina Anthony Signature: Date (if applicable) CC: ~ [facility] Work Phone: Progress note Author Yris Brown [facility] Note Date/Time November 13, 2024 10: 40am [facility] [address] [place] [address], [address] [place] [address] OFFICE VISIT Date of Service: 11/13/24 MR#: [id number] Acct: [id number] Name: ANJU MUELLER Halima p #: [id number] : 1995 Provider: FRANSISCO Brown Age/Sex: 29/F Location: [facility] Status: Signed Intake Vital Signs 10/01/24 10:13 10/29/24 10:12 11/13/24 10:26 Height 5 ft 7 in 5 ft 7 in 5 ft 7 in Weight: 198 lb 5 oz BMI 31.0 BP 122/76 H Intake Visit Reasons: 34 wk ob Chief Complaint: 34wk OB 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 Is patient in pain?: No Allergies No Known Allergies Allergy (Verified 11/13/24 10:24) Medications ?Medication ?Instructions ?Recorded ?Confirmed ?Type vits no.126-ferrous fum tab PO 05/08/2411/13 History 28 mg iron-folic acid 800 mcg tablet (Classic ) Last Menstrual Period: 03/17/24 : No PFSH PFSH Medical History BRCA2 gene mutation positive Family history of BRCA2 gene positive Surgical History [place] teeth removed Family History Mother BRCA gene mutation positive Preventative mastectomy done, 16 other relatives also + Aunt Breast cancer Social History household members: significant other and children number of children: 1 current occupational status: employed current occupation: [employer] in [place] current occupational exposures/hazards: No pets and animals: [...] 3-4 times per week duration: 15-30 minutes/day carissa/orthodoxy: None seatbelt use: always do you feel safe at home: Yes additional social history: Fianc?: [employer] in [place] History 2 Elective abortions Hx Para 1 Spontaneous abortions Hx # Term Pregnancies 1 Ectopic pregnancies Hx # Pregnancies Multiple births # of living children 1 Past Pregnancies Del. Date Name GA/Weeks Outcome Route Bth Weight Gen Labor Lgth Anesthesia Del Locatn Provider FOB 05/14/19 Annie 42 live - full term 8lbs 4oz Female 10hours epidural [facility]ero[facility], Cintia Jones Delivery Date: 05/14/19 [...] and Symptoms of Preeclampsia, Feeding No , [place] Education and Family Medical Leave or Disability [...] mutation positive: Status: Acute Comment: OBGYN in [place]; gets yearly MRI w/contrast (Due 2/3 but [...] Cosigner Signature: Date (if applicable) CC: ~ [facility] Work Phone: Progress note Author Yris Brown [facility] Note Date/Time November 23, 2024 2: 37pm [facility] Medical Records Department [address] [place] [address] OB Triage Progress Note 11/23/24 1436 MR#: [id number] Acct: [id number] Name: SEGUNDO SENANJU BARBER Rep # :[id number] : 1995 29 From: Yris Brown CNM PCP: Care Physician,No Primary Status :REG CLI Y DOS: Location: [place] [address] Progress Notes Date of Service: 11/23/24 Progress Note: Patient presents for triage evaluation secondary to vaginal discharge at 35.6 weeks FHT: 145 Moderate variability reactive no decelerations category I tracing [place]: irregular Contractions Assessment and plan: neg rom, Reactive NST, reassuring maternal and statuspatient discharged to home to follow-up in office. See problem list details foradditional plan information. Laboratory Studies: Laboratory Tests 11/23/24 Range/Units 13:55 Vag Amniotic Fld Detect Negative (Negative) Charges/Coding Multi Select Codes Urinary/Genital Urinary/Genital CPT Codes: 45770-33 non-stress test Interp Assessment & Plan (1) [...] BRCA2 gene mutation positive: COMMENT: OBGYN in [place]; gets yearly MRI w/contrast (Due / but wants to cancel d/t ) 11/23/24 1437 <Electronically signed by rYis govea CNM> Date _ Yris Brown CNM Cosigner Signature (if applicable): Date CC: FRANSISCO Brown; No Primary Care Physician ~ Signed [facility] Work Phone: Progress note Author Taina Huddleston [facility] Note Date/Time November 26, 2024 11 :19am [facility] [address] [place] [address], [address] [place] [address] OFFICE VISIT Date of Service: 11/26/24 MR#: [id number] Acct: [id number] Name: ANJU MUELLER p #: [id number] : 1995 Provider: Dr. Charli Huddleston MD Age/Sex: 29/F Location: [facility] Status: Signed Intake Vital Signs 10/01/24 10:13 11/13/24 10:26 11/23/24 14:01 11/26/24 10:46 Height 5 ft 7 in 5 ft 7 in 5 ft 7 in 5 ft 7 in Weight: 203 lb 5 oz BMI 31.8 BP 110/73 Intake Visit Reasons: 36 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 Is patient in pain?: No [...] history of BRCA2 gene positive Surgical History [place] teeth removed Family History Mother BRCA gene mutation positive Preventative mastectomy done, 16 other relatives also + Aunt Breast cancer Social History household members: significant other and children number of children: 1 current occupational status: employed current occupation: [employer] in [place] current occupational exposures/hazards: No pets and animals: [...] 3-4 times per week duration: 15-30 minutes/day carissa/orthodoxy: None seatbelt use: always do you feel safe at home: Yes additional social history: Fianc?: [employer] in [place] History 2 Elective abortions Hx Para 1 Spontaneous abortions Hx # Term Pregnancies 1 Ectopic pregnancies Hx # Pregnancies Multiple births # of living children 1 Past Pregnancies Del. Date Name GA/Weeks Outcome Route Bth Weight Infant Gen Labor Lgth Anesthesia Del Locatn Provider FOB 05/14/19 Annie 42 live - full term 8lbs 4oz Female 10hours epidural [facility] Dr Fall, Cintia Jones Delivery Date: 05/14/19 [...] Preferences- CB/BF classes: no labor support person: Shmule labor intervention preferences: [] pain management options [...] Symptoms of Preeclampsia, Infant Feeding No , [place] Education and Family Medical Leave or Disability [...] 13/14 carrier for cystic fibrosis, nl anatomy. (4) BRCA2 gene mutation positive: Status: Acute Comment: OBGYN in [place]; gets yearly MRI w/contrast (Due 2/3 but wants to cancel d/t ) Orders: Orders POC Urinalysis 2 Dip (Clinic) Today Culture, Group B Streptococcus Today Z34.83 - Encounter for supervision of other normal , third trimester 11/26/24 1119 <Electronically signed by Taina brumfield MD> Date _ Taina Huddleston MD Cosigner Signature: Date (if applicable) CC: ~ [facility] Work Phone: Progress note Author Yris Brown [facility] Note Date/Time December 10, 2024 11:59am [facility] [address], [address] [place] [address] OFFICE VISIT Date of Service: 12/10/24 MR#: [id number] Acct: [id number] Name: ANJU MUELLER Halima p #: [id number] : 1995 Provider: FRANSISCO Brown Age/Sex: 29/F [facility] [facility] [place] Status: Signed Intake Vital Signs 10/29/24 10:12 12/03/24 14:52 12/10/24 11:41 12/10/24 11:41 Height 5 ft 7 in 5 ft 7 in 5 ft 7 in 5 ft 7 in Weight: 208 lb 8 oz 208 lb BMI 32.6 32.5 BP 118/76 137/90 H Intake Visit Reasons: 38 WK OB Chief Complaint: 38wk OB 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 Is patient in pain?: No [...] history of BRCA2 gene positive Surgical History [place] teeth removed Family History Mother BRCA gene mutation positive Preventative mastectomy done, 16 other relatives also + Aunt Breast cancer Social History household members: significant other and children number of children: 1 current occupational status: employed current occupation: [employer] in [place] current occupational exposures/hazards: No pets and animals: [...] 3-4 times per week duration: 15-30 minutes/day carissa/orthodoxy: None seatbelt use: always do you feel safe at home: Yes additional social history: Fianc?: [employer] in [place] History 2 Elective abortions Hx Para 1 Spontaneous abortions Hx # Term Pregnancies 1 Ectopic pregnancies Hx # Pregnancies Multiple births # of living children 1 Past Pregnancies Del. Date Name GA/Weeks Outcome Route Bth Weight Infant Gen Labor Lgth Anesthesia Del Locatn Provider FOB 05/14/19 Annie 42 live - full term 8lbs 4oz Female 10hours epidural H Dr Richardsons, Cintia Jones Delivery Date: [...] 119/82 Negative -?-?-?-?-?-?-?-?-?-?-?-?- Negative 145 20 -?-?-?-?-?-?--?-?-?-?-?-?- - no vb/crampi ng. good fm. US [...] 104/68 Negative -?-?-?--?-?-?-?-?-?-?-?-?- Negative 143 28 -?-?-?-?-?-?-?-?-?-?-?-?- -NoVB, LOF. Go [...] mutation positive: Status: Acute Comment: OBGYN in [place]; gets yearly MRI w/contrast (Due 05/11 but wants to cancel d/t ) (5) [...] Cosigner Signature: Date (if applicable) CC: ~ [facility] Work Phone: Reason for referral (narrative)No reason for [facility] Phone: Summary Purpose Family History No Family History Records Found Relationship Condition Age at Onset Recorded Date/T case mother BRCA gene mutation positive Unknown aunt Malignant neoplasm of breast Unknown Advance Directives No Advanced Directives Records Found Advance Directive Response Recorded Date/ Time Living Will No May 24 11:16am Do you have a Healthcare Power of Attache? No May 24, 2024 11:16am Advance Directive Response Recorded Date/ Time Do you have a Healthcare Power of Attache? No December 10, 2024 6:05pm Reason for Referral Specialty Diagnoses / Procedures Referred By Contac t Referred To Contact Diagnoses Family history of breast cancer At high risk for breast cancer BRCA2 gene mutation positive in female Procedures MRI BREAST BILATERAL WITH AND WITHOUT CONTRAST CHG MRI BREAST WITHOUT&WITH CONTRAST W/CAD BILATERAL Archana Garcia, SMOKING PIPE MOUNTER-PERFORMANCE IMPROVEMENT ANALYST [address] [place] [address] Referral ID Status Reason Start Date Expiration Date Visits Re quested Visits Authorized [id number] Closed 07/18/2021 08/12/2022 1 1 Specialty Diagnoses / Procedures Referred By Contac t Referred To Contact Procedures US PELVIC W TRANSVAGINAL Dayanna Ariza MD [address] [place] [address] Referral ID Status Reason Start Date Expiration Date V isits Requested Visits Authorized [id number] New Request 06/21/2022 07/16/2023 1 1 Specialty Diagnoses / Procedures Referred By Yuliya t Referred To Contact Diagnoses BRCA2 gene mutation positive in female Cyst of right ovary Procedures US IMAGING [facility] Jamal Lagos MD [address] [place] [address] Referral ID Status Reason Start Date Expiration Date V isits Requested Visits Authorized [id number] New Request 06/13/2023 07/07/2024 1 1 Chief [...] December 102024 11:38am Cystic fibrosis carrier December 10 11:38am Elevated blood pressure read ing in office without diagnosis of hypertension December 10, 2024 11:38am December 10, 2024 11:38am Supervision of normal Septemb2024 11:38am Chief Complaint Admit Date 21 wk [...] check per SM December 10, 2024 2:53pm Chief Complaint Admit Date 25 wk ob September 10, 2024 8:43a [...] check per SM December 10, 2024 2:53pm R/O PRE E December 10, 2024 5:40pm VAGINAL DELIVERY December 10, 2024 5:57pm LABOR AND DELIVERY December 11, 2024 8:22am VAGINAL DELIVERY December 12, 2024 11:16am Reason for Visit Admit Date BRCA2 gene mutation positive September 10 025 8:43am Cystic fibrosis carrier September 10, [...] December 102024 11:38am Cystic fibrosis carrier December 10 025 11:38am December 10, 2024 11:38am Supervision of normal Septembe r 2024 11:38am Elevated blood pressure read ing in office without diagnosis of hypertension December 10, 2024 11:38am BRCA2 gene mutation positive December 102024 5:57pm Cystic fibrosis carrier December 10 5:57pm Encounter for induction of labor Septemb er 2024 5:57pm Gestational hypertension December 10, 2024 5:57pm December 10, 2024 5:57pm Supervision of normal Septembe r 2024 5:57pm Vaginal delivery December 10, 2024 5:57pm Additional Source Comments INFORMATION SOURCE (unrecogn ized section and content) DATE CREATED AUTHOR 09/07/2020 [facility] DATE CREATED AUTHOR AUTHOR'S ORGANIZ ATION 06/30/2021 [facility] DATE CREATED AUTHOR AUTHOR'S ORGANIZ ATION 05/20/2024 [facility] DATE CREATED AUTHOR AUTHOR'S ORGANIZ ATION 06/22/2024 [facility] DATE CREATED AUTHOR AUTHOR'S ORGANIZ ATION 07/31/2024 [facility] DATE CREATED AUTHOR AUTHOR'S ORGANIZ ATION 01/16/2025 [facility] Reason for Visit (unrecogniz ed section [...] BREAST WITHOUT&WITH CONTRAST W/CAD BILATERAL Archana Garcia, SMOKING PIPE MOUNTER-PERFORMANCE IMPROVEMENT ANALYST [address] [place] [address] Referral ID Status Reason Start Date Expiration Date Visits Requested Visits Authorized [id number] Authorized - Humza 07/18/2021 08/12/2022 1 1 Reason Comments New Patient BRCA2 gene mutation Ultrasound Declined Wood Technologist Specialty Diagnoses / Procedures Referred By Yuliya lee Referred To Contact Gynecology Diagnoses BRCA2 gene mutation positive in female Jose, Archana Roque, SMOKING PIPE MOUNTER-PERFORMANCE IMPROVEMENT ANALYST [address] [place] [address] Jamal Lagos MD [address] [place] [address] Referral ID Status Reason Start Date Expiration Date V isits Requested Visits Authorized [id number] New Request 07/18/2021 08/12/2022 1 1 Referral ID Status Reason Start Date Expiration Date Visits Re quested Visits Authorized [id number] Closed 07/18/2021 08/12/2022 1 1 Reason Comments Vaginal Bleeding Reason Comments Ultrasound Follow-up FIRST HELPER Reason Comments Tick bite L side area, redness , swelling, thinks head is still in there, removed body this am Care Teams (unrecognized sec tion and content) Denier Control Operator Relationship Specialty Start Date End Date Self, Self PCP - General Other 06/21/22 Denier Control Operator Relationship Specialty Start Date End Date Self, [...] End: July 16, 2024 Tawanna Farfan NP, SUPERINTENDENT PRESSURE-C Attending Provider Active Start: July 16, 2024 [...] 2024 End: October 01, 2024 Tawanna Farfan SUPERINTENDENT PRESSURE, SUPERINTENDENT PRESSURE-C Attending Provider Active Start: October 01, 2024 [...] 2024 End: July 16, 2024 Tawanna Farfan NP SUPERINTENDENT PRESSURE-C Attending Provider Active Start: July 16, 2024 [...] October 01, 2024 End: October 01, 2024 IRIS Browning NPC Attending Provider Active Start: October 01, 2024 [...] July 16, 2024 End: July 16, 2024 IRIS Browning NPC Attending Provider Active Start: July 16, 2024 [...] End: October 01, 2024 Tawanna Farfan NP, SUPERINTENDENT PRESSURE-C Attending Provider Active Start: October 01, 2024 [...] End: October 01, 2024 Tawanna Farfan NP, SUPERINTENDENT PRESSURE-C Attending Provider Active Start: October 01, 2024 [...] 2024 End: December 10, 2024 Team Status: Inactive Member [...] 2024 End: October 01, 2024 Tawanna Farfan SUPERINTENDENT PRESSURE, SUPERINTENDENT PRESSURE-C Attending Provider Active Start: October 01, 2024 [...] 26, 2024 End: November 26, 2024 Dr. Tania Huddleston MD Attending Provider Active Start: November [...] Provider Active S tart: December 10, 2024 Yirs Brown CNM Referring Provider Active S tart: [...] Care Provider Active Start: December 10, 2024 Dr. Taina Huddleston MD Attending Provider Active Start: December 10, 2024 Dr. Taina Huddleston MD Referring Provider Active Start: December 10, 2024 Dr. Taina Huddleston MD Other Provider Active Start: December 10, 2024 Team Status: Inactive Member Role/Relationship Status Dates No Primary Care Physician Primary Care Provider Active Start: December 10, 2024 End: December 12, 2024 Dr. Taina Huddleston MD Admit Provider Active Start: December 10, 2024 End: December 12, 2024 Dr. Taina Huddleston MD Attending Provider Active Start: December 10, 2024 End: December 12, 2024 Team Status: Active Member Role/Relationship Status Dates No Primary Care Physician Primary Care Provider Active Start: December 11, 2024 Dr. Taina Huddleston MD Admit Provider Active Start: December 11, 2024 Dr. Taina Huddleston MD Attending Provider Active Start: December 11, 2024 Dr. Taina Huddleston MD Other Provider Active Start: December 11, 2024 Team Status: Active Member Role/Relationship Status Dates No Primary Care Physician Primary Care Provider Active Start: December 12, 2024 Dr. Taina Huddleston MD Admit Provider Active Start: December 12, 2024 Dr. Taina Huddleston MD Other Provider Active Start: December 12, 2024 Dayanna Regalado CNM Attending Provider Active Start: December 12, 2024 Team Status: Inactive Member Role/Relationship Status Dates No Primary Care Physician Primary Care Provider Active Start: December 10, 2024 End: December 10, 2024 Yris Brown CNM Attending Provider Active S tart: December 10, 2024 End: December 10, 2024 Yris Brown CNM Referring [...] or prosecute any alcohol or drug abuse patient.[facility] Goals (unrecognized section and content) Goals [...] BE BASED ON THE PRIMARY CLINICAL RECORDS. [facility]. provides no warranty or guarantee of the accuracy or completeness of information in this document.
== END | disposition home or self-care (01) ==
LOC: LABSPEC 16:47
PROVIDERS: Referring Provider Advanced Practice Midwife; Visit Provider Advanced Practice Midwife
DX: Z12.4 Encounter for screening for malignant neoplasm of cervix (principal)
CPT/HCPCS: 88175; G0145

== ENCOUNTER → 2025-02-11 | Outpatient (CLI) | payer MEDICAID, SELFPAY ==
--- NOTE | 2025-02-11 10:56 | MRI_ITS ---
PROCEDURE: MRI/Breast Bilateral W/O and W
== END | disposition home or self-care (01) ==
LOC: MRI 10:51 → OPMRI 10:52
PROVIDERS: Referring Provider Advanced Practice Midwife; Visit Provider Advanced Practice Midwife
DX: Z12.31 Encounter for screening mammogram for malignant neoplasm of breast (principal); Z15.01 Genetic susceptibility to malignant neoplasm of breast; Z15.09 Genetic susceptibility to other malignant neoplasm
CPT/HCPCS: 77049; A9575; A4216; C8908